=== PATIENT | female | born 1935 | race Caucasian/White ===

== ENCOUNTER 2016-04-25 18:01 | Inpatient (IN) | payer MEDICARE, MEDICAID ==
[~2016-04-25] VITALS: Ht 144.8 cm; Wt 34.8 kg
[2016-04-25] MEDS ORDERED: ACET325S GTB (19:20)
[2016-04-25] MEDS ORDERED: ALBU2.5V3 NEB (19:21)
[2016-04-25] MEDS ORDERED: LACTINEXG GTB (19:21)
[2016-04-25] MEDS ORDERED: HYDR-906 GTB (19:22)
[2016-04-25] MEDS ORDERED: MAG355OR14 GTB (19:23)
[2016-04-25] MEDS ORDERED: MAGN400O4 GTB (19:24)
[2016-04-25] MEDS ORDERED: NIT4 SL (19:26)
[2016-04-25] MEDS ORDERED: ONDA-43 GTB (19:26)
[2016-04-25] MEDS ORDERED: FOLI1CAP GTB (19:27)
[2016-04-25] MEDS ORDERED: HYDR-3671 GTB (19:29)
[2016-04-25 19:36] LABS: HEMOGLOBIN 12.6 g/dl (12.0-16.0); MEAN CORPUSCULAR HGB CONC 31.5 g/dl (32.0-37.0); MEAN CORPUSCULAR VOLUME 85.7 fl (82.0-101.0); MEAN PLATELET VOLUME 8.2 fl (7.4-10.4); PLATELET COUNT 296 10^3/UL (140-440); RED BLOOD COUNT 4.67 10^6/ul (4.20-5.40); RED CELL DISTRIBUTION WIDTH 19.2 % (11.5-14.5); UNCORRECTED WBC 11.6 10^3/ul (4.8-10.8); WHITE BLOOD COUNT 11.6 10^3/ul (4.8-10.8)
[2016-04-25 19:41] LABS: CONDITION 1; LH ANALYZER COMMENTS 1; SUSPECT 1
[2016-04-25 19:45] LABS: INR 1.1; PROTIME 14.2 Sec (12.2-14.2); PT RATIO 1.1
[2016-04-25 19:48] LABS: POTASSIUM 4.1 mmol/L (3.5-5.1)
[2016-04-25 19:50] LABS: CREATININE 2.37 mg/dl (0.44-1.00)
[2016-04-25 19:51] LABS: CALCIUM 10.3 mg/dl (8.4-10.2)
--- NOTE | 2016-04-25 19:57 | RADRPT ---
PROCEDURE: XR Chest. CLINICAL INDICATION: Patient experiencing Chest Pain. TECHNIQUE: Single frontal chest x-ray. COMPARISON: None. FINDINGS: The heart is not enlarged. Calcification in the aortic arch. ECG leads are projected over the ches t.There is minimal prominence of the lung interstitium likely minimal chronic changes. Healing/ heal ed rib fractures are seen bilaterally. No focal lung consolidation is seen. Degenerative changes a t right acromioclavicular joint and shoulder and in the thoracic spine. IMPRESSION: No acute abnormality seen as noted above. Please see above. RPTAT: HJES .Joel Beckett MD, Date Time Electronically viewed and signed by .Joel Beckett MD, on 04/25/2016 19:57 .S/
[2016-04-25] MEDS ORDERED: ONDANSETRON 4 MG INJ IV PRN (21:00)
[2016-04-25] MEDS ORDERED: ACETAMINOPHEN 325 MG TAB PO PRN (21:00)
--- NOTE | 2016-04-25 21:04 | ERA ---
ER Documentation Chief Complaint Date/Time DATE: 04/25/16 TIME: 20:59 Chief Complaint pulled out dialysis cath left chest wall; no bleeding at this time. HPI This is an 80-year-old female who presents to the emergency room after being brought in by ambulance for evaluation of dialysis catheter removal. This patient does have a history of end-stage renal disease and is on dialysis Friday , Friday, Friday. She did complete her dialysis today, and became agitated in her intermediate and pulled out her catheter. The catheter was in the left anterior chest wall. The history is not obtainable from this patient due to the fact that she is extremely agitated and does suffer from dementia ROS All systems reviewed and are negative except as per history of present illness. Medications Home Meds Reported Medications Hydralazine Hcl* (Hydralazine Hcl*) 25 Mg Tab, 25 MG GTB Q8 Y for ELEVATED BLOOD PRESSURE, #90 TAB HOLD <110 HR<60 04/25/16 Folic Acid/Vitamin B Comp W-C (Nephrocaps Capsule) 1 Mg Capsule, 1 MG GTB DAILY , CAP 04/25/16 Nitroglycerin* (Nitrostat*) 0.4 Mg Tab.subl, 0.4 MG SL Q5MIN Y for CHEST PAIN, BOTTLE 04/25/16 Ondansetron Hcl* (Zofran*) 4 Mg Tab, 4 MG GTB Q6H Y for NAUSEA AND OR VOMITING, TAB 04/25/16 Magnesium Hydroxide* (Milk Of Magnesia*) 400 Mg/5 Ml Oral.susp, 30 ML GTB DAILY Y for CONSTIPATION, ML 04/25/16 Mag Hydrox/Al Hydrox/Simeth (Maalox Advanced Suspension) 355 Ml Oral.susp, 30 ML GTB Q6 04/25/16 Hydrocodone/Acetaminophen ([place] 5-325 Tablet) 1 Each Tablet, 1 EACH GTB Q4H WHILE AWAKE Y for MODERATE PAIN LEVEL 4-6, TAB 04/25/16 Albuterol Sulfate* (Albuterol Sulfate* Neb) 0.083%-3 Ml Neb, 2.5 MG NEB Q6 Y for WHEEZING AND SOB, #30 VIAL 04/25/16 Acidophilus-Bulgaricus* (BD Lactinex*) 1 Pkt Packet, 1 PKT GTB BID, PACKET 04/25/16 Acetaminophen* (Acetaminophen* Susp) 325 Mg/10.15 Ml Solution, 650 MG GTB Q6 Y for PAIN OR TEMP ABOVE 38C, ML 04/25/16 Allergies Allergies: Coded Allergies: codeine (Verified Allergy, Unknown, 04/25/16) iodine (Verified Allergy, Unknown, 04/25/16) PMhx/Soc Medical and Surgical Hx: Unable to obtain Hx Alcohol Use: No Hx Substance Use: No Hx Tobacco Use: No Smoking Status: Unknown if ever smoked Physical Exam Vitals Vital Signs Date Time Temp Pulse Resp B/P Pulse Ox O2 Delivery O2 Flow Rate FiO2 04/25/16 18:38 98.6 112 20 118/65 100 Physical Exam INITIAL VITAL SIGNS: Reviewed by me GENERAL: The patient is well developed and appropriate for usual state of health in no apparent distress HEENT: Pupils equal, round, and reactive to light. EOMI. There is no scleral icterus. NECK: C-spine is soft and supple, there is no meningismus. There is no cervical lymphadenopathy. LUNGS: Clear to auscultation bilaterally. There are no rales, wheezes or rhonchi. HEART: Regular rate and rhythm, no murmurs, clicks, rubs or gallops. ABDOMEN: Soft, non-tender, non-distended. There are bowel sounds in all four quadrants. No rebound or guarding. EXTREMITIES: There is no peripheral cyanosis or edema. No focal swelling or erythema. NEUROLOGICAL: The patient moves all four extremities with 5/5 strength. Cranial nerves II - XII are intact. Normal gait. Alert and oriented SKIN: Left anterior chest wall stitching were Port-A-Cath was placed, no active bleeding at this time. There is no apparent rash or petechiae. HEME/LYMPHATIC: There is no evidence of excessive bruising or lymphedema. PSYCHIATRIC: The patient has an agitated affect Result Diagram: 04/25/16192004/25/161920 Results 24 hrs Laboratory Tests Test 04/25/16 19:21 Activated Partial Thromboplast Time 70.0Sec Anion Gap 20 Blood Morphology Comment Blood Urea Nitrogen 31mg/dl Calcium Level 10.3mg/dl Carbon Dioxide Level 34mmol/L Chloride Level 95mmol/L Creatinine 2.37mg/dl Glucose Level 91mg/dl Hematocrit 40.0% Hemoglobin 12.6g/dl INR International Normalized Ratio 1.10 Mean Corpuscular Hemoglobin 27.0pg Mean Corpuscular Hemoglobin Concent 31.5g/dl Mean Corpuscular Volume 85.7fl Mean Platelet Volume 8.2fl Nucleated Red Blood Cells # 10^3/ul Nucleated Red Blood Cells % /100WBC Platelet Count 53161^3/UL Potassium Level 4.1mmol/L Prothrombin Time 14.2Sec Prothrombin Time Ratio 1.1 Red Blood Count 4.6710^6/ul Red Cell Distribution Width 19.2% Sodium Level 145mmol/L White Blood Count 11.610^3/ul Procedures/MDM Chest X-ray 1V Interpreted by me: Soft Tissue: No acute abnormalities Bones: No acute abnormalities Mediastinum/Cardiac Silhouette/Lungs: [No acute abnormalities] EKG: Rate/Rhythm: Sinus tachycardia QRS, ST, T-waves: [No changes consistent w/ acute ischemia] Impression: [No evidence of ischemia or arrhythmia] This 80-year-old female presents to the emergency room for evaluation of Port-A- Cath removal. This patient was agitated and pulled her Port-A-Cath out. She does have a history of doing this in the past according to EMS. This patient did complete dialysis today, potassium is within normal limits, chest x-ray does not show any pulmonary edema. This patient was agitated when she got here she had to be restrained, she was given Ativan and will be placed in for admission at this time for Port-A-Cath placement by interventional radiology. She is stable for MedSurg at this time. I have spoken to her panel physician, Dr. Harvey who is in agreement with the plan of care plan of care Departure Diagnosis: Primary Impression: Complication of vascular access for dialysis Additional Impression: Other complication of vascular dialysis catheter, initial encounter Condition: Stable AIDANZBIGNIEW LOPEZ Apr 25, 2016 21:04
[2016-04-25 21:28] LABS: EOSINOPHILS # 0.3 10^3/ul (0.0-0.5); LYMPHOCYTES # 2.8 10^3/ul (0.8-2.9); MONOCYTE # 0.9 10^3/ul (0.3-0.9)
[2016-04-25] MEDS ORDERED: HYDROCODONE/APAP (5/325) TAB GTB PRN (22:00)
[2016-04-25] MEDS ORDERED: NACL 0.9% 3 ML SYG IV SCH (22:00)
[2016-04-25] MEDS ORDERED: MAGNESIUM HYDROXIDE 30ML CUP GTB PRN (22:00)
[2016-04-25] MEDS ORDERED: ALBUTEROL 0.083% (NEB) 2.5 MG/3 ML AMP NEB PRN (22:00)
[2016-04-25] MEDS ORDERED: DOCUSATE SODIUM 10 MG/ML (10ML CUP) GTB PRN (22:00)
[2016-04-25] MEDS ORDERED: morphine 2 MG INJ IV PRN (22:00)
--- NOTE | 2016-04-25 22:45 | HP ---
DATE OF ADMISSION: 04/25/2016 CHIEF COMPLAINT: Permacath removal. HISTORY OF PRESENT ILLNESS: The patient is an 80-year-old female with history of end-stage renal di will, who gets dialysis Mondays, Wednesdays, Fridays. The patient also has a history of dementia. The patient resides in a [facility], which reportedly pulled out her dialysis catheter. The cath eter was in the left anterior chest wall. History is not obtainable from this patient due to the fa ct that she is demented. PAST MEDICAL HISTORY: End-stage renal disease, on dialysis Mondays, Wednesdays, Fridays. HOME MEDICATIONS: 1. Hydralazine. 2. Folic acid. 3. Nitroglycerin. 4. Zofran. 5. Milk of magnesia. 6. Maalox. 7. [place]. 8. Albuterol. 9. Probiotic. 10. Tylenol. ALLERGIES: CODEINE. FAMILY HISTORY: Unknown. SOCIAL HISTORY: Unknown. REVIEW OF SYSTEMS: A 12-point review of systems is unable to be obtained secondary to poor mentatio n. PHYSICAL EXAMINATION: VITAL SIGNS: Temperature is 98.6, pulse is 112, respiratory rate 20, blood pressure 118/65, s aturation 100%. GENERAL: In no acute distress, alert, but not oriented. HEENT: Normocephalic, atraumatic. LUNGS: Clear to auscultation. CARDIOVASCULAR: Regular rate and rhythm. ABDOMEN: Nondistended, nontender, soft. EXTREMITIES: No clubbing, cyanosis, or edema. LABORATORIES: White count is 11.6, hemoglobin is 12.6, platelets 298,000. Chemistry: Sodium is 14 5, chloride of 95, anion gap is 20, BUN is 31, creatinine is 2.27, calcium is 7.3. INR is 1.10. DIAGNOSTICS: Chest x-ray shows no acute abnormalities seen. ASSESSMENT AND PLAN: 1. End-stage renal disease. The patient has removed her dialysis access line. The patient had a c atheter in her left anterior chest wall. We obtained an IR consultation for access placement. We w ill get Nephrology on board as well for hemodialysis. 2. Dementia. No acute issues. 3. Leukocytosis, likely reactive. Will monitor. 4. Prophylaxis: Heparin. Dictated By: MISBAH THORNTON MD BS/NTS Conf#: [id number] [facility]#: [id number]
[2016-04-26] VITALS (7 sets, daily range): BP systolic 106–151; BP diastolic 55–84; PULSE 82–109; RESP 18–20; Ht 144.8 cm; Wt 34.8 kg
[2016-04-26] MEDS: AL HYDROX/MG HYDROX/SIMETH 30 ML CUP GTB SCH ×5 (06:00→23:51)
[2016-04-26] MEDS: VITAMIN B COMPLEX/VIT C CAP PO SCH (09:00)
[2016-04-26] MEDS: LACTOBACILLUS CHEW TAB GTB SCH ×2 (09:00→20:22)
[2016-04-26] MEDS: FOLIC ACID 1 MG TAB PO SCH (09:00)
[2016-04-26] MEDS ORDERED: LACTOBACILLUS RHAMNOSUS CAP PO SCH (09:00)
[2016-04-26] MEDS: DEXTROSE 5%-0.45% NACL 1,000 ML IV SCH (09:53)
[2016-04-26 14:44] LABS: HEMATOCRIT 36.5 % (37.0-47.0); HEMOGLOBIN 12.1 g/dl (12.0-16.0); MEAN CORPUSCULAR HEMOGLOBIN 28.2 pg (29.0-33.0); MEAN CORPUSCULAR VOLUME 85.3 fl (82.0-101.0); MEAN PLATELET VOLUME 8.8 fl (7.4-10.4); PLATELET COUNT 390 10^3/UL (140-440); RED BLOOD COUNT 4.28 10^6/ul (4.20-5.40); RED CELL DISTRIBUTION WIDTH 18.9 % (11.5-14.5); WHITE BLOOD COUNT 10.6 10^3/ul (4.8-10.8)
[2016-04-26 14:53] LABS: CONDITION 1; LH ANALYZER COMMENTS 1; SUSPECT 1; UNCORRECTED WBC 12.1 10^3/ul (4.8-10.8)
[2016-04-26 15:38] LABS: POTASSIUM 4.6 mmol/L (3.5-5.1)
[2016-04-26 15:39] LABS: EOSINOPHILS # 0.4 10^3/ul (0.0-0.5); LYMPHOCYTES # 2.3 10^3/ul (0.8-2.9); MONOCYTE # 1.5 10^3/ul (0.3-0.9)
[2016-04-26 15:40] LABS: MICROCYTOSIS 1+; POLYCHROMASIA FEW
[2016-04-26 15:41] LABS: CREATININE 3.77 mg/dl (0.44-1.00)
[2016-04-26 15:42] LABS: CALCIUM 9.9 mg/dl (8.4-10.2); MAGNESIUM 2.6 mg/dl (1.7-2.5)
--- NOTE | 2016-04-26 23:55 | PN ---
Date/Time of Note Date/Time of Note DATE: 04/26/16 TIME: 23:51 Assessment/Plan VTE Prophylaxis VTE Prophylaxis Intervention: LMWH Lines/Catheters IV Catheter Type (from Nrs): Peripheral IV Assessment/Plan Assessment/Plan 1. End-stage renal disease. - The patient has removed her dialysis access line. The patient had a catheter in her left anterior chest wall. - Radiology decided not to place a new access fearing that she will pull it out again given her dementia - will place a nephrology consult 2. Dementia. 3. Leukocytosis: resolved 4. Sacral Pressure Ulcer - wound care consult Prophylaxis: Heparin. Subjective 24 Hr Interval Summary Free Text/Dictation on restraints Exam/Review of Systems Vital Signs Vitals Vital Signs Date Time Temp Pulse Resp B/P Pulse Ox O2 Delivery O2 Flow Rate FiO2 04/26/16 20:08 97.9 109 18 151/72 99 04/26/16 06:00 Room Air Exam Constitutional: alert, other (on restraints. not oriented) Head: atraumatic, normocephalic Respiratory: clear to auscultation, normal air movement, other (tachycardic with regular rhythm) Gastrointestinal: non-tender, soft Extremities: normal pulses Results Result Diagram: 04/26/16 1330 04/26/16 1330 Results 24 hrs Laboratory Tests Test 04/26/16 13:30 Anion Gap 23 H Band Neutrophils % 3.0 Basophils # Basophils % Blood Morphology Comment Blood Urea Nitrogen 52 H Calcium Level 9.9 Carbon Dioxide Level 29 Chloride Level 98 Creatinine 3.77 #H Eosinophils # 0.4 Eosinophils % 4.0 Glucose Level 84 Hematocrit 36.5 L Hemoglobin 12.1 Lymphocytes # 2.3 Lymphocytes % 22.0 Macrocytosis 1+ Magnesium Level 2.6 H Mean Corpuscular Hemoglobin 28.2 L Mean Corpuscular Hemoglobin Concent 33.0 Mean Corpuscular Volume 85.3 Mean Platelet Volume 8.8 Microcytosis 1+ Monocytes # 1.5 H Monocytes % 14.0 H Neutrophils # 6.0 Neutrophils % 57.0 Nucleated Red Blood Cells # Nucleated Red Blood Cells % 2.0 H Platelet Count 390 # Polychromasia FEW Potassium Level 4.6 Red Blood Count 4.28 Red Cell Distribution Width 18.9 H Sodium Level 145 H White Blood Count 10.6 Medications Medications Current Medications Dextrose/Sodium Chloride (D5-1/2ns) 1,000 ml @ 20 mls/hr Q24H IV Last administered on 04/26/16 09:53; Admin Dose 20 MLS/HR; Start 04/25/16 at 21:46 Ondansetron HCl (Zofran Inj) 4 mg Q6H PRN IV NAUSEA AND/OR VOMITING; Start 04/25 at 22:00 Acetaminophen (Tylenol Tab) 650 mg Q6H PRN PO PAIN LEVEL 1-3 OR FEVER; Start at 22:00 Acetaminophen/ Hydrocodone Bitart ([place] (5/325)) 1 tab Q6H PRN GTB MODERATE PAIN LEVEL 4-6; Start 04/25/16 at 22:00 Morphine Sulfate (morphine) 2 mg Q4H PRN IV SEVERE PAIN LEVEL 7-10; Start at 22:00 Docusate Sodium (Colace Liquid Cup) 100 mg Q12H PRN GTB CONSTIPATION; Start 04/25/16 at 22:00 Hydralazine HCl (Apresoline) 25 mg Q8 PRN GTB ELEVATED BLOOD PRESSURE; Start at 22:00 Al Hydrox/Mg Hydrox/Simethicone (Mag-Al Plus) 30 ml Q6 GTB Last administered on 04/26/16 17:20; Admin Dose 30 ML; Start 04/26/16 at 00:00 Magnesium Hydroxide (Milk Of Mag) 30 ml DAILY PRN GTB CONSTIPATION; Start at 22:00 Lactobacillus Acidoph/Bulgaricus (Floranex) 1 tab BID GTB Last administered on 04/26/16 20:22; Admin Dose 1 TAB; Start 04/26/16 at 09:00 Folic Acid (Folic Acid) 1 mg DAILY PO ; Start 04/26/16 at 09:00 Diphenhydramine HCl (Benadryl) 25 mg Q6H PRN IM Itching; Start 04/26/16 at 02:15 Vitamin B Complex/ Vitamin C (Berocca) 1 cap DAILY PO ; Start 04/26/16 at 09:00 ADE VILLALOBOS MD Apr 26, 2016 23:55
[2016-04-27] VITALS (11 sets, daily range): BP systolic 112–156; BP diastolic 64–92; PULSE 78–98; RESP 18–20
[2016-04-27] MEDS: AL HYDROX/MG HYDROX/SIMETH 30 ML CUP GTB SCH ×3 (05:48→18:05)
[2016-04-27 07:04] LABS: BASOPHILS % 0.3 % (0.0-2.0); EOSINOPHILS # 0.4 10^3/ul (0.0-0.5); EOSINOPHILS % 4.1 % (0.0-7.0); HEMATOCRIT 36.1 % (37.0-47.0); HEMOGLOBIN 11.7 g/dl (12.0-16.0); LYMPHOCYTES # 1.7 10^3/ul (0.8-2.9); LYMPHOCYTES % 15.9 % (15.0-51.0); MEAN CORPUSCULAR HGB CONC 32.4 g/dl (32.0-37.0); MEAN CORPUSCULAR VOLUME 86.4 fl (82.0-101.0); MEAN PLATELET VOLUME 8.4 fl (7.4-10.4); MONOCYTE # 1.4 10^3/ul (0.3-0.9); MONOCYTES % 12.7 % (0.0-11.0); NEUTROPHIL # 7.2 10^3/ul (1.6-7.5); PLATELET COUNT 340 10^3/UL (140-440); RED BLOOD COUNT 4.18 10^6/ul (4.20-5.40); UNCORRECTED WBC 10.8 10^3/ul (4.8-10.8); WHITE BLOOD COUNT 10.8 10^3/ul (4.8-10.8)
[2016-04-27 07:07] LABS: CONDITION 1; CREATININE 4.11 mg/dl (0.44-1.00); LH ANALYZER COMMENTS 1
[2016-04-27 07:08] LABS: BILIRUBIN,INDIRECT 0.1 mg/dl (0-1.1); BILIRUBIN,TOTAL 0.1 mg/dl (0.2-1.3); TOTAL PROTEIN 9.3 g/dl (6.1-8.1)
[2016-04-27 07:30] LABS: ALBUMIN 4.2 g/dl (3.3-4.9); ALBUMIN/GLOBULIN RATIO 0.82
[2016-04-27] MEDS: VITAMIN B COMPLEX/VIT C CAP PO SCH (09:00)
[2016-04-27] MEDS: LACTOBACILLUS CHEW TAB GTB SCH ×2 (09:00→21:11)
[2016-04-27] MEDS: FOLIC ACID 1 MG TAB PO SCH (09:00)
[2016-04-27] MEDS: DEXTROSE 5%-0.45% NACL 1,000 ML IV SCH (11:25)
--- NOTE | 2016-04-27 23:59 | PN ---
Date/Time of Note Date/Time of Note DATE: 04/27/16 TIME: 23:58 Assessment/Plan VTE Prophylaxis VTE Prophylaxis Intervention: SCD's Lines/Catheters IV Catheter Type (from Nrsg): Peripheral IV Assessment/Plan Assessment/Plan 1. End-stage renal disease. - The patient has removed her dialysis access line. The patient had a catheter in her left anterior chest wall. - Radiology decided not to place a new access fearing that she will pull it out again given her dementia - f/u nephrology recs 2. Dementia. 3. Leukocytosis: resolved 4. Sacral Pressure Ulcer - wound care consult Prophylaxis: Heparin. Subjective 24 Hr Interval Summary Free Text/Dictation sleepy Exam/Review of Systems Vital Signs Vitals Vital Signs Date Time Temp Pulse Resp B/P Pulse Ox O2 Delivery O2 Flow Rate FiO2 04/27/16 20:14 97.5 19 156/68 99 04/27/16 17:37 79 04/27/16 10:00 Room Air Intake and Output 04/26/16 04/26/16 04/27/16 15:00 23:00 07:00 Intake Total 160 ml 240 ml Balance 160 ml 240 ml Exam Constitutional: alert, other (on restraints. not oriented) Head: atraumatic, normocephalic Respiratory: clear to auscultation, normal air movement, other (tachycardic with regular rhythm) Gastrointestinal: non-tender, soft Extremities: normal pulses Results Result Diagram: 04/27/16 0607 04/27/16 0607 Results 24 hrs Laboratory Tests Test 04/27/16 06:07 Alanine Aminotransferase (ALT/SGPT) 37 Albumin 4.2 Albumin/Globulin Ratio 0.82 Alkaline Phosphatase 142 H Anion Gap 26 H Aspartate Amino Transf (AST/SGOT) 41 Basophils # 0.0 Basophils % 0.3 Blood Morphology Comment Blood Urea Nitrogen 73 H Calcium Level 10.0 Carbon Dioxide Level 28 Chloride Level 98 Creatinine 4.11 H Direct Bilirubin 0.00 Eosinophils # 0.4 Eosinophils % 4.1 Globulin 5.10 H Glucose Level 113 Hematocrit 36.1 L Hemoglobin 11.7 L Indirect Bilirubin 0.1 Lymphocytes # 1.7 Lymphocytes % 15.9 Mean Corpuscular Hemoglobin 28.0 L Mean Corpuscular Hemoglobin Concent 32.4 Mean Corpuscular Volume 86.4 Mean Platelet Volume 8.4 Monocytes # 1.4 H Monocytes % 12.7 H Neutrophils # 7.2 Neutrophils % 67.0 Nucleated Red Blood Cells # 0.0 Nucleated Red Blood Cells % 0.0 Platelet Count 340 Potassium Level 5.0 Red Blood Count 4.18 L Red Cell Distribution Width 19.0 H Sodium Level 147 H Total Bilirubin 0.1 L Total Protein 9.3 H White Blood Count 10.8 Medications Medications Current Medications Dextrose/Sodium Chloride (D5-1/2ns) 1,000 ml @ 20 mls/hr Q24H IV Last administered on 04/27/16 11:25; Admin Dose 20 MLS/HR; Start 04/25/16 at 21:46 Ondansetron HCl (Zofran Inj) 4 mg Q6H PRN IV NAUSEA AND/OR VOMITING; Start 04/25 at 22:00 Acetaminophen (Tylenol Tab) 650 mg Q6H PRN PO PAIN LEVEL 1-3 OR FEVER; Start at 22:00 Acetaminophen/ Hydrocodone Bitart ([place] (5/325)) 1 tab Q6H PRN GTB MODERATE PAIN LEVEL 4-6; Start 04/25/16 at 22:00 Morphine Sulfate (morphine) 2 mg Q4H PRN IV SEVERE PAIN LEVEL 7-10; Start at 22:00 Docusate Sodium (Colace Liquid Cup) 100 mg Q12H PRN GTB CONSTIPATION; Start 04/25/16 at 22:00 Hydralazine HCl (Apresoline) 25 mg Q8 PRN GTB ELEVATED BLOOD PRESSURE Last administered on 04/27/16 06:42; Admin Dose 25 MG; Start 04/25/16 at 22:00 Al Hydrox/Mg Hydrox/Simethicone (Mag-Al Plus) 30 ml Q6 GTB Last administered on 04/27/16 18:05; Admin Dose 30 ML; Start 04/26/16 at 00:00 Magnesium Hydroxide (Milk Of Mag) 30 ml DAILY PRN GTB CONSTIPATION; Start at 22:00 Lactobacillus Acidoph/Bulgaricus (Floranex) 1 tab BID GTB Last administered on 04/27/16 21:11; Admin Dose 1 TAB; Start 04/26/16 at 09:00 Folic Acid (Folic Acid) 1 mg DAILY PO ; Start 04/26/16 at 09:00 Diphenhydramine HCl (Benadryl) 25 mg Q6H PRN IM Itching; Start 04/26/16 at 02:15 Vitamin B Complex/ Vitamin C (Berocca) 1 cap DAILY PO ; Start 04/26/16 at 09:00 ADE VILLALOBOS MD Apr 27, 2016 23:58
[2016-04-28] VITALS (12 sets, daily range): BP systolic 120–160; BP diastolic 58–110; PULSE 86–119; RESP 16–22
[2016-04-28] MEDS: AL HYDROX/MG HYDROX/SIMETH 30 ML CUP GTB SCH ×5 (00:32→23:50)
[2016-04-28] MEDS: FOLIC ACID 1 MG TAB PO SCH (08:19)
[2016-04-28] MEDS: LACTOBACILLUS CHEW TAB GTB SCH ×2 (08:19→21:01)
[2016-04-28] MEDS: VITAMIN B COMPLEX/VIT C CAP PO SCH (08:19)
--- NOTE | 2016-04-28 11:31 | CONS ---
Date/Time of Note Date/Time of Note DATE: 04/28/16 TIME: 11:26 Consult Date/Type/Reason Admit Date/Time Apr 27, 2016 at 16:35 Initial Consult Date Subjective pt alert, noted with confusion, agitation,verbally responsive,on soft restraints , POC reviewed with dr. mayes. Exam Constitutional: alert, other (on restraints. not oriented) Head: atraumatic, normocephalic Respiratory: clear to auscultation, normal air movement, other (tachycardic with regular rhythm) Gastrointestinal: non-tender, soft Extremities: normal pulses Objective Vital Signs Date Time Temp Pulse Resp B/P Pulse Ox O2 Delivery O2 Flow Rate FiO2 04/28/16 10:00 98.3 86 16 156/66 96 Room Air Intake and Output 04/27/16 04/27/16 04/28/16 15:00 23:00 07:00 Intake Total 60 ml 570 ml 1461 ml Balance 60 ml 570 ml 1461 ml Results/Medications Result Diagram: 04/27/16 0607 04/27/16 0607 Results 24 hrs Laboratory Tests Test 04/28/16 08:00 Activated Partial Thromboplast Time 30.9 Medications Current Medications Dextrose/Sodium Chloride (D5-1/2ns) 1,000 ml @ 20 mls/hr Q24H IV Last administered on 04/27/16t 11:25; Admin Dose 20 MLS/HR; Start 04/25/16 at 21:46 Ondansetron HCl (Zofran Inj) 4 mg Q6H PRN IV NAUSEA AND/OR VOMITING; Start 04/25 at 22:00 Acetaminophen (Tylenol Tab) 650 mg Q6H PRN PO PAIN LEVEL 1-3 OR FEVER; Start at 22:00 Acetaminophen/ Hydrocodone Bitart ([place] (5/325)) 1 tab Q6H PRN GTB MODERATE PAIN LEVEL 4-6; Start 04/25/16 at 22:00 Morphine Sulfate (morphine) 2 mg Q4H PRN IV SEVERE PAIN LEVEL 7-10; Start at 22:00 Docusate Sodium (Colace Liquid Cup) 100 mg Q12H PRN GTB CONSTIPATION; Start 04/25/16 at 22:00 Hydralazine HCl (Apresoline) 25 mg Q8 PRN GTB ELEVATED BLOOD PRESSURE Last administered on 04/27/16 06:42; Admin Dose 25 MG; Start 04/25/16 at 22:00 Al Hydrox/Mg Hydrox/Simethicone (Mag-Al Plus) 30 ml Q6 GTB Last administered on 04/28/16 05:23; Admin Dose 30 ML; Start 04/26/16 at 00:00 Magnesium Hydroxide (Milk Of Mag) 30 ml DAILY PRN GTB CONSTIPATION; Start at 22:00 Lactobacillus Acidoph/Bulgaricus (Floranex) 1 tab BID GTB Last administered on 04/28/16 08:19; Admin Dose 1 TAB; Start 04/26/16 at 09:00 Folic Acid (Folic Acid) 1 mg DAILY PO Last administered on 04/28/16 08:19; Admin Dose 1 MG; Start 04/26/16 at 09:00 Diphenhydramine HCl (Benadryl) 25 mg Q6H PRN IM Itching; Start 04/26/16 at 02:15 Vitamin B Complex/ Vitamin C (Berocca) 1 cap DAILY PO Last administered on 08:19; Admin Dose 1 CAP; Start 04/26/16 at 09:00 Assessment/Plan Chief Complaint/Hosp Course 1. End-stage renal disease. - The patient has removed her dialysis access line. The patient had a catheter in her left anterior chest wall. - Radiology decided not to place a new access fearing that she will pull it out again given her dementia - patient has borderline renal function but no absolute indication for emergent dialysis. will try to see if family knows g&v. will likely have an indication for chronic and acute dialysis in the future. If family doesn't believe hospice is a possibility or if they believe dialysis is reasonable, would contact [facility] [place] [facility] [place] permc[place] if IR unwilling. 2. Dementia. 3. Leukocytosis: resolved 4. Sacral Pressure Ulcer - wound care consult Problems: LOC ROBBINS MD Apr 28, 2016 11:30
[2016-04-28 15:09] LABS: BASOPHILS % 0.2 % (0.0-2.0); EOSINOPHILS # 0.3 10^3/ul (0.0-0.5); EOSINOPHILS % 2.2 % (0.0-7.0); HEMATOCRIT 32.8 % (37.0-47.0); HEMOGLOBIN 10.4 g/dl (12.0-16.0); LYMPHOCYTES # 1.1 10^3/ul (0.8-2.9); LYMPHOCYTES % 9.7 % (15.0-51.0); MEAN CORPUSCULAR HEMOGLOBIN 27.6 pg (29.0-33.0); MEAN CORPUSCULAR HGB CONC 31.7 g/dl (32.0-37.0); MEAN CORPUSCULAR VOLUME 86.8 fl (82.0-101.0); MEAN PLATELET VOLUME 8.1 fl (7.4-10.4); MONOCYTE # 0.5 10^3/ul (0.3-0.9); MONOCYTES % 4.2 % (0.0-11.0); NEUTROPHIL # 9.9 10^3/ul (1.6-7.5); NEUTROPHILS % 83.7 % (39.0-77.0); PLATELET COUNT 353 10^3/UL (140-440); RED BLOOD COUNT 3.77 10^6/ul (4.20-5.40); RED CELL DISTRIBUTION WIDTH 20.4 % (11.5-14.5); UNCORRECTED WBC 11.9 10^3/ul (4.8-10.8); WHITE BLOOD COUNT 11.9 10^3/ul (4.8-10.8)
[2016-04-28 15:12] LABS: CONDITION 1; LH ANALYZER COMMENTS 1
[2016-04-28 15:23] LABS: ALBUMIN 3.9 g/dl (3.3-4.9)
[2016-04-28 15:25] LABS: CREATININE 5.09 mg/dl (0.44-1.00); POTASSIUM 5.8 mmol/L (3.5-5.1)
[2016-04-28 15:26] LABS: ALBUMIN/GLOBULIN RATIO 0.79; BILIRUBIN,INDIRECT 0.1 mg/dl (0-1.1); BILIRUBIN,TOTAL 0.1 mg/dl (0.2-1.3); TOTAL PROTEIN 8.8 g/dl (6.1-8.1)
--- NOTE | 2016-04-28 15:58 | PN ---
Date/Time of Note Date/Time of Note DATE: 04/28/16 TIME: 15:57 Assessment/Plan VTE Prophylaxis VTE Prophylaxis Intervention: heparin Lines/Catheters IV Catheter Type (from Nrsg): Peripheral IV Assessment/Plan Assessment/Plan 1. End-stage renal disease. - The patient has removed her dialysis access line. The patient had a catheter in her left anterior chest wall. - Radiology decided not to place a new access fearing that she will pull it out again given her dementia - f/u nephrology recs - needs permacath - worsening BUN/Cr - defer to nephro if agreeable 2. Dementia - re-orient as needed - monitor changes 3. Leukocytosis: resolved 4. Sacral Pressure Ulcer - wound care consult 5. Dysphagia - continue with PEG tube feeds 6. Hyperkalemia - kayexlate given Prophylaxis: Heparin. dispo- f/u recs, monitor for acute changes, as per clinical course. this progress note took greater than 30 minutes to complete Subjective 24 Hr Interval Summary Free Text/Dictation Patient had no overnight events. Spoke to the nurse about the care plan. 15 minutes spent. Exam/Review of Systems Vital Signs Vitals Vital Signs Date Time Temp Pulse Resp B/P Pulse Ox O2 Delivery O2 Flow Rate FiO2 04/28/16 14:00 97.8 100 18 153/74 98 Room Air Intake and Output 04/27/16 04/27/16 04/28/16 15:00 23:00 07:00 Intake Total 60 ml 570 ml 1461 ml Balance 60 ml 570 ml 1461 ml Exam Gen Ernst: NAD, Alert to self HEENT: NC/AT, PERRLA, EOMI, no pharyngeal erythema, no tonsillar exudates, no lymphadenopathy, no JVD, no carotid bruits, MM dry, cracked lips NECK: supple, no thyromegaly THORAX: symmetrical, no obvious deformities CV: S1S2, RRR, no M/G/R Lungs: CTAB no W/C/R/R Abd: soft, NT/ND, +BS, no rebound, no guarding, neg HSM, G tube c/d/i EXT: no edema, no ecchymosis, no clubbing, FROM Neuro: difficult to assess 2/2 to mentation Psych: withdrawn Skin: C/D/I Results Result Diagram: 04/28/16 1459 04/28/16 1459 Results 24 hrs Laboratory Tests Test 04/28/16 08:00 04/28/16 14:59 Activated Partial Thromboplast Time 30.9 Alanine Aminotransferase (ALT/SGPT) 29 Albumin 3.9 Albumin/Globulin Ratio 0.79 Alkaline Phosphatase 128 H Anion Gap 19 #H Aspartate Amino Transf (AST/SGOT) 26 Basophils # 0.0 Basophils % 0.2 Blood Morphology Comment Blood Urea Nitrogen 99 H Calcium Level 10.0 Carbon Dioxide Level 33 H Chloride Level 103 Creatinine 5.09 H Direct Bilirubin 0.00 Eosinophils # 0.3 Eosinophils % 2.2 Globulin 4.90 H Glucose Level 113 Hematocrit 32.8 L Hemoglobin 10.4 L Indirect Bilirubin 0.1 Lymphocytes # 1.1 Lymphocytes % 9.7 L Mean Corpuscular Hemoglobin 27.6 L Mean Corpuscular Hemoglobin Concent 31.7 L Mean Corpuscular Volume 86.8 Mean Platelet Volume 8.1 Monocytes # 0.5 Monocytes % 4.2 Neutrophils # 9.9 H Neutrophils % 83.7 H Nucleated Red Blood Cells # 0.0 Nucleated Red Blood Cells % 0.0 Platelet Count 353 Potassium Level 5.8 H Red Blood Count 3.77 L Red Cell Distribution Width 20.4 H Sodium Level 149 H Total Bilirubin 0.1 L Total Protein 8.8 H White Blood Count 11.9 H Medications Medications Current Medications Dextrose/Sodium Chloride (D5-1/2ns) 1,000 ml @ 20 mls/hr Q24H IV Last administered on 04/27/16t 11:25; Admin Dose 20 MLS/HR; Start 04/25/16 at 21:46 Ondansetron HCl (Zofran Inj) 4 mg Q6H PRN IV NAUSEA AND/OR VOMITING; Start 04/25 at 22:00 Acetaminophen (Tylenol Tab) 650 mg Q6H PRN PO PAIN LEVEL 1-3 OR FEVER; Start at 22:00 Acetaminophen/ Hydrocodone Bitart ([place] (5/325)) 1 tab Q6H PRN GTB MODERATE PAIN LEVEL 4-6; Start 04/25/16 at 22:00 Morphine Sulfate (morphine) 2 mg Q4H PRN IV SEVERE PAIN LEVEL 7-10; Start at 22:00 Docusate Sodium (Colace Liquid Cup) 100 mg Q12H PRN GTB CONSTIPATION; Start 04/25/16 at 22:00 Hydralazine HCl (Apresoline) 25 mg Q8 PRN GTB ELEVATED BLOOD PRESSURE Last administered on 04/27/16 06:42; Admin Dose 25 MG; Start 04/25/16 at 22:00 Al Hydrox/Mg Hydrox/Simethicone (Mag-Al Plus) 30 ml Q6 GTB Last administered on 04/28/16 11:39; Admin Dose 30 ML; Start 04/26/16 at 00:00 Magnesium Hydroxide (Milk Of Mag) 30 ml DAILY PRN GTB CONSTIPATION; Start at 22:00 Lactobacillus Acidoph/Bulgaricus (Floranex) 1 tab BID GTB Last administered on 04/28/16 08:19; Admin Dose 1 TAB; Start 04/26/16 at 09:00 Folic Acid (Folic Acid) 1 mg DAILY PO Last administered on 04/28/16 08:19; Admin Dose 1 MG; Start 04/26/16 at 09:00 Diphenhydramine HCl (Benadryl) 25 mg Q6H PRN IM Itching; Start 04/26/16 at 02:15 Vitamin B Complex/ Vitamin C (Berocca) 1 cap DAILY PO Last administered on 08:19; Admin Dose 1 CAP; Start 04/26/16 at 09:00 BG ANTONIO MD Apr 28, 2016 15:58
[2016-04-28] MEDS ORDERED: NA POLYST SULFON 15 GM/60 ML BTL GTB ONE (16:30)
[2016-04-28] MEDS: DEXTROSE 5%-0.45% NACL 1,000 ML IV SCH ×2 (16:42→21:46)
--- NOTE | 2016-04-28 18:12 | CONS ---
DATE OF ADMISSION: 04/27/2016 DATE OF CONSULTATION: TYPE OF CONSULTATION: Renal. HISTORY OF PRESENT ILLNESS: The patient is an 80-year-old female with a past medical history of norberto ntmeg presented from outpatient facility after a dislodged dialysis catheter, which she reportedly pu lled out. The patient is a poor historian secondary to dementia. The patient was brought into the [facility] and had been scheduled for a catheter placement by IR but in light of dementia, questioned wh ether she should be getting dialysis any more. The patient has been on dialysis for several years, u ncomplicated in the past. Unclear if she had ever pulled a catheter out before. PAST MEDICAL HISTORY: Significant for endstage renal disease, hypertension, dementia. MEDICATIONS: From home: 1. Hydralazine. 2. Folic acid. 3. Nitroglycerin p.r.n. 4. Zofran. 5. Milk of magnesia. 6. Maalox. 7. [place]. 8. Albuterol. 9. Probiotic. 10. Tylenol. ALLERGIES: CODEINE. SOCIAL HISTORY: She does not smoke, drink or use illicit drugs. FAMILY HISTORY: ____ kidney disease. REVIEW OF SYSTEMS: A 14-point review of systems attempted and negative other than those stated. PHYSICAL EXAMINATION: VITAL SIGNS: Temperature 97.9, blood pressure 156/68. HEENT: Head is normocephalic, atraumatic. Pupils equal, round, and reactive to light. Mucous membra vanessa moist. NECK: Supple. HEART: Regular rate and rhythm. CHEST: Clear. ABDOMEN: Soft, nontender. MUSCULOSKELETAL: No cyanosis or edema. LABORATORY STUDIES: White count 10.8, hemoglobin 12, hematocrit 36. Sodium 147, potassium 5.0, BUN 73, creatinine 4.11. UA is ____. IMAGING: Chest x-ray is reviewed by radiologist. IMPRESSION: 1. End stage renal disease on hemodialysis previously with dislodged dialysis catheter. Interventio nal radiology has raised the question whether this is indicated in light of her advanced cognitive i mpairment. As far as the ethics of this, I think we need to discuss with family if they are aware of prior goals and values. If the patient had been okay with proceeding with dialysis, I think we are obliged to comply. If the family and patient do not believe hospice is a possibility, then we shoul d proceed. If interventional radiology is unwilling to place Permacath, then we could consult vascu lar surgery to place it. As far as preventing future dislodging, if it has not been a repeated event , I probably would place it in the same place. If she does pull it out again, consider putting it in a place where it is hard to access or even an AV graft, which would again be subcutaneous and she w ill not have access to. 2. Dementia. Not on any medications, medications possibly to prevent further decline. 3. Leukocytosis on admission, resolved. 4. Sacral pressure ulcer, continue. 5. Hypertension. Continue same medicines. Dictated By: LOC ROBBINS MD DF/ESTEE Conf#: [id number] DID#: [id number]
[2016-04-29] VITALS (15 sets, daily range): BP systolic 142–175; BP diastolic 64–93; PULSE 100–120; RESP 17–21
[2016-04-29] MEDS: DIPHENHYDRAMINE 50 MG INJ IM PRN (02:17)
[2016-04-29] MEDS: AL HYDROX/MG HYDROX/SIMETH 30 ML CUP GTB SCH ×4 (05:51→23:19)
[2016-04-29 05:53] LABS: BASOPHILS % 0.1 % (0.0-2.0); EOSINOPHILS # 0.6 10^3/ul (0.0-0.5); EOSINOPHILS % 5.9 % (0.0-7.0); HEMATOCRIT 35.3 % (37.0-47.0); LYMPHOCYTES # 1.5 10^3/ul (0.8-2.9); LYMPHOCYTES % 13.8 % (15.0-51.0); MEAN CORPUSCULAR HEMOGLOBIN 27.5 pg (29.0-33.0); MEAN CORPUSCULAR HGB CONC 31.3 g/dl (32.0-37.0); MEAN CORPUSCULAR VOLUME 87.8 fl (82.0-101.0); MEAN PLATELET VOLUME 8.4 fl (7.4-10.4); NEUTROPHIL # 7.7 10^3/ul (1.6-7.5); NEUTROPHILS % 71.2 % (39.0-77.0); PLATELET COUNT 361 10^3/UL (140-440); RED BLOOD COUNT 4.02 10^6/ul (4.20-5.40); RED CELL DISTRIBUTION WIDTH 20.1 % (11.5-14.5); UNCORRECTED WBC 10.9 10^3/ul (4.8-10.8); WHITE BLOOD COUNT 10.9 10^3/ul (4.8-10.8)
[2016-04-29 05:59] LABS: CONDITION 1; LH ANALYZER COMMENTS 1
[2016-04-29 06:10] LABS: POTASSIUM 4.9 mmol/L (3.5-5.1)
[2016-04-29 06:12] LABS: CREATININE 5.15 mg/dl (0.44-1.00)
[2016-04-29 06:13] LABS: CALCIUM 9.8 mg/dl (8.4-10.2); MAGNESIUM 4.3 mg/dl (1.7-2.5)
[2016-04-29] MEDS: FOLIC ACID 1 MG TAB PO SCH (09:06)
[2016-04-29] MEDS: VITAMIN B COMPLEX/VIT C CAP PO SCH (09:06)
[2016-04-29] MEDS: LACTOBACILLUS CHEW TAB GTB SCH ×2 (09:06→20:32)
[2016-04-29] MEDS: DEXTROSE 5% 1,000 ML IV SCH ×2 (10:30→23:15)
--- NOTE | 2016-04-29 11:49 | PN ---
DATE: 04/29/2016 NEPHROLOGY FOLLOWUP SUBJECTIVE: The patient remains confused, uremic, no other acute events noted overnight. No hemopt ysis, hematemesis or hematochezia. OBJECTIVE: VITAL SIGNS: Blood pressure is 173/90, respirations 18, pulse 115, temperature 97.9. HEENT: Head is normocephalic. NECK: Supple. HEART: Regular rate. LUNGS: Show diminished breath sounds at base. ABDOMEN: Soft, nontender to palpation without rebound or guarding. EXTREMITIES: Negative for clubbing, cyanosis, no edema. DERMATOLOGIC: No rashes. MUSCULOSKELETAL: No joint effusions. NEUROLOGIC: Limited exam due to lack of patient cooperation. MEDICATIONS: The patient's medications have been reviewed. LABORATORY DATA: Shows a sodium 154, potassium 4.9, creatinine 13, BUN 105, creatinine 5.15. White count is 10.9, hemoglobin 9.0, hematocrit 35.3, platelet count 361. ASSESSMENT AND PLAN: 1. End-stage renal disease. The patient is pulled out her Perm-A-Cath. Patient has underlying dem entia. Plan at this point is to place a Filipe catheter if family agrees. If patient's family refu ses and prefers hospice given the patient's underlying dementia, that would be a reasonable course o f care. At this point, I will order a Filipe catheter be placed by interventional radiology. Once placed we will proceed with dialysis. 2. Hypernatremia. The patient has a free water deficit of approximately 3 liters. We will change fluids to D5W at 75 mL an hour. 3. Anemia of end-stage renal disease. Hemoglobin level stable, no need for Epogen. 4. Hyperkalemia secondary to end-stage renal disease. The patient's potassium levels improved afte r Kayexalate. We will continue to monitor. 5. Metabolic alkalosis secondary to end-stage renal disease. Continue to monitor. 6. Mineral bone disorder. Continue to monitor calcium, phosphorus levels. Would defer any phospha te binders. 7. Sacral pressure ulcers. Continue wound care. 8. Dysphagia. Status post PEG tube, tube feeding. 9. Encephalopathy and advanced dementia. Continue to monitor. Dictated By: HUDSON GREGG/NTS Conf#: [id number] DID#: [id number]
--- NOTE | 2016-04-29 16:30 | PN ---
DATE: 04/29/2016 TIME: 1500. SUBJECTIVE DATA: The patient remains confused. On bilateral soft wrist restraints. OBJECTIVE DATA: VITAL SIGNS: Temperature 97.9, pulse rate 115, respiratory rate 18, blood pressure 173/90, oxygen saturation 94% on room air. GENERAL: This is a thin, frail-looking [place]ian female lying in bed in no apparent distress. Very confused. HEENT: Head normocephalic and atraumatic. Eyes: Anicteric sclerae. Conjunctivae clear. ENT: Nasal septum is midline. Oral mucosa is dry. NECK: Supple. No JVD noticed. RESPIRATORY: Bilaterally diminished breath sounds. No adventitious breath sounds. No use of accessory muscles of respiration. CARDIAC: Regular rate and rhythm. No murmurs heard. ABDOMEN: Soft, nontender and nondistended. Bowel sounds positive in all 4 quadrants. G-tube in place. GENITOURINARY: Deferred. EXTREMITIES: No cyanosis, no clubbing, no edema. Peripheral pulses are palpable. NEUROLOGIC: The patient is awake and alert. Oriented to person. Disoriented to place, time and purpose. PSYCHIATRIC: Pleasant. Confused. LABORATORY AND DIAGNOSTIC DATA: WBC 10.9, hemoglobin 11.0, hematocrit 35.3, platelet count 361. Sodium 154, potassium 4.9, chloride 103, carbon dioxide 33 , anion gap 23, BUN 105, creatinine 5.15, glucose 110. ASSESSMENT AND PLAN: 1. End-stage renal disease on hemodialysis, dislodged hemodialysis catheter. Nephrology following. Replacement of hemodialysis access as per Nephrology. 2. Accelerated hypertension. Continue p.r.n. antihypertensives. Will start the patient on routine antihypertensives. 3. Dysphagia. Continue G-tube feedings. 4. Dementia. Reorient the patient frequently. 5. Sacral pressure ulcer. Wound care consult. 6. Hypernatremia. Most probably secondary to free water deficit. Will change IV fluids to D5W. 7. Anemia of chronic renal disease. Continue to monitor the H and H closely. Transfuse as needed. 8. Hyperkalemia. Most probably secondary to worsening renal function. Potassium exchange resins as needed. 9. Fluid, electrolytes and nutrition. Continue G-tube feedings. 10. DVT prophylaxis. Bilateral sequential compression devices. 11. Gastrointestinal prophylaxis. Histamine 2 receptor blockers. PLAN: Await placement of dialysis access. Continue current management. Case discussed with Dr. Naseem. ZEYAD MATTSON MD, AM/ESTEE Conf#: [id number] DID#: [id number] MTDD
[2016-04-29] MEDS: FAMOTIDINE 20 MG INJ IV SCH (18:16)
[2016-04-29] MEDS: VALSARTAN 80 MG TAB GTB SCH (20:32)
[2016-04-30] VITALS (15 sets, daily range): BP systolic 107–148; BP diastolic 54–88; PULSE 80–103; RESP 17–21
[2016-04-30 05:12] LABS: EOSINOPHILS # 1.4 10^3/ul (0.0-0.5); EOSINOPHILS % 9.9 % (0.0-7.0); HEMATOCRIT 30.9 % (37.0-47.0); HEMOGLOBIN 9.9 g/dl (12.0-16.0); LYMPHOCYTES # 1.8 10^3/ul (0.8-2.9); LYMPHOCYTES % 13.5 % (15.0-51.0); MEAN CORPUSCULAR HEMOGLOBIN 27.9 pg (29.0-33.0); MEAN CORPUSCULAR VOLUME 87.1 fl (82.0-101.0); MEAN PLATELET VOLUME 8.4 fl (7.4-10.4); NEUTROPHIL # 9.5 10^3/ul (1.6-7.5); NEUTROPHILS % 69.6 % (39.0-77.0); PLATELET COUNT 351 10^3/UL (140-440); RED BLOOD COUNT 3.55 10^6/ul (4.20-5.40); RED CELL DISTRIBUTION WIDTH 20.3 % (11.5-14.5); UNCORRECTED WBC 13.7 10^3/ul (4.8-10.8); WHITE BLOOD COUNT 13.7 10^3/ul (4.8-10.8)
[2016-04-30] MEDS: AL HYDROX/MG HYDROX/SIMETH 30 ML CUP GTB SCH ×4 (05:18→23:14)
[2016-04-30 05:30] LABS: CREATININE 4.58 mg/dl (0.44-1.00)
[2016-04-30 05:31] LABS: CALCIUM 8.6 mg/dl (8.4-10.2); PHOSPHORUS 2.4 mg/dl (2.5-4.9)
[2016-04-30 05:34] LABS: CONDITION 1; LH ANALYZER COMMENTS 1
[2016-04-30 05:35] LABS: POTASSIUM 5.6 mmol/L (3.5-5.1)
[2016-04-30] MEDS: LACTOBACILLUS CHEW TAB GTB SCH ×2 (08:31→20:37)
[2016-04-30] MEDS: VALSARTAN 80 MG TAB GTB SCH ×2 (08:31→20:37)
[2016-04-30] MEDS: FOLIC ACID 1 MG TAB PO SCH (08:31)
[2016-04-30] MEDS: VITAMIN B COMPLEX/VIT C CAP PO SCH (08:31)
[2016-04-30] MEDS ORDERED: NEUTRA-PHOS 250 MG PACKET PO ONE (10:00)
[2016-04-30] MEDS ORDERED: NA POLYST SULFON 15 GM/60 ML BTL PO ONE (10:00)
--- NOTE | 2016-04-30 10:24 | PN ---
Date/Time of Note Date/Time of Note DATE: 04/30/16 TIME: 10:24 Assessment/Plan VTE Prophylaxis VTE Prophylaxis Intervention: SCD's Lines/Catheters [facility] Peripheral IV Assessment/Plan Chief Complaint/Hosp Course 1. End-stage renal disease on hemodialysis, dislodged hemodialysis catheter. Nephrology following. Replacement of hemodialysis access as per Nephrology. 2. Accelerated hypertension. Continue routine and p.r.n. antihypertensives. Blood pressure fairly well controlled. 3. Dysphagia. Continue G-tube feedings. 4. Dementia. Reorient the patient frequently. 5. Incontinent dermatitis. Wound care consult. Local wound care. 6. Hypernatremia. Most probably secondary to free water deficit. Resolved with D5W. 7. Anemia of chronic renal disease. Continue to monitor the H and H closely. Transfuse as needed. 8. Hyperkalemia. Most probably secondary to worsening renal function. Potassium exchange resins as needed. 9. Fluid, electrolytes and nutrition. Continue G-tube feedings. 10. DVT prophylaxis. Bilateral sequential compression devices. 11. Gastrointestinal prophylaxis. Histamine 2 receptor blockers. PLAN: Await placement of dialysis access. Continue current management. Case discussed with Dr. Gusman. Problems: Subjective 24 Hr Interval Summary Free Text/Dictation Patient remains confused. Exam/Review of Systems Vital Signs Vitals Vital Signs Date Time Temp Pulse Resp B/P Pulse Ox O2 Delivery O2 Flow Rate FiO2 04/30/16 08:59 97.1 80 20 107/54 99 04/30/16 06:00 Room Air Intake and Output 04/29/16 04/29/16 04/30/16 15:00 23:00 07:00 Intake Total 900 ml 2000 ml Balance 900 ml 2000 ml Exam GENERAL: This is a thin, frail-looking [place]e female lying in bed in no apparent distress. Very confused. HEENT: Head normocephalic and atraumatic. Eyes: Anicteric sclerae. Conjunctivae clear. ENT: Nasal septum is midline. Oral mucosa is dry. NECK: Supple. No JVD noticed. RESPIRATORY: Bilaterally diminished breath sounds. No adventitious breath sounds. No use of accessory muscles of respiration. CARDIAC: Regular rate and rhythm. No murmurs heard. ABDOMEN: Soft, nontender and nondistended. Bowel sounds positive in all 4 quadrants. G-tube in place. GENITOURINARY: Deferred. EXTREMITIES: No cyanosis, no clubbing, no edema. Peripheral pulses are palpable. NEUROLOGIC: The patient is awake and alert. Oriented to person. Disoriented to place, time and purpose. PSYCHIATRIC: Pleasant. Confused. Results Result Diagram: 04/30/16 0440 04/30/16 0445 Results 24 hrs Laboratory Tests Test 04/30/16 04:40 04/30/16 04:45 Basophils # 0.0 Basophils % 0.0 Blood Morphology Comment Eosinophils # 1.4 H Eosinophils % 9.9 H Hematocrit 30.9 L Hemoglobin 9.9 L Lymphocytes # 1.8 Lymphocytes % 13.5 L Mean Corpuscular Hemoglobin 27.9 L Mean Corpuscular Hemoglobin Concent 32.0 Mean Corpuscular Volume 87.1 Mean Platelet Volume 8.4 Monocytes # 1.0 H Monocytes % 7.0 Neutrophils # 9.5 H Neutrophils % 69.6 Nucleated Red Blood Cells # 0.0 Nucleated Red Blood Cells % 0.0 Platelet Count 351 Red Blood Count 3.55 L Red Cell Distribution Width 20.3 H White Blood Count 13.7 #H Anion Gap 21 H Blood Urea Nitrogen 112 H Calcium Level 8.6 Carbon Dioxide Level 31 Chloride Level 93 #L Creatinine 4.58 H Glucose Level 105 Magnesium Level 4.0 H Phosphorus Level 2.4 #L Potassium Level 5.6 H Sodium Level 139 # Medications Medications Current Medications Ondansetron HCl (Zofran Inj) 4 mg Q6H PRN IV NAUSEA AND/OR VOMITING; Start 04/25 at 22:00 Acetaminophen (Tylenol Tab) 650 mg Q6H PRN PO PAIN LEVEL 1-3 OR FEVER; Start at 22:00 Acetaminophen/ Hydrocodone Bitart ([place] (5/325)) 1 tab Q6H PRN GTB MODERATE PAIN LEVEL 4-6; Start 04/25/16 at 22:00 Morphine Sulfate (morphine) 2 mg Q4H PRN IV SEVERE PAIN LEVEL 7-10; Start at 22:00 Docusate Sodium (Colace Liquid Cup) 100 mg Q12H PRN GTB CONSTIPATION; Start 04/25/16 at 22:00 Hydralazine HCl (Apresoline) 25 mg Q8 PRN GTB ELEVATED BLOOD PRESSURE Last administered on 04/29/16t 16:13; Admin Dose 25 MG; Start 04/25/16 at 22:00 Al Hydrox/Mg Hydrox/Simethicone (Mag-Al Plus) 30 ml Q6 GTB Last administered on 04/30/16 05:18; Admin Dose 30 ML; Start 04/26/16 at 00:00 Magnesium Hydroxide (Milk Of Mag) 30 ml DAILY PRN GTB CONSTIPATION; Start at 22:00 Lactobacillus Acidoph/Bulgaricus (Floranex) 1 tab BID GTB Last administered on 04/30/16 08:31; Admin Dose 1 TAB; Start 04/26/16 at 09:00 Folic Acid (Folic Acid) 1 mg DAILY PO Last administered on 04/30/16 08:31; Admin Dose 1 MG; Start 04/26/16 at 09:00 Diphenhydramine HCl (Benadryl) 25 mg Q6H PRN IM Itching Last administered on 02:17; Admin Dose 25 MG; Start 04/26/16 at 02:15 Vitamin B Complex/ Vitamin C (Berocca) 1 cap DAILY PO Last administered on 04/30 08:31; Admin Dose 1 CAP; Start 04/26/16 at 09:00 Valsartan (Diovan) 80 mg BID GTB Last administered on 04/30/16 08:31; Admin Dose 80 MG; Start 04/29/16 at 21:00 Famotidine (Pepcid Iv) 20 mg Q24H IV Last administered on 04/29/16 18:16; Admin Dose 20 MG; Start 04/29/16 at 17:00 ZEYAD VILLAVICENCIO NP Apr 30, 2016 10:24
--- NOTE | 2016-04-30 11:34 | PN ---
DATE: 04/30/2016 SUBJECTIVE: Yesterday I spoke with the patient's family, who indicated to me they still wish to pur jaimee hemodialysis. Patient had a catheter placement scheduled per Interventional Radiology; however, IR does not wish to place the catheter, as patient previously pulled out her previous dialysis cath eter. I have requested Dr. Ramirez to come to place a Filipe catheter for dialysis. No other ev ents noted. OBJECTIVE: VITAL SIGNS: Blood pressure is 107/54, respirations 20, pulse 80, temperature 97.1. HEENT: Head is normocephalic. NECK: Supple. HEART: Regular rate. LUNGS: Show diminished breath sounds at base. ABDOMEN: Soft, nontender to palpation. No rebound or guarding. EXTREMITIES: Negative for clubbing, cyanosis. No edema. DERMATOLOGIC: No rashes. MUSCULOSKELETAL: No joint effusions. NEUROLOGIC: No change in exam. MEDICATIONS: The patient's medications have been reviewed. LABORATORY DATA: Showed sodium 139, potassium 5.6, chloride 93, BUN 112, creatinine 4.58, phosphoru s 2.4. White count 13.7, hemoglobin 9.9, hematocrit of 30.9, and platelet count is 351. ASSESSMENT AND PLAN: 1. End-stage renal disease. The patient has pulled out the Perm-A-Cath. I have requested vascular surgeon, Dr. Ramierz to place a catheter. Once the catheter is placed, the patient will be dialy zed. 2. Hyponatremia, improved. We will discontinue D5W. Continue free water flushes. 3. Anemia of end-stage renal disease. Continue to monitor hemoglobin and hematocrit levels. 4. Hyperkalemia secondary to end-stage renal disease. The patient will be given Kayexalate 15 gram s p.o. x1. Continue low-potassium diet. 5. Mineral bone disorder. The patient's phosphorus levels are low. We will replete with sodium ph osphate. 6. Metabolic alkalosis secondary to end-stage renal disease. Continue to monitor. 7. Sacral pressure ulcer. Continue wound care. 8. Dysphagia. Continue tube feeding. 9. Encephalopathy with advanced dementia. Continue to monitor. Dictated By: HUDSON GREGG/ESTEE Conf#: [id number] DID#: [id number]
[2016-04-30] MEDS: LORAZEPAM 2 MG INJ IV PRN (14:31)
[2016-04-30] MEDS: FAMOTIDINE 20 MG INJ IV SCH (17:17)
[2016-04-30] MEDS: ACETAMINOPHEN 325 MG TAB PO PRN (20:37)
[2016-05-01] VITALS (16 sets, daily range): BP systolic 126–148; BP diastolic 55–95; PULSE 75–112; RESP 18–21
[2016-05-01 05:41] LABS: BASOPHILS % 0.2 % (0.0-2.0); EOSINOPHILS # 1.2 10^3/ul (0.0-0.5); EOSINOPHILS % 10.2 % (0.0-7.0); HEMATOCRIT 33.9 % (37.0-47.0); HEMOGLOBIN 10.8 g/dl (12.0-16.0); LYMPHOCYTES # 1.3 10^3/ul (0.8-2.9); LYMPHOCYTES % 11.7 % (15.0-51.0); MEAN CORPUSCULAR HEMOGLOBIN 27.8 pg (29.0-33.0); MEAN CORPUSCULAR VOLUME 86.9 fl (82.0-101.0); MEAN PLATELET VOLUME 8.4 fl (7.4-10.4); MONOCYTE # 1.1 10^3/ul (0.3-0.9); MONOCYTES % 9.7 % (0.0-11.0); NEUTROPHIL # 7.7 10^3/ul (1.6-7.5); NEUTROPHILS % 68.2 % (39.0-77.0); PLATELET COUNT 381 10^3/UL (140-440); RED BLOOD COUNT 3.91 10^6/ul (4.20-5.40); RED CELL DISTRIBUTION WIDTH 20.7 % (11.5-14.5); UNCORRECTED WBC 11.3 10^3/ul (4.8-10.8); WHITE BLOOD COUNT 11.3 10^3/ul (4.8-10.8)
[2016-05-01] MEDS: AL HYDROX/MG HYDROX/SIMETH 30 ML CUP GTB SCH ×3 (05:42→18:11)
[2016-05-01 05:51] LABS: CONDITION 1; LH ANALYZER COMMENTS 1
[2016-05-01 05:53] LABS: POTASSIUM 4.7 mmol/L (3.5-5.1)
[2016-05-01 05:54] LABS: MAGNESIUM 4.2 mg/dl (1.7-2.5); PHOSPHORUS 3.5 mg/dl (2.5-4.9)
[2016-05-01 05:56] LABS: CALCIUM 8.9 mg/dl (8.4-10.2); CREATININE 5.12 mg/dl (0.44-1.00)
[2016-05-01] MEDS: VITAMIN B COMPLEX/VIT C CAP PO SCH (08:52)
[2016-05-01] MEDS: LACTOBACILLUS CHEW TAB GTB SCH ×2 (08:52→21:08)
[2016-05-01] MEDS: FOLIC ACID 1 MG TAB PO SCH (08:52)
[2016-05-01] MEDS: VALSARTAN 80 MG TAB GTB SCH ×2 (08:53→21:08)
--- NOTE | 2016-05-01 09:45 | PN ---
Date/Time of Note Date/Time of Note DATE: 05/01/16 TIME: 09:44 Assessment/Plan VTE Prophylaxis VTE Prophylaxis Intervention: SCD's Lines/Catheters IV [facility]atheter [facility] (from [facility]): [place] Urinary Cath still in place: No Assessment/Plan Chief Complaint/Hosp Course 1. End-stage renal disease on hemodialysis, dislodged hemodialysis catheter. Nephrology following. The patient had a right femoral hemodialysis access placed by vascular surgery on 04/30/2016. 2. Accelerated hypertension. Continue routine and p.r.n. antihypertensives. Blood pressure fairly well controlled. 3. Dysphagia. Continue G-tube feedings. 4. Dementia. Reorient the patient frequently. 5. Incontinent dermatitis. Wound care consult. Local wound care. 6. Hypernatremia. Most probably secondary to free water deficit. Resolved with D5W. 7. Anemia of chronic renal disease. Continue to monitor the H and H closely. Transfuse as needed. 8. Hyperkalemia. Most probably secondary to worsening renal function. Potassium exchange resins as needed. 9. Diarrhea. Will send stools for C. difficile. 10. Fluid, electrolytes and nutrition. Continue G-tube feedings. 11. DVT prophylaxis. Bilateral sequential compression devices. 12. Gastrointestinal prophylaxis. Histamine 2 receptor blockers. PLAN: Hemodialysis as per nephrology. Continue inpatient monitoring. Send stool studies. Case discussed with Dr. Gusman. Problems: Subjective 24 Hr Interval Summary Free Text/Dictation The patient's hemodialysis initiated today using the new access. During the hemodialysis, the patient suddenly became unresponsive. This was witnessed by the nursing staff. The patient never lost any pulse. Patient continued to be breathing. Patient regained her consciousness spontaneously. There was no witnessed seizures. Exam/Review of Systems Vital Signs Vitals Vital Signs Date Time Temp Pulse Resp B/P Pulse Ox O2 Delivery O2 Flow Rate FiO2 05/01/16 08:27 112 18 05/01/16 08:00 98.5 131/81 100 Room Air Intake and Output 04/30/16 04/30/16 05/01/16 15:00 23:00 07:00 Intake Total 1150 ml 1050 ml Balance 1150 ml 1050 ml Exam GENERAL: This is a thin, frail-looking [place] female lying in bed in no apparent distress. Very confused. HEENT: Head normocephalic and atraumatic. Eyes: Anicteric sclerae. Conjunctivae clear. ENT: Nasal septum is midline. Oral mucosa is dry. NECK: Supple. No JVD noticed. RESPIRATORY: Bilaterally diminished breath sounds. No adventitious breath sounds. No use of accessory muscles of respiration. CARDIAC: Regular rate and rhythm. No murmurs heard. ABDOMEN: Soft, nontender and nondistended. Bowel sounds positive in all 4 quadrants. G-tube in place. GENITOURINARY: Deferred. EXTREMITIES: No cyanosis, no clubbing, no edema. Peripheral pulses are palpable. NEUROLOGIC: The patient is awake and alert. Oriented to person. Disoriented to place, time and purpose. PSYCHIATRIC: Pleasant. Confused. Results Result Diagram: 05/01/16 0512 05/01/16 0415 Results 24 hrs Laboratory Tests Test 05/01/16 04:15 05/01/16 05:12 Anion Gap 21 H Blood Urea Nitrogen 116 H Calcium Level 8.9 Carbon Dioxide Level 29 Chloride Level 94 L Creatinine 5.12 H Glucose Level 85 Magnesium Level 4.2 H Phosphorus Level 3.5 Potassium Level 4.7 Sodium Level 139 Basophils # 0.0 Basophils % 0.2 Blood Morphology Comment Eosinophils # 1.2 H Eosinophils % 10.2 H Hematocrit 33.9 L Hemoglobin 10.8 L Lymphocytes # 1.3 Lymphocytes % 11.7 L Mean Corpuscular Hemoglobin 27.8 L Mean Corpuscular Hemoglobin Concent 32.0 Mean Corpuscular Volume 86.9 Mean Platelet Volume 8.4 Monocytes # 1.1 H Monocytes % 9.7 Neutrophils # 7.7 H Neutrophils % 68.2 Nucleated Red Blood Cells # 0.0 Nucleated Red Blood Cells % 0.0 Platelet Count 381 Red Blood Count 3.91 L Red Cell Distribution Width 20.7 H White Blood Count 11.3 H Medications Medications Current Medications Ondansetron HCl (Zofran Inj) 4 mg Q6H PRN IV NAUSEA AND/OR VOMITING; Start 04/25 at 22:00 Acetaminophen (Tylenol Tab) 650 mg Q6H PRN PO PAIN LEVEL 1-3 OR FEVER Last administered on 04/30/16t 20:37; Admin Dose 650 MG; Start 04/25/16 at 22:00 Acetaminophen/ Hydrocodone Bitart ([place] (5/325)) 1 tab Q6H PRN GTB MODERATE PAIN LEVEL 4-6; Start 04/25/16 at 22:00 Morphine Sulfate (morphine) 2 mg Q4H PRN IV SEVERE PAIN LEVEL 7-10; Start at 22:00 Docusate Sodium (Colace Liquid Cup) 100 mg Q12H PRN GTB CONSTIPATION; Start 04/25/16 at 22:00 Hydralazine HCl (Apresoline) 25 mg Q8 PRN GTB ELEVATED BLOOD PRESSURE Last administered on 04/29/16 16:13; Admin Dose 25 MG; Start 04/25/16 at 22:00 Al Hydrox/Mg Hydrox/Simethicone (Mag-Al Plus) 30 ml Q6 GTB Last administered on 05/01/16 05:42; Admin Dose 30 ML; Start 04/26/16 at 00:00 Magnesium Hydroxide (Milk Of Mag) 30 ml DAILY PRN GTB CONSTIPATION; Start at 22:00 Lactobacillus Acidoph/Bulgaricus (Floranex) 1 tab BID GTB Last administered on 05/01/16 08:52; Admin Dose 1 TAB; Start 04/26/16 at 09:00 Folic Acid (Folic Acid) 1 mg DAILY PO Last administered on 05/01/16 08:52; Admin Dose 1 MG; Start 04/26/16 at 09:00 Diphenhydramine HCl (Benadryl) 25 mg Q6H PRN IM Itching Last administered on 02:17; Admin Dose 25 MG; Start 04/26/16 at 02:15 Vitamin B Complex/ Vitamin C (Berocca) 1 cap DAILY PO Last administered on 05/01 08:52; Admin Dose 1 CAP; Start 04/26/16 at 09:00 Valsartan (Diovan) 80 mg BID GTB Last administered on 05/01/16 08:53; Admin Dose 80 MG; Start 04/29/16 at 21:00 Famotidine (Pepcid Iv) 20 mg Q24H IV Last administered on 04/30/16 17:17; Admin Dose 20 MG; Start 04/29/16 at 17:00 Lorazepam (Ativan) 1 mg Q6H PRN IV Anxiety Last administered on 04/30/16 14:31 ; Admin Dose 1 MG; Start 04/30/16 at 14:30 ZEYAD VILLAVICENCIO NP May 01, 2016 09:45
--- NOTE | 2016-05-01 12:39 | PN ---
DATE: 05/01/2016 SUBJECTIVE: The patient today during dialysis, had a brief syncopal episode. There was no noted se izure activity, no noted tonic-clonic activity. The patient spontaneously recovered. No other acut e events noted. Dialysis was terminated after 20 minutes. OBJECTIVE: VITAL SIGNS: Blood pressure currently is 131/81, respiratory rate 16, pulse 89, temperature 98.5. HEENT: Head is normocephalic. NECK: Supple. HEART: Regular rate. LUNGS: Show diminished breath sounds at the base. ABDOMEN: Soft, nontender to palpation. No rebound or guarding. EXTREMITIES: Negative for clubbing, cyanosis, no edema. DERMATOLOGIC: No rashes. MUSCULOSKELETAL: No joint effusions. NEUROLOGIC: No change in exam. MEDICATIONS: The patient's medications have been reviewed. LABORATORY DATA: Showed a sodium 139, potassium 4.7, BUN 116, creatinine 5.12. White count is 11.3 , hemoglobin 10.8, hematocrit 33.9, platelet count 381. ASSESSMENT AND PLAN: 1. End-stage renal disease. The patient had a Filipe catheter placed yesterday, had dialysis for only 30 minutes today due to a syncopal episode. The plan is for dialysis again tomorrow. We will monitor the patient closely. Low suspicion for a type A reaction or type B reaction at this time. However, will monitor closely. 2. Hyponatremia, improved. 3. Anemia of end-stage renal disease. Continue to monitor H and H levels. Continue Epogen. 4. Mineral bone disorder. Continue to monitor calcium and phosphorus levels. 5. Hyperkalemia, resolved. 6. Metabolic alkalosis secondary to end-stage renal disease. Will continue to monitor. 7. Dysphagia. Continue tube feeding. 8. Sacral ulcer. Continue wound care. 9. Encephalopathy with dementia. Continue to monitor. Dictated By: HUDSON GREGG/ESTEE Conf#: [id number] DID#: [id number]
[2016-05-01] MEDS: VANCOMYCIN HCL 250 MG/5ML POSYG GTB SCH ×2 (15:10→18:11)
[2016-05-01] MEDS: FAMOTIDINE 20 MG INJ IV SCH (18:12)
[2016-05-02] VITALS (24 sets, daily range): BP systolic 113–161; BP diastolic 40–87; PULSE 80–114; RESP 18–20
[2016-05-02] MEDS: VANCOMYCIN HCL 250 MG/5ML POSYG GTB SCH ×4 (00:10→18:00)
[2016-05-02] MEDS: AL HYDROX/MG HYDROX/SIMETH 30 ML CUP GTB SCH ×4 (00:10→17:12)
[2016-05-02 07:28] LABS: BASOPHILS % 0.1 % (0.0-2.0); EOSINOPHILS # 1.1 10^3/ul (0.0-0.5); EOSINOPHILS % 9.2 % (0.0-7.0); HEMOGLOBIN 10.6 g/dl (12.0-16.0); LYMPHOCYTES # 1.7 10^3/ul (0.8-2.9); LYMPHOCYTES % 13.7 % (15.0-51.0); MEAN CORPUSCULAR HEMOGLOBIN 27.7 pg (29.0-33.0); MEAN CORPUSCULAR HGB CONC 32.1 g/dl (32.0-37.0); MEAN CORPUSCULAR VOLUME 86.3 fl (82.0-101.0); MEAN PLATELET VOLUME 8.8 fl (7.4-10.4); MONOCYTE # 1.6 10^3/ul (0.3-0.9); PLATELET COUNT 260 10^3/UL (140-440); RED BLOOD COUNT 3.82 10^6/ul (4.20-5.40); RED CELL DISTRIBUTION WIDTH 20.2 % (11.5-14.5); UNCORRECTED WBC 12.5 10^3/ul (4.8-10.8); WHITE BLOOD COUNT 12.5 10^3/ul (4.8-10.8)
[2016-05-02 07:35] LABS: CONDITION 1; LH ANALYZER COMMENTS 1
[2016-05-02 07:50] LABS: POTASSIUM 4.5 mmol/L (3.5-5.1)
[2016-05-02 07:52] LABS: CREATININE 5.07 mg/dl (0.44-1.00)
[2016-05-02 08:28] LABS: MAGNESIUM 4.3 mg/dl (1.7-2.5)
[2016-05-02] MEDS: VALSARTAN 80 MG TAB GTB SCH ×2 (08:44→20:49)
[2016-05-02] MEDS: ALBUMIN HUMAN 25% 100 ML IV PRN (08:45)
[2016-05-02] MEDS: FOLIC ACID 1 MG TAB PO SCH (08:46)
[2016-05-02] MEDS: LACTOBACILLUS CHEW TAB GTB SCH ×2 (08:46→20:49)
[2016-05-02] MEDS: VITAMIN B COMPLEX/VIT C CAP PO SCH (08:46)
--- NOTE | 2016-05-02 09:58 | PN ---
Date/Time of Note Date/Time of Note DATE: 05/02/16 TIME: 09:55 Assessment/Plan VTE Prophylaxis VTE Prophylaxis Intervention: SCD's Lines/Catheters [facility]ter [facility] Filipe cath Urinary Cath still in place: No Assessment/Plan Chief Complaint/Hosp Course 1. End-stage renal disease on hemodialysis, dislodged hemodialysis catheter. Nephrology following. The patient had a right femoral hemodialysis access placed by vascular surgery on 04/30/2016. 2. Accelerated hypertension. Continue routine and p.r.n. antihypertensives. Blood pressure fairly well controlled. 3. Dysphagia. Continue G-tube feedings. 4. Dementia. Reorient the patient frequently. 5. Incontinent dermatitis. Wound care consult. Local wound care. 6. C diff colitis. Continue oral vancomycin. 7. Anemia of chronic renal disease. Continue to monitor the H and H closely. Transfuse as needed. 8. Hyperkalemia. Resolved. 9. Diarrhea. Will send stools for C. difficile. 10. Fluid, electrolytes and nutrition. Continue G-tube feedings. 11. DVT prophylaxis. Bilateral sequential compression devices. 12. Gastrointestinal prophylaxis. Histamine 2 receptor blockers. PLAN: Hemodialysis as per nephrology. Continue inpatient monitoring. Case discussed with Dr. Gusman. Problems: Subjective 24 Hr Interval Summary Free Text/Dictation The patient remained confused. On bilateral soft wrist restraints. S/P hemodialysis today. Exam/Review of Systems Vital Signs Vitals Vital Signs Date Time Temp Pulse Resp B/P Pulse Ox O2 Delivery O2 Flow Rate FiO2 05/02/16 09:30 107 05/02/16 08:15 98.0 20 137/68 98 Room Air Intake and Output 05/01/16 05/01/16 05/02/16 15:00 23:00 07:00 Intake Total 500 ml 1070 ml 1000 ml Output Total 500 ml Balance 0 ml 1070 ml 1000 ml Exam GENERAL: This is a thin, frail-looking [place] female lying in bed in no apparent distress. Very confused. HEENT: Head normocephalic and atraumatic. Eyes: Anicteric sclerae. Conjunctivae clear. ENT: Nasal septum is midline. Oral mucosa is dry. NECK: Supple. No JVD noticed. RESPIRATORY: Bilaterally diminished breath sounds. No adventitious breath sounds. No use of accessory muscles of respiration. CARDIAC: Regular rate and rhythm. No murmurs heard. ABDOMEN: Soft, nontender and nondistended. Bowel sounds positive in all 4 quadrants. G-tube in place. GENITOURINARY: Deferred. EXTREMITIES: No cyanosis, no clubbing, no edema. Peripheral pulses are palpable. NEUROLOGIC: The patient is awake and alert. Oriented to person. Disoriented to place, time and purpose. PSYCHIATRIC: Pleasant. Confused. Results Result Diagram: 05/02/16 0549 05/02/16 0549 Results 24 hrs Laboratory Tests Test 05/02/16 05:49 Anion Gap 22 H Basophils # 0.0 Basophils % 0.1 Blood Morphology Comment Blood Urea Nitrogen 121 H Calcium Level 9.0 Carbon Dioxide Level 26 Chloride Level 97 Creatinine 5.07 H Eosinophils # 1.1 H Eosinophils % 9.2 H Glucose Level 95 Hematocrit 33.0 L Hemoglobin 10.6 L Lymphocytes # 1.7 Lymphocytes % 13.7 L Magnesium Level 4.3 H Mean Corpuscular Hemoglobin 27.7 L Mean Corpuscular Hemoglobin Concent 32.1 Mean Corpuscular Volume 86.3 Mean Platelet Volume 8.8 Monocytes # 1.6 H Monocytes % 13.0 H Neutrophils # 8.0 H Neutrophils % 64.0 Nucleated Red Blood Cells # 0.0 Nucleated Red Blood Cells % 0.0 Phosphorus Level 3.0 Platelet Count 260 # Potassium Level 4.5 Red Blood Count 3.82 L Red Cell Distribution Width 20.2 H Sodium Level 140 White Blood Count 12.5 H Medications Medications Current Medications Ondansetron HCl (Zofran Inj) 4 mg Q6H PRN IV NAUSEA AND/OR VOMITING; Start 04/25 at 22:00 Acetaminophen (Tylenol Tab) 650 mg Q6H PRN PO PAIN LEVEL 1-3 OR FEVER Last administered on 04/30/16t 20:37; Admin Dose 650 MG; Start 04/25/16 at 22:00 Acetaminophen/ Hydrocodone Bitart ([place] (5/325)) 1 tab Q6H PRN GTB MODERATE PAIN LEVEL 4-6; Start 04/25/16 at 22:00 Morphine Sulfate (morphine) 2 mg Q4H PRN IV SEVERE PAIN LEVEL 7-10; Start at 22:00 Docusate Sodium (Colace Liquid Cup) 100 mg Q12H PRN GTB CONSTIPATION; Start 04/25/16 at 22:00 Hydralazine HCl (Apresoline) 25 mg Q8 PRN GTB ELEVATED BLOOD PRESSURE Last administered on 04/29/16 16:13; Admin Dose 25 MG; Start 04/25/16 at 22:00 Al Hydrox/Mg Hydrox/Simethicone (Mag-Al Plus) 30 ml Q6 GTB Last administered on 05/02/16 05:55; Admin Dose 30 ML; Start 04/26/16 at 00:00 Magnesium Hydroxide (Milk Of Mag) 30 ml DAILY PRN GTB CONSTIPATION; Start at 22:00 Lactobacillus Acidoph/Bulgaricus (Floranex) 1 tab BID GTB Last administered on 05/02/16 08:46; Admin Dose 1 TAB; Start 04/26/16 at 09:00 Folic Acid (Folic Acid) 1 mg DAILY PO Last administered on 05/02/16 08:46; Admin Dose 1 MG; Start 04/26/16 at 09:00 Diphenhydramine HCl (Benadryl) 25 mg Q6H PRN IM Itching Last administered on 02:17; Admin Dose 25 MG; Start 04/26/16 at 02:15 Vitamin B Complex/ Vitamin C (Berocca) 1 cap DAILY PO Last administered on 05/02 08:46; Admin Dose 1 CAP; Start 04/26/16 at 09:00 Valsartan (Diovan) 80 mg BID GTB Last administered on 05/01/16 21:08; Admin Dose 80 MG; Start 04/29/16 at 21:00 Famotidine (Pepcid Iv) 20 mg Q24H IV Last administered on 05/01/16 18:12; Admin Dose 20 MG; Start 04/29/16 at 17:00 Lorazepam (Ativan) 1 mg Q6H PRN IV Anxiety Last administered on 04/30/16 14:31 ; Admin Dose 1 MG; Start 04/30/16 at 14:30 Vancomycin HCl (Vancomycin Oral Syringe) 250 mg Q6 GTB Last administered on 05:55; Admin Dose 250 MG; Start 05/01/16 at 15:00 ZEYAD VILLAVICENCIO NP May 02, 2016 09:58
--- NOTE | 2016-05-02 14:01 | PN ---
DATE: 05/02/2016 SUBJECTIVE: The patient had hemodialysis today, tolerated it well with 500 mL removed. No other ac [place] events noted. OBJECTIVE: VITAL SIGNS: Blood pressure is 131/73, respirations 18, pulse 98, temperature 97.2. HEENT: Head is normocephalic. NECK: Supple. HEART: Regular rate. LUNGS: Diminished breath sounds at base. ABDOMEN: Soft, nontender to palpation. No rebound, guarding. EXTREMITIES: Negative for clubbing, cyanosis. No edema. DERMATOLOGIC: No rashes. MUSCULOSKELETAL: No joint effusion. NEUROLOGIC: No change in exam. MEDICATIONS: The patient's medications have been reviewed. LABORATORY DATA: Sodium 140, potassium 4.5, BUN 121, creatinine 5.07. White count 12.5, hemoglobin 10.6, hematocrit of 33.0, platelet count is 260. MICROBIOLOGY: The patient's stool for C diff is positive. ASSESSMENT AND PLAN: 1. End-stage renal disease. The patient had hemodialysis this morning, tolerated well. Anticipate dialysis for next several days for solute clearance, volume removal. 2. Anemia of chronic disease. Continue to monitor hemoglobin and hematocrit levels. Will give Epo gen with dialysis. 3. Mineral bone disorder. Continue to monitor calcium, phosphorus levels. 4. 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 Continue hemodialysis. 5. Dysphagia. Status post PEG. Continue tube feeding. 6. Clostridium difficile colitis. Continue current medical management. 7. Sacral ulcer. Continue wound care. 8. Acute encephalopathy and dementia. Etiology in part due to uremia. Continue dialysis. 9. Hypertension. Continue current blood pressure regimen. Dictated By: HUDSON GREGG/ESTEE Conf#: [id number] DID#: [id number]
[2016-05-02] MEDS: FAMOTIDINE 20 MG INJ IV SCH (18:00)
[2016-05-03] VITALS (28 sets, daily range): BP systolic 65–152; BP diastolic 33–83; PULSE 76–124; RESP 2–27
[2016-05-03] MEDS: VANCOMYCIN HCL 250 MG/5ML POSYG GTB SCH ×4 (00:51→18:00)
[2016-05-03] MEDS: AL HYDROX/MG HYDROX/SIMETH 30 ML CUP GTB SCH ×4 (00:51→18:00)
[2016-05-03 06:44] LABS: EOSINOPHILS # 0.8 10^3/ul (0.0-0.5); EOSINOPHILS % 7.8 % (0.0-7.0); HEMATOCRIT 30.1 % (37.0-47.0); HEMOGLOBIN 9.6 g/dl (12.0-16.0); LYMPHOCYTES # 1.5 10^3/ul (0.8-2.9); LYMPHOCYTES % 14.3 % (15.0-51.0); MEAN CORPUSCULAR VOLUME 87.5 fl (82.0-101.0); MEAN PLATELET VOLUME 8.7 fl (7.4-10.4); MONOCYTE # 1.6 10^3/ul (0.3-0.9); MONOCYTES % 14.9 % (0.0-11.0); NEUTROPHIL # 6.7 10^3/ul (1.6-7.5); PLATELET COUNT 156 10^3/UL (140-440); RED BLOOD COUNT 3.44 10^6/ul (4.20-5.40); UNCORRECTED WBC 10.6 10^3/ul (4.8-10.8); WHITE BLOOD COUNT 10.6 10^3/ul (4.8-10.8)
[2016-05-03 07:13] LABS: CONDITION 1; LH ANALYZER COMMENTS 1
[2016-05-03 07:16] LABS: CREATININE 3.49 mg/dl (0.44-1.00)
[2016-05-03 07:17] LABS: CALCIUM 9.4 mg/dl (8.4-10.2)
[2016-05-03 07:47] LABS: PHOSPHORUS 1.6 mg/dl (2.5-4.9)
[2016-05-03 07:48] LABS: MAGNESIUM 3.7 mg/dl (1.7-2.5)
[2016-05-03] MEDS: LACTOBACILLUS CHEW TAB GTB SCH ×2 (08:53→21:22)
[2016-05-03] MEDS: VALSARTAN 80 MG TAB GTB SCH ×2 (08:53→21:24)
[2016-05-03] MEDS: FOLIC ACID 1 MG TAB PO SCH (08:53)
[2016-05-03] MEDS: VITAMIN B COMPLEX/VIT C CAP PO SCH (08:53)
[2016-05-03] MEDS ORDERED: EPOETIN 4000 UNITS/1 ML INJ (ESRD) SC SCH (10:00)
[2016-05-03] MEDS ORDERED: NEUTRA-PHOS 250 MG PACKET PO ONE (10:00)
--- NOTE | 2016-05-03 12:18 | PN ---
DATE: SUBJECTIVE: The patient is stable, no acute events overnight. No fevers, chills, nausea, vomiting. OBJECTIVE: VITAL SIGNS: Blood pressure 134/83, respirations 20, pulse 63, temperature 97.6. I's and O's revie wed. HEENT: Head is normocephalic. NECK: Supple. HEART: Regular rate. LUNGS: Show diminished breath sounds at the base. ABDOMEN: Soft, nontender to palpation, no rebound or guarding. EXTREMITIES: Negative for clubbing, cyanosis, no edema. DERMATOLOGIC: No rashes. MUSCULOSKELETAL: No joint effusions. NEUROLOGIC: No change in exam. MEDICATIONS: Reviewed. LABORATORY DATA: Shows a sodium 143, potassium 4.0, chloride 99, BUN 84, creatinine 3.49, phosphoru s 1.6, magnesium 2.7. White count 10.6, hemoglobin 9.6, hematocrit 30.1, platelet count is 156. ASSESSMENT AND PLAN: 1. End-stage renal disease. The patient is scheduled for dialysis today for solute clearance and v olume removal. Continue to monitor. 2. Access. The patient has a Filipe catheter. We will discuss with vascular surgeon, Dr. Azael eldridge, to place a PermCath. 3. Anemia of chronic disease. Continue to monitor hemoglobin and hematocrit levels. Continue Epog en. 4. Mineral bone disorder. The patient's phosphorus levels are low, we will replete with sodium alejandro sphate. 5. Hypomagnesemia secondary to end-stage renal disease. Continue hemodialysis. 6. Dysphagia, status post percutaneous endoscopic gastrostomy. Continue tube feeding. 7. Clostridium difficile colitis. Continue current medical management. 8. Sacral ulcer. Continue wound care. 9. Encephalopathy due to dementia, uremia. Continue dialysis. 10. Hypertension. Continue current blood pressure regimen. Dictated By: HUDSON GREGG/ESTEE Conf#: [id number] DID#: [id number]
--- NOTE | 2016-05-03 15:16 | PN ---
Date/Time of Note Date/Time of Note DATE: 05/03/16 TIME: 15:14 Assessment/Plan VTE Prophylaxis VTE Prophylaxis Intervention: SCD's Lines/Catheters [facility] vonda cath Urinary Cath still in place: No Assessment/Plan Chief Complaint/Hosp Course 1. End-stage renal disease on hemodialysis, dislodged hemodialysis catheter. Nephrology following. The patient had a right femoral hemodialysis access placed by vascular surgery on 04/30/2016. 2. Accelerated hypertension. Continue routine and p.r.n. antihypertensives. Blood pressure fairly well controlled. 3. Dysphagia. Continue G-tube feedings. 4. Dementia. Reorient the patient frequently. 5. Incontinent dermatitis. Wound care consult. Local wound care. 6. C diff colitis. Continue oral vancomycin. 7. Anemia of chronic renal disease. Continue to monitor the H and H closely. Transfuse as needed. 8. Hyperkalemia. Resolved. 9. Diarrhea. Will send stools for C. difficile. 10. Fluid, electrolytes and nutrition. Continue G-tube feedings. 11. DVT prophylaxis. Bilateral sequential compression devices. 12. Gastrointestinal prophylaxis. Histamine 2 receptor blockers. PLAN: Hemodialysis as per nephrology. Continue inpatient monitoring. Plan for PermCath placement. Case discussed with Dr. Gusman. Problems: Subjective 24 Hr Interval Summary Free Text/Dictation The patient remains confused. On bilateral soft wrist restraints. The patient was made a DNR as per family's request. Exam/Review of Systems Vital Signs Vitals Vital Signs Date Time Temp Pulse Resp B/P Pulse Ox O2 Delivery O2 Flow Rate FiO2 05/03/16 08:41 97.6 63 20 134/83 98 05/03/16 06:00 Room Air Intake and Output 05/02/16 05/02/16 05/03/16 15:00 23:00 07:00 Intake Total 500 ml 1000 ml 1000 ml Output Total 1000 ml 500 ml Balance -500 ml 500 ml 1000 ml Exam GENERAL: This is a thin, frail-looking [place] female lying in bed in no apparent distress. Very confused. HEENT: Head normocephalic and atraumatic. Eyes: Anicteric sclerae. Conjunctivae clear. ENT: Nasal septum is midline. Oral mucosa is dry. NECK: Supple. No JVD noticed. RESPIRATORY: Bilaterally diminished breath sounds. No adventitious breath sounds. No use of accessory muscles of respiration. CARDIAC: Regular rate and rhythm. No murmurs heard. ABDOMEN: Soft, nontender and nondistended. Bowel sounds positive in all 4 quadrants. G-tube in place. GENITOURINARY: Deferred. EXTREMITIES: No cyanosis, no clubbing, no edema. Peripheral pulses are palpable. NEUROLOGIC: The patient is awake and alert. Oriented to person. Disoriented to place, time and purpose. PSYCHIATRIC: Pleasant. Confused. Results Result Diagram: 05/03/1642905/03/16 0430 Results 24 hrs Laboratory Tests Test 05/03/16 04:30 Anion Gap 19 H Basophils # 0.0 Basophils % 0.0 Blood Morphology Comment Blood Urea Nitrogen 84 #H Calcium Level 9.4 Carbon Dioxide Level 29 Chloride Level 99 Creatinine 3.49 #H Eosinophils # 0.8 H Eosinophils % 7.8 H Glucose Level 94 Hematocrit 30.1 L Hemoglobin 9.6 L Lymphocytes # 1.5 Lymphocytes % 14.3 L Magnesium Level 3.7 H Mean Corpuscular Hemoglobin 28.0 L Mean Corpuscular Hemoglobin Concent 32.0 Mean Corpuscular Volume 87.5 Mean Platelet Volume 8.7 Monocytes # 1.6 H Monocytes % 14.9 H Neutrophils # 6.7 Neutrophils % 63.0 Nucleated Red Blood Cells # 0.0 Nucleated Red Blood Cells % 0.0 Phosphorus Level 1.6 #L Platelet Count 156 # Potassium Level 4.0 Red Blood Count 3.44 L Red Cell Distribution Width 20.0 H Sodium Level 143 White Blood Count 10.6 Medications Medications Current Medications Ondansetron HCl (Zofran Inj) 4 mg Q6H PRN IV NAUSEA AND/OR VOMITING; Start 04/25 at 22:00 Acetaminophen (Tylenol Tab) 650 mg Q6H PRN PO PAIN LEVEL 1-3 OR FEVER Last administered on 04/30/16t 20:37; Admin Dose 650 MG; Start 04/25/16 at 22:00 Acetaminophen/ Hydrocodone Bitart ([place] (5/325)) 1 tab Q6H PRN GTB MODERATE PAIN LEVEL 4-6; Start 04/25/16 at 22:00 Morphine Sulfate (morphine) 2 mg Q4H PRN IV SEVERE PAIN LEVEL 7-10; Start at 22:00 Docusate Sodium (Colace Liquid Cup) 100 mg Q12H PRN GTB CONSTIPATION; Start 04/25/16 at 22:00 Hydralazine HCl (Apresoline) 25 mg Q8 PRN GTB ELEVATED BLOOD PRESSURE Last administered on 04/29/16 16:13; Admin Dose 25 MG; Start 04/25/16 at 22:00 Al Hydrox/Mg Hydrox/Simethicone (Mag-Al Plus) 30 ml Q6 GTB Last administered on 05/03/16 12:25; Admin Dose 30 ML; Start 04/26/16 at 00:00 Magnesium Hydroxide (Milk Of Mag) 30 ml DAILY PRN GTB CONSTIPATION; Start at 22:00 Lactobacillus Acidoph/Bulgaricus (Floranex) 1 tab BID GTB Last administered on 05/03/16 08:53; Admin Dose 1 TAB; Start 04/26/16 at 09:00 Folic Acid (Folic Acid) 1 mg DAILY PO Last administered on 05/03/16 08:53; Admin Dose 1 MG; Start 04/26/16 at 09:00 Diphenhydramine HCl (Benadryl) 25 mg Q6H PRN IM Itching Last administered on 02:17; Admin Dose 25 MG; Start 04/26/16 at 02:15 Vitamin B Complex/ Vitamin C (Berocca) 1 cap DAILY PO Last administered on 05/03 08:53; Admin Dose 1 CAP; Start 04/26/16 at 09:00 Valsartan (Diovan) 80 mg BID GTB Last administered on 05/03/16 08:53; Admin Dose 80 MG; Start 04/29/16 at 21:00 Famotidine (Pepcid Iv) 20 mg Q24H IV Last administered on 05/02/16 18:00; Admin Dose 20 MG; Start 04/29/16 at 17:00 Lorazepam (Ativan) 1 mg Q6H PRN IV Anxiety Last administered on 04/30/16 14:31 ; Admin Dose 1 MG; Start 04/30/16 at 14:30 Vancomycin HCl (Vancomycin Oral Syringe) 250 mg Q6 GTB Last administered on 12:25; Admin Dose 250 MG; Start 05/01/16 at 15:00 ZEYAD VILLAVICENCIO NP May 03, 2016 15:15
[2016-05-03] MEDS: FAMOTIDINE 20 MG INJ IV SCH (17:00)
[2016-05-03] MEDS ORDERED: HEPARIN 1000 UNITS/NS (A-LINE) 1,000 ML ONE (17:55)
[2016-05-03] MEDS ORDERED: LIDOCAINE 1% (MDV) 20 ML INJ ONE ×2 (17:55→18:27)
[2016-05-03] MEDS ORDERED: HEPARIN 1000 UNITS/ML 10 ML INJ ONE (17:56)
[2016-05-03] MEDS ORDERED: FENTAnyl 50 MCG/ML VIAL ONE (18:24)
[2016-05-03] MEDS ORDERED: MIDAZOLAM 1 MG/ML 2 ML INJ ONE (18:27)
[2016-05-03] MEDS ORDERED: NALOXONE (0.4 MG/ML) INJ ONE (18:41)
[2016-05-03] MEDS ORDERED: CEFAZOLIN 1 GM/50 ML (PMX) 50 ML IVPB ONE (18:48)
[2016-05-03 22:05] LABS: EOSINOPHILS # 0.1 10^3/ul (0.0-0.5); HEMOGLOBIN 7.5 g/dl (12.0-16.0); LYMPHOCYTES % 8.6 % (15.0-51.0); MEAN CORPUSCULAR HGB CONC 31.3 g/dl (32.0-37.0); MEAN CORPUSCULAR VOLUME 86.4 fl (82.0-101.0); MEAN PLATELET VOLUME 8.4 fl (7.4-10.4); MONOCYTE # 1.2 10^3/ul (0.3-0.9); MONOCYTES % 10.1 % (0.0-11.0); NEUTROPHIL # 9.7 10^3/ul (1.6-7.5); NEUTROPHILS % 80.3 % (39.0-77.0); PLATELET COUNT 159 10^3/UL (140-440); RED BLOOD COUNT 2.77 10^6/ul (4.20-5.40); RED CELL DISTRIBUTION WIDTH 20.4 % (11.5-14.5); UNCORRECTED WBC 12.1 10^3/ul (4.8-10.8); WHITE BLOOD COUNT 12.1 10^3/ul (4.8-10.8)
[2016-05-03 22:15] LABS: POTASSIUM 4.6 mmol/L (3.5-5.1)
[2016-05-03 22:17] LABS: CREATININE 3.88 mg/dl (0.44-1.00)
[2016-05-03 22:18] LABS: CALCIUM 8.6 mg/dl (8.4-10.2)
[2016-05-03 22:32] LABS: CONDITION 1; LH ANALYZER COMMENTS 1
[2016-05-04] VITALS (17 sets, daily range): BP systolic 110–135; BP diastolic 56–93; PULSE 96–127; RESP 18–20
[2016-05-04] MEDS: VANCOMYCIN HCL 250 MG/5ML POSYG GTB SCH ×5 (00:36→23:45)
[2016-05-04] MEDS: AL HYDROX/MG HYDROX/SIMETH 30 ML CUP GTB SCH ×5 (00:36→23:46)
--- NOTE | 2016-05-04 04:41 | OPR ---
DATE OF OPERATION: PREOPERATIVE DIAGNOSIS: Renal failure. POSTOPERATIVE DIAGNOSIS: Renal failure. OPERATION PERFORMED: 1. Right internal jugular vein tunneled hemodialysis catheter placement. 2. Ultrasound guidance into the central vein. 3. Fluoroscopy. 4. Conscious sedation. SURGEON: Hans Ramirez MD ANESTHESIA: Local plus IV sedation. CONSENT: Risks, benefits, complications, and alternative therapies explained to the patient and con sent obtained. OPERATIVE TECHNIQUE: The patient was placed in the supine position, prepped and draped in the usual sterile fashion. Very minimal sedation was given in the way of Versed and fentanyl throughout the s urgery in multiple small doses. The patient was being monitored. Access was gained in the right inte rnal jugular vein. Guidewire was advanced through without any difficulty. Subcutaneous tissues dil ated. The guidewire came out. Access was gained again in the right internal jugular vein. A 19 cm tunneled hemodialysis catheter was brought into the subcutaneous tunnel, advanced into the right int ernal jugular vein and superior vena cava, all under fluoroscopic guidance. The tip was placed at t he junction of the superior vena cava and right atrium. Both ports of the catheter were aspirated a nd injected using heparinized saline solution. Catheter was secured to skin using 2-0 silk sutures. The neck site and exit site were closed using a single 3-0 Vicryl suture in interrupted fashion. Toward the end of the procedure, the patient's saturations dropped into the high 70s and supplementa l oxygen was given. Saturations came right back up to 100. Blood pressure did go up to 78, however, it came back right up to 140. She was transported to the recovery room in stable condition. Dictated By: HANS NATHAN/ESTEE Conf#: [id number] DID#: [id number]
[2016-05-04 06:40] LABS: POTASSIUM 4.3 mmol/L (3.5-5.1)
[2016-05-04 06:42] LABS: BASOPHILS % 0.4 % (0.0-2.0); EOSINOPHILS # 0.3 10^3/ul (0.0-0.5); EOSINOPHILS % 2.5 % (0.0-7.0); HEMATOCRIT 23.1 % (37.0-47.0); HEMOGLOBIN 7.3 g/dl (12.0-16.0); LYMPHOCYTES # 1.4 10^3/ul (0.8-2.9); LYMPHOCYTES % 14.2 % (15.0-51.0); MEAN CORPUSCULAR HEMOGLOBIN 27.7 pg (29.0-33.0); MEAN CORPUSCULAR HGB CONC 31.7 g/dl (32.0-37.0); MEAN CORPUSCULAR VOLUME 87.4 fl (82.0-101.0); MEAN PLATELET VOLUME 9.7 fl (7.4-10.4); MONOCYTE # 1.4 10^3/ul (0.3-0.9); MONOCYTES % 13.6 % (0.0-11.0); NEUTROPHILS % 69.3 % (39.0-77.0); PLATELET COUNT 168 10^3/UL (140-440); RED BLOOD COUNT 2.64 10^6/ul (4.20-5.40); RED CELL DISTRIBUTION WIDTH 20.6 % (11.5-14.5); UNCORRECTED WBC 10.1 10^3/ul (4.8-10.8); WHITE BLOOD COUNT 10.1 10^3/ul (4.8-10.8)
[2016-05-04 06:43] LABS: CALCIUM 8.9 mg/dl (8.4-10.2); MAGNESIUM 3.5 mg/dl (1.7-2.5); PHOSPHORUS 2.8 mg/dl (2.5-4.9)
[2016-05-04 07:18] LABS: CONDITION 1; LH ANALYZER COMMENTS 1
[2016-05-04] MEDS: LACTOBACILLUS CHEW TAB GTB SCH ×2 (09:36→21:56)
[2016-05-04] MEDS: FOLIC ACID 1 MG TAB PO SCH (09:36)
[2016-05-04] MEDS: VALSARTAN 80 MG TAB GTB SCH ×2 (09:37→21:56)
[2016-05-04] MEDS: VITAMIN B COMPLEX/VIT C CAP PO SCH (09:37)
--- NOTE | 2016-05-04 10:11 | PN ---
DATE: 05/04/2016 SUBJECTIVE: The patient had a Perm-A-Cath placement yesterday, tolerated well. No other acute even ts noted. OBJECTIVE: VITAL SIGNS: Blood pressure is 130/61, respiration is 19, pulse 106, temperature 98.0. HEENT: Head is normocephalic. NECK: Supple. HEART: Regular rate. LUNGS: Show diminished breath sounds at base. ABDOMEN: Soft, nontender to palpation without rebound or guarding. EXTREMITIES: Negative for clubbing, cyanosis, or edema. DERMATOLOGIC: No rashes. MUSCULOSKELETAL: No joint effusions. NEUROLOGIC: No change in exam. MEDICATIONS: The patient's medications have been reviewed. LABORATORY DATA: Showed sodium 141, potassium 4.3, chloride 99, BUN 109, creatinine 4. White count 10.1, hemoglobin 7.3, hematocrit 23.1, platelet count is 168. ASSESSMENT AND PLAN: 1. End-stage renal disease. The patient is scheduled for dialysis today and tomorrow. 2. Access. The patient had Perm-A-Cath placement by Dr. Ramirez yesterday. 3. Anemia. Continue to monitor hemoglobin and hematocrit levels. Continue Epogen. 4. Mineral bone disorder, continue to monitor calcium and phosphorus levels. 5. 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 Continue with dialysis. 6. Dysphagia, status post percutaneous endoscopic gastrostomy tube ____ tube feeding. 7. Clostridium difficile colitis. Continue current medical management. 8. Sacral ulcers. Continue wound care. 9. Encephalopathy secondary to dementia and uremia. Continue dialysis. 10. Hypertension. Continue current blood pressure regimen. Dictated By: HUDSON GREGG/ESTEE Conf#: [id number] DID#: [id number]
--- NOTE | 2016-05-04 10:37 | PN ---
Date/Time of Note Date/Time of Note DATE: 05/04/16 TIME: 10:33 Assessment/Plan VTE Prophylaxis VTE Prophylaxis Intervention: SCD's Lines/Catheters IV Catheter Type (from [facility]): PERMA CATH Urinary Cath still in place: No Assessment/Plan Chief Complaint/Hosp Course 1. End-stage renal disease on hemodialysis, dislodged hemodialysis catheter. Nephrology following. The patient had a right IJ hemodialysis access placed by vascular surgery on 05/03/2016. 2. Accelerated hypertension. Continue routine and p.r.n. antihypertensives. Blood pressure fairly well controlled. 3. Dysphagia. Continue G-tube feedings. 4. Dementia. Reorient the patient frequently. 5. Incontinent dermatitis. Wound care consult. Local wound care. 6. C diff colitis. Continue oral vancomycin. 7. Anemia of chronic renal disease. Continue to monitor the H and H closely. Transfuse as needed. The patient was started on Epogen. We will obtain a stool for occult blood. 8. Hyperkalemia. Resolved. 9. Fluid, electrolytes and nutrition. Continue G-tube feedings. 10. DVT prophylaxis. Bilateral sequential compression devices. 11. Gastrointestinal prophylaxis. Histamine 2 receptor blockers. PLAN: Hemodialysis as per nephrology. Status post PermCath placement on 2016. Try releasing the patient's restraints. If the patient is off restraints , the patient can be transferred back to halfway facility. Case discussed with Dr. Gusman. Problems: Subjective 24 Hr Interval Summary Free Text/Dictation The patient remains confused. On bilateral soft wrist restraints. Exam/Review of Systems Vital Signs Vitals Vital Signs Date Time Temp Pulse Resp B/P Pulse Ox O2 Delivery O2 Flow Rate FiO2 05/04/16 08:11 98.0 106 19 131/67 100 05/04/16 06:00 Room Air 05/04/16 02:00 2.0 Intake and Output 05/03/16 05/03/16 05/04/16 15:00 23:00 07:00 Intake Total 900 ml 1000 ml Balance 900 ml 1000 ml Exam GENERAL: This is a thin, frail-looking [place] female lying in bed in no apparent distress. Very confused. HEENT: Head normocephalic and atraumatic. Eyes: Anicteric sclerae. Conjunctivae clear. ENT: Nasal septum is midline. Oral mucosa is dry. NECK: Supple. No JVD noticed. RESPIRATORY: Bilaterally diminished breath sounds. No adventitious breath sounds. No use of accessory muscles of respiration. CARDIAC: Regular rate and rhythm. No murmurs heard. ABDOMEN: Soft, nontender and nondistended. Bowel sounds positive in all 4 quadrants. G-tube in place. GENITOURINARY: Deferred. EXTREMITIES: No cyanosis, no clubbing, no edema. Peripheral pulses are palpable. NEUROLOGIC: The patient is awake and alert. Oriented to person. Disoriented to place, time and purpose. PSYCHIATRIC: Pleasant. Confused. Results Result Diagram: 05/04/16 0545 05/04/16 0545 Results 24 hrs Laboratory Tests Test 05/03/16 21:20 05/04/16 05:45 Anion Gap 18 H 20 H Basophils # 0.0 0.0 Basophils % 0.0 0.4 Blood Morphology Comment Blood Urea Nitrogen 96 H 109 H Calcium Level 8.6 8.9 Carbon Dioxide Level 26 26 Chloride Level 102 99 Creatinine 3.88 H 4.00 H Eosinophils # 0.1 0.3 Eosinophils % 1.0 2.5 Glucose Level 103 138 Hematocrit 24.0 #L 23.1 L Hemoglobin 7.5 #L 7.3 L Lymphocytes # 1.0 1.4 Lymphocytes % 8.6 L 14.2 L Mean Corpuscular Hemoglobin 27.0 L 27.7 L Mean Corpuscular Hemoglobin Concent 31.3 L 31.7 L Mean Corpuscular Volume 86.4 87.4 Mean Platelet Volume 8.4 9.7 Monocytes # 1.2 H 1.4 H Monocytes % 10.1 13.6 H Neutrophils # 9.7 H 7.0 Neutrophils % 80.3 H 69.3 Nucleated Red Blood Cells # 0.0 0.0 Nucleated Red Blood Cells % 0.0 0.0 Platelet Count 159 168 Potassium Level 4.6 4.3 Red Blood Count 2.77 L 2.64 L Red Cell Distribution Width 20.4 H 20.6 H Sodium Level 141 141 White Blood Count 12.1 H 10.1 Magnesium Level 3.5 H Phosphorus Level 2.8 Medications Medications Current Medications Ondansetron HCl (Zofran Inj) 4 mg Q6H PRN IV NAUSEA AND/OR VOMITING; Start 04/25 at 22:00 Acetaminophen (Tylenol Tab) 650 mg Q6H PRN PO PAIN LEVEL 1-3 OR FEVER Last administered on 04/30/16 20:37; Admin Dose 650 MG; Start 04/25/16 at 22:00 Acetaminophen/ Hydrocodone Bitart ([place] (5/325)) 1 tab Q6H PRN GTB MODERATE PAIN LEVEL 4-6; Start 04/25/16 at 22:00 Morphine Sulfate (morphine) 2 mg Q4H PRN IV SEVERE PAIN LEVEL 7-10; Start at 22:00 Docusate Sodium (Colace Liquid Cup) 100 mg Q12H PRN GTB CONSTIPATION; Start 04/25/16 at 22:00 Hydralazine HCl (Apresoline) 25 mg Q8 PRN GTB ELEVATED BLOOD PRESSURE Last administered on 04/29/16 16:13; Admin Dose 25 MG; Start 04/25/16 at 22:00 Al Hydrox/Mg Hydrox/Simethicone (Mag-Al Plus) 30 ml Q6 GTB Last administered on 05/04/16 05:45; Admin Dose 30 ML; Start 04/26/16 at 00:00 Magnesium Hydroxide (Milk Of Mag) 30 ml DAILY PRN GTB CONSTIPATION; Start at 22:00 Lactobacillus Acidoph/Bulgaricus (Floranex) 1 tab BID GTB Last administered on 05/04/16 09:36; Admin Dose 1 TAB; Start 04/26/16 at 09:00 Folic Acid (Folic Acid) 1 mg DAILY PO Last administered on 05/04/16 09:36; Admin Dose 1 MG; Start 04/26/16 at 09:00 Diphenhydramine HCl (Benadryl) 25 mg Q6H PRN IM Itching Last administered on 02:17; Admin Dose 25 MG; Start 04/26/16 at 02:15 Vitamin B Complex/ Vitamin C (Berocca) 1 cap DAILY PO Last administered on 05/04 09:37; Admin Dose 1 CAP; Start 04/26/16 at 09:00 Valsartan (Diovan) 80 mg BID GTB Last administered on 05/04/16 09:37; Admin Dose 80 MG; Start 04/29/16 at 21:00 Famotidine (Pepcid Iv) 20 mg Q24H IV Last administered on 05/02/16 18:00; Admin Dose 20 MG; Start 04/29/16 at 17:00 Lorazepam (Ativan) 1 mg Q6H PRN IV Anxiety Last administered on 04/30/16 14:31 ; Admin Dose 1 MG; Start 04/30/16 at 14:30 Vancomycin HCl (Vancomycin Oral Syringe) 250 mg Q6 GTB Last administered on 05:45; Admin Dose 250 MG; Start 05/01/16 at 15:00 ZEYAD VILLAVICENCIO NP May 04, 2016 10:37 ZEYAD VILLAVICENCIO NP May 04, 2016 10:37
[2016-05-04] MEDS: FAMOTIDINE 20 MG INJ IV SCH (17:31)
[2016-05-04] MEDS: ONDANSETRON 4 MG INJ IV PRN (21:57)
[2016-05-04] MEDS: EPOETIN 10000 UNITS/1 ML INJ (ESRD) SC SCH (22:00)
[2016-05-05] VITALS (16 sets, daily range): BP systolic 91–146; BP diastolic 26–88; PULSE 78–110; RESP 17–20
[2016-05-05] MEDS: AL HYDROX/MG HYDROX/SIMETH 30 ML CUP GTB SCH ×4 (05:56→23:28)
[2016-05-05] MEDS: VANCOMYCIN HCL 250 MG/5ML POSYG GTB SCH ×4 (05:56→23:28)
[2016-05-05] MEDS: VITAMIN B COMPLEX/VIT C CAP PO SCH (09:46)
[2016-05-05] MEDS: VALSARTAN 80 MG TAB GTB SCH ×2 (09:46→22:06)
[2016-05-05] MEDS: FOLIC ACID 1 MG TAB PO SCH (09:46)
[2016-05-05] MEDS: LACTOBACILLUS CHEW TAB GTB SCH ×2 (09:46→22:06)
[2016-05-05] MEDS ORDERED: DESMOPRESSIN IVPB SCH (10:30)
[2016-05-05] MEDS ORDERED: SOD CHLORIDE 0.9% IVPB SCH (10:30)
[2016-05-05 12:32] LABS: BASOPHILS % 0.4 % (0.0-2.0); EOSINOPHILS # 0.6 10^3/ul (0.0-0.5); EOSINOPHILS % 5.1 % (0.0-7.0); HEMATOCRIT 19.7 % (37.0-47.0); LYMPHOCYTES # 1.4 10^3/ul (0.8-2.9); LYMPHOCYTES % 12.5 % (15.0-51.0); MEAN CORPUSCULAR HEMOGLOBIN 27.2 pg (29.0-33.0); MEAN CORPUSCULAR HGB CONC 31.4 g/dl (32.0-37.0); MEAN CORPUSCULAR VOLUME 86.7 fl (82.0-101.0); MEAN PLATELET VOLUME 9.2 fl (7.4-10.4); MONOCYTE # 1.4 10^3/ul (0.3-0.9); MONOCYTES % 12.6 % (0.0-11.0); NEUTROPHIL # 7.6 10^3/ul (1.6-7.5); NEUTROPHILS % 69.4 % (39.0-77.0); PLATELET COUNT 120 10^3/UL (140-440); RED BLOOD COUNT 2.28 10^6/ul (4.20-5.40); RED CELL DISTRIBUTION WIDTH 19.9 % (11.5-14.5)
[2016-05-05 12:38] LABS: POTASSIUM 4.3 mmol/L (3.5-5.1)
[2016-05-05 12:40] LABS: CREATININE 3.27 mg/dl (0.44-1.00)
[2016-05-05 12:41] LABS: CALCIUM 8.8 mg/dl (8.4-10.2); MAGNESIUM 4.2 mg/dl (1.7-2.5); PHOSPHORUS 1.5 mg/dl (2.5-4.9)
[2016-05-05 12:50] LABS: CONDITION 1; LH ANALYZER COMMENTS 1
[2016-05-05 12:52] LABS: HEMOGLOBIN 6.2 g/dl (12.0-16.0)
[2016-05-05 13:17] LABS: ANISOCYTOSIS 1+; HYPOCHROMASIA 1+
--- NOTE | 2016-05-05 13:55 | PN ---
Date/Time of Note Date/Time of Note DATE: 05/05/16 TIME: 13:54 Assessment/Plan VTE Prophylaxis VTE Prophylaxis Intervention: SCD's Lines/Catheters IV C[facility]ter Type (from [facility] Saline Lock Urinary Cath still in place: No Assessment/Plan Chief Complaint/Hosp Course 1. End-stage renal disease on hemodialysis, dislodged hemodialysis catheter. Nephrology following. The patient had a right internal jugular tunneled hemodialysis access placed by vascular surgery on 05/03/2016. 2. Accelerated hypertension. Continue routine and p.r.n. antihypertensives. Blood pressure fairly well controlled. 3. Dysphagia. Continue G-tube feedings. 4. Dementia. Reorient the patient frequently. 5. Incontinent dermatitis. Wound care consult. Local wound care. 6. C diff colitis. Continue oral vancomycin. 7. Anemia of chronic renal disease. Continue to monitor the H and H closely. Transfuse as needed. The patient was started on Epogen. We will obtain a stool for occult blood. 8. Hyperkalemia. Resolved. 9. Fluid, electrolytes and nutrition. Continue G-tube feedings. 10. DVT prophylaxis. Bilateral sequential compression devices. 11. Gastrointestinal prophylaxis. Histamine 2 receptor blockers. PLAN: Hemodialysis as per nephrology. Status post PermCath placement on 2016. Try releasing the patient's restraints. If the patient is off restraints , the patient can be transferred back to [facility] facility. Transfuse PRBCs. Case discussed with Dr. Gusman. Problems: Subjective 24 Hr Interval Summary Free Text/Dictation The patient remains confused. Exam/Review of Systems Vital Signs Vitals Vital Signs Date Time Temp Pulse Resp B/P Pulse Ox O2 Delivery O2 Flow Rate FiO2 05/05/16 12:00 97.3 88 19 110/53 98 Room Air 05/04/16 02:00 2.0 Intake and Output 05/04/16 05/04/16 05/05/16 15:00 23:00 07:00 Intake Total 1500 ml 800 ml Output Total 500 ml Balance 1000 ml 800 ml Exam GENERAL: This is a thin, frail-looking [place] female lying in bed in no apparent distress. Very confused. HEENT: Head normocephalic and atraumatic. Eyes: Anicteric sclerae. Conjunctivae clear. ENT: Nasal septum is midline. Oral mucosa is dry. NECK: Supple. No JVD noticed. RESPIRATORY: Bilaterally diminished breath sounds. No adventitious breath sounds. No use of accessory muscles of respiration. CARDIAC: Regular rate and rhythm. No murmurs heard. ABDOMEN: Soft, nontender and nondistended. Bowel sounds positive in all 4 quadrants. G-tube in place. GENITOURINARY: Deferred. EXTREMITIES: No cyanosis, no clubbing, no edema. Peripheral pulses are palpable. NEUROLOGIC: The patient is awake and alert. Oriented to person. Disoriented to place, time and purpose. PSYCHIATRIC: Pleasant. Confused. Results Result Diagram: 05/05/16 1200 05/05/16 1200 Results 24 hrs Laboratory Tests Test 05/05/16 12:00 Anion Gap 15 Anisocytosis 1+ Basophils # 0.0 Basophils % 0.4 Blood Morphology Comment Blood Urea Nitrogen 90 H Calcium Level 8.8 Carbon Dioxide Level 29 Chloride Level 101 Creatinine 3.27 H Differential Comment AUTO w/SCAN Eosinophils # 0.6 H Eosinophils % 5.1 Glucose Level 94 # Hematocrit 19.7 L Hemoglobin 6.2 *L Hypochromasia 1+ Lymphocytes # 1.4 Lymphocytes % 12.5 L Magnesium Level 4.2 H Mean Corpuscular Hemoglobin 27.2 L Mean Corpuscular Hemoglobin Concent 31.4 L Mean Corpuscular Volume 86.7 Mean Platelet Volume 9.2 Monocytes # 1.4 H Monocytes % 12.6 H Neutrophils # 7.6 H Neutrophils % 69.4 Nucleated Red Blood Cells # 0.0 Nucleated Red Blood Cells % 0.0 Phosphorus Level 1.5 #L Platelet Count 120 #L Potassium Level 4.3 Red Blood Count 2.28 L Red Cell Distribution Width 19.9 H Sodium Level 141 White Blood Count 11.0 H Medications Medications Current Medications Ondansetron HCl (Zofran Inj) 4 mg Q6H PRN IV NAUSEA AND/OR VOMITING Last administered on 05/04/16 21:57; Admin Dose 4 MG; Start 04/25/16 at 22:00 Acetaminophen (Tylenol Tab) 650 mg Q6H PRN PO PAIN LEVEL 1-3 OR FEVER Last administered on 04/30/16 20:37; Admin Dose 650 MG; Start 04/25/16 at 22:00 Acetaminophen/ Hydrocodone Bitart ([place] (5/325)) 1 tab Q6H PRN GTB MODERATE PAIN LEVEL 4-6 Last administered on 05/05/16 11:41; Admin Dose 1 TAB; Start 04/25/16 at 22:00 Morphine Sulfate (morphine) 2 mg Q4H PRN IV SEVERE PAIN LEVEL 7-10; Start at 22:00 Docusate Sodium (Colace Liquid Cup) 100 mg Q12H PRN GTB CONSTIPATION; Start 04/25/16 at 22:00 Hydralazine HCl (Apresoline) 25 mg Q8 PRN GTB ELEVATED BLOOD PRESSURE Last administered on 04/29/16 16:13; Admin Dose 25 MG; Start 04/25/16 at 22:00 Al Hydrox/Mg Hydrox/Simethicone (Mag-Al Plus) 30 ml Q6 GTB Last administered on 05/05/16 11:40; Admin Dose 30 ML; Start 04/26/16 at 00:00 Magnesium Hydroxide (Milk Of Mag) 30 ml DAILY PRN GTB CONSTIPATION; Start at 22:00 Lactobacillus Acidoph/Bulgaricus (Floranex) 1 tab BID GTB Last administered on 05/05/16 09:46; Admin Dose 1 TAB; Start 04/26/16 at 09:00 Folic Acid (Folic Acid) 1 mg DAILY PO Last administered on 05/05/16 09:46; Admin Dose 1 MG; Start 04/26/16 at 09:00 Diphenhydramine HCl (Benadryl) 25 mg Q6H PRN IM Itching Last administered on 02:17; Admin Dose 25 MG; Start 04/26/16 at 02:15 Vitamin B Complex/ Vitamin C (Berocca) 1 cap DAILY PO Last administered on 05/05 09:46; Admin Dose 1 CAP; Start 04/26/16 at 09:00 Valsartan (Diovan) 80 mg BID GTB Last administered on 05/05/16 09:46; Admin Dose 80 MG; Start 04/29/16 at 21:00 Famotidine (Pepcid Iv) 20 mg Q24H IV Last administered on 05/04/16 17:31; Admin Dose 20 MG; Start 04/29/16 at 17:00 Lorazepam (Ativan) 1 mg Q6H PRN IV Anxiety Last administered on 04/30/16 14:31 ; Admin Dose 1 MG; Start 04/30/16 at 14:30 Vancomycin HCl 250 mg 250 mg Q6 GTB Last administered on 05/05/16 11:40; Admin Dose 250 MG; Start 05/01/16 at 15:00 Desmopressin Acetate 10.4 mcg/ Sodium Chloride 52.6 ml @ 105.2 mls/ hr ONCE IVPB Last administered on 05/05/16 11:40; Admin Dose 105.2 MLS/HR; Start 05/05 at 10:30; Stop 05/05/16 at 23:00 Potassium Phosphate/Sodium Chloride (K Phos (Meq)/NS) 254.5455 ml @ 63.636 m... ONCE ONCE IVPB ; Start 05/05/16 at 15:00; Stop 05/05/16 at 18:59 Miscellaneous Information (*Order Clarification Bulletin) GIVE EPOGEN AFTER HD Q8H XX ; Start 05/05/16 at 14:00; Stop 05/05/16 at 23:59 ZEYAD VILLAVICENCIO NP May 05, 2016 13:55 ZEYAD VILLAVICENCIO NP May 05, 2016 13:55
[2016-05-05] MEDS: EPOETIN ALFA XX SCH ×2 (14:00→22:00)
[2016-05-05] MEDS ORDERED: POTASSIUM PHOSPHATE 20 MEQ in SOD CHLORIDE 0.9% 250 ML IVPB ONE (15:00)
--- NOTE | 2016-05-05 16:24 | PN ---
DATE: 05/05/2016 SUBJECTIVE: The patient this morning was unable to tolerate more than 30 minutes dialysis. The pat ient had a possible syncopal episode. The patient clinically improved after dialysis stopped and sh e returned back to baseline. No other events noted. OBJECTIVE: VITAL SIGNS: Blood pressure 124/66, respirations 19, pulse 92, temperature 98.4. HEENT: Head is normocephalic. NECK: Supple. HEART: Regular rate. LUNGS: Show diminished breath sounds at base. CHEST: The patient has a Perm-A-Cath with dressing with noted bleeding. ABDOMEN: Soft, nontender to palpation. No rebound or guarding. EXTREMITIES: Negative for clubbing, cyanosis. No edema. DERMATOLOGIC: No rashes. MUSCULOSKELETAL: No joint effusions. NEUROLOGIC: No change in exam. LABORATORY DATA: From 05/05/2016 is currently pending. ASSESSMENT AND PLAN: 1. End-stage renal disease. The patient was unable to be dialyzed today due to a syncopal episode. It is unclear if this is disequilibrium syndrome. Plan at this point is to attempt dialysis again tomorrow. Will dialyze on 2 for 2 hours with a blood flow rate of 150, dialysis flow rate of 300. The patient will be given mannitol 25 grams IV with dialysis. Will minimize ultrafiltration and mo nitor closely. 2. Syncope, etiology is unclear, questionable disequilibrium syndrome. Will consider CT scan of th e head. 3. Access. The patient has a Perm-A-Cath placement with bleeding around Perm-A-Cath site. This ma y be due to uremic bleeding. Will give one dose of DDAVP. 4. Anemia. Continue to monitor hemoglobin and hematocrit levels. Continue Epogen. Consider blood transfusion if needed. 5. Mineral bone disorder. Continue to monitor calcium and phosphorus levels. 6. 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 Continue dialysis. 7. Dysphagia, status post PEG, continue tube feeds. 8. Clostridium difficile colitis. Continue current medical management. 9. Sacral ulcers. Continue wound care. 10. Encephalopathy, etiology secondary to dementia, underlying uremia. 11. Hypertension. Continue current blood pressure regimen. Dictated By: HUDSON GREGG/ESTEE Conf#: [id number] DID#: [id number]
[2016-05-05] MEDS: FAMOTIDINE 20 MG INJ IV SCH (17:37)
--- NOTE | 2016-05-05 22:03 | RADRPT ---
PROCEDURE: CT Brain without contrast. CLINICAL INDICATION: Syncope, neurologic deficit TECHNIQUE: A CT of the brain was performed on multidetector high-resolution CT scanner utilizing a xial sections from the skull base through the vertex without contrast. One or more of the following dose reduction techniques were used: Automated exposure control, Adjustment of the mA and/or kV acc ording to patient size, and/or use of iterative reconstruction technique. DOSE: CTDI = 45/45 mGy and the DLP = 1080 mGy-cm. COMPARISON: None available FINDINGS: Severely motion degraded exam despite repeat imaging. No definite acute intracranial hemorrhage, sig nificant mass effect or midline shift. Patchy hypoattenuation of the cerebral white matter is compat ible with moderate chronic microvascular ischemic changes. Subacute to chronic right cerebellar, lef t basal ganglia, and left thalamic lacunar infarcts. Atherosclerotic calcifications of the cavernous segments of the internal carotid arteries are seen. Prominence of the cortical sulci and ventricles are related to mild to moderate cerebral volume loss. No significant opacification of the visualiz ed paranasal sinuses or mastoids. IMPRESSION: Severely motion degraded exam despite repeat imaging. No definite acute intracranial hemorrhage or significant mass effect. Moderate chronic microvascular disease and intracranial atherosclerosis. 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 If there is concern for recent stroke, consider brain MRI for further evaluation. RPTAT: AA .Valentin Vincent MD, MD Date Time Electronically viewed and signed by .Valentin Vincent MD, on 05/05/2016 22:03 .T/
[2016-05-05] MEDS: ONDANSETRON 4 MG INJ IV PRN (22:10)
[2016-05-06] VITALS (18 sets, daily range): BP systolic 98–172; BP diastolic 52–95; PULSE 85–122; RESP 14–20
[2016-05-06] MEDS ORDERED: FUROSEMIDE 20 MG INJ IV ONE (04:30)
[2016-05-06] MEDS: AL HYDROX/MG HYDROX/SIMETH 30 ML CUP GTB SCH ×4 (05:57→23:12)
[2016-05-06] MEDS: VANCOMYCIN HCL 250 MG/5ML POSYG GTB SCH ×4 (05:58→23:12)
[2016-05-06] MEDS ORDERED: hydrALAzine 20 MG INJ IV ONE (06:00)
[2016-05-06] MEDS: LACTOBACILLUS CHEW TAB GTB SCH ×2 (09:03→21:58)
[2016-05-06] MEDS: VITAMIN B COMPLEX/VIT C CAP PO SCH (09:03)
[2016-05-06] MEDS: FOLIC ACID 1 MG TAB PO SCH (09:03)
[2016-05-06 09:17] LABS: POST-TRANSFUSION BILIRUBIN 0.9 mg/dl; PRETRANSFUSION BILIRUBIN 0.1 mg/dl
[2016-05-06] MEDS ORDERED: SOD CHLORIDE 0.9% 250 ML IV* ONE (09:57)
[2016-05-06] MEDS: VALSARTAN 80 MG TAB GTB SCH ×2 (10:22→21:59)
[2016-05-06] MEDS ORDERED: EPOETIN 10000 UNITS/1 ML INJ (ESRD) SC ONE (10:30)
[2016-05-06] MEDS ORDERED: SOD CHLORIDE 0.9% IVPB ONE (10:30)
[2016-05-06] MEDS ORDERED: DESMOPRESSIN IVPB ONE (10:30)
[2016-05-06] MEDS ORDERED: POTASSIUM PHOSPHATE 15 MM in SOD CHLORIDE 0.9% 250 ML IVPB ONE (10:30)
[2016-05-06] MEDS: LORAZEPAM 2 MG INJ IV PRN ×2 (12:34→17:34)
[2016-05-06] MEDS: DIPHENHYDRAMINE 50 MG INJ IM PRN (12:34)
[2016-05-06 13:12] LABS: BASOPHIL # 0.1 10^3/ul (0.0-0.1); BASOPHILS % 0.3 % (0.0-2.0); EOSINOPHILS # 0.6 10^3/ul (0.0-0.5); EOSINOPHILS % 3.5 % (0.0-7.0); HEMATOCRIT 27.6 % (37.0-47.0); HEMOGLOBIN 9.2 g/dl (12.0-16.0); LYMPHOCYTES # 1.6 10^3/ul (0.8-2.9); LYMPHOCYTES % 9.7 % (15.0-51.0); MEAN CORPUSCULAR HEMOGLOBIN 28.7 pg (29.0-33.0); MEAN CORPUSCULAR HGB CONC 33.2 g/dl (32.0-37.0); MEAN CORPUSCULAR VOLUME 86.3 fl (82.0-101.0); MEAN PLATELET VOLUME 9.4 fl (7.4-10.4); MONOCYTE # 2.1 10^3/ul (0.3-0.9); MONOCYTES % 12.3 % (0.0-11.0); NEUTROPHIL # 12.5 10^3/ul (1.6-7.5); NEUTROPHILS % 74.2 % (39.0-77.0); PLATELET COUNT 137 10^3/UL (140-440); RED CELL DISTRIBUTION WIDTH 17.3 % (11.5-14.5); UNCORRECTED WBC 16.8 10^3/ul (4.8-10.8); WHITE BLOOD COUNT 16.8 10^3/ul (4.8-10.8)
[2016-05-06 13:15] LABS: CONDITION 1; LH ANALYZER COMMENTS 1; SUSPECT 1
[2016-05-06 13:17] LABS: POTASSIUM 5.6 mmol/L (3.5-5.1)
[2016-05-06 13:20] LABS: CREATININE 3.48 mg/dl (0.44-1.00); PHOSPHORUS 2.4 mg/dl (2.5-4.9)
[2016-05-06 13:21] LABS: CALCIUM 8.9 mg/dl (8.4-10.2)
[2016-05-06 13:26] LABS: MAGNESIUM 5.1 mg/dl (1.7-2.5)
[2016-05-06 13:27] LABS: INR 0.9; PROTIME 12.1 Sec (12.2-14.2); PT RATIO 0.9
--- NOTE | 2016-05-06 14:48 | PN ---
Date/Time of Note Date/Time of Note DATE: 05/06/16 TIME: 14:46 Assessment/Plan VTE Prophylaxis VTE Prophylaxis Intervention: SCD's Lines/Catheters IV [facility] Type [facility]from [facility] Saline Lock Urinary Cath still in place: No Assessment/Plan Chief Complaint/Hosp Course 1. End-stage renal disease on hemodialysis, dislodged hemodialysis catheter. Nephrology following. The patient had a right internal jugular tunneled hemodialysis access placed by vascular surgery on 05/03/2016, access site is bleeding and Vascular is aware 2. Accelerated hypertension. Continue routine and p.r.n. antihypertensives. Blood pressure fairly well controlled. 3. Dysphagia. Continue G-tube feedings. 4. Dementia. Reorient the patient frequently. 5. Incontinent dermatitis. Wound care consult. Local wound care. 6. C diff colitis. Continue oral vancomycin. 7. Anemia of chronic renal disease. Continue to monitor the H and H closely. Transfuse as needed. The patient was started on Epogen. We will obtain a stool for occult blood. 8. Hyperkalemia. Resolved. 9. Fluid, electrolytes and nutrition. Continue G-tube feedings. 10. DVT prophylaxis. Bilateral sequential compression devices. 11. Gastrointestinal prophylaxis. Histamine 2 receptor blockers. Problems: Subjective 24 Hr Interval Summary Subjective hx not possible: pt non-verbal Exam/Review of Systems Vital Signs Vitals Vital Signs Date Time Temp Pulse Resp B/P Pulse Ox O2 Delivery O2 Flow Rate FiO2 05/06/16 12:00 97.2 117 16 141/92 Room Air 05/06/16 07:45 96 05/04/16 02:00 2.0 Intake and Output 05/05/16 05/05/16 05/06/16 15:00 23:00 07:00 Intake Total 552.6 ml 920 ml 600 ml Output Total 500 ml Balance 52.6 ml 920 ml 600 ml Exam Constitutional: non-verbal Respiratory: clear to auscultation Cardiovascular: regular rate and rhythm Gastrointestinal: soft, No distended Musculoskeletal: nl extremities to inspection Results Result Diagram: 05/06/16 1259 05/06/16 1259 Results 24 hrs Laboratory Tests Test 05/06/16 12:59 Anion Gap 19 H Basophils # 0.1 Basophils % 0.3 Blood Morphology Comment Blood Urea Nitrogen 115 H Calcium Level 8.9 Carbon Dioxide Level 26 Chloride Level 104 Creatinine 3.48 H Eosinophils # 0.6 H Eosinophils % 3.5 Glucose Level 109 Hematocrit 27.6 #L Hemoglobin 9.2 #L INR International Normalized Ratio 0.90 Lymphocytes # 1.6 Lymphocytes % 9.7 L Magnesium Level 5.1 *H Mean Corpuscular Hemoglobin 28.7 L Mean Corpuscular Hemoglobin Concent 33.2 Mean Corpuscular Volume 86.3 Mean Platelet Volume 9.4 Monocytes # 2.1 H Monocytes % 12.3 H Neutrophils # 12.5 H Neutrophils % 74.2 Nucleated Red Blood Cells # 0.0 Nucleated Red Blood Cells % 0.0 Phosphorus Level 2.4 L Platelet Count 137 L Potassium Level 5.6 H Prothrombin Time 12.1 L Prothrombin Time Ratio 0.9 Red Blood Count 3.20 #L Red Cell Distribution Width 17.3 H Sodium Level 143 White Blood Count 16.8 #H Medications Medications Current Medications Ondansetron HCl (Zofran Inj) 4 mg Q6H PRN IV NAUSEA AND/OR VOMITING Last administered on 05/05/16 22:10; Admin Dose 4 MG; Start 04/25/16 at 22:00 Acetaminophen (Tylenol Tab) 650 mg Q6H PRN PO PAIN LEVEL 1-3 OR FEVER Last administered on 04/30/16 20:37; Admin Dose 650 MG; Start 04/25/16 at 22:00 Acetaminophen/ Hydrocodone Bitart ([place] (5/325)) 1 tab Q6H PRN GTB MODERATE PAIN LEVEL 4-6 Last administered on 05/05/16 11:41; Admin Dose 1 TAB; Start 04/25/16 at 22:00 Morphine Sulfate (morphine) 2 mg Q4H PRN IV SEVERE PAIN LEVEL 7-10; Start at 22:00 Docusate Sodium (Colace Liquid Cup) 100 mg Q12H PRN GTB CONSTIPATION; Start 04/25/16 at 22:00 Hydralazine HCl (Apresoline) 25 mg Q8 PRN GTB ELEVATED BLOOD PRESSURE Last administered on 04/29/16 16:13; Admin Dose 25 MG; Start 04/25/16 at 22:00 Al Hydrox/Mg Hydrox/Simethicone (Mag-Al Plus) 30 ml Q6 GTB Last administered on 05/06/16 12:26; Admin Dose 30 ML; Start 04/26/16 at 00:00 Magnesium Hydroxide (Milk Of Mag) 30 ml DAILY PRN GTB CONSTIPATION; Start at 22:00 Lactobacillus Acidoph/Bulgaricus (Floranex) 1 tab BID GTB Last administered on 05/06/16 09:03; Admin Dose 1 TAB; Start 04/26/16 at 09:00 Folic Acid (Folic Acid) 1 mg DAILY PO Last administered on 05/06/16 09:03; Admin Dose 1 MG; Start 04/26/16 at 09:00 Diphenhydramine HCl (Benadryl) 25 mg Q6H PRN IM Itching Last administered on 12:34; Admin Dose 25 MG; Start 04/26/16 at 02:15 Vitamin B Complex/ Vitamin C (Berocca) 1 cap DAILY PO Last administered on 05/06 09:03; Admin Dose 1 CAP; Start 04/26/16 at 09:00 Valsartan (Diovan) 80 mg BID GTB Last administered on 05/06/16 10:22; Admin Dose 80 MG; Start 04/29/16 at 21:00 Lorazepam (Ativan) 1 mg Q6H PRN IV Anxiety Last administered on 05/06/16 12:34 ; Admin Dose 1 MG; Start 04/30/16 at 14:30 Vancomycin HCl (Vancomycin Oral Syringe) 250 mg Q6 GTB Last administered on 12:27; Admin Dose 250 MG; Start 05/01/16 at 15:00 Famotidine (Pepcid) 20 mg Q24H GTB ; Start 05/06/16 at 17:00 Mannitol (Mannitol 25%) 50 gm ONCE ONCE IV* ; Start 05/06/16 at 15:00; Stop at 15:01 MISBAH THORNTON May 06, 2016 14:48
[2016-05-06] MEDS ORDERED: MANNITOL 25% 50 ML INJ IV* ONE (15:00)
--- NOTE | 2016-05-06 15:17 | PN ---
DATE: 05/06/2016 SUBJECTIVE: Yesterday, the patient received blood transfusion; however, had an apparent reaction an d blood products were stopped after 1 unit. The patient continues to have oozing from Perm-A-Cath s ite. No other events noted. The patient's last attempt at hemodialysis was on 05/04/2016. There h as been no hemoptysis, hematemesis or hematochezia. OBJECTIVE: VITAL SIGNS: Blood pressure 147/78, respiration 18, pulse 113, temperature 98.7. HEENT: Head is normocephalic. NECK: Supple. HEART: Regular rate. LUNGS: Show diminished breath sounds at base. ABDOMEN: Soft, nontender to palpation. EXTREMITIES: Negative for clubbing, cyanosis, no edema. DERMATOLOGIC: No rashes. MUSCULOSKELETAL: No joint effusions. NEUROLOGIC: No change in exam. MEDICATIONS: The patient's medications have been reviewed. LABORATORY DATA: Showed sodium 141, ____, chloride 101, BUN 9, creatinine 3.27 phosphorus 1.5. Whi te count is 11.0, hemoglobin 6.2, hematocrit 19.7, platelet count is 120. IMAGING: CT of the brain shows no acute evidence of subacute chronic infarcts, no evidence of any a cute stroke. ASSESSMENT AND PLAN: 1. End-stage renal disease. The patient was unable to be dialyzed due to syncopal episode. It is unclear if this is dysequilibrium syndrome versus type A reaction. Plan for the next hemodialysis w ill be to use a Linda filter. The patient will also be given mannitol with dialysis. Will have a blood flow rate will be at 150 mL/minute and a dialysate blood flow rate of 300 mL/minute. We will monitor closely. 2. Anemia secondary to bleeding around Perm-A-Cath site. This is in part due to uremic bleeding. The patient will be given DDAVP. Will type and cross, transfuse 2 units of PRBC. 3. Access. The patient has a Perm-A-Cath with bleeding around the site. Will give DDAVP. We will follow up with CT surgery and vascular surgery for evaluation. 4. Syncope, etiology is unclear, disequilibrium syndrome versus type A reaction. CT scan of the he ad showed no acute findings. Will continue to monitor. 5. Mineral bone disorder. Continue to monitor calcium and phosphorus levels. Will replete with po tassium phosphate as patient is hypophosphatemic 6. 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 Continue to monitor, continue dialysis. 7. Dysphagia, status post PEG tube feeding. 8. Clostridium difficile colitis. Continue current medical management. 9. Decubitus ulcers. Continue wound care: 10. Encephalopathy. 11. Hypertension. Blood pressure currently controlled. Dictated By: HUDSON GREGG/ESTEE Conf#: [id number] DID#: [id number]
[2016-05-06] MEDS: FAMOTIDINE 20 MG TAB GTB SCH (17:34)
[2016-05-06] MEDS: EPOETIN 10000 UNITS/1 ML INJ (ESRD) SC SCH (17:39)
[2016-05-07] VITALS (22 sets, daily range): BP systolic 107–155; BP diastolic 62–89; PULSE 82–112; RESP 16–20
[2016-05-07] MEDS: VANCOMYCIN HCL 250 MG/5ML POSYG GTB SCH ×4 (06:00→23:28)
[2016-05-07] MEDS: AL HYDROX/MG HYDROX/SIMETH 30 ML CUP GTB SCH ×4 (06:01→23:27)
[2016-05-07 07:22] LABS: BASOPHILS % 0.4 % (0.0-2.0); EOSINOPHILS # 0.8 10^3/ul (0.0-0.5); EOSINOPHILS % 6.1 % (0.0-7.0); HEMATOCRIT 24.5 % (37.0-47.0); HEMOGLOBIN 8.2 g/dl (12.0-16.0); LYMPHOCYTES # 1.7 10^3/ul (0.8-2.9); MEAN CORPUSCULAR HEMOGLOBIN 29.9 pg (29.0-33.0); MEAN CORPUSCULAR HGB CONC 33.5 g/dl (32.0-37.0); MEAN CORPUSCULAR VOLUME 89.3 fl (82.0-101.0); MEAN PLATELET VOLUME 9.2 fl (7.4-10.4); MONOCYTE # 1.9 10^3/ul (0.3-0.9); MONOCYTES % 14.6 % (0.0-11.0); NEUTROPHIL # 8.5 10^3/ul (1.6-7.5); NEUTROPHILS % 65.9 % (39.0-77.0); PLATELET COUNT 142 10^3/UL (140-440); RED BLOOD COUNT 2.75 10^6/ul (4.20-5.40); RED CELL DISTRIBUTION WIDTH 17.7 % (11.5-14.5); UNCORRECTED WBC 12.9 10^3/ul (4.8-10.8); WHITE BLOOD COUNT 12.9 10^3/ul (4.8-10.8)
[2016-05-07 07:36] LABS: CONDITION 1; LH ANALYZER COMMENTS 1
[2016-05-07 07:39] LABS: POTASSIUM 4.4 mmol/L (3.5-5.1)
[2016-05-07 07:42] LABS: CREATININE 2.47 mg/dl (0.44-1.00)
[2016-05-07 07:43] LABS: CALCIUM 8.8 mg/dl (8.4-10.2); MAGNESIUM 4.2 mg/dl (1.7-2.5); PHOSPHORUS 1.5 mg/dl (2.5-4.9)
[2016-05-07] MEDS: VITAMIN B COMPLEX/VIT C CAP PO SCH (09:54)
[2016-05-07] MEDS: LACTOBACILLUS CHEW TAB GTB SCH ×2 (09:54→22:07)
[2016-05-07] MEDS: FOLIC ACID 1 MG TAB PO SCH (09:54)
[2016-05-07] MEDS: VALSARTAN 80 MG TAB GTB SCH ×2 (09:54→22:07)
[2016-05-07] MEDS: NEUTRA-PHOS 250 MG PACKET GTB SCH ×2 (13:42→22:07)
[2016-05-07] MEDS: DIPHENHYDRAMINE 50 MG INJ IM PRN (14:23)
--- NOTE | 2016-05-07 14:42 | PN ---
Date/Time of Note Date/Time of Note DATE: 05/07/16 TIME: 14:40 Assessment/Plan VTE Prophylaxis VTE Prophylaxis Intervention: SCD's Lines/Catheters IV [facility]from [facility] Saline Lock Urinary Cath still in place: No Assessment/Plan Chief Complaint/Hosp Course 1. End-stage renal disease on hemodialysis, dislodged hemodialysis catheter. Nephrology following. The patient had a right internal jugular tunneled hemodialysis access placed by vascular surgery on 05/03/2016, access site was bleeding and is now repaired 2. Accelerated hypertension. Continue routine and p.r.n. antihypertensives. Blood pressure fairly well controlled. 3. Dysphagia. Continue G-tube feedings. 4. Dementia. Reorient the patient frequently. 5. Incontinent dermatitis. Wound care consult. Local wound care. 6. C diff colitis. Continue oral vancomycin. 7. Anemia of chronic renal disease. Continue to monitor the H and H closely. Transfuse as needed. The patient was started on Epogen. We will obtain a stool for occult blood. 8. Hyperkalemia. Resolved. 9. Fluid, electrolytes and nutrition. Continue G-tube feedings. 10. DVT prophylaxis. Bilateral sequential compression devices. 11. Gastrointestinal prophylaxis. Histamine 2 receptor blockers. Problems: Subjective 24 Hr Interval Summary Constitutional: disoriented Exam/Review of Systems Vital Signs Vitals Vital Signs Date Time Temp Pulse Resp B/P Pulse Ox O2 Delivery O2 Flow Rate FiO2 05/07/16 08:08 98.1 105 20 149/76 97 05/07/16 06:13 2.0 05/07/16 06:00 Nasal Cannula Intake and Output 05/06/16 05/06/16 05/07/16 15:00 23:00 07:00 Intake Total 255 ml 1360 ml 600 ml Output Total 800 ml Balance 255 ml 560 ml 600 ml Exam Psych: confusion Respiratory: clear to auscultation Cardiovascular: regular rate and rhythm Gastrointestinal: soft, No distended Musculoskeletal: nl extremities to inspection Results Result Diagram: 05/07/16 0525 05/07/16 0525 Results 24 hrs Laboratory Tests Test 05/07/16 05:25 Anion Gap 16 Basophils # 0.0 Basophils % 0.4 Blood Morphology Comment Blood Urea Nitrogen 72 #H Calcium Level 8.8 Carbon Dioxide Level 30 Chloride Level 99 Creatinine 2.47 #H Eosinophils # 0.8 H Eosinophils % 6.1 Glucose Level 99 Hematocrit 24.5 L Hemoglobin 8.2 L Lymphocytes # 1.7 Lymphocytes % 13.0 L Magnesium Level 4.2 H Mean Corpuscular Hemoglobin 29.9 Mean Corpuscular Hemoglobin Concent 33.5 Mean Corpuscular Volume 89.3 Mean Platelet Volume 9.2 Monocytes # 1.9 H Monocytes % 14.6 H Neutrophils # 8.5 H Neutrophils % 65.9 Nucleated Red Blood Cells # 0.0 Nucleated Red Blood Cells % 0.0 Phosphorus Level 1.5 L Platelet Count 142 Potassium Level 4.4 Red Blood Count 2.75 L Red Cell Distribution Width 17.7 H Sodium Level 141 White Blood Count 12.9 #H Medications Medications Current Medications Ondansetron HCl (Zofran Inj) 4 mg Q6H PRN IV NAUSEA AND/OR VOMITING Last administered on 05/05/16 22:10; Admin Dose 4 MG; Start 04/25/16 at 22:00 Acetaminophen (Tylenol Tab) 650 mg Q6H PRN PO PAIN LEVEL 1-3 OR FEVER Last administered on 04/30/16 20:37; Admin Dose 650 MG; Start 04/25/16 at 22:00 Acetaminophen/ Hydrocodone Bitart ([place] (5/325)) 1 tab Q6H PRN GTB MODERATE PAIN LEVEL 4-6 Last administered on 05/05/16 11:41; Admin Dose 1 TAB; Start 04/25/16 at 22:00 Morphine Sulfate (morphine) 2 mg Q4H PRN IV SEVERE PAIN LEVEL 7-10; Start at 22:00 Docusate Sodium (Colace Liquid Cup) 100 mg Q12H PRN GTB CONSTIPATION; Start 04/25/16 at 22:00 Hydralazine HCl (Apresoline) 25 mg Q8 PRN GTB ELEVATED BLOOD PRESSURE Last administered on 04/29/16 16:13; Admin Dose 25 MG; Start 04/25/16 at 22:00 Al Hydrox/Mg Hydrox/Simethicone (Mag-Al Plus) 30 ml Q6 GTB Last administered on 05/07/16 13:42; Admin Dose 30 ML; Start 04/26/16 at 00:00 Magnesium Hydroxide (Milk Of Mag) 30 ml DAILY PRN GTB CONSTIPATION; Start at 22:00 Lactobacillus Acidoph/Bulgaricus (Floranex) 1 tab BID GTB Last administered on 05/07/16 09:54; Admin Dose 1 TAB; Start 04/26/16 at 09:00 Folic Acid (Folic Acid) 1 mg DAILY PO Last administered on 05/07/16 09:54; Admin Dose 1 MG; Start 04/26/16 at 09:00 Diphenhydramine HCl (Benadryl) 25 mg Q6H PRN IM Itching Last administered on 14:23; Admin Dose 25 MG; Start 04/26/16 at 02:15 Vitamin B Complex/ Vitamin C (Berocca) 1 cap DAILY PO Last administered on 05/07 09:54; Admin Dose 1 CAP; Start 04/26/16 at 09:00 Valsartan (Diovan) 80 mg BID GTB Last administered on 05/07/16 09:54; Admin Dose 80 MG; Start 04/29/16 at 21:00 Lorazepam (Ativan) 1 mg Q6H PRN IV Anxiety Last administered on 05/06/16 17:34 ; Admin Dose 1 MG; Start 04/30/16 at 14:30 Vancomycin HCl (Vancomycin Oral Syringe) 250 mg Q6 GTB Last administered on 13:42; Admin Dose 250 MG; Start 05/01/16 at 15:00 Famotidine (Pepcid) 20 mg Q24H GTB Last administered on 05/06/16 17:34; Admin Dose 20 MG; Start 05/06/16 at 17:00 Sodium Phosphate (Neutra-Phos) 500 mg BID GTB Last administered on 05/07/16 13 :42; Admin Dose 500 MG; Start 05/07/16 at 10:30 MISBAH THORNTON May 07, 2016 14:42
[2016-05-07] MEDS: FAMOTIDINE 20 MG TAB GTB SCH (18:01)
[2016-05-07] MEDS: EPOETIN 10000 UNITS/1 ML INJ (ESRD) SC SCH (19:18)
[2016-05-08] VITALS (13 sets, daily range): BP systolic 125–163; BP diastolic 60–79; PULSE 19–100; RESP 18–22
[2016-05-08 06:04] LABS: BASOPHIL # 0.1 10^3/ul (0.0-0.1); BASOPHILS % 0.5 % (0.0-2.0); EOSINOPHILS # 1.2 10^3/ul (0.0-0.5); EOSINOPHILS % 9.8 % (0.0-7.0); HEMATOCRIT 23.2 % (37.0-47.0); HEMOGLOBIN 7.5 g/dl (12.0-16.0); LYMPHOCYTES % 16.6 % (15.0-51.0); MEAN CORPUSCULAR HEMOGLOBIN 28.5 pg (29.0-33.0); MEAN CORPUSCULAR HGB CONC 32.5 g/dl (32.0-37.0); MEAN CORPUSCULAR VOLUME 87.8 fl (82.0-101.0); MONOCYTE # 1.2 10^3/ul (0.3-0.9); NEUTROPHIL # 7.7 10^3/ul (1.6-7.5); NEUTROPHILS % 63.1 % (39.0-77.0); PLATELET COUNT 163 10^3/UL (140-440); RED BLOOD COUNT 2.64 10^6/ul (4.20-5.40); UNCORRECTED WBC 12.2 10^3/ul (4.8-10.8); WHITE BLOOD COUNT 12.2 10^3/ul (4.8-10.8)
[2016-05-08 06:15] LABS: POTASSIUM 4.1 mmol/L (3.5-5.1)
[2016-05-08 06:18] LABS: CREATININE 2.09 mg/dl (0.44-1.00)
[2016-05-08 06:19] LABS: CALCIUM 8.4 mg/dl (8.4-10.2); MAGNESIUM 3.3 mg/dl (1.7-2.5); PHOSPHORUS 2.1 mg/dl (2.5-4.9)
[2016-05-08] MEDS: AL HYDROX/MG HYDROX/SIMETH 30 ML CUP GTB SCH ×4 (06:24→23:58)
[2016-05-08] MEDS: VANCOMYCIN HCL 250 MG/5ML POSYG GTB SCH ×4 (06:24→23:58)
[2016-05-08 06:27] LABS: CONDITION 1; LH ANALYZER COMMENTS 1; SUSPECT 1
[2016-05-08] MEDS: NEUTRA-PHOS 250 MG PACKET GTB SCH ×2 (08:33→21:43)
[2016-05-08] MEDS: VITAMIN B COMPLEX/VIT C CAP PO SCH (08:33)
[2016-05-08] MEDS: FOLIC ACID 1 MG TAB PO SCH (08:33)
[2016-05-08] MEDS: LACTOBACILLUS CHEW TAB GTB SCH ×2 (08:33→21:44)
[2016-05-08] MEDS: VALSARTAN 80 MG TAB GTB SCH ×2 (08:33→21:44)
--- NOTE | 2016-05-08 11:57 | PN ---
DATE: 05/08/2016 SUBJECTIVE: The patient is stable, no acute events overnight. The patient had hemodialysis yesterda y, tolerated well without complications. OBJECTIVE: VITAL SIGNS: Blood pressure is 134/76, respiration 18, pulse 84, temperature 97.8. HEENT: Head is normocephalic. NECK: Supple. HEART: Regular rate. LUNGS: Show diminished breath sounds at the base. ABDOMEN: Soft, nontender to palpation. No rebound or guarding. EXTREMITIES: Negative for clubbing, cyanosis, no edema. DERMATOLOGIC: No rashes. MUSCULOSKELETAL: No joint effusions. NEUROLOGIC: No change in exam. MEDICATIONS: Reviewed. LABORATORY DATA: Shows white count 12.2, hemoglobin 7.5, hematocrit 23.2. Platelet count is 163. S odium 135, potassium 4.1. BUN 52, creatinine 2.09, , phosphorus 2.1. ASSESSMENT AND PLAN: 1. End stage renal disease. The patient had hemodialysis yesterday, tolerated well. Anticipate dial ysis again tomorrow. The patient will be dialyzed with a Linda filter. 2. Anemia secondary to bleed from Perm-A-Cath site. The patient is status post blood transfusion. Will continue Epogen with dialysis. The patient is status post DDAVP. 3. Syncope, etiology is unclear. Questionable disequilibrium syndrome versus type A reaction. CT s can showed no acute findings. Continue to monitor. No further syncopal episodes after hemodialysis yesterday. 4. Mineral bone disorder. Continue to monitor calcium and phosphorus levels. Phosphorus levels re main low, will continue with sodium phosphate repletion. 5. Hypomagnesemia secondary to end-stage renal disease, improving. Continue dialysis. 6. Dysphagia, status post PEG tube, tube feeding. 7. . continue medical management. 8. Decubitus ulcer. Continue wound care. 9. Encephalopathy. No change. Continue to monitor. 10. Hypertension, controlled. Dictated By: HUDSON GREGG/ESTEE Conf#: [id number] DID#: [id number]
[2016-05-08] MEDS: FAMOTIDINE 20 MG TAB GTB SCH (17:06)
--- NOTE | 2016-05-08 18:24 | PN ---
Date/Time of Note Date/Time of Note DATE: 05/08/16 TIME: 18:23 Assessment/Plan VTE Prophylaxis VTE Prophylaxis Intervention: SCD's Lines/Catheters IV [facility]ter Type (from [facility]): Saline Lock Urinary Cath still in place: No Assessment/Plan Chief Complaint/Hosp Course 1. End-stage renal disease on hemodialysis, dislodged hemodialysis catheter. Nephrology following. The patient had a right internal jugular tunneled hemodialysis access placed by vascular surgery on 05/03/2016, access site was bleeding and is now repaired 2. Accelerated hypertension. Continue routine and p.r.n. antihypertensives. Blood pressure fairly well controlled. 3. Dysphagia. Continue G-tube feedings. 4. Dementia. Reorient the patient frequently. 5. Incontinent dermatitis. Wound care consult. Local wound care. 6. C diff colitis. Continue oral vancomycin. 7. Anemia of chronic renal disease. Continue to monitor the H and H closely. Transfuse as needed. The patient was started on Epogen. We will obtain a stool for occult blood. 8. Hyperkalemia. Resolved. 9. Fluid, electrolytes and nutrition. Continue G-tube feedings. 10. DVT prophylaxis. Bilateral sequential compression devices. 11. Gastrointestinal prophylaxis. Histamine 2 receptor blockers. Problems: Subjective 24 Hr Interval Summary Constitutional: disoriented Exam/Review of Systems Vital Signs Vitals Vital Signs Date Time Temp Pulse Resp B/P Pulse Ox O2 Delivery O2 Flow Rate FiO2 05/08/16 16:00 98.3 70 19 133/69 98 Room Air 05/07/16 18:12 2.0 Intake and Output 05/07/16 05/07/16 05/08/16 15:00 23:00 07:00 Intake Total 1460 ml 660 ml Output Total 800 ml Balance 660 ml 660 ml Exam Psych: confusion Respiratory: clear to auscultation Cardiovascular: regular rate and rhythm Gastrointestinal: soft, No distended Musculoskeletal: nl extremities to inspection Results Result Diagram: 05/08/16 0540 05/08/16 0540 Results 24 hrs Laboratory Tests Test 05/08/16 05:40 Anion Gap 12 Basophils # 0.1 Basophils % 0.5 Blood Morphology Comment Blood Urea Nitrogen 52 H Calcium Level 8.4 Carbon Dioxide Level 31 Chloride Level 96 L Creatinine 2.09 H Eosinophils # 1.2 H Eosinophils % 9.8 H Glucose Level 92 Hematocrit 23.2 L Hemoglobin 7.5 L Lymphocytes # 2.0 Lymphocytes % 16.6 Magnesium Level 3.3 H Mean Corpuscular Hemoglobin 28.5 L Mean Corpuscular Hemoglobin Concent 32.5 Mean Corpuscular Volume 87.8 Mean Platelet Volume 9.0 Monocytes # 1.2 H Monocytes % 10.0 Neutrophils # 7.7 H Neutrophils % 63.1 Nucleated Red Blood Cells # 0.0 Nucleated Red Blood Cells % 0.0 Phosphorus Level 2.1 L Platelet Count 163 Potassium Level 4.1 Red Blood Count 2.64 L Red Cell Distribution Width 18.0 H Sodium Level 135 White Blood Count 12.2 H Medications Medications Current Medications Ondansetron HCl (Zofran Inj) 4 mg Q6H PRN IV NAUSEA AND/OR VOMITING Last administered on 05/05/16 22:10; Admin Dose 4 MG; Start 04/25/16 at 22:00 Acetaminophen (Tylenol Tab) 650 mg Q6H PRN PO PAIN LEVEL 1-3 OR FEVER Last administered on 04/30/16 20:37; Admin Dose 650 MG; Start 04/25/16 at 22:00 Acetaminophen/ Hydrocodone Bitart ([place] (5/325)) 1 tab Q6H PRN GTB MODERATE PAIN LEVEL 4-6 Last administered on 05/05/16 11:41; Admin Dose 1 TAB; Start 04/25/16 at 22:00 Morphine Sulfate (morphine) 2 mg Q4H PRN IV SEVERE PAIN LEVEL 7-10; Start at 22:00 Docusate Sodium (Colace Liquid Cup) 100 mg Q12H PRN GTB CONSTIPATION; Start 04/25/16 at 22:00 Hydralazine HCl (Apresoline) 25 mg Q8 PRN GTB ELEVATED BLOOD PRESSURE Last administered on 04/29/16 16:13; Admin Dose 25 MG; Start 04/25/16 at 22:00 Al Hydrox/Mg Hydrox/Simethicone (Mag-Al Plus) 30 ml Q6 GTB Last administered on 05/08/16 17:06; Admin Dose 30 ML; Start 04/26/16 at 00:00 Magnesium Hydroxide (Milk Of Mag) 30 ml DAILY PRN GTB CONSTIPATION; Start at 22:00 Lactobacillus Acidoph/Bulgaricus (Floranex) 1 tab BID GTB Last administered on 05/08/16 08:33; Admin Dose 1 TAB; Start 04/26/16 at 09:00 Folic Acid (Folic Acid) 1 mg DAILY PO Last administered on 05/08/16 08:33; Admin Dose 1 MG; Start 04/26/16 at 09:00 Diphenhydramine HCl (Benadryl) 25 mg Q6H PRN IM Itching Last administered on 14:23; Admin Dose 25 MG; Start 04/26/16 at 02:15 Vitamin B Complex/ Vitamin C (Berocca) 1 cap DAILY PO Last administered on 05/08 08:33; Admin Dose 1 CAP; Start 04/26/16 at 09:00 Valsartan (Diovan) 80 mg BID GTB Last administered on 05/07/16 22:07; Admin Dose 80 MG; Start 04/29/16 at 21:00 Lorazepam (Ativan) 1 mg Q6H PRN IV Anxiety Last administered on 05/06/16 17:34 ; Admin Dose 1 MG; Start 04/30/16 at 14:30 Vancomycin HCl (Vancomycin Oral Syringe) 250 mg Q6 GTB Last administered on 17:07; Admin Dose 250 MG; Start 05/01/16 at 15:00 Famotidine (Pepcid) 20 mg Q24H GTB Last administered on 05/08/16 17:06; Admin Dose 20 MG; Start 05/06/16 at 17:00 Sodium Phosphate (Neutra-Phos) 500 mg BID GTB Last administered on 05/08/16 08 :33; Admin Dose 500 MG; Start 05/07/16 at 10:30 MISBAH THORNTON May 08, 2016 18:24
[2016-05-09] VITALS (23 sets, daily range): BP systolic 97–175; BP diastolic 55–85; PULSE 86–112; RESP 16–20
[2016-05-09 05:47] LABS: BASOPHILS % 0.2 % (0.0-2.0); EOSINOPHILS # 0.9 10^3/ul (0.0-0.5); EOSINOPHILS % 7.9 % (0.0-7.0); HEMATOCRIT 25.5 % (37.0-47.0); HEMOGLOBIN 8.3 g/dl (12.0-16.0); LYMPHOCYTES # 1.4 10^3/ul (0.8-2.9); LYMPHOCYTES % 12.2 % (15.0-51.0); MEAN CORPUSCULAR HEMOGLOBIN 28.5 pg (29.0-33.0); MEAN CORPUSCULAR HGB CONC 32.4 g/dl (32.0-37.0); MEAN CORPUSCULAR VOLUME 87.9 fl (82.0-101.0); MEAN PLATELET VOLUME 9.5 fl (7.4-10.4); MONOCYTES % 8.5 % (0.0-11.0); NEUTROPHIL # 8.4 10^3/ul (1.6-7.5); NEUTROPHILS % 71.2 % (39.0-77.0); PLATELET COUNT 218 10^3/UL (140-440); RED BLOOD COUNT 2.91 10^6/ul (4.20-5.40); RED CELL DISTRIBUTION WIDTH 17.8 % (11.5-14.5); UNCORRECTED WBC 11.8 10^3/ul (4.8-10.8); WHITE BLOOD COUNT 11.8 10^3/ul (4.8-10.8)
[2016-05-09 05:52] LABS: POTASSIUM 4.4 mmol/L (3.5-5.1)
[2016-05-09 05:53] LABS: CONDITION 1; LH ANALYZER COMMENTS 1
[2016-05-09 05:54] LABS: CREATININE 2.75 mg/dl (0.44-1.00)
[2016-05-09 05:55] LABS: CALCIUM 8.5 mg/dl (8.4-10.2)
[2016-05-09] MEDS: VANCOMYCIN HCL 250 MG/5ML POSYG GTB SCH ×3 (05:59→17:05)
[2016-05-09] MEDS: AL HYDROX/MG HYDROX/SIMETH 30 ML CUP GTB SCH ×3 (05:59→17:04)
[2016-05-09] MEDS: LACTOBACILLUS CHEW TAB GTB SCH ×2 (08:09→22:15)
[2016-05-09] MEDS: NEUTRA-PHOS 250 MG PACKET GTB SCH ×2 (08:09→22:15)
[2016-05-09] MEDS: VITAMIN B COMPLEX/VIT C CAP PO SCH (08:09)
[2016-05-09] MEDS: FOLIC ACID 1 MG TAB PO SCH (08:09)
[2016-05-09] MEDS: VALSARTAN 80 MG TAB GTB SCH ×2 (08:10→22:15)
[2016-05-09] MEDS: DIPHENHYDRAMINE 50 MG INJ IM PRN (11:45)
--- NOTE | 2016-05-09 12:42 | PN ---
DATE: 05/09/2016 SUBJECTIVE: The patient is stable, no acute events overnight. No fevers, chills, nausea, vomiting. OBJECTIVE: VITAL SIGNS: Blood pressure 138/85, respirations 18, pulse 90, temperature 97.3. HEENT: Head is normocephalic. NECK: Supple. HEART: Regular rate. LUNGS: Show diminished breath sounds at the base. ABDOMEN: Soft, nontender to palpation. No rebound or guarding. EXTREMITIES: Negative for clubbing, cyanosis, no edema. DERMATOLOGIC: No rashes. MUSCULOSKELETAL: No joint effusions. NEUROLOGIC: No change in exam. MEDICATIONS: Reviewed. LABORATORY DATA: Showed sodium 134, potassium 4.4, BUN 65, creatinine 2.65. White count 11.8, hemo globin 8.3, hematocrit 25.5, platelet count is 218. ASSESSMENT AND PLAN: 1. End-stage renal disease. The patient will have hemodialysis today for 3 hours on a 3 K bath, ca lcium 2.5. Patient will be dialyzed on a Linda filter. 2. Anemia secondary to end-stage renal disease. The patient is status post blood transfusion. Con tinue Epogen. 3. Syncope, etiology is unclear. Questionable type A reaction. The patient is currently on a Ba[place] er dialysis filter. No further syncopal episodes noted. 4. Mineral bone disorder. Continue to monitor calcium and phosphorus levels. 5. Hypermagnesemia secondary to end-stage renal disease, improving Continue dialysis. 6. Dysphagia status post PEG. Continue tube feeding. 7. Decubitus ulcer. Continue wound care. 8. Encephalopathy. No change. 9. Hypertension, controlled. Dictated By: HUDSON GREGG/ESTEE Conf#: [id number] DID#: [id number]
--- NOTE | 2016-05-09 15:16 | PN ---
Date/Time of Note Date/Time of Note DATE: 05/09/16 TIME: 15:16 Assessment/Plan VTE Prophylaxis VTE Prophylaxis Intervention: SCD's Lines/Catheters IV Catheter Type (from [facility]): Saline Lock Urinary Cath still in place: No Assessment/Plan Chief Complaint/Hosp Course 1. End-stage renal disease on hemodialysis, dislodged hemodialysis catheter. Nephrology following. The patient had a right internal jugular tunneled hemodialysis access placed by vascular surgery on 05/03/2016, access site was bleeding and is now repaired 2. Accelerated hypertension. Continue routine and p.r.n. antihypertensives. Blood pressure fairly well controlled. 3. Dysphagia. Continue G-tube feedings. 4. Dementia. Reorient the patient frequently. 5. Incontinent dermatitis. Wound care consult. Local wound care. 6. C diff colitis. Continue oral vancomycin. 7. Anemia of chronic renal disease. Continue to monitor the H and H closely. Transfuse as needed. The patient was started on Epogen. We will obtain a stool for occult blood. 8. Hyperkalemia. Resolved. 9. Fluid, electrolytes and nutrition. Continue G-tube feedings. 10. DVT prophylaxis. Bilateral sequential compression devices. 11. Gastrointestinal prophylaxis. Histamine 2 receptor blockers. Problems: Subjective 24 Hr Interval Summary Constitutional: disoriented Exam/Review of Systems Vital Signs Vitals Vital Signs Date Time Temp Pulse Resp B/P Pulse Ox O2 Delivery O2 Flow Rate FiO2 05/09/16 14:15 110 05/09/16 14:00 97.6 19 98/56 97 Room Air 05/07/16 18:12 2.0 Intake and Output 05/08/16 05/08/16 05/09/16 15:00 23:00 07:00 Intake Total 840 ml 660 ml Balance 840 ml 660 ml Exam Psych: confusion Respiratory: clear to auscultation Cardiovascular: regular rate and rhythm Gastrointestinal: soft, No distended Musculoskeletal: nl extremities to inspection Results Result Diagram: 05/09/16 0430 05/09/16 043 Results 24 hrs Laboratory Tests Test 05/09/16 04:30 Anion Gap 16 Basophils # 0.0 Basophils % 0.2 Blood Morphology Comment Blood Urea Nitrogen 65 H Calcium Level 8.5 Carbon Dioxide Level 28 Chloride Level 94 L Creatinine 2.75 H Eosinophils # 0.9 H Eosinophils % 7.9 H Glucose Level 91 Hematocrit 25.5 L Hemoglobin 8.3 L Lymphocytes # 1.4 Lymphocytes % 12.2 L Mean Corpuscular Hemoglobin 28.5 L Mean Corpuscular Hemoglobin Concent 32.4 Mean Corpuscular Volume 87.9 Mean Platelet Volume 9.5 Monocytes # 1.0 H Monocytes % 8.5 Neutrophils # 8.4 H Neutrophils % 71.2 Nucleated Red Blood Cells # 0.0 Nucleated Red Blood Cells % 0.0 Platelet Count 218 # Potassium Level 4.4 Red Blood Count 2.91 L Red Cell Distribution Width 17.8 H Sodium Level 134 L White Blood Count 11.8 H Medications Medications Current Medications Ondansetron HCl (Zofran Inj) 4 mg Q6H PRN IV NAUSEA AND/OR VOMITING Last administered on 05/05/16 22:10; Admin Dose 4 MG; Start 04/25/16 at 22:00 Acetaminophen (Tylenol Tab) 650 mg Q6H PRN PO PAIN LEVEL 1-3 OR FEVER Last administered on 04/30/16 20:37; Admin Dose 650 MG; Start 04/25/16 at 22:00 Acetaminophen/ Hydrocodone Bitart ([place] (5/325)) 1 tab Q6H PRN GTB MODERATE PAIN LEVEL 4-6 Last administered on 05/05/16 11:41; Admin Dose 1 TAB; Start 04/25/16 at 22:00 Morphine Sulfate (morphine) 2 mg Q4H PRN IV SEVERE PAIN LEVEL 7-10; Start at 22:00 Docusate Sodium (Colace Liquid Cup) 100 mg Q12H PRN GTB CONSTIPATION; Start 04/25/16 at 22:00 Hydralazine HCl (Apresoline) 25 mg Q8 PRN GTB ELEVATED BLOOD PRESSURE Last administered on 05/09/16 02:32; Admin Dose 25 MG; Start 04/25/16 at 22:00 Al Hydrox/Mg Hydrox/Simethicone (Mag-Al Plus) 30 ml Q6 GTB Last administered on 05/09/16 11:45; Admin Dose 30 ML; Start 04/26/16 at 00:00 Magnesium Hydroxide (Milk Of Mag) 30 ml DAILY PRN GTB CONSTIPATION; Start at 22:00 Lactobacillus Acidoph/Bulgaricus (Floranex) 1 tab BID GTB Last administered on 05/09/16 08:09; Admin Dose 1 TAB; Start 04/26/16 at 09:00 Folic Acid (Folic Acid) 1 mg DAILY PO Last administered on 05/09/16 08:09; Admin Dose 1 MG; Start 04/26/16 at 09:00 Diphenhydramine HCl (Benadryl) 25 mg Q6H PRN IM Itching Last administered on 11:45; Admin Dose 25 MG; Start 04/26/16 at 02:15 Vitamin B Complex/ Vitamin C (Berocca) 1 cap DAILY PO Last administered on 05/09 08:09; Admin Dose 1 CAP; Start 04/26/16 at 09:00 Valsartan (Diovan) 80 mg BID GTB Last administered on 05/08/16 21:44; Admin Dose 80 MG; Start 04/29/16 at 21:00 Lorazepam (Ativan) 1 mg Q6H PRN IV Anxiety Last administered on 05/06/16 17:34 ; Admin Dose 1 MG; Start 04/30/16 at 14:30 Vancomycin HCl (Vancomycin Oral Syringe) 250 mg Q6 GTB Last administered on 11:45; Admin Dose 250 MG; Start 05/01/16 at 15:00 Famotidine (Pepcid) 20 mg Q24H GTB Last administered on 05/08/16 17:06; Admin Dose 20 MG; Start 05/06/16 at 17:00 Sodium Phosphate (Neutra-Phos) 500 mg BID GTB Last administered on 05/09/16 08 :09; Admin Dose 500 MG; Start 05/07/16 at 10:30 MISBAH THORNTON May 09, 2016 15:16
[2016-05-09] MEDS: FAMOTIDINE 20 MG TAB GTB SCH (17:04)
[2016-05-09] MEDS: EPOETIN 10000 UNITS/1 ML INJ (ESRD) SC SCH (17:07)
[2016-05-10] VITALS (13 sets, daily range): BP systolic 105–158; BP diastolic 56–83; PULSE 65–95; RESP 18–20
[2016-05-10] MEDS: AL HYDROX/MG HYDROX/SIMETH 30 ML CUP GTB SCH ×4 (00:03→16:00)
[2016-05-10] MEDS: VANCOMYCIN HCL 250 MG/5ML POSYG GTB SCH ×4 (00:03→16:00)
[2016-05-10 07:00] LABS: BASOPHILS % 0.4 % (0.0-2.0); EOSINOPHILS % 9.4 % (0.0-7.0); HEMATOCRIT 24.3 % (37.0-47.0); HEMOGLOBIN 7.9 g/dl (12.0-16.0); LYMPHOCYTES # 1.8 10^3/ul (0.8-2.9); LYMPHOCYTES % 17.5 % (15.0-51.0); MEAN CORPUSCULAR HEMOGLOBIN 28.7 pg (29.0-33.0); MEAN CORPUSCULAR HGB CONC 32.7 g/dl (32.0-37.0); MEAN CORPUSCULAR VOLUME 87.9 fl (82.0-101.0); MEAN PLATELET VOLUME 8.5 fl (7.4-10.4); MONOCYTE # 1.1 10^3/ul (0.3-0.9); MONOCYTES % 10.9 % (0.0-11.0); NEUTROPHIL # 6.3 10^3/ul (1.6-7.5); NEUTROPHILS % 61.8 % (39.0-77.0); PLATELET COUNT 268 10^3/UL (140-440); RED BLOOD COUNT 2.76 10^6/ul (4.20-5.40); RED CELL DISTRIBUTION WIDTH 17.4 % (11.5-14.5); UNCORRECTED WBC 10.2 10^3/ul (4.8-10.8); WHITE BLOOD COUNT 10.2 10^3/ul (4.8-10.8)
[2016-05-10 07:06] LABS: POTASSIUM 4.2 mmol/L (3.5-5.1)
[2016-05-10 07:09] LABS: CREATININE 2.19 mg/dl (0.44-1.00)
[2016-05-10 07:10] LABS: CALCIUM 8.6 mg/dl (8.4-10.2); MAGNESIUM 2.9 mg/dl (1.7-2.5); PHOSPHORUS 3.8 mg/dl (2.5-4.9)
[2016-05-10 07:18] LABS: CONDITION 1; LH ANALYZER COMMENTS 1
[2016-05-10] MEDS: FOLIC ACID 1 MG TAB PO SCH (09:00)
[2016-05-10] MEDS: VITAMIN B COMPLEX/VIT C CAP PO SCH (09:04)
[2016-05-10] MEDS: LACTOBACILLUS CHEW TAB GTB SCH ×2 (09:05→21:42)
[2016-05-10] MEDS: NEUTRA-PHOS 250 MG PACKET GTB SCH ×2 (09:05→21:43)
[2016-05-10] MEDS: VALSARTAN 80 MG TAB GTB SCH ×2 (09:05→21:44)
--- NOTE | 2016-05-10 11:16 | PN ---
DATE: 05/10/2016 SUBJECTIVE: The patient is stable, no acute events overnight. No fevers, chills, nausea/vomiting. The patient had hemodialysis yesterday, tolerated well with 1 liter removed. OBJECTIVE: VITAL SIGNS: Blood pressure 133/64, respiration 18, pulse 72, temperature 97.8. HEENT: Head is normocephalic. NECK: Supple. HEART: Regular rate. LUNGS: Show diminished breath sounds at base. ABDOMEN: Soft, nontender to palpation without rebound or guarding. EXTREMITIES: Negative for clubbing, cyanosis, or edema. DERMATOLOGIC: No rashes. MUSCULOSKELETAL: No joint effusions. NEUROLOGIC: No change in exam. MEDICATIONS: The patient's medications have been reviewed. LABORATORY DATA: Shows white count 10.2, hemoglobin 7.9, hematocrit 24.3, platelet count 268. [place] um 138, potassium 4.2, chloride 98, BUN 40, creatinine 2.19, magnesium 2.9. ASSESSMENT AND PLAN: 1. End-stage renal disease. The patient had hemodialysis yesterday, tolerated well. Plan for dial ysis tomorrow. Will continue dialysis on Linda filter. 2. Anemia of end-stage renal disease and recent bleed around Perm-A-Cath site. The patient's hemog lobin levels are stabilizing and will continue Epogen. Monitor hemoglobin and hematocrit levels [place]. 3. Syncope, etiology unclear, questionable type A reaction. The patient has had no recurrent synco pal episodes on dialysis, continue using Linda filter. 4. Mineral bone disorder. Continue to monitor calcium and phosphorus levels. 5. Hypomagnesemia secondary to end-stage renal disease, improving. Continue dialysis. 6. Dysphagia, status post PEG. Continue tube feeding. 7. Decubitus ulcer, continue wound care. 8. Clostridium difficile colitis. Continue oral vancomycin. 9. Encephalopathy. No change. 10. Hypertension, controlled. Continue current blood pressure regimen. Dictated By: HUDSON GREGG/ESTEE Conf#: [id number] DID#: [id number]
--- NOTE | 2016-05-10 15:20 | PN ---
Date/Time of Note Date/Time of Note DATE: 05/10/16 TIME: 15:19 Assessment/Plan VTE Prophylaxis VTE Prophylaxis Intervention: SCD's Lines/Catheters IV Catheter Type (from [facility]): Saline Lock Urinary Cath still in place: No Assessment/Plan Chief Complaint/Hosp Course 1. End-stage renal disease on hemodialysis, dislodged hemodialysis catheter. Nephrology following. The patient had a right internal jugular tunneled hemodialysis access placed by vascular surgery on 05/03/2016, access site was bleeding and is now repaired 2. Accelerated hypertension. Continue routine and p.r.n. antihypertensives. Blood pressure fairly well controlled. 3. Dysphagia. Continue G-tube feedings. 4. Dementia. Reorient the patient frequently. 5. Incontinent dermatitis. Wound care consult. Local wound care. 6. C diff colitis. Continue oral vancomycin. 7. Anemia of chronic renal disease. Continue to monitor the H and H closely. Transfuse as needed. The patient was started on Epogen. We will obtain a stool for occult blood. 8. Hyperkalemia. Resolved. 9. Fluid, electrolytes and nutrition. Continue G-tube feedings. 10. DVT prophylaxis. Bilateral sequential compression devices. 11. Gastrointestinal prophylaxis. Histamine 2 receptor blockers. Dispo- SNF will not accept the pt back until off restraints for 24 hours Problems: Subjective 24 Hr Interval Summary Constitutional: disoriented Exam/Review of Systems Vital Signs Vitals Vital Signs Date Time Temp Pulse Resp B/P Pulse Ox O2 Delivery O2 Flow Rate FiO2 05/10/16 12:25 97.0 82 18 149/67 100 Room Air 05/07/16 18:12 2.0 Intake and Output 05/09/16 05/09/16 05/10/16 15:00 23:00 07:00 Intake Total 500 ml 840 ml 840 ml Output Total 1500 ml Balance -1000 ml 840 ml 840 ml Exam Psych: confusion Respiratory: clear to auscultation Cardiovascular: regular rate and rhythm Gastrointestinal: soft, No distended Musculoskeletal: nl extremities to inspection Results Result Diagram: 05/10/16 0630 05/10/16 0630 Results 24 hrs Laboratory Tests Test 05/10/16 06:30 Anion Gap 13 Basophils # 0.0 Basophils % 0.4 Blood Morphology Comment Blood Urea Nitrogen 40 #H Calcium Level 8.6 Carbon Dioxide Level 31 Chloride Level 98 Creatinine 2.19 H Eosinophils # 1.0 H Eosinophils % 9.4 H Glucose Level 89 Hematocrit 24.3 L Hemoglobin 7.9 L Lymphocytes # 1.8 Lymphocytes % 17.5 Magnesium Level 2.9 H Mean Corpuscular Hemoglobin 28.7 L Mean Corpuscular Hemoglobin Concent 32.7 Mean Corpuscular Volume 87.9 Mean Platelet Volume 8.5 Monocytes # 1.1 H Monocytes % 10.9 Neutrophils # 6.3 Neutrophils % 61.8 Nucleated Red Blood Cells # 0.0 Nucleated Red Blood Cells % 0.0 Phosphorus Level 3.8 Platelet Count 268 # Potassium Level 4.2 Red Blood Count 2.76 L Red Cell Distribution Width 17.4 H Sodium Level 138 White Blood Count 10.2 Medications Medications Current Medications Ondansetron HCl (Zofran Inj) 4 mg Q6H PRN IV NAUSEA AND/OR VOMITING Last administered on 05/05/16 22:10; Admin Dose 4 MG; Start 04/25/16 at 22:00 Acetaminophen (Tylenol Tab) 650 mg Q6H PRN PO PAIN LEVEL 1-3 OR FEVER Last administered on 04/30/16 20:37; Admin Dose 650 MG; Start 04/25/16 at 22:00 Acetaminophen/ Hydrocodone Bitart ([place] (5/325)) 1 tab Q6H PRN GTB MODERATE PAIN LEVEL 4-6 Last administered on 05/05/16 11:41; Admin Dose 1 TAB; Start 04/25/16 at 22:00 Morphine Sulfate (morphine) 2 mg Q4H PRN IV SEVERE PAIN LEVEL 7-10; Start at 22:00 Docusate Sodium (Colace Liquid Cup) 100 mg Q12H PRN GTB CONSTIPATION; Start 04/25/16 at 22:00 Hydralazine HCl (Apresoline) 25 mg Q8 PRN GTB ELEVATED BLOOD PRESSURE Last administered on 05/09/16 02:32; Admin Dose 25 MG; Start 04/25/16 at 22:00 Al Hydrox/Mg Hydrox/Simethicone (Mag-Al Plus) 30 ml Q6 GTB Last administered on 05/10/16 12:33; Admin Dose 30 ML; Start 04/26/16 at 00:00 Magnesium Hydroxide (Milk Of Mag) 30 ml DAILY PRN GTB CONSTIPATION; Start at 22:00 Lactobacillus Acidoph/Bulgaricus (Floranex) 1 tab BID GTB Last administered on 05/10/16 09:05; Admin Dose 1 TAB; Start 04/26/16 at 09:00 Folic Acid (Folic Acid) 1 mg DAILY PO Last administered on 05/09/16 08:09; Admin Dose 1 MG; Start 04/26/16 at 09:00 Diphenhydramine HCl (Benadryl) 25 mg Q6H PRN IM Itching Last administered on 11:45; Admin Dose 25 MG; Start 04/26/16 at 02:15 Vitamin B Complex/ Vitamin C (Berocca) 1 cap DAILY PO Last administered on 05/10 09:04; Admin Dose 1 CAP; Start 04/26/16 at 09:00 Valsartan (Diovan) 80 mg BID GTB Last administered on 05/10/16 09:05; Admin Dose 80 MG; Start 04/29/16 at 21:00 Lorazepam (Ativan) 1 mg Q6H PRN IV Anxiety Last administered on 05/06/16 17:34 ; Admin Dose 1 MG; Start 04/30/16 at 14:30 Vancomycin HCl (Vancomycin Oral Syringe) 250 mg Q6 GTB Last administered on 12:33; Admin Dose 250 MG; Start 05/01/16 at 15:00 Famotidine (Pepcid) 20 mg Q24H GTB Last administered on 05/09/16 17:04; Admin Dose 20 MG; Start 05/06/16 at 17:00 Sodium Phosphate (Neutra-Phos) 500 mg BID GTB Last administered on 05/10/16 09 :05; Admin Dose 500 MG; Start 05/07/16 at 10:30 MISBAH THORNTON May 10, 2016 15:20
[2016-05-10] MEDS: FAMOTIDINE 20 MG TAB GTB SCH (16:00)
[2016-05-11] VITALS (19 sets, daily range): BP systolic 109–150; BP diastolic 54–85; PULSE 82–118; RESP 16–20
[2016-05-11] MEDS: AL HYDROX/MG HYDROX/SIMETH 30 ML CUP GTB SCH ×4 (00:57→17:45)
[2016-05-11] MEDS: VANCOMYCIN HCL 250 MG/5ML POSYG GTB SCH ×4 (00:58→17:45)
[2016-05-11] MEDS: NEUTRA-PHOS 250 MG PACKET GTB SCH ×2 (08:45→21:16)
[2016-05-11] MEDS: VITAMIN B COMPLEX/VIT C CAP PO SCH (08:45)
[2016-05-11] MEDS: FOLIC ACID 1 MG TAB PO SCH (08:45)
[2016-05-11] MEDS: LACTOBACILLUS CHEW TAB GTB SCH ×2 (08:45→21:16)
[2016-05-11] MEDS: VALSARTAN 80 MG TAB GTB SCH ×2 (09:00→21:17)
--- NOTE | 2016-05-11 09:16 | CONS ---
Date/Time of Note Date/Time of Note DATE: 05/11/16 TIME: 09:16 Consult Date/Type/Reason Admit Date/Time Apr 27, 2016 at 16:35 Initial Consult Date Type of Consultation: nephrology Subjective Pt. post HD yesterday, tolerated well, good uf, d/w rn. Objective Vital Signs Date Time Temp Pulse Resp B/P Pulse Ox O2 Delivery O2 Flow Rate FiO2 05/11/16 08:14 98.0 91 20 150/71 99 05/10/16 21:00 Room Air 05/07/16 18:12 2.0 Intake and Output 05/10/16 05/10/16 05/11/16 14:59 22:59 06:59 Intake Total 660 ml 660 ml Balance 660 ml 660 ml Results/Medications Result Diagram: 05/10/1630 05/10/16 0630 Medications Current Medications Ondansetron HCl (Zofran Inj) 4 mg Q6H PRN IV NAUSEA AND/OR VOMITING Last administered on 05/05/16 22:10; Admin Dose 4 MG; Start 04/25/16 at 22:00 Acetaminophen (Tylenol Tab) 650 mg Q6H PRN PO PAIN LEVEL 1-3 OR FEVER Last administered on 04/30/16 20:37; Admin Dose 650 MG; Start 04/25/16 at 22:00 Acetaminophen/ Hydrocodone Bitart ([place] (5/325)) 1 tab Q6H PRN GTB MODERATE PAIN LEVEL 4-6 Last administered on 05/05/16 11:41; Admin Dose 1 TAB; Start 04/25/16 at 22:00 Morphine Sulfate (morphine) 2 mg Q4H PRN IV SEVERE PAIN LEVEL 7-10; Start at 22:00 Docusate Sodium (Colace Liquid Cup) 100 mg Q12H PRN GTB CONSTIPATION; Start 04/25/16 at 22:00 Hydralazine HCl (Apresoline) 25 mg Q8 PRN GTB ELEVATED BLOOD PRESSURE Last administered on 05/09/16 02:32; Admin Dose 25 MG; Start 04/25/16 at 22:00 Al Hydrox/Mg Hydrox/Simethicone (Mag-Al Plus) 30 ml Q6 GTB Last administered on 05/11/16 06:17; Admin Dose 30 ML; Start 04/26/16 at 00:00 Magnesium Hydroxide (Milk Of Mag) 30 ml DAILY PRN GTB CONSTIPATION; Start at 22:00 Lactobacillus Acidoph/Bulgaricus (Floranex) 1 tab BID GTB Last administered on 05/11/16 08:45; Admin Dose 1 TAB; Start 04/26/16 at 09:00 Folic Acid (Folic Acid) 1 mg DAILY PO Last administered on 05/11/16 08:45; Admin Dose 1 MG; Start 04/26/16 at 09:00 Diphenhydramine HCl (Benadryl) 25 mg Q6H PRN IM Itching Last administered on 11:45; Admin Dose 25 MG; Start 04/26/16 at 02:15 Vitamin B Complex/ Vitamin C (Berocca) 1 cap DAILY PO Last administered on 05/11 08:45; Admin Dose 1 CAP; Start 04/26/16 at 09:00 Valsartan (Diovan) 80 mg BID GTB Last administered on 05/10/16 21:44; Admin Dose 80 MG; Start 04/29/16 at 21:00 Lorazepam (Ativan) 1 mg Q6H PRN IV Anxiety Last administered on 05/06/16 17:34 ; Admin Dose 1 MG; Start 04/30/16 at 14:30 Vancomycin HCl (Vancomycin Oral Syringe) 250 mg Q6 GTB Last administered on 06:18; Admin Dose 250 MG; Start 05/01/16 at 15:00 Famotidine (Pepcid) 20 mg Q24H GTB Last administered on 05/10/16 16:00; Admin Dose 20 MG; Start 05/06/16 at 17:00 Sodium Phosphate (Neutra-Phos) 500 mg BID GTB Last administered on 05/11/16 08 :45; Admin Dose 500 MG; Start 05/07/16 at 10:30 Assessment/Plan Additional Assessment/Plan 1. End-stage renal disease. The patient had hemodialysis yesterday, tolerated well. Plan for dialysis friday. Will continue dialysis on Linda filter. 2. Anemia of end-stage renal disease and recent bleed around Perm-A-Cath site. The patient's hemoglobin levels are stabilizing and will continue Epogen. Monitor hemoglobin and hematocrit levels closely. 3. Syncope, etiology unclear, questionable type A reaction. The patient has had no recurrent syncopal episodes on dialysis, continue using Linda filter. 4. Mineral bone disorder. Continue to monitor calcium and phosphorus levels. 5. Hypomagnesemia secondary to end-stage renal disease, improving. Continue dialysis. 6. Dysphagia, status post PEG. Continue tube feeding. 7. Decubitus ulcer, continue wound care. 8. Clostridium difficile colitis. Continue oral vancomycin. 9. Encephalopathy. No change. 10. Hypertension, controlled. Continue current blood pressure regimen. BAILEY ALVES MD May 11, 2016 09:16
[2016-05-11] MEDS: DIPHENHYDRAMINE 50 MG INJ IM PRN ×2 (09:44→10:53)
--- NOTE | 2016-05-11 13:59 | PN ---
Date/Time of Note Date/Time of Note DATE: 05/11/16 TIME: 13:57 Assessment/Plan VTE Prophylaxis VTE Prophylaxis Intervention: SCD's Lines/Catheters [facility] Saline Lock Urinary Cath still in place: No Assessment/Plan Chief Complaint/Hosp Course 1. End-stage renal disease on hemodialysis, dislodged hemodialysis catheter. Nephrology following. The patient had a right internal jugular tunneled hemodialysis access placed by vascular surgery on 05/03/2016, access site was bleeding and is now repaired 2. Accelerated hypertension. Continue routine and p.r.n. antihypertensives. Blood pressure fairly well controlled. 3. Dysphagia. Continue G-tube feedings. 4. Dementia. Reorient the patient frequently. 5. Incontinent dermatitis. Wound care consult. Local wound care. 6. C diff colitis. Continue oral vancomycin. 7. Anemia of chronic renal disease. Continue to monitor the H and H closely. Transfuse as needed. The patient was started on Epogen. We will obtain a stool for occult blood. 8. Hyperkalemia. Resolved. 9. Fluid, electrolytes and nutrition. Continue G-tube feedings. 10. DVT prophylaxis. Bilateral sequential compression devices. 11. Gastrointestinal prophylaxis. Histamine 2 receptor blockers. Dispo- SNF will not accept the pt back until off restraints for 24 hours Problems: Subjective 24 Hr Interval Summary Constitutional: disoriented Exam/Review of Systems Vital Signs Vitals Vital Signs Date Time Temp Pulse Resp B/P Pulse Ox O2 Delivery O2 Flow Rate FiO2 05/11/16 12:22 98.0 82 20 132/75 97 Room Air 05/07/16 18:12 2.0 Intake and Output 05/10/16 05/10/16 05/11/16 15:00 23:00 07:00 Intake Total 660 ml 660 ml Balance 660 ml 660 ml Exam Psych: confusion Respiratory: clear to auscultation Cardiovascular: regular rate and rhythm Gastrointestinal: soft, No distended Musculoskeletal: nl extremities to inspection Results Result Diagram: 05/10/1630 05/10/16 0630 Medications Medications Current Medications Ondansetron HCl (Zofran Inj) 4 mg Q6H PRN IV NAUSEA AND/OR VOMITING Last administered on 05/05/16t 22:10; Admin Dose 4 MG; Start 04/25/16 at 22:00 Acetaminophen (Tylenol Tab) 650 mg Q6H PRN PO PAIN LEVEL 1-3 OR FEVER Last administered on 04/30/16 20:37; Admin Dose 650 MG; Start 04/25/16 at 22:00 Acetaminophen/ Hydrocodone Bitart ([place] (5/325)) 1 tab Q6H PRN GTB MODERATE PAIN LEVEL 4-6 Last administered on 05/05/16 11:41; Admin Dose 1 TAB; Start 04/25/16 at 22:00 Morphine Sulfate (morphine) 2 mg Q4H PRN IV SEVERE PAIN LEVEL 7-10; Start at 22:00 Docusate Sodium (Colace Liquid Cup) 100 mg Q12H PRN GTB CONSTIPATION; Start 04/25/16 at 22:00 Hydralazine HCl (Apresoline) 25 mg Q8 PRN GTB ELEVATED BLOOD PRESSURE Last administered on 05/09/16 02:32; Admin Dose 25 MG; Start 04/25/16 at 22:00 Al Hydrox/Mg Hydrox/Simethicone (Mag-Al Plus) 30 ml Q6 GTB Last administered on 05/11/16 12:25; Admin Dose 30 ML; Start 04/26/16 at 00:00 Magnesium Hydroxide (Milk Of Mag) 30 ml DAILY PRN GTB CONSTIPATION; Start at 22:00 Lactobacillus Acidoph/Bulgaricus (Floranex) 1 tab BID GTB Last administered on 05/11/16 08:45; Admin Dose 1 TAB; Start 04/26/16 at 09:00 Folic Acid (Folic Acid) 1 mg DAILY PO Last administered on 05/11/16 08:45; Admin Dose 1 MG; Start 04/26/16 at 09:00 Diphenhydramine HCl (Benadryl) 25 mg Q6H PRN IM Itching Last administered on 10:53; Admin Dose 25 MG; Start 04/26/16 at 02:15 Vitamin B Complex/ Vitamin C (Berocca) 1 cap DAILY PO Last administered on 05/11 08:45; Admin Dose 1 CAP; Start 04/26/16 at 09:00 Valsartan (Diovan) 80 mg BID GTB Last administered on 05/10/16 21:44; Admin Dose 80 MG; Start 04/29/16 at 21:00 Lorazepam (Ativan) 1 mg Q6H PRN IV Anxiety Last administered on 05/06/16 17:34 ; Admin Dose 1 MG; Start 04/30/16 at 14:30 Vancomycin HCl (Vancomycin Oral Syringe) 250 mg Q6 GTB Last administered on 12:25; Admin Dose 250 MG; Start 05/01/16 at 15:00 Famotidine (Pepcid) 20 mg Q24H GTB Last administered on 05/10/16 16:00; Admin Dose 20 MG; Start 05/06/16 at 17:00 Sodium Phosphate (Neutra-Phos) 500 mg BID GTB Last administered on 05/11/16 08 :45; Admin Dose 500 MG; Start 05/07/16 at 10:30 MISBAH THORNTON May 11, 2016 13:59
[2016-05-11] MEDS: FAMOTIDINE 20 MG TAB GTB SCH (17:43)
[2016-05-11] MEDS: EPOETIN 10000 UNITS/1 ML INJ (ESRD) SC SCH (17:46)
[2016-05-12] VITALS (12 sets, daily range): BP systolic 117–145; BP diastolic 62–78; PULSE 93–104; RESP 18–20
[2016-05-12] MEDS: AL HYDROX/MG HYDROX/SIMETH 30 ML CUP GTB SCH ×5 (01:26→23:40)
[2016-05-12] MEDS: VANCOMYCIN HCL 250 MG/5ML POSYG GTB SCH ×5 (01:26→23:40)
--- NOTE | 2016-05-12 08:20 | CONS ---
Date/Time of Note Date/Time of Note DATE: 05/12/16 TIME: 08:18 Consult Date/Type/Reason Admit Date/Time Apr 27, 2016 at 16:35 Type of Consultation: nephrology Subjective pt. seen and examined. no new c/o. next hd in am . Objective Vital Signs Date Time Temp Pulse Resp B/P Pulse Ox O2 Delivery O2 Flow Rate FiO2 05/12/16 08:01 98.7 92 19 124/64 98 05/12/16 01:46 2.0 05/11/16 21:00 Room Air Intake and Output 05/11/16 05/11/16 05/12/16 15:00 23:00 07:00 Intake Total 500 ml 660 ml 660 ml Output Total 1400 ml Balance -900 ml 660 ml 660 ml Psych: confusion Respiratory: clear to auscultation Cardiovascular: regular rate and rhythm Gastrointestinal: soft, No distended Musculoskeletal: nl extremities to inspection Results/Medications Result Diagram: 05/10/16 0630 05/10/16 0630 Medications Current Medications Ondansetron HCl (Zofran Inj) 4 mg Q6H PRN IV NAUSEA AND/OR VOMITING Last administered on 05/05/16 22:10; Admin Dose 4 MG; Start 04/25/16 at 22:00 Acetaminophen (Tylenol Tab) 650 mg Q6H PRN PO PAIN LEVEL 1-3 OR FEVER Last administered on 04/30/16 20:37; Admin Dose 650 MG; Start 04/25/16 at 22:00 Acetaminophen/ Hydrocodone Bitart ([place] (5/325)) 1 tab Q6H PRN GTB MODERATE PAIN LEVEL 4-6 Last administered on 05/05/16 11:41; Admin Dose 1 TAB; Start 04/25/16 at 22:00 Morphine Sulfate (morphine) 2 mg Q4H PRN IV SEVERE PAIN LEVEL 7-10; Start at 22:00 Docusate Sodium (Colace Liquid Cup) 100 mg Q12H PRN GTB CONSTIPATION; Start 04/25/16 at 22:00 Hydralazine HCl (Apresoline) 25 mg Q8 PRN GTB ELEVATED BLOOD PRESSURE Last administered on 05/09/16 02:32; Admin Dose 25 MG; Start 04/25/16 at 22:00 Al Hydrox/Mg Hydrox/Simethicone (Mag-Al Plus) 30 ml Q6 GTB Last administered on 05/12/16 06:13; Admin Dose 30 ML; Start 04/26/16 at 00:00 Magnesium Hydroxide (Milk Of Mag) 30 ml DAILY PRN GTB CONSTIPATION; Start at 22:00 Lactobacillus Acidoph/Bulgaricus (Floranex) 1 tab BID GTB Last administered on 05/11/16 21:16; Admin Dose 1 TAB; Start 04/26/16 at 09:00 Folic Acid (Folic Acid) 1 mg DAILY PO Last administered on 05/11/16 08:45; Admin Dose 1 MG; Start 04/26/16 at 09:00 Diphenhydramine HCl (Benadryl) 25 mg Q6H PRN IM Itching Last administered on 10:53; Admin Dose 25 MG; Start 04/26/16 at 02:15 Vitamin B Complex/ Vitamin C (Berocca) 1 cap DAILY PO Last administered on 05/11 08:45; Admin Dose 1 CAP; Start 04/26/16 at 09:00 Valsartan (Diovan) 80 mg BID GTB Last administered on 05/11/16 21:17; Admin Dose 80 MG; Start 04/29/16 at 21:00 Lorazepam (Ativan) 1 mg Q6H PRN IV Anxiety Last administered on 05/06/16 17:34 ; Admin Dose 1 MG; Start 04/30/16 at 14:30 Vancomycin HCl (Vancomycin Oral Syringe) 250 mg Q6 GTB Last administered on 06:14; Admin Dose 250 MG; Start 05/01/16 at 15:00 Famotidine (Pepcid) 20 mg Q24H GTB Last administered on 05/11/16 17:43; Admin Dose 20 MG; Start 05/06/16 at 17:00 Sodium Phosphate (Neutra-Phos) 500 mg BID GTB Last administered on 05/11/16 21 :16; Admin Dose 500 MG; Start 05/07/16 at 10:30 Assessment/Plan Chief Complaint/Hosp Course 1. End-stage renal disease. The patient had hemodialysis yesterday, tolerated well. Plan for dialysis tomorrow am . watch volume status, adjust meds to low crcl. 2. Anemia of end-stage renal disease and recent bleed around Perm-A-Cath site. The patient's hemoglobin levels are stabilizing and will continue Epogen. Monitor hemoglobin and hematocrit levels closely. 3. Syncope, etiology unclear, questionable type A reaction. The patient has had no recurrent syncopal episodes on dialysis, continue using Linda filter. 4. Mineral bone disorder. Continue to monitor calcium and phosphorus levels. 5. Hypomagnesemia secondary to end-stage renal disease, improving. Continue dialysis. 6. Dysphagia, status post PEG. Continue tube feeding. 7. Decubitus ulcer, continue wound care. 8. Clostridium difficile colitis. Continue oral vancomycin. 9. Encephalopathy. No change. 10. Hypertension, controlled. Continue current blood pressure regimen. Problems: BAILEY ALVES MD May 12, 2016 08:20
[2016-05-12] MEDS: VALSARTAN 80 MG TAB GTB SCH ×2 (09:11→21:07)
[2016-05-12] MEDS: VITAMIN B COMPLEX/VIT C CAP PO SCH (09:11)
[2016-05-12] MEDS: LACTOBACILLUS CHEW TAB GTB SCH ×2 (09:11→21:07)
[2016-05-12] MEDS: NEUTRA-PHOS 250 MG PACKET GTB SCH ×2 (09:12→21:07)
[2016-05-12] MEDS: FOLIC ACID 1 MG TAB PO SCH (09:12)
[2016-05-12] MEDS: FAMOTIDINE 20 MG TAB GTB SCH (17:30)
--- NOTE | 2016-05-12 18:26 | PN ---
Date/Time of Note Date/Time of Note DATE: 05/12/16 TIME: 18:25 Assessment/Plan VTE Prophylaxis VTE Prophylaxis Intervention: SCD's Lines/Catheters IV C[facility]ter Type [facility]from [facility] Saline Lock Urinary Cath still in place: No Assessment/Plan Chief Complaint/Hosp Course 1. End-stage renal disease on hemodialysis, dislodged hemodialysis catheter. Nephrology following. The patient had a right internal jugular tunneled hemodialysis access placed by vascular surgery on 05/03/2016, access site was bleeding and is now repaired 2. Accelerated hypertension. Continue routine and p.r.n. antihypertensives. Blood pressure fairly well controlled. 3. Dysphagia. Continue G-tube feedings. 4. Dementia. Reorient the patient frequently. 5. Incontinent dermatitis. Wound care consult. Local wound care. 6. C diff colitis. Continue oral vancomycin. 7. Anemia of chronic renal disease. Continue to monitor the H and H closely. Transfuse as needed. The patient was started on Epogen. We will obtain a stool for occult blood. 8. Hyperkalemia. Resolved. 9. Fluid, electrolytes and nutrition. Continue G-tube feedings. 10. DVT prophylaxis. Bilateral sequential compression devices. 11. Gastrointestinal prophylaxis. Histamine 2 receptor blockers. Dispo- SNF will not accept the pt back until off restraints for 24 hours which has not happened as of yet Problems: Subjective 24 Hr Interval Summary Constitutional: disoriented Exam/Review of Systems Vital Signs Vitals Vital Signs Date Time Temp Pulse Resp B/P Pulse Ox O2 Delivery O2 Flow Rate FiO2 05/12/16 18:00 98.0 93 18 141/65 95 Room Air 05/12/16 01:46 2.0 Intake and Output 05/11/16 05/11/16 05/12/16 15:00 23:00 07:00 Intake Total 500 ml 660 ml 660 ml Output Total 1400 ml Balance -900 ml 660 ml 660 ml Exam Psych: confusion Respiratory: clear to auscultation Cardiovascular: regular rate and rhythm Gastrointestinal: soft, No distended Musculoskeletal: nl extremities to inspection Results Result Diagram: 05/10/16 0630 05/10/16 0630 Medications Medications Current Medications Ondansetron HCl (Zofran Inj) 4 mg Q6H PRN IV NAUSEA AND/OR VOMITING Last administered on 05/05/16t 22:10; Admin Dose 4 MG; Start 04/25/16 at 22:00 Acetaminophen (Tylenol Tab) 650 mg Q6H PRN PO PAIN LEVEL 1-3 OR FEVER Last administered on 04/30/16 20:37; Admin Dose 650 MG; Start 04/25/16 at 22:00 Acetaminophen/ Hydrocodone Bitart ([place] (5/325)) 1 tab Q6H PRN GTB MODERATE PAIN LEVEL 4-6 Last administered on 05/05/16 11:41; Admin Dose 1 TAB; Start 04/25/16 at 22:00 Morphine Sulfate (morphine) 2 mg Q4H PRN IV SEVERE PAIN LEVEL 7-10; Start at 22:00 Docusate Sodium (Colace Liquid Cup) 100 mg Q12H PRN GTB CONSTIPATION; Start 04/25/16 at 22:00 Hydralazine HCl (Apresoline) 25 mg Q8 PRN GTB ELEVATED BLOOD PRESSURE Last administered on 05/09/16 02:32; Admin Dose 25 MG; Start 04/25/16 at 22:00 Al Hydrox/Mg Hydrox/Simethicone (Mag-Al Plus) 30 ml Q6 GTB Last administered on 05/12/16 17:30; Admin Dose 30 ML; Start 04/26/16 at 00:00 Magnesium Hydroxide (Milk Of Mag) 30 ml DAILY PRN GTB CONSTIPATION; Start at 22:00 Lactobacillus Acidoph/Bulgaricus (Floranex) 1 tab BID GTB Last administered on 05/12/16 09:11; Admin Dose 1 TAB; Start 04/26/16 at 09:00 Folic Acid (Folic Acid) 1 mg DAILY PO Last administered on 05/12/16 09:12; Admin Dose 1 MG; Start 04/26/16 at 09:00 Diphenhydramine HCl (Benadryl) 25 mg Q6H PRN IM Itching Last administered on 10:53; Admin Dose 25 MG; Start 04/26/16 at 02:15 Vitamin B Complex/ Vitamin C (Berocca) 1 cap DAILY PO Last administered on 05/12 09:11; Admin Dose 1 CAP; Start 04/26/16 at 09:00 Valsartan (Diovan) 80 mg BID GTB Last administered on 05/12/16 09:11; Admin Dose 80 MG; Start 04/29/16 at 21:00 Lorazepam (Ativan) 1 mg Q6H PRN IV Anxiety Last administered on 05/06/16 17:34 ; Admin Dose 1 MG; Start 04/30/16 at 14:30 Vancomycin HCl (Vancomycin Oral Syringe) 250 mg Q6 GTB Last administered on 17:30; Admin Dose 250 MG; Start 05/01/16 at 15:00 Famotidine (Pepcid) 20 mg Q24H GTB Last administered on 05/12/16 17:30; Admin Dose 20 MG; Start 05/06/16 at 17:00 Sodium Phosphate (Neutra-Phos) 500 mg BID GTB Last administered on 05/12/16 09 :12; Admin Dose 500 MG; Start 05/07/16 at 10:30 MISBAH THORNTON May 12, 2016 18:26
[2016-05-13] VITALS (19 sets, daily range): BP systolic 106–155; BP diastolic 52–90; PULSE 86–105; RESP 16–20
[2016-05-13] MEDS: ACETAMINOPHEN 325 MG TAB PO PRN (02:18)
[2016-05-13] MEDS: VANCOMYCIN HCL 250 MG/5ML POSYG GTB SCH ×3 (05:49→17:17)
[2016-05-13] MEDS: AL HYDROX/MG HYDROX/SIMETH 30 ML CUP GTB SCH ×3 (05:49→17:17)
[2016-05-13 06:16] LABS: POTASSIUM 4.9 mmol/L (3.5-5.1)
[2016-05-13 06:19] LABS: CREATININE 2.84 mg/dl (0.44-1.00)
[2016-05-13 06:20] LABS: CALCIUM 8.5 mg/dl (8.4-10.2)
[2016-05-13] MEDS: LACTOBACILLUS CHEW TAB GTB SCH ×2 (09:08→20:43)
[2016-05-13] MEDS: VITAMIN B COMPLEX/VIT C CAP PO SCH (09:08)
[2016-05-13] MEDS: FOLIC ACID 1 MG TAB PO SCH (09:08)
[2016-05-13] MEDS: VALSARTAN 80 MG TAB GTB SCH ×2 (09:08→20:43)
[2016-05-13] MEDS: NEUTRA-PHOS 250 MG PACKET GTB SCH ×2 (09:08→21:26)
--- NOTE | 2016-05-13 10:24 | PN ---
DATE: 05/13/2016 SUBJECTIVE: The patient is stable, no acute events overnight. No fevers, chills, nausea, vomiting, no shortness breath. OBJECTIVE: VITAL SIGNS: Blood pressure 140/60, respirations 20, pulse 84, temperature 97.3. HEENT: Head is normocephalic. NECK: Supple. HEART: Regular rate. LUNGS: Show diminished breath sounds at base. ABDOMEN: Soft, nontender to palpation without rebound or guarding. EXTREMITIES: Negative for clubbing, cyanosis, no edema. DERMATOLOGIC: No rashes. MUSCULOSKELETAL: No joint effusions, NEUROLOGIC: Unchanged exam. MEDICATIONS: Reviewed. LABORATORY DATA: Shows sodium 134, potassium 4.9, chloride 95, BUN 58, creatinine 2.84. ASSESSMENT AND PLAN: 1. End-stage renal disease. The patient is scheduled for hemodialysis therapy for 3 hours, 3K bath , calcium 2.5. 2. Anemia of end-stage renal disease. Continue to monitor hemoglobin and hematocrit levels. Hernandez nue Epogen. 3. Status post syncope. No further episodes. Continue to monitor. 4. Mineral bone disorder. Continue to monitor calcium and phosphorus levels. 5. 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 Continue hemodialysis. 6. Dysphagia status post PEG, continue tube feeding. 7. Decubitus wound. Continue wound care. 8. . Continue vancomycin. 9. Encephalopathy. No change. 10. Hypertension, controlled. Continue current blood pressure regimen. Dictated By: HUDSON GREGG/ESTEE Conf#: [id number] DID#: [id number]
--- NOTE | 2016-05-13 14:24 | PN ---
Date/Time of Note Date/Time of Note DATE: 05/13/16 TIME: 14:21 Assessment/Plan VTE Prophylaxis VTE Prophylaxis Intervention: SCD's Lines/Catheters IV [facility] Saline Lock Urinary Cath still in place: No Assessment/Plan Chief Complaint/Hosp Course 1. End-stage renal disease on hemodialysis, dislodged hemodialysis catheter. Nephrology following. The patient had a right IJ hemodialysis access placed by vascular surgery on 05/03/2016. 2. Accelerated hypertension. Continue routine and p.r.n. antihypertensives. Blood pressure fairly well controlled. 3. Dysphagia. Continue G-tube feedings. 4. Dementia. Reorient the patient frequently. 5. Incontinent dermatitis. Wound care consult. Local wound care. 6. C diff colitis. Continue oral vancomycin. 7. Anemia of chronic renal disease. Continue to monitor the H and H closely. Transfuse as needed. The patient was started on Epogen. Stool for occult bloodX1 positive. 8. Hyperkalemia. Resolved. 9. Fluid, electrolytes and nutrition. Continue G-tube feedings. 10. DVT prophylaxis. Bilateral sequential compression devices. 11. Gastrointestinal prophylaxis. Histamine 2 receptor blockers. PLAN: Hemodialysis as per nephrology. Status post PermCath placement on 2016. Try releasing the patient's restraints. If the patient is off restraints , the [facility]. Case discussed with Dr. Gusman. Problems: Subjective 24 Hr Interval Summary Free Text/Dictation Patient remains confused. On B/L soft wrist restraints. Exam/Review of Systems Vital Signs Vitals Vital Signs Date Time Temp Pulse Resp B/P Pulse Ox O2 Delivery O2 Flow Rate FiO2 05/13/16 10:30 95 05/13/16 10:00 98.3 19 124/74 97 Room Air 05/12/16 01:46 2.0 Intake and Output 05/12/16 05/12/16 05/13/16 15:00 23:00 07:00 Intake Total 660 ml 660 ml Balance 660 ml 660 ml Exam GENERAL: This is a thin, frail-looking [place] female lying in bed in no apparent distress. Very confused. HEENT: Head normocephalic and atraumatic. Eyes: Anicteric sclerae. Conjunctivae clear. ENT: Nasal septum is midline. Oral mucosa is dry. NECK: Supple. No JVD noticed. RESPIRATORY: Bilaterally diminished breath sounds. No adventitious breath sounds. No use of accessory muscles of respiration. CARDIAC: Regular rate and rhythm. No murmurs heard. ABDOMEN: Soft, nontender and nondistended. Bowel sounds positive in all 4 quadrants. G-tube in place. GENITOURINARY: Deferred. EXTREMITIES: No cyanosis, no clubbing, no edema. Peripheral pulses are palpable. NEUROLOGIC: The patient is awake and alert. Oriented to person. Disoriented to place, time and purpose. PSYCHIATRIC: Pleasant. Confused. Results Result Diagram: 05/10/16 0630 05/13/16 0525 Results 24 hrs Laboratory Tests Test 05/13/16 05:25 Anion Gap 16 Blood Urea Nitrogen 58 H Calcium Level 8.5 Carbon Dioxide Level 28 Chloride Level 95 L Creatinine 2.84 H Glucose Level 107 Potassium Level 4.9 Sodium Level 134 L Medications Medications Current Medications Ondansetron HCl (Zofran Inj) 4 mg Q6H PRN IV NAUSEA AND/OR VOMITING Last administered on 05/05/16 22:10; Admin Dose 4 MG; Start 04/25/16 at 22:00 Acetaminophen (Tylenol Tab) 650 mg Q6H PRN PO PAIN LEVEL 1-3 OR FEVER Last administered on 05/13/16 02:18; Admin Dose 650 MG; Start 04/25/16 at 22:00 Acetaminophen/ Hydrocodone Bitart ([place] (5/325)) 1 tab Q6H PRN GTB MODERATE PAIN LEVEL 4-6 Last administered on 05/05/16 11:41; Admin Dose 1 TAB; Start 04/25/16 at 22:00 Morphine Sulfate (morphine) 2 mg Q4H PRN IV SEVERE PAIN LEVEL 7-10; Start at 22:00 Docusate Sodium (Colace Liquid Cup) 100 mg Q12H PRN GTB CONSTIPATION; Start 04/25/16 at 22:00 Hydralazine HCl (Apresoline) 25 mg Q8 PRN GTB ELEVATED BLOOD PRESSURE Last administered on 05/13/16 02:19; Admin Dose 25 MG; Start 04/25/16 at 22:00 Al Hydrox/Mg Hydrox/Simethicone (Mag-Al Plus) 30 ml Q6 GTB Last administered on 05/13/16 13:15; Admin Dose 30 ML; Start 04/26/16 at 00:00 Magnesium Hydroxide (Milk Of Mag) 30 ml DAILY PRN GTB CONSTIPATION; Start at 22:00 Lactobacillus Acidoph/Bulgaricus (Floranex) 1 tab BID GTB Last administered on 05/13/16 09:08; Admin Dose 1 TAB; Start 04/26/16 at 09:00 Folic Acid (Folic Acid) 1 mg DAILY PO Last administered on 05/13/16 09:08; Admin Dose 1 MG; Start 04/26/16 at 09:00 Diphenhydramine HCl (Benadryl) 25 mg Q6H PRN IM Itching Last administered on 10:53; Admin Dose 25 MG; Start 04/26/16 at 02:15 Vitamin B Complex/ Vitamin C (Berocca) 1 cap DAILY PO Last administered on 05/13 09:08; Admin Dose 1 CAP; Start 04/26/16 at 09:00 Valsartan (Diovan) 80 mg BID GTB Last administered on 05/13/16 09:08; Admin Dose 80 MG; Start 04/29/16 at 21:00 Lorazepam (Ativan) 1 mg Q6H PRN IV Anxiety Last administered on 05/06/16 17:34 ; Admin Dose 1 MG; Start 04/30/16 at 14:30 Vancomycin HCl (Vancomycin Oral Syringe) 250 mg Q6 GTB Last administered on 13:15; Admin Dose 250 MG; Start 05/01/16 at 15:00 Famotidine (Pepcid) 20 mg Q24H GTB Last administered on 05/12/16 17:30; Admin Dose 20 MG; Start 05/06/16 at 17:00 Sodium Phosphate (Neutra-Phos) 500 mg BID GTB Last administered on 05/13/16 09 :08; Admin Dose 500 MG; Start 05/07/16 at 10:30 ZEYAD VILLAVICENCIO NP May 13, 2016 14:24
[2016-05-13] MEDS: FAMOTIDINE 20 MG TAB GTB SCH (17:17)
[2016-05-13] MEDS: EPOETIN 10000 UNITS/1 ML INJ (ESRD) SC SCH (17:18)
[2016-05-14] VITALS (20 sets, daily range): BP systolic 98–157; BP diastolic 50–85; PULSE 81–112; RESP 18–20
[2016-05-14] MEDS: VANCOMYCIN HCL 250 MG/5ML POSYG GTB SCH ×5 (00:07→23:53)
[2016-05-14] MEDS: AL HYDROX/MG HYDROX/SIMETH 30 ML CUP GTB SCH ×5 (00:07→23:53)
[2016-05-14 05:36] LABS: MAGNESIUM 2.7 mg/dl (1.7-2.5); PHOSPHORUS 4.6 mg/dl (2.5-4.9)
[2016-05-14 05:49] LABS: BASOPHILS % 0.3 % (0.0-2.0); EOSINOPHILS # 1.1 10^3/ul (0.0-0.5); EOSINOPHILS % 9.7 % (0.0-7.0); HEMATOCRIT 26.2 % (37.0-47.0); HEMOGLOBIN 8.3 g/dl (12.0-16.0); LYMPHOCYTES # 1.8 10^3/ul (0.8-2.9); LYMPHOCYTES % 15.4 % (15.0-51.0); MEAN CORPUSCULAR HEMOGLOBIN 28.1 pg (29.0-33.0); MEAN CORPUSCULAR HGB CONC 31.8 g/dl (32.0-37.0); MEAN CORPUSCULAR VOLUME 88.3 fl (82.0-101.0); MEAN PLATELET VOLUME 8.3 fl (7.4-10.4); MONOCYTE # 1.3 10^3/ul (0.3-0.9); MONOCYTES % 11.1 % (0.0-11.0); NEUTROPHIL # 7.3 10^3/ul (1.6-7.5); NEUTROPHILS % 63.5 % (39.0-77.0); PLATELET COUNT 391 10^3/UL (140-440); RED BLOOD COUNT 2.97 10^6/ul (4.20-5.40); RED CELL DISTRIBUTION WIDTH 16.7 % (11.5-14.5); UNCORRECTED WBC 11.5 10^3/ul (4.8-10.8); WHITE BLOOD COUNT 11.5 10^3/ul (4.8-10.8)
[2016-05-14 05:52] LABS: CONDITION 1; LH ANALYZER COMMENTS 1
[2016-05-14 06:02] LABS: POTASSIUM 5.5 mmol/L (3.5-5.1)
[2016-05-14 06:04] LABS: CREATININE 2.42 mg/dl (0.44-1.00)
[2016-05-14 06:05] LABS: CALCIUM 8.8 mg/dl (8.4-10.2)
[2016-05-14] MEDS: FOLIC ACID 1 MG TAB PO SCH (08:44)
[2016-05-14] MEDS: VITAMIN B COMPLEX/VIT C CAP PO SCH (08:44)
[2016-05-14] MEDS: LACTOBACILLUS CHEW TAB GTB SCH ×2 (08:45→20:53)
[2016-05-14] MEDS: NEUTRA-PHOS 250 MG PACKET GTB SCH ×2 (08:45→20:53)
[2016-05-14] MEDS: VALSARTAN 80 MG TAB GTB SCH ×2 (08:46→20:53)
--- NOTE | 2016-05-14 11:14 | PN ---
DATE: 05/14/2016 SUBJECTIVE: The patient had hemodialysis yesterday, tolerated well. No other acute events noted. No hemoptysis, hematemesis or hematochezia. OBJECTIVE: VITAL SIGNS: Blood pressure 134/80, respirations 20, pulse 91, temperature 97.2. HEENT: Head is normocephalic. NECK: Supple. HEART: Regular rate. LUNGS: Show diminished breath sounds at base. ABDOMEN: Soft, nontender to palpation without rebound or guarding. EXTREMITIES: Negative for clubbing, cyanosis, edema. DERMATOLOGIC: No rashes. MUSCULOSKELETAL: No joint effusions. NEUROLOGIC: No change in exam. MEDICATIONS: Reviewed. LABORATORY DATA: Showed sodium 141, potassium 5.5, chloride 98, BUN 36, creatinine 2.42. Magnesium 2.7. White count 11.5, hemoglobin 8.3, hematocrit 26.2, platelet count is 391. ASSESSMENT AND PLAN: 1. End-stage renal disease. The patient had hemodialysis yesterday. Plan for dialysis today due t o underlying hyperkalemia. The patient will be dialyzed for 2 hours on a 2K bath. 2. Hyperkalemia secondary to end-stage renal disease. We will dialyze the patient on 2 potassium b ath. Continue low-potassium tube feeding. 3. Anemia of end-stage renal disease. Continue to monitor hemoglobin and hematocrit levels. Hernandez nue Epogen. 4. Status post syncope. 5. Mineral bone disorder. Continue to monitor calcium and phosphorus levels. 6. Hypomagnesemia, etiology secondary to end-stage renal disease. Continue hemodialysis. 7. Dysphagia, status post percutaneous endoscopic gastrostomy. Continue tube feeding. 8. Decubitus wound. Continue wound care. 9. Encephalopathy. No change. 10. Hypertension, controlled. Continue current blood pressure regimen. Dictated By: HUDSON GREGG/ESTEE Conf#: [id number] DID#: [id number]
--- NOTE | 2016-05-14 11:27 | PN ---
Date/Time of Note Date/Time of Note DATE: 05/14/16 TIME: 11:26 Assessment/Plan VTE Prophylaxis VTE Prophylaxis Intervention: SCD's Lines/Catheters IV [facility]ter [facility]from [facility]): Saline Lock Urinary Cath still in place: No Assessment/Plan Chief Complaint/Hosp Course 1. End-stage renal disease on hemodialysis, dislodged hemodialysis catheter. Nephrology following. The patient had a right IJ hemodialysis access placed by vascular surgery on 05/03/2016. 2. Accelerated hypertension. Continue routine and p.r.n. antihypertensives. Blood pressure fairly well controlled. 3. Dysphagia. Continue G-tube feedings. 4. Dementia. Reorient the patient frequently. 5. Incontinent dermatitis. Wound care consult. Local wound care. 6. C diff colitis. Continue oral vancomycin. 7. Anemia of chronic renal disease. Continue to monitor the H and H closely. Transfuse as needed. The patient was started on Epogen. Stool for occult bloodX1 positive. 8. Hyperkalemia. The patient gets hemodialysis as per nephrology. 9. Fluid, electrolytes and nutrition. Continue G-tube feedings. 10. DVT prophylaxis. Bilateral sequential compression devices. 11. Gastrointestinal prophylaxis. Histamine 2 receptor blockers. PLAN: Hemodialysis as per nephrology. Status post PermCath placement on 2016. Try releasing the patient's restraints. If the patient is off restraints , the patient can be transferred back to half-way facility. Will try low -dose antipsychotics. Case discussed with Dr. Gusman. Problems: Subjective 24 Hr Interval Summary Free Text/Dictation The patient remains confused. Exam/Review of Systems Vital Signs Vitals Vital Signs Date Time Temp Pulse Resp B/P Pulse Ox O2 Delivery O2 Flow Rate FiO2 05/14/16 08:00 97.2 91 20 134/80 96 05/14/16 08:00 Room Air 05/12/16 01:46 2.0 Intake and Output 05/13/16 05/13/16 05/14/16 15:00 23:00 07:00 Intake Total 500 ml 660 ml 660 ml Output Total 1000 ml Balance -500 ml 660 ml 660 ml Exam GENERAL: This is a thin, frail-looking [place] female lying in bed in no apparent distress. Very confused. HEENT: Head normocephalic and atraumatic. Eyes: Anicteric sclerae. Conjunctivae clear. ENT: Nasal septum is midline. Oral mucosa is dry. NECK: Supple. No JVD noticed. RESPIRATORY: Bilaterally diminished breath sounds. No adventitious breath sounds. No use of accessory muscles of respiration. CARDIAC: Regular rate and rhythm. No murmurs heard. ABDOMEN: Soft, nontender and nondistended. Bowel sounds positive in all 4 quadrants. G-tube in place. GENITOURINARY: Deferred. EXTREMITIES: No cyanosis, no clubbing, no edema. Peripheral pulses are palpable. NEUROLOGIC: The patient is awake and alert. Oriented to person. Disoriented to place, time and purpose. PSYCHIATRIC: Pleasant. Confused. Results Result Diagram: 05/14/16 0430 05/14/16 0430 Results 24 hrs Laboratory Tests Test 05/14/16 04:30 Anion Gap 18 H Basophils # 0.0 Basophils % 0.3 Blood Morphology Comment Blood Urea Nitrogen 36 #H Calcium Level 8.8 Carbon Dioxide Level 31 Chloride Level 98 Creatinine 2.42 H Eosinophils # 1.1 H Eosinophils % 9.7 H Glucose Level 96 Hematocrit 26.2 L Hemoglobin 8.3 L Lymphocytes # 1.8 Lymphocytes % 15.4 Magnesium Level 2.7 H Mean Corpuscular Hemoglobin 28.1 L Mean Corpuscular Hemoglobin Concent 31.8 L Mean Corpuscular Volume 88.3 Mean Platelet Volume 8.3 Monocytes # 1.3 H Monocytes % 11.1 H Neutrophils # 7.3 Neutrophils % 63.5 Nucleated Red Blood Cells # 0.0 Nucleated Red Blood Cells % 0.0 Phosphorus Level 4.6 Platelet Count 391 # Potassium Level 5.5 H Red Blood Count 2.97 L Red Cell Distribution Width 16.7 H Sodium Level 141 White Blood Count 11.5 H Medications Medications Current Medications Ondansetron HCl (Zofran Inj) 4 mg Q6H PRN IV NAUSEA AND/OR VOMITING Last administered on 05/05/16 22:10; Admin Dose 4 MG; Start 04/25/16 at 22:00 Acetaminophen (Tylenol Tab) 650 mg Q6H PRN PO PAIN LEVEL 1-3 OR FEVER Last administered on 05/13/16 02:18; Admin Dose 650 MG; Start 04/25/16 at 22:00 Acetaminophen/ Hydrocodone Bitart ([place] (5/325)) 1 tab Q6H PRN GTB MODERATE PAIN LEVEL 4-6 Last administered on 05/05/16 11:41; Admin Dose 1 TAB; Start 04/25/16 at 22:00 Morphine Sulfate (morphine) 2 mg Q4H PRN IV SEVERE PAIN LEVEL 7-10; Start at 22:00 Docusate Sodium (Colace Liquid Cup) 100 mg Q12H PRN GTB CONSTIPATION; Start 04/25/16 at 22:00 Hydralazine HCl (Apresoline) 25 mg Q8 PRN GTB ELEVATED BLOOD PRESSURE Last administered on 05/13/16 02:19; Admin Dose 25 MG; Start 04/25/16 at 22:00 Al Hydrox/Mg Hydrox/Simethicone (Mag-Al Plus) 30 ml Q6 GTB Last administered on 05/14/16 05:42; Admin Dose 30 ML; Start 04/26/16 at 00:00 Magnesium Hydroxide (Milk Of Mag) 30 ml DAILY PRN GTB CONSTIPATION; Start at 22:00 Lactobacillus Acidoph/Bulgaricus (Floranex) 1 tab BID GTB Last administered on 05/14/16 08:45; Admin Dose 1 TAB; Start 04/26/16 at 09:00 Folic Acid (Folic Acid) 1 mg DAILY PO Last administered on 05/14/16 08:44; Admin Dose 1 MG; Start 04/26/16 at 09:00 Diphenhydramine HCl (Benadryl) 25 mg Q6H PRN IM Itching Last administered on 10:53; Admin Dose 25 MG; Start 04/26/16 at 02:15 Vitamin B Complex/ Vitamin C (Berocca) 1 cap DAILY PO Last administered on 05/14 08:44; Admin Dose 1 CAP; Start 04/26/16 at 09:00 Valsartan (Diovan) 80 mg BID GTB Last administered on 05/14/16 08:46; Admin Dose 80 MG; Start 04/29/16 at 21:00 Lorazepam (Ativan) 1 mg Q6H PRN IV Anxiety Last administered on 05/06/16 17:34 ; Admin Dose 1 MG; Start 04/30/16 at 14:30 Vancomycin HCl (Vancomycin Oral Syringe) 250 mg Q6 GTB Last administered on 05:42; Admin Dose 250 MG; Start 05/01/16 at 15:00 Famotidine (Pepcid) 20 mg Q24H GTB Last administered on 05/13/16 17:17; Admin Dose 20 MG; Start 05/06/16 at 17:00 Sodium Phosphate (Neutra-Phos) 500 mg BID GTB Last administered on 05/14/16 08 :45; Admin Dose 500 MG; Start 05/07/16 at 10:30 Risperidone (Risperdal Liq) 0.5 mg BID GTB ; Start 05/14/16 at 12:30 ZEYAD VILLAVICENCIO NP May 14, 2016 11:27
[2016-05-14] MEDS ORDERED: RISPERIDONE (1 MG/ML PO SYG) GTB SCH (12:30)
[2016-05-14] MEDS ORDERED: HEPARIN 1000 UNITS/ML 10 ML INJ HE SCH (14:30)
[2016-05-14] MEDS: FAMOTIDINE 20 MG TAB GTB SCH (17:41)
[2016-05-14] MEDS: EPOETIN 10000 UNITS/1 ML INJ (ESRD) SC SCH (17:42)
[2016-05-14] MEDS: RISPERIDONE 1 MG TAB GTB SCH (20:54)
[2016-05-15] VITALS (26 sets, daily range): BP systolic 113–165; BP diastolic 55–84; PULSE 69–132; RESP 17–19
[2016-05-15] MEDS: AL HYDROX/MG HYDROX/SIMETH 30 ML CUP GTB SCH ×3 (05:38→17:01)
[2016-05-15] MEDS: VANCOMYCIN HCL 250 MG/5ML POSYG GTB SCH ×3 (05:38→17:01)
[2016-05-15] MEDS: FOLIC ACID 1 MG TAB PO SCH (08:05)
[2016-05-15] MEDS: RISPERIDONE 1 MG TAB GTB SCH ×2 (08:06→20:57)
[2016-05-15] MEDS: NEUTRA-PHOS 250 MG PACKET GTB SCH ×2 (08:06→20:58)
[2016-05-15] MEDS: VITAMIN B COMPLEX/VIT C CAP PO SCH (08:06)
[2016-05-15] MEDS: VALSARTAN 80 MG TAB GTB SCH ×2 (08:07→20:57)
[2016-05-15] MEDS: LACTOBACILLUS CHEW TAB GTB SCH ×2 (08:53→20:55)
--- NOTE | 2016-05-15 10:47 | PN ---
DATE: 05/15/2016 SUBJECTIVE: The patient is stable. The patient had hemodialysis yesterday with 1 liter removed. N o other acute events noted. No hemoptysis, hematemesis or hematochezia. OBJECTIVE: VITAL SIGNS: Blood pressure 130/6 , respirations 18, pulse 99, temperature 97.8. HEENT: Head is normocephalic. NECK: Supple. HEART: Regular rate. LUNGS: Show diminished breath sounds at the base. ABDOMEN: Soft, nontender to palpation without rebound or guarding. EXTREMITIES: Negative for clubbing, cyanosis. No edema. DERMATOLOGIC: No rashes. MUSCULOSKELETAL: No joint effusions. NEUROLOGIC: No change in exam. MEDICATIONS: The patient's medications have been reviewed. LABORATORY DATA: Currently pending. ASSESSMENT AND PLAN: 1. End-stage renal disease. The patient had hemodialysis yesterday. We will plan for dialysis aga in tomorrow. 2. Hyperkalemia secondary to end-stage renal disease. The patient dialyzed 2 potassiu m bath. Follow up renal panel. 3. Anemia of end-stage renal disease. Hemoglobin levels are being monitored. Continue Epogen. 4. Mineral bone disorder. Continue to monitor calcium and phosphorus closely. 5. Hypermagnesemia, improving with dialysis. 6. Dysphagia, status post percutaneous endoscopic gastrostomy. Continue tube feeding. 7. Decubitus wound. Continue wound care. 8. Hypertension, controlled. Continue current blood pressure regimen. 9. Encephalopathy. No change. Dictated By: HUDSON GREGG/ESTEE Conf#: [id number] DID#: [id number]
--- NOTE | 2016-05-15 11:18 | PN ---
Date/Time of Note Date/Time of Note DATE: 05/15/16 TIME: 11:17 Assessment/Plan VTE Prophylaxis VTE Prophylaxis Intervention: SCD's Lines/Catheters IV Catheter Type (from [facility] Saline Lock Urinary Cath still in place: No Assessment/Plan Chief Complaint/Hosp Course 1. End-stage renal disease on hemodialysis, dislodged hemodialysis catheter. Nephrology following. The patient had a right IJ hemodialysis access placed by vascular surgery on 05/03/2016. 2. Accelerated hypertension. Continue routine and p.r.n. antihypertensives. Blood pressure fairly well controlled. 3. Dysphagia. Continue G-tube feedings. 4. Dementia. Reorient the patient frequently. 5. Incontinent dermatitis. Wound care consult. Local wound care. 6. C diff colitis. Continue oral vancomycin. 7. Anemia of chronic renal disease. Continue to monitor the H and H closely. Transfuse as needed. The patient was started on Epogen. Stool for occult bloodX1 positive. 8. Hyperkalemia. The patient gets hemodialysis as per nephrology. 9. Fluid, electrolytes and nutrition. Continue G-tube feedings. 10. DVT prophylaxis. Bilateral sequential compression devices. 11. Gastrointestinal prophylaxis. Histamine 2 receptor blockers. PLAN: Hemodialysis as per nephrology. Status post PermCath placement on 2016. Try releasing the patient's restraints. If the patient is off restraints , the patient can be transferred back to senior care facility. Will try low -dose antipsychotics. Case discussed with Dr. Gusman. Problems: Subjective 24 Hr Interval Summary Free Text/Dictation Patient remains confused. Exam/Review of Systems Vital Signs Vitals Vital Signs Date Time Temp Pulse Resp B/P Pulse Ox O2 Delivery O2 Flow Rate FiO2 05/15/16 08:08 98.2 18 130/69 94 05/15/16 06:00 105 05/15/16 02:00 Room Air 05/12/16 01:46 2.0 Intake and Output 05/14/16 05/14/16 05/15/16 15:00 23:00 07:00 Intake Total 500 ml 660 ml 660 ml Output Total 2500 ml Balance -2000 ml 660 ml 660 ml Exam GENERAL: This is a thin, frail-looking [place] female lying in bed in no apparent distress. Very confused. HEENT: Head normocephalic and atraumatic. Eyes: Anicteric sclerae. Conjunctivae clear. ENT: Nasal septum is midline. Oral mucosa is dry. NECK: Supple. No JVD noticed. RESPIRATORY: Bilaterally diminished breath sounds. No adventitious breath sounds. No use of accessory muscles of respiration. CARDIAC: Regular rate and rhythm. No murmurs heard. ABDOMEN: Soft, nontender and nondistended. Bowel sounds positive in all 4 quadrants. G-tube in place. GENITOURINARY: Deferred. EXTREMITIES: No cyanosis, no clubbing, no edema. Peripheral pulses are palpable. NEUROLOGIC: The patient is awake and alert. Oriented to person. Disoriented to place, time and purpose. PSYCHIATRIC: Pleasant. Confused. Results Result Diagram: 05/14/1642905/14/16429 Medications Medications Current Medications Ondansetron HCl (Zofran Inj) 4 mg Q6H PRN IV NAUSEA AND/OR VOMITING Last administered on 05/05/16 22:10; Admin Dose 4 MG; Start 04/25/16 at 22:00 Acetaminophen (Tylenol Tab) 650 mg Q6H PRN PO PAIN LEVEL 1-3 OR FEVER Last administered on 05/13/16 02:18; Admin Dose 650 MG; Start 04/25/16 at 22:00 Acetaminophen/ Hydrocodone Bitart ([place] (5/325)) 1 tab Q6H PRN GTB MODERATE PAIN LEVEL 4-6 Last administered on 05/05/16 11:41; Admin Dose 1 TAB; Start 04/25/16 at 22:00 Morphine Sulfate (morphine) 2 mg Q4H PRN IV SEVERE PAIN LEVEL 7-10; Start at 22:00 Docusate Sodium (Colace Liquid Cup) 100 mg Q12H PRN GTB CONSTIPATION; Start 04/25/16 at 22:00 Hydralazine HCl (Apresoline) 25 mg Q8 PRN GTB ELEVATED BLOOD PRESSURE Last administered on 05/13/16 02:19; Admin Dose 25 MG; Start 04/25/16 at 22:00 Al Hydrox/Mg Hydrox/Simethicone (Mag-Al Plus) 30 ml Q6 GTB Last administered on 05/15/16 05:38; Admin Dose 30 ML; Start 04/26/16 at 00:00 Magnesium Hydroxide (Milk Of Mag) 30 ml DAILY PRN GTB CONSTIPATION; Start at 22:00 Lactobacillus Acidoph/Bulgaricus (Floranex) 1 tab BID GTB Last administered on 05/15/16 08:53; Admin Dose 1 TAB; Start 04/26/16 at 09:00 Folic Acid (Folic Acid) 1 mg DAILY PO Last administered on 05/15/16 08:05; Admin Dose 1 MG; Start 04/26/16 at 09:00 Diphenhydramine HCl (Benadryl) 25 mg Q6H PRN IM Itching Last administered on 10:53; Admin Dose 25 MG; Start 04/26/16 at 02:15 Vitamin B Complex/ Vitamin C (Berocca) 1 cap DAILY PO Last administered on 05/15 08:06; Admin Dose 1 CAP; Start 04/26/16 at 09:00 Valsartan (Diovan) 80 mg BID GTB Last administered on 05/14/16 20:53; Admin Dose 80 MG; Start 04/29/16 at 21:00 Lorazepam (Ativan) 1 mg Q6H PRN IV Anxiety Last administered on 05/06/16 17:34 ; Admin Dose 1 MG; Start 04/30/16 at 14:30 Vancomycin HCl (Vancomycin Oral Syringe) 250 mg Q6 GTB Last administered on 05:38; Admin Dose 250 MG; Start 05/01/16 at 15:00 Famotidine (Pepcid) 20 mg Q24H GTB Last administered on 05/14/16 17:41; Admin Dose 20 MG; Start 05/06/16 at 17:00 Sodium Phosphate (Neutra-Phos) 500 mg BID GTB Last administered on 05/15/16 08 :06; Admin Dose 500 MG; Start 05/07/16 at 10:30 Risperidone (Risperdal) 0.5 mg BID GTB Last administered on 05/15/16 08:06; Admin Dose 0.5 MG; Start 05/14/16 at 21:00 ZEYAD VILLAVICENCIO NP May 15, 2016 11:18
[2016-05-15 12:25] LABS: POTASSIUM 5.3 mmol/L (3.5-5.1)
[2016-05-15 12:28] LABS: CREATININE 2.18 mg/dl (0.44-1.00)
[2016-05-15 12:30] LABS: MAGNESIUM 2.5 mg/dl (1.7-2.5); PHOSPHORUS 6.2 mg/dl (2.5-4.9)
[2016-05-15 12:37] LABS: BASOPHILS % 0.4 % (0.0-2.0); EOSINOPHILS # 0.8 10^3/ul (0.0-0.5); HEMOGLOBIN 7.9 g/dl (12.0-16.0); LYMPHOCYTES # 1.9 10^3/ul (0.8-2.9); LYMPHOCYTES % 19.2 % (15.0-51.0); MEAN CORPUSCULAR HEMOGLOBIN 27.8 pg (29.0-33.0); MEAN CORPUSCULAR HGB CONC 31.9 g/dl (32.0-37.0); MEAN CORPUSCULAR VOLUME 87.3 fl (82.0-101.0); MEAN PLATELET VOLUME 8.1 fl (7.4-10.4); MONOCYTE # 1.1 10^3/ul (0.3-0.9); MONOCYTES % 10.4 % (0.0-11.0); NEUTROPHIL # 6.2 10^3/ul (1.6-7.5); PLATELET COUNT 393 10^3/UL (140-440); RED BLOOD COUNT 2.86 10^6/ul (4.20-5.40); RED CELL DISTRIBUTION WIDTH 17.6 % (11.5-14.5); UNCORRECTED WBC 10.1 10^3/ul (4.8-10.8); WHITE BLOOD COUNT 10.1 10^3/ul (4.8-10.8)
[2016-05-15 12:49] LABS: CONDITION 1; LH ANALYZER COMMENTS 1
[2016-05-15] MEDS: DIPHENHYDRAMINE 50 MG INJ IM PRN (13:01)
[2016-05-15] MEDS: FAMOTIDINE 20 MG TAB GTB SCH (17:01)
[2016-05-15] MEDS: EPOETIN 10000 UNITS/1 ML INJ (ESRD) SC SCH (17:02)
[2016-05-15] MEDS: LORAZEPAM 2 MG INJ IV PRN (17:02)
[2016-05-16] VITALS (15 sets, daily range): BP systolic 126–173; BP diastolic 60–89; PULSE 88–122; RESP 18–21
[2016-05-16] MEDS: AL HYDROX/MG HYDROX/SIMETH 30 ML CUP GTB SCH ×4 (00:19→17:51)
[2016-05-16] MEDS: VANCOMYCIN HCL 250 MG/5ML POSYG GTB SCH ×4 (00:19→17:51)
[2016-05-16] MEDS: LORAZEPAM 2 MG INJ IV PRN (05:41)
[2016-05-16 07:22] LABS: BASOPHILS % 0.3 % (0.0-2.0); EOSINOPHILS # 0.7 10^3/ul (0.0-0.5); EOSINOPHILS % 6.2 % (0.0-7.0); HEMATOCRIT 23.9 % (37.0-47.0); HEMOGLOBIN 7.7 g/dl (12.0-16.0); LYMPHOCYTES # 1.9 10^3/ul (0.8-2.9); LYMPHOCYTES % 15.7 % (15.0-51.0); MEAN CORPUSCULAR HEMOGLOBIN 28.2 pg (29.0-33.0); MEAN CORPUSCULAR HGB CONC 32.1 g/dl (32.0-37.0); MEAN CORPUSCULAR VOLUME 87.8 fl (82.0-101.0); MEAN PLATELET VOLUME 7.9 fl (7.4-10.4); MONOCYTE # 1.6 10^3/ul (0.3-0.9); MONOCYTES % 12.9 % (0.0-11.0); NEUTROPHIL # 7.8 10^3/ul (1.6-7.5); NEUTROPHILS % 64.9 % (39.0-77.0); PLATELET COUNT 271 10^3/UL (140-440); RED BLOOD COUNT 2.72 10^6/ul (4.20-5.40); RED CELL DISTRIBUTION WIDTH 16.8 % (11.5-14.5); UNCORRECTED WBC 12.1 10^3/ul (4.8-10.8); WHITE BLOOD COUNT 12.1 10^3/ul (4.8-10.8)
[2016-05-16 07:24] LABS: PHOSPHORUS 3.6 mg/dl (2.5-4.9)
[2016-05-16 07:25] LABS: MAGNESIUM 2.9 mg/dl (1.7-2.5)
[2016-05-16 07:32] LABS: CONDITION 1; LH ANALYZER COMMENTS 1; POTASSIUM 3.6 mmol/L (3.5-5.1)
[2016-05-16 07:34] LABS: CREATININE 1.81 mg/dl (0.44-1.00)
[2016-05-16 07:35] LABS: CALCIUM 8.9 mg/dl (8.4-10.2)
[2016-05-16] MEDS: VALSARTAN 80 MG TAB GTB SCH ×3 (09:00→21:06)
[2016-05-16] MEDS: FOLIC ACID 1 MG TAB PO SCH (09:23)
[2016-05-16] MEDS: NEUTRA-PHOS 250 MG PACKET GTB SCH ×2 (09:23→21:06)
[2016-05-16] MEDS: RISPERIDONE 1 MG TAB GTB SCH ×2 (09:23→21:06)
[2016-05-16] MEDS: LACTOBACILLUS CHEW TAB GTB SCH ×2 (09:23→21:06)
[2016-05-16] MEDS: VITAMIN B COMPLEX/VIT C CAP PO SCH (09:23)
--- NOTE | 2016-05-16 11:40 | PN ---
DATE: 05/16/2016 SUBJECTIVE: The patient is stable. The patient had hemodialysis yesterday, tolerated it well with 500 mL removed. OBJECTIVE: HEENT: Head is normocephalic. NECK: Supple. HEART: Regular rate. LUNGS: Show diminished breath sounds at the base. ABDOMEN: Soft, nontender to palpation. No rebound or guarding. EXTREMITIES: Negative for clubbing, cyanosis, no edema. DERMATOLOGIC: No rashes. MUSCULOSKELETAL: No joint effusions. NEUROLOGIC: No change in exam. MEDICATIONS: Reviewed. LABORATORY DATA: Showed sodium 141, potassium 3.6, BUN 28, 1.81. White count 10.1, hemoglobin 7.7, hematocrit 23.9, platelet count is 271. ASSESSMENT AND PLAN: 1. End-stage renal disease. The patient had dialysis yesterday, tolerated it well. Plan for dialy sis tomorrow. 2. Hyperkalemia, improved. Continue low-potassium tube feeding. Continue dialysis on a low potass ium bath. 3. Anemia of end-stage renal disease. Hemoglobin levels are low, but stable. Continue Epogen. 4. Mineral bone disorder. Continue to monitor calcium and phosphorus levels. 5. Hypermagnesemia, improving with dialysis. Continue. 6. Dysphagia status post PEG. Continue tube feeding. 7. Decubitus wound. Continue wound care. 8. Hypertension, controlled. 9. Encephalopathy, dementia, no change. Continue to monitor. Dictated By: HUDSON GREGG/ESTEE Conf#: [id number] DID#: [id number]
--- NOTE | 2016-05-16 16:30 | PN ---
Date/Time of Note Date/Time of Note DATE: 05/16/16 TIME: 16:27 Assessment/Plan VTE Prophylaxis VTE Prophylaxis Intervention: SCD's Lines/Catheters IV Catheter Type (from [facility]): Saline Lock Urinary Cath still in place: No Assessment/Plan Chief Complaint/Hosp Course 1. End-stage renal disease on hemodialysis, dislodged hemodialysis catheter. Nephrology following. The patient had a right IJ hemodialysis access placed by vascular surgery on 05/03/2016. 2. Accelerated hypertension. Continue routine and p.r.n. antihypertensives. Blood pressure fairly well controlled. 3. Dysphagia. Continue G-tube feedings. 4. Dementia. Reorient the patient frequently. 5. Incontinent dermatitis. Wound care consult. Local wound care. 6. C diff colitis. Continue oral vancomycin. 7. Anemia of chronic renal disease. Continue to monitor the H and H closely. Transfuse as needed. The patient was started on Epogen. Stool for occult bloodX1 positive. 8. Hyperkalemia. The patient gets hemodialysis as per nephrology. 9. Fluid, electrolytes and nutrition. Continue G-tube feedings. 10. DVT prophylaxis. Bilateral sequential compression devices. 11. Gastrointestinal prophylaxis. Histamine 2 receptor blockers. PLAN: Hemodialysis as per nephrology. Status post PermCath placement on 2016. Try releasing the patient's restraints. If the patient is off restraints , the patient can be transferred back to longterm facility. Will try low -dose antipsychotics. Problems: Subjective 24 Hr Interval Summary Constitutional: disoriented Exam/Review of Systems Vital Signs Vitals Vital Signs Date Time Temp Pulse Resp B/P Pulse Ox O2 Delivery O2 Flow Rate FiO2 05/16/16 12:00 98.2 18 140/69 100 Room Air 05/16/16 10:00 105 Intake and Output 05/15/16 05/15/16 05/16/16 15:00 23:00 07:00 Intake Total 1340 ml 560 ml Output Total 1000 ml Balance 340 ml 560 ml Exam Psych: confusion Respiratory: clear to auscultation Cardiovascular: regular rate and rhythm Gastrointestinal: soft, No distended Musculoskeletal: nl extremities to inspection Results Result Diagram: 05/16/16 0510 05/16/16 0510 Results 24 hrs Laboratory Tests Test 05/16/16 05:10 Anion Gap 16 Basophils # 0.0 Basophils % 0.3 Blood Morphology Comment Blood Urea Nitrogen 28 H Calcium Level 8.9 Carbon Dioxide Level 31 Chloride Level 98 Creatinine 1.81 H Eosinophils # 0.7 H Eosinophils % 6.2 Glucose Level 99 Hematocrit 23.9 L Hemoglobin 7.7 L Lymphocytes # 1.9 Lymphocytes % 15.7 Magnesium Level 2.9 H Mean Corpuscular Hemoglobin 28.2 L Mean Corpuscular Hemoglobin Concent 32.1 Mean Corpuscular Volume 87.8 Mean Platelet Volume 7.9 Monocytes # 1.6 H Monocytes % 12.9 H Neutrophils # 7.8 H Neutrophils % 64.9 Nucleated Red Blood Cells # 0.0 Nucleated Red Blood Cells % 0.0 Phosphorus Level 3.6 # Platelet Count 271 # Potassium Level 3.6 Red Blood Count 2.72 L Red Cell Distribution Width 16.8 H Sodium Level 141 White Blood Count 12.1 H Medications Medications Current Medications Ondansetron HCl (Zofran Inj) 4 mg Q6H PRN IV NAUSEA AND/OR VOMITING Last administered on 05/05/16 22:10; Admin Dose 4 MG; Start 04/25/16 at 22:00 Acetaminophen (Tylenol Tab) 650 mg Q6H PRN PO PAIN LEVEL 1-3 OR FEVER Last administered on 05/13/16 02:18; Admin Dose 650 MG; Start 04/25/16 at 22:00 Acetaminophen/ Hydrocodone Bitart ([place] (5/325)) 1 tab Q6H PRN GTB MODERATE PAIN LEVEL 4-6 Last administered on 05/05/16 11:41; Admin Dose 1 TAB; Start 04/25/16 at 22:00 Morphine Sulfate (morphine) 2 mg Q4H PRN IV SEVERE PAIN LEVEL 7-10; Start at 22:00 Docusate Sodium (Colace Liquid Cup) 100 mg Q12H PRN GTB CONSTIPATION; Start 04/25/16 at 22:00 Hydralazine HCl (Apresoline) 25 mg Q8 PRN GTB ELEVATED BLOOD PRESSURE Last administered on 05/13/16 02:19; Admin Dose 25 MG; Start 04/25/16 at 22:00 Al Hydrox/Mg Hydrox/Simethicone (Mag-Al Plus) 30 ml Q6 GTB Last administered on 05/16/16 11:34; Admin Dose 30 ML; Start 04/26/16 at 00:00 Magnesium Hydroxide (Milk Of Mag) 30 ml DAILY PRN GTB CONSTIPATION; Start at 22:00 Lactobacillus Acidoph/Bulgaricus (Floranex) 1 tab BID GTB Last administered on 05/16/16 09:23; Admin Dose 1 TAB; Start 04/26/16 at 09:00 Folic Acid (Folic Acid) 1 mg DAILY PO Last administered on 05/16/16 09:23; Admin Dose 1 MG; Start 04/26/16 at 09:00 Diphenhydramine HCl (Benadryl) 25 mg Q6H PRN IM Itching Last administered on 13:01; Admin Dose 25 MG; Start 04/26/16 at 02:15 Vitamin B Complex/ Vitamin C (Berocca) 1 cap DAILY PO Last administered on 05/16 09:23; Admin Dose 1 CAP; Start 04/26/16 at 09:00 Valsartan (Diovan) 80 mg BID GTB Last administered on 05/16/16 09:47; Admin Dose 80 MG; Start 04/29/16 at 21:00 Lorazepam (Ativan) 1 mg Q6H PRN IV Anxiety Last administered on 05/16/16 05:41 ; Admin Dose 1 MG; Start 04/30/16 at 14:30 Vancomycin HCl (Vancomycin Oral Syringe) 250 mg Q6 GTB Last administered on 11:34; Admin Dose 250 MG; Start 05/01/16 at 15:00 Famotidine (Pepcid) 20 mg Q24H GTB Last administered on 05/15/16 17:01; Admin Dose 20 MG; Start 05/06/16 at 17:00 Sodium Phosphate (Neutra-Phos) 500 mg BID GTB Last administered on 05/16/16 09 :23; Admin Dose 500 MG; Start 05/07/16 at 10:30 Risperidone (Risperdal) 0.5 mg BID GTB Last administered on 05/16/16 09:23; Admin Dose 0.5 MG; Start 05/14/16 at 21:00 MISBAH THORNTON May 16, 2016 16:29
[2016-05-16] MEDS: FAMOTIDINE 20 MG TAB GTB SCH (17:51)
[2016-05-16] MEDS ORDERED: SOD CHLORIDE 0.9% 250 ML IV ONE (21:30)
[2016-05-17] VITALS (22 sets, daily range): BP systolic 88–156; BP diastolic 50–93; PULSE 78–128; RESP 16–20
[2016-05-17] MEDS: VANCOMYCIN HCL 250 MG/5ML POSYG GTB SCH ×5 (00:25→23:51)
[2016-05-17] MEDS: ACETAMINOPHEN 325 MG TAB PO PRN (00:25)
[2016-05-17] MEDS: AL HYDROX/MG HYDROX/SIMETH 30 ML CUP GTB SCH ×5 (00:25→23:51)
[2016-05-17] MEDS ORDERED: METOPROLOL 25 MG TAB NGT ONE (01:00)
[2016-05-17 05:45] LABS: BASOPHILS % 0.1 % (0.0-2.0); EOSINOPHILS # 0.9 10^3/ul (0.0-0.5); EOSINOPHILS % 6.2 % (0.0-7.0); HEMATOCRIT 22.5 % (37.0-47.0); HEMOGLOBIN 7.3 g/dl (12.0-16.0); LYMPHOCYTES # 1.4 10^3/ul (0.8-2.9); LYMPHOCYTES % 9.3 % (15.0-51.0); MEAN CORPUSCULAR HEMOGLOBIN 28.5 pg (29.0-33.0); MEAN CORPUSCULAR HGB CONC 32.6 g/dl (32.0-37.0); MEAN CORPUSCULAR VOLUME 87.5 fl (82.0-101.0); MEAN PLATELET VOLUME 7.8 fl (7.4-10.4); MONOCYTE # 1.1 10^3/ul (0.3-0.9); MONOCYTES % 7.3 % (0.0-11.0); NEUTROPHIL # 11.6 10^3/ul (1.6-7.5); NEUTROPHILS % 77.1 % (39.0-77.0); PLATELET COUNT 283 10^3/UL (140-440); RED BLOOD COUNT 2.58 10^6/ul (4.20-5.40); RED CELL DISTRIBUTION WIDTH 17.2 % (11.5-14.5); UNCORRECTED WBC 15.1 10^3/ul (4.8-10.8); WHITE BLOOD COUNT 15.1 10^3/ul (4.8-10.8)
[2016-05-17 06:05] LABS: CONDITION 1; LH ANALYZER COMMENTS 1
[2016-05-17 06:10] LABS: POTASSIUM 3.8 mmol/L (3.5-5.1)
[2016-05-17 06:12] LABS: CREATININE 3.07 mg/dl (0.44-1.00)
[2016-05-17 06:13] LABS: CALCIUM 8.8 mg/dl (8.4-10.2)
[2016-05-17] MEDS: LACTOBACILLUS CHEW TAB GTB SCH ×2 (08:56→20:38)
[2016-05-17] MEDS: NEUTRA-PHOS 250 MG PACKET GTB SCH ×2 (08:56→21:33)
[2016-05-17] MEDS: VITAMIN B COMPLEX/VIT C CAP PO SCH (08:56)
[2016-05-17] MEDS: RISPERIDONE 1 MG TAB GTB SCH ×2 (08:56→20:37)
[2016-05-17] MEDS: FOLIC ACID 1 MG TAB PO SCH (08:56)
[2016-05-17] MEDS: VALSARTAN 80 MG TAB GTB SCH ×2 (09:00→17:45)
--- NOTE | 2016-05-17 10:42 | PN ---
Date/Time of Note Date/Time of Note DATE: 05/17/16 TIME: 10:37 Assessment/Plan VTE Prophylaxis VTE Prophylaxis Intervention: SCD's Lines/Catheters IV [facility]ter Type (from [facility] Saline Lock Urinary Cath still in place: No Assessment/Plan Chief Complaint/Hosp Course A/P: 80 F with: 1. End-stage renal disease on hemodialysis, dislodged hemodialysis catheter. Nephrology following. The patient had a right IJ hemodialysis access placed by vascular surgery on 05/03/2016 - for HD tody, and as needed per renal, f/u their rec's 2. Accelerated hypertension - presently stable - Continue routine and p.r.n. antihypertensives. 3. Dysphagia. Continue G-tube feedings. 4. Dementia. Reorient the patient frequently. 5. Incontinent dermatitis. Wound care consult. Local wound care. 6. C diff colitis. Continue oral vancomycin. 7. Anemia of chronic renal disease. H/H lower today. No GI bleeding signs presently. The patient was started on Epogen. Stool for occult bloodX1 positive on 05/06/16. - Continue to monitor the H and H closely. - will Transfuse today one unit pRBC - d/c heparin sub Q 8. Hyperkalemia. The patient gets hemodialysis as per nephrology. 9. Fluid, electrolytes and nutrition. Continue G-tube feedings. 10. DVT prophylaxis. Bilateral sequential compression devices. 11. Gastrointestinal prophylaxis. Histamine 2 receptor blockers. PLAN: Hemodialysis as per nephrology. Status post PermCath placement on 2016. Try releasing the patient's restraints. If the patient is off restraints , the patient can be transferred back to halfway facility. Consider low -dose antipsychotics. Problems: Subjective 24 Hr Interval Summary Free Text/Dictation Pt seen by renal team this AM, no acute events overnight. Exam/Review of Systems Vital Signs Vitals Vital Signs Date Time Temp Pulse Resp B/P Pulse Ox O2 Delivery O2 Flow Rate FiO2 05/17/16 07:43 97.0 80 18 138/64 96 05/17/16 06:07 Room Air 05/17/16 00:48 2.0 Intake and Output 05/16/16 05/16/16 05/17/16 15:00 23:00 07:00 Intake Total 910 ml 660 ml Balance 910 ml 660 ml Exam Psych: confusion Respiratory: clear to auscultation Cardiovascular: regular rate and rhythm Gastrointestinal: soft, No distended Musculoskeletal: nl extremities to inspection Results Result Diagram: 05/17/16 0450 05/17/16 0450 Results 24 hrs Laboratory Tests Test 05/17/16 04:50 Anion Gap 16 Basophils # 0.0 Basophils % 0.1 Blood Morphology Comment Blood Urea Nitrogen 50 H Calcium Level 8.8 Carbon Dioxide Level 30 Chloride Level 100 Creatinine 3.07 #H Eosinophils # 0.9 H Eosinophils % 6.2 Glucose Level 99 Hematocrit 22.5 L Hemoglobin 7.3 L Lymphocytes # 1.4 Lymphocytes % 9.3 L Mean Corpuscular Hemoglobin 28.5 L Mean Corpuscular Hemoglobin Concent 32.6 Mean Corpuscular Volume 87.5 Mean Platelet Volume 7.8 Monocytes # 1.1 H Monocytes % 7.3 Neutrophils # 11.6 H Neutrophils % 77.1 H Nucleated Red Blood Cells # 0.0 Nucleated Red Blood Cells % 0.0 Platelet Count 283 Potassium Level 3.8 Red Blood Count 2.58 L Red Cell Distribution Width 17.2 H Sodium Level 142 White Blood Count 15.1 #H Medications Medications Current Medications Ondansetron HCl (Zofran Inj) 4 mg Q6H PRN IV NAUSEA AND/OR VOMITING Last administered on 05/05/16 22:10; Admin Dose 4 MG; Start 04/25/16 at 22:00 Acetaminophen (Tylenol Tab) 650 mg Q6H PRN PO PAIN LEVEL 1-3 OR FEVER Last administered on 05/17/16 00:25; Admin Dose 650 MG; Start 04/25/16 at 22:00 Acetaminophen/ Hydrocodone Bitart ([place] (5/325)) 1 tab Q6H PRN GTB MODERATE PAIN LEVEL 4-6 Last administered on 05/05/16 11:41; Admin Dose 1 TAB; Start 04/25/16 at 22:00 Morphine Sulfate (morphine) 2 mg Q4H PRN IV SEVERE PAIN LEVEL 7-10; Start at 22:00 Docusate Sodium (Colace Liquid Cup) 100 mg Q12H PRN GTB CONSTIPATION; Start 04/25/16 at 22:00 Hydralazine HCl (Apresoline) 25 mg Q8 PRN GTB ELEVATED BLOOD PRESSURE Last administered on 05/13/16 02:19; Admin Dose 25 MG; Start 04/25/16 at 22:00 Al Hydrox/Mg Hydrox/Simethicone (Mag-Al Plus) 30 ml Q6 GTB Last administered on 05/17/16 05:55; Admin Dose 30 ML; Start 04/26/16 at 00:00 Magnesium Hydroxide (Milk Of Mag) 30 ml DAILY PRN GTB CONSTIPATION; Start at 22:00 Lactobacillus Acidoph/Bulgaricus (Floranex) 1 tab BID GTB Last administered on 05/17/16 08:56; Admin Dose 1 TAB; Start 04/26/16 at 09:00 Folic Acid (Folic Acid) 1 mg DAILY PO Last administered on 05/17/16 08:56; Admin Dose 1 MG; Start 04/26/16 at 09:00 Diphenhydramine HCl (Benadryl) 25 mg Q6H PRN IM Itching Last administered on 13:01; Admin Dose 25 MG; Start 04/26/16 at 02:15 Vitamin B Complex/ Vitamin C (Berocca) 1 cap DAILY PO Last administered on 05/17 08:56; Admin Dose 1 CAP; Start 04/26/16 at 09:00 Valsartan (Diovan) 80 mg BID GTB Last administered on 05/16/16 21:06; Admin Dose 80 MG; Start 04/29/16 at 21:00 Lorazepam (Ativan) 1 mg Q6H PRN IV Anxiety Last administered on 05/16/16 05:41 ; Admin Dose 1 MG; Start 04/30/16 at 14:30 Vancomycin HCl (Vancomycin Oral Syringe) 250 mg Q6 GTB Last administered on 05:55; Admin Dose 250 MG; Start 05/01/16 at 15:00 Famotidine (Pepcid) 20 mg Q24H GTB Last administered on 05/16/16 17:51; Admin Dose 20 MG; Start 05/06/16 at 17:00 Sodium Phosphate (Neutra-Phos) 500 mg BID GTB Last administered on 05/17/16 08 :56; Admin Dose 500 MG; Start 05/07/16 at 10:30 Risperidone 0.5 mg 0.5 mg BID GTB Last administered on 05/17/16 08:56; Admin Dose 0.5 MG; Start 05/14/16 at 21:00 Ferric Sodium Gluconate Complex/ Sodium Chloride (Ferrlecit/NS) 110 ml @ 110 mls/hr Q24H IVPB ; Start 05/17/16 at 11:00; Stop 05/21/16 at 11:59 MARIA C HULL May 17, 2016 10:42
--- NOTE | 2016-05-17 10:47 | PN ---
DATE: 05/17/2016 SUBJECTIVE: The patient is stable, no acute events overnight. The patient continues to have diarrh ea. No other events noted. OBJECTIVE: VITAL SIGNS: Blood pressure is 130/64, respiration 18, pulse 80, temperature 97.0. HEENT: Head is normocephalic. NECK: Supple. HEART: Regular rate. LUNGS: Show diminished breath sounds at base. ABDOMEN: Soft, nontender to palpation without rebound or guarding. EXTREMITIES: Negative for clubbing, cyanosis, edema. DERMATOLOGIC: No rashes. MUSCULOSKELETAL: No joint effusions. NEUROLOGIC: No change in exam. MEDICATIONS: The patient's medications have been reviewed. LABORATORY DATA: Shows sodium 142, potassium 3.9, chloride 100, BUN 50, creatinine 3.07. White cou nt 15.1, hemoglobin 7.3, hematocrit 32.5, platelet count 283. ASSESSMENT AND PLAN: 1. End-stage renal disease. The patient is scheduled for hemodialysis today with dialysis for 3 ho urs, 3 K bath, calcium 2.5. 2. Hypokalemia, improved. 3. Anemia of end-stage renal disease. Hemoglobin levels are low. Will check an iron panel. Will start the patient on an iron run with Ferrlecit and continue Epogen. If hemoglobin levels should go below 7 g/dL will transfused 2 units of PRBC. 4. Mineral bone disorder. Continue to monitor calcium and phosphorus levels. 5. Hypomagnesemia, improving. Continue hemodialysis 6. Dysphagia, status post PEG. Continue tube feeding. 7. Clostridium difficile. Continue medical management. 8. Decubitus wound. Continue wound care. 9. Hypertension, controlled. 10. Encephalopathy. No change. Dictated By: HUDSON GREGG/ESTEE Conf#: [id number] DID#: [id number]
[2016-05-17 10:58] LABS: IRON 31 ug/dl (35-150)
[2016-05-17 11:07] LABS: TOTAL IRON BINDING CAPACITY 167 ug/dl (241-421)
[2016-05-17] MEDS: SOD FERRIC GLUC COMPLX 125 MG in SOD CHLORIDE 0.9% 100 ML IVPB SCH (12:55)
[2016-05-17] MEDS: FAMOTIDINE 20 MG TAB GTB SCH (16:48)
[2016-05-17] MEDS: EPOETIN 10000 UNITS/1 ML INJ (ESRD) SC SCH (16:59)
[2016-05-17] MEDS: DIPHENHYDRAMINE 50 MG INJ IM PRN (16:59)
[2016-05-18] VITALS (14 sets, daily range): BP systolic 136–164; BP diastolic 60–89; PULSE 86–114; RESP 18–20
[2016-05-18] MEDS: VANCOMYCIN HCL 250 MG/5ML POSYG GTB SCH ×3 (06:09→18:05)
[2016-05-18] MEDS: AL HYDROX/MG HYDROX/SIMETH 30 ML CUP GTB SCH ×3 (06:09→18:04)
[2016-05-18 06:31] LABS: BASOPHILS % 0.1 % (0.0-2.0); EOSINOPHILS # 1.4 10^3/ul (0.0-0.5); EOSINOPHILS % 8.9 % (0.0-7.0); HEMATOCRIT 29.4 % (37.0-47.0); HEMOGLOBIN 9.7 g/dl (12.0-16.0); LYMPHOCYTES # 1.5 10^3/ul (0.8-2.9); LYMPHOCYTES % 9.9 % (15.0-51.0); MEAN CORPUSCULAR HEMOGLOBIN 28.1 pg (29.0-33.0); MEAN CORPUSCULAR VOLUME 85.1 fl (82.0-101.0); MEAN PLATELET VOLUME 8.2 fl (7.4-10.4); MONOCYTE # 1.4 10^3/ul (0.3-0.9); NEUTROPHILS % 72.1 % (39.0-77.0); PLATELET COUNT 276 10^3/UL (140-440); RED BLOOD COUNT 3.45 10^6/ul (4.20-5.40); UNCORRECTED WBC 15.3 10^3/ul (4.8-10.8); WHITE BLOOD COUNT 15.3 10^3/ul (4.8-10.8)
[2016-05-18 06:36] LABS: CONDITION 1; LH ANALYZER COMMENTS 1
[2016-05-18 07:02] LABS: CREATININE 2.04 mg/dl (0.44-1.00)
[2016-05-18 07:03] LABS: CALCIUM 8.8 mg/dl (8.4-10.2)
[2016-05-18] MEDS: VITAMIN B COMPLEX/VIT C CAP PO SCH (08:45)
[2016-05-18] MEDS: FOLIC ACID 1 MG TAB PO SCH (08:45)
[2016-05-18] MEDS: RISPERIDONE 1 MG TAB GTB SCH ×2 (08:45→21:24)
[2016-05-18] MEDS: LACTOBACILLUS CHEW TAB GTB SCH ×2 (08:45→21:24)
[2016-05-18] MEDS: NEUTRA-PHOS 250 MG PACKET GTB SCH ×2 (08:47→21:43)
[2016-05-18] MEDS: VALSARTAN 80 MG TAB GTB SCH ×2 (08:47→21:24)
--- NOTE | 2016-05-18 11:04 | PN ---
Date/Time of Note Date/Time of Note DATE: 05/18/16 TIME: 11:02 Assessment/Plan VTE Prophylaxis VTE Prophylaxis Intervention: other Lines/Catheters IV Catheter Type (from [facility]): Saline Lock Urinary Cath still in place: No Assessment/Plan Problems: (1) Sacral decubitus ulcer, stage II Status: Chronic Comment: Remains on active wound care team protocols and doing okay (2) Hypomagnesemia Status: Resolved (3) Hypertension Status: Chronic Comment: Adequately controlled Qualifiers: Hypertension type: essential hypertension Qualified Code: I10 - Essential hypertension (4) End stage renal disease Status: Chronic Comment: Remains on hemodialysis as per nephrology. New dialysis catheter was placed by vascular surgery after dislodging of the original catheter by the patient. (5) Encephalopathy chronic Status: Chronic Comment: She will need to be in soft restraints that she is pulling on tubes which is actually interfering with her ability to protect her and care for her (6) C. difficile colitis Status: Acute Comment: He is on treatment (7) Status post insertion of percutaneous endoscopic gastrostomy (PEG) tube Status: Chronic Comment: She is receiving her nutrition this way safely Subjective 24 Hr Interval Summary Free Text/Dictation Pleasant woman lying on her bed sideways while staff is treating her decubitus offers no complaints Exam/Review of Systems Vital Signs Vitals Vital Signs Date Time Temp Pulse Resp B/P Pulse Ox O2 Delivery O2 Flow Rate FiO2 05/18/16 08:07 98.3 97 20 141/65 96 05/18/16 06:00 Room Air 05/17/16 00:48 2.0 Intake and Output 05/17/16 05/17/16 05/18/16 15:00 23:00 07:00 Intake Total 1360 ml 650 ml Output Total 1600 ml Balance -240 ml 650 ml Exam Constitutional: alert (Not oriented), frail Neck: non-tender, supple Respiratory: clear to auscultation, normal air movement Cardiovascular: nl pulses, regular rate and rhythm Skin: other (Stage II gera-sacral decubitus to the left of midline) Results Result Diagram: 05/18/16 0530 05/18/16 0530 Results 24 hrs Laboratory Tests Test 05/18/16 05:30 Anion Gap 14 Basophils # 0.0 Basophils % 0.1 Blood Morphology Comment Blood Urea Nitrogen 35 #H Calcium Level 8.8 Carbon Dioxide Level 32 H Chloride Level 98 Creatinine 2.04 #H Eosinophils # 1.4 H Eosinophils % 8.9 H Glucose Level 84 Hematocrit 29.4 #L Hemoglobin 9.7 #L Lymphocytes # 1.5 Lymphocytes % 9.9 L Mean Corpuscular Hemoglobin 28.1 L Mean Corpuscular Hemoglobin Concent 33.0 Mean Corpuscular Volume 85.1 Mean Platelet Volume 8.2 Monocytes # 1.4 H Monocytes % 9.0 Neutrophils # 11.0 H Neutrophils % 72.1 Nucleated Red Blood Cells # 0.0 Nucleated Red Blood Cells % 0.0 Platelet Count 276 Potassium Level 4.0 Red Blood Count 3.45 #L Red Cell Distribution Width 17.0 H Sodium Level 140 White Blood Count 15.3 H Medications Medications Current Medications Ondansetron HCl (Zofran Inj) 4 mg Q6H PRN IV NAUSEA AND/OR VOMITING Last administered on 05/05/16 22:10; Admin Dose 4 MG; Start 04/25/16 at 22:00 Acetaminophen (Tylenol Tab) 650 mg Q6H PRN PO PAIN LEVEL 1-3 OR FEVER Last administered on 05/17/16 00:25; Admin Dose 650 MG; Start 04/25/16 at 22:00 Acetaminophen/ Hydrocodone Bitart ([place] (5/325)) 1 tab Q6H PRN GTB MODERATE PAIN LEVEL 4-6 Last administered on 05/05/16 11:41; Admin Dose 1 TAB; Start 04/25/16 at 22:00 Morphine Sulfate (morphine) 2 mg Q4H PRN IV SEVERE PAIN LEVEL 7-10; Start at 22:00 Docusate Sodium (Colace Liquid Cup) 100 mg Q12H PRN GTB CONSTIPATION; Start 04/25/16 at 22:00 Hydralazine HCl (Apresoline) 25 mg Q8 PRN GTB ELEVATED BLOOD PRESSURE Last administered on 05/18/16 05:15; Admin Dose 25 MG; Start 04/25/16 at 22:00 Al Hydrox/Mg Hydrox/Simethicone (Mag-Al Plus) 30 ml Q6 GTB Last administered on 05/18/16 06:09; Admin Dose 30 ML; Start 04/26/16 at 00:00 Magnesium Hydroxide (Milk Of Mag) 30 ml DAILY PRN GTB CONSTIPATION; Start at 22:00 Lactobacillus Acidoph/Bulgaricus (Floranex) 1 tab BID GTB Last administered on 05/18/16 08:45; Admin Dose 1 TAB; Start 04/26/16 at 09:00 Folic Acid (Folic Acid) 1 mg DAILY PO Last administered on 05/18/16 08:45; Admin Dose 1 MG; Start 04/26/16 at 09:00 Diphenhydramine HCl (Benadryl) 25 mg Q6H PRN IM Itching Last administered on 16:59; Admin Dose 25 MG; Start 04/26/16 at 02:15 Vitamin B Complex/ Vitamin C (Berocca) 1 cap DAILY PO Last administered on 05/18 08:45; Admin Dose 1 CAP; Start 04/26/16 at 09:00 Valsartan (Diovan) 80 mg BID GTB Last administered on 05/18/16 08:47; Admin Dose 80 MG; Start 04/29/16 at 21:00 Lorazepam (Ativan) 1 mg Q6H PRN IV Anxiety Last administered on 05/16/16 05:41 ; Admin Dose 1 MG; Start 04/30/16 at 14:30 Vancomycin HCl (Vancomycin Oral Syringe) 250 mg Q6 GTB Last administered on 06:09; Admin Dose 250 MG; Start 05/01/16 at 15:00 Famotidine (Pepcid) 20 mg Q24H GTB Last administered on 05/17/16 16:48; Admin Dose 20 MG; Start 05/06/16 at 17:00 Sodium Phosphate (Neutra-Phos) 500 mg BID GTB Last administered on 05/18/16 08 :47; Admin Dose 500 MG; Start 05/07/16 at 10:30 Risperidone 0.5 mg 0.5 mg BID GTB Last administered on 05/18/16 08:45; Admin Dose 0.5 MG; Start 05/14/16 at 21:00 Ferric Sodium Gluconate Complex/ Sodium Chloride (Ferrlecit/NS) 110 ml @ 110 mls/hr Q24H IVPB Last administered on 05/17/16 12:55; Admin Dose 110 MLS/HR; Start 05/17/16 at 11:00; Stop 05/21/16 at 11:59 MILIND GRIMALDO MD May 18, 2016 11:04
[2016-05-18] MEDS: SOD FERRIC GLUC COMPLX 125 MG in SOD CHLORIDE 0.9% 100 ML IVPB SCH (11:30)
--- NOTE | 2016-05-18 14:00 | PN ---
DATE: 05/18/2016 SUBJECTIVE: The patient is stable, no acute events overnight. No fevers, chills, nausea, vomiting, shortness of breath. OBJECTIVE: VITAL SIGNS: Blood pressure is 140/65, respirations 20, pulse 97, temperature 98.3. HEENT: Head is normocephalic. NECK: Supple. HEART: Regular rate. LUNGS: Show diminished breath sounds at the base. ABDOMEN: Soft, nontender to palpation. No rebound or guarding. EXTREMITIES: Negative for clubbing, cyanosis, edema. DERMATOLOGIC: No rashes. MUSCULOSKELETAL: No joint effusions. NEUROLOGIC: No change in exam. MEDICATIONS: The patient's medications have been reviewed. LABORATORY DATA: Shows a white count 15.3, hemoglobin 9.7, hematocrit 29.4, platelets 276,000. Sod ium 140, potassium 4, BUN 35, creatinine 2.05. ASSESSMENT AND PLAN: 1. End-stage renal disease. The patient had hemodialysis yesterday, tolerated well. 2. Anemia of end-stage renal disease. The patient is status post blood transfusion. Continue to m onitor H and H levels. Continue Epogen. 3. Mineral bone disorder. Continue to monitor calcium and phosphorus levels. 4. Hypermagnesemia secondary to end-stage renal disease, improved. Continue hemodialysis. 5. Dysphagia status post G-tube feeding . Continue medical management. 6. Decubitus wound. Continue wound care. 7. Hypertension, controlled. 8. History of encephalopathy. No change. Continue to monitor. Dictated By: HUDSON GREGG/ESTEE Conf#: [id number] DID#: [id number]
[2016-05-18] MEDS: FAMOTIDINE 20 MG TAB GTB SCH (18:05)
[2016-05-19] VITALS (13 sets, daily range): BP systolic 140–180; BP diastolic 65–89; PULSE 92–102; RESP 16–19
[2016-05-19] MEDS: AL HYDROX/MG HYDROX/SIMETH 30 ML CUP GTB SCH ×4 (00:27→17:07)
[2016-05-19] MEDS: VANCOMYCIN HCL 250 MG/5ML POSYG GTB SCH ×4 (00:30→17:07)
[2016-05-19] MEDS: FOLIC ACID 1 MG TAB PO SCH (08:51)
[2016-05-19] MEDS: LACTOBACILLUS CHEW TAB GTB SCH ×2 (08:51→20:39)
[2016-05-19] MEDS: RISPERIDONE 1 MG TAB GTB SCH ×2 (08:51→20:39)
[2016-05-19] MEDS: VITAMIN B COMPLEX/VIT C CAP PO SCH (08:51)
[2016-05-19] MEDS: NEUTRA-PHOS 250 MG PACKET GTB SCH ×2 (08:52→20:39)
[2016-05-19] MEDS: VALSARTAN 80 MG TAB GTB SCH ×2 (08:52→20:39)
--- NOTE | 2016-05-19 10:48 | PN ---
Date/Time of Note Date/Time of Note DATE: 05/19/16 TIME: 10:46 Assessment/Plan VTE Prophylaxis VTE Prophylaxis Intervention: other Lines/Catheters IV Catheter Type (from [facility]): Saline Lock Urinary Cath still in place: No Assessment/Plan Problems: (1) Sacral decubitus ulcer, stage II Status: Chronic Comment: She is on special mattress and wound care team is working with her (2) End stage renal disease Status: Chronic Comment: She remains on hemodialysis. An issue we have is with her encephalopathy if we take away her restraints she may start yanking at tubes again and disrupting her ability to manage her long-term medical problems (3) Encephalopathy chronic Status: Chronic Comment: This continues (4) Hypertension Status: Chronic Comment: Well-controlled Qualifiers: Hypertension type: essential hypertension Qualified Code: I10 - Essential hypertension (5) C. difficile colitis Status: Acute Comment: This had been coming under control nicely the nursing notes indicate 5 bowel movements as opposed to 2 yesterday with 3 the day for 1 and 1. Subjective 24 Hr Interval Summary Free Text/Dictation Patient responds to questions although the answers are somewhat disoriented and confused Respiratory: no complaints (Denies respiratory difficulties) Cardiovascular: no complaints (Denies chest pain or palpitations) Exam/Review of Systems Vital Signs Vitals Vital Signs Date Time Temp Pulse Resp B/P Pulse Ox O2 Delivery O2 Flow Rate FiO2 05/19/16 10:00 97.2 18 145/68 99 Room Air 05/19/16 08:00 99 05/17/16 00:48 2.0 Intake and Output 05/18/16 05/18/16 05/19/16 15:00 23:00 07:00 Intake Total 110 ml 560 ml 720 ml Output Total 3 ml Balance 110 ml 557 ml 720 ml Exam Constitutional: alert Respiratory: clear to auscultation, normal air movement Cardiovascular: nl pulses, regular rate and rhythm Gastrointestinal: nl liver, spleen, non-tender, soft Extremities: other (Heel protectors) Results Result Diagram: 05/18/16 0530 05/18/16 0530 Medications Medications Current Medications Ondansetron HCl (Zofran Inj) 4 mg Q6H PRN IV NAUSEA AND/OR VOMITING Last administered on 05/05/16t 22:10; Admin Dose 4 MG; Start 04/25/16 at 22:00 Acetaminophen (Tylenol Tab) 650 mg Q6H PRN PO PAIN LEVEL 1-3 OR FEVER Last administered on 05/17/16 00:25; Admin Dose 650 MG; Start 04/25/16 at 22:00 Acetaminophen/ Hydrocodone Bitart ([place] (5/325)) 1 tab Q6H PRN GTB MODERATE PAIN LEVEL 4-6 Last administered on 05/05/16 11:41; Admin Dose 1 TAB; Start 04/25/16 at 22:00 Morphine Sulfate (morphine) 2 mg Q4H PRN IV SEVERE PAIN LEVEL 7-10; Start at 22:00 Docusate Sodium (Colace Liquid Cup) 100 mg Q12H PRN GTB CONSTIPATION; Start 04/25/16 at 22:00 Hydralazine HCl (Apresoline) 25 mg Q8 PRN GTB ELEVATED BLOOD PRESSURE Last administered on 05/19/16 05:35; Admin Dose 25 MG; Start 04/25/16 at 22:00 Al Hydrox/Mg Hydrox/Simethicone (Mag-Al Plus) 30 ml Q6 GTB Last administered on 05/19/16 05:23; Admin Dose 30 ML; Start 04/26/16 at 00:00 Magnesium Hydroxide (Milk Of Mag) 30 ml DAILY PRN GTB CONSTIPATION; Start at 22:00 Lactobacillus Acidoph/Bulgaricus (Floranex) 1 tab BID GTB Last administered on 05/19/16 08:51; Admin Dose 1 TAB; Start 04/26/16 at 09:00 Folic Acid (Folic Acid) 1 mg DAILY PO Last administered on 05/19/16 08:51; Admin Dose 1 MG; Start 04/26/16 at 09:00 Diphenhydramine HCl (Benadryl) 25 mg Q6H PRN IM Itching Last administered on 16:59; Admin Dose 25 MG; Start 04/26/16 at 02:15 Vitamin B Complex/ Vitamin C (Berocca) 1 cap DAILY PO Last administered on 05/19 08:51; Admin Dose 1 CAP; Start 04/26/16 at 09:00 Valsartan (Diovan) 80 mg BID GTB Last administered on 05/19/16 08:52; Admin Dose 80 MG; Start 04/29/16 at 21:00 Lorazepam (Ativan) 1 mg Q6H PRN IV Anxiety Last administered on 05/16/16 05:41 ; Admin Dose 1 MG; Start 04/30/16 at 14:30 Vancomycin HCl (Vancomycin Oral Syringe) 250 mg Q6 GTB Last administered on 05:23; Admin Dose 250 MG; Start 05/01/16 at 15:00 Famotidine (Pepcid) 20 mg Q24H GTB Last administered on 05/18/16 18:05; Admin Dose 20 MG; Start 05/06/16 at 17:00 Sodium Phosphate (Neutra-Phos) 500 mg BID GTB Last administered on 05/19/16 08 :52; Admin Dose 500 MG; Start 05/07/16 at 10:30 Risperidone 0.5 mg 0.5 mg BID GTB Last administered on 05/19/16 08:51; Admin Dose 0.5 MG; Start 05/14/16 at 21:00 Ferric Sodium Gluconate Complex/ Sodium Chloride (Ferrlecit/NS) 110 ml @ 110 mls/hr Q24H IVPB Last administered on 05/18/16 11:30; Admin Dose 110 MLS/HR; Start 05/17/16 at 11:00; Stop 05/21/16 at 11:59 MILIND GRIMALDO MD May 19, 2016 10:48
[2016-05-19] MEDS: SOD FERRIC GLUC COMPLX 125 MG in SOD CHLORIDE 0.9% 100 ML IVPB SCH (11:12)
[2016-05-19] MEDS: RIFAXIMIN 200 MG TAB PO SCH ×2 (13:15→20:40)
--- NOTE | 2016-05-19 16:17 | PN ---
DATE: SUBJECTIVE: The patient is stable with no acute events overnight. No fevers, chills, nausea, vomit ing, no shortness of breath. OBJECTIVE: VITAL SIGNS: Blood pressure is 164/89, respiration 18, pulse 99, temperature 98.1. HEENT: Head is normocephalic. NECK: Supple. HEART: Regular rate. LUNGS: Show diminished breath sounds at base. ABDOMEN: Soft, nontender to palpation. No rebound or guarding. EXTREMITIES: Negative for clubbing, cyanosis, no edema. DERMATOLOGIC: No rashes. MUSCULOSKELETAL: No joint effusions. NEUROLOGIC: No change in exam. MEDICATIONS: The patient's medications have been reviewed. LABORATORY DATA: Reviewed data has been reviewed. No new labs. ASSESSMENT AND PLAN: 1. End-stage renal disease. Plan for hemodialysis tomorrow. We will dialyze for 3 hours, 3K bath, calcium 2.5. 2. Anemia of end stage renal disease. Continue to monitor hemoglobin and hematocrit levels. Hernandez nue Epogen. 3. Mineral bone disorder. Continue to monitor calcium and phosphorus levels. 4. Hypomagnesemia secondary to end-stage renal disease, improved. Continue hemodialysis 5. Dysphagia, status post percutaneous endoscopic gastrostomy. Continue tube feeding. 6. Decubitus wound. Continue wound care. 7. Hypertension, controlled. 8. History of dementia. Continue to monitor. Dictated By: HUDSON GREGG/ESTEE Conf#: [id number] DID#: [id number]
[2016-05-19] MEDS: FAMOTIDINE 20 MG TAB GTB SCH (17:07)
[2016-05-20] VITALS (26 sets, daily range): BP systolic 104–186; BP diastolic 58–91; PULSE 85–118; RESP 16–19
[2016-05-20] MEDS: AL HYDROX/MG HYDROX/SIMETH 30 ML CUP GTB SCH ×4 (00:18→17:19)
[2016-05-20] MEDS: VANCOMYCIN HCL 250 MG/5ML POSYG GTB SCH ×4 (00:18→17:19)
[2016-05-20 05:39] LABS: POTASSIUM 5.1 mmol/L (3.5-5.1)
[2016-05-20 05:42] LABS: CREATININE 3.63 mg/dl (0.44-1.00)
[2016-05-20 05:43] LABS: CALCIUM 8.9 mg/dl (8.4-10.2); MAGNESIUM 3.5 mg/dl (1.7-2.5)
[2016-05-20 06:21] LABS: BASOPHILS % 0.3 % (0.0-2.0); EOSINOPHILS # 0.9 10^3/ul (0.0-0.5); EOSINOPHILS % 7.9 % (0.0-7.0); HEMOGLOBIN 9.6 g/dl (12.0-16.0); LYMPHOCYTES # 1.5 10^3/ul (0.8-2.9); LYMPHOCYTES % 12.5 % (15.0-51.0); MEAN CORPUSCULAR HEMOGLOBIN 28.3 pg (29.0-33.0); MEAN CORPUSCULAR HGB CONC 33.1 g/dl (32.0-37.0); MEAN CORPUSCULAR VOLUME 85.5 fl (82.0-101.0); MEAN PLATELET VOLUME 8.6 fl (7.4-10.4); MONOCYTE # 1.4 10^3/ul (0.3-0.9); MONOCYTES % 11.6 % (0.0-11.0); NEUTROPHIL # 7.9 10^3/ul (1.6-7.5); NEUTROPHILS % 67.7 % (39.0-77.0); PLATELET COUNT 321 10^3/UL (140-440); RED BLOOD COUNT 3.39 10^6/ul (4.20-5.40); RED CELL DISTRIBUTION WIDTH 17.6 % (11.5-14.5); UNCORRECTED WBC 11.6 10^3/ul (4.8-10.8); WHITE BLOOD COUNT 11.6 10^3/ul (4.8-10.8)
[2016-05-20 06:24] LABS: CONDITION 1; LH ANALYZER COMMENTS 1
[2016-05-20] MEDS: VALSARTAN 80 MG TAB GTB SCH ×2 (09:00→21:57)
[2016-05-20] MEDS: LACTOBACILLUS CHEW TAB GTB SCH ×2 (09:21→22:08)
[2016-05-20] MEDS: RISPERIDONE 1 MG TAB GTB SCH ×2 (09:21→21:56)
[2016-05-20] MEDS: RIFAXIMIN 200 MG TAB PO SCH ×3 (09:21→21:56)
[2016-05-20] MEDS: FOLIC ACID 1 MG TAB PO SCH (09:21)
[2016-05-20] MEDS: VITAMIN B COMPLEX/VIT C CAP PO SCH (09:22)
[2016-05-20] MEDS: NEUTRA-PHOS 250 MG PACKET GTB SCH ×2 (09:22→21:56)
--- NOTE | 2016-05-20 11:03 | PN ---
DATE: 05/20/2016 SUBJECTIVE: The patient is stable, no acute events overnight. No fevers, chills, nausea, vomiting, no shortness breath. OBJECTIVE: VITAL SIGNS: Blood pressure 161/75, respiration 18, pulse 104, temperature 98.3. HEENT: Head is normocephalic. NECK: Supple. HEART: Regular rate. LUNGS: Show diminished breath sounds at base. ABDOMEN: Soft, nontender to palpation. No rebound or guarding. EXTREMITIES: Negative for clubbing, cyanosis, no edema. DERMATOLOGIC: No rashes. MUSCULOSKELETAL: No joint effusions. The patient has decubitus wound, no change. NEUROLOGIC: No change on exam. LABORATORY DATA: Shows sodium 136. potassium 5.1, chloride 94, BUN 75, creatinine 3.63, magnesium 2 .5. White count 11.6, hemoglobin 9.6, hematocrit 29.0, platelet count is 321. ASSESSMENT AND PLAN: 1. End-stage renal disease. Plan for dialysis today for 3 hours, 2K bath, calcium 2.5. 2. Anemia of end-stage renal disease. Continue to monitor hemoglobin and hematocrit levels. Hernandez nue Epogen. 3. Mineral bone disorder. Continue to monitor calcium and phosphorus levels. 4. 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 Continue hemodialysis. 5. Dysphagia, status post PEG, continue tube feeds. 6. Decubitus wound. Continue wound care. 7. Hypertension, controlled. 8. History of dementia. Continue to monitor. Dictated By: HUDSON GREGG/ESTEE Conf#: [id number] DID#: [id number]
[2016-05-20] MEDS: SOD FERRIC GLUC COMPLX 125 MG in SOD CHLORIDE 0.9% 100 ML IVPB SCH (12:58)
--- NOTE | 2016-05-20 14:31 | PN ---
Date/Time of Note Date/Time of Note DATE: 05/20/16 TIME: 14:30 Assessment/Plan VTE Prophylaxis VTE Prophylaxis Intervention: SCD's Lines/Catheters IV [facility] Saline Lock Urinary Cath still in place: No Assessment/Plan Chief Complaint/Hosp Course 1. End-stage renal disease on hemodialysis, dislodged hemodialysis catheter. Nephrology following. The patient had a right IJ hemodialysis access placed by vascular surgery on 05/03/2016. 2. Accelerated hypertension. Continue routine and p.r.n. antihypertensives. Blood pressure fairly well controlled. 3. Dysphagia. Continue G-tube feedings. 4. Dementia. Reorient the patient frequently. 5. Incontinent dermatitis. Wound care consult. Local wound care. 6. C diff colitis. Continue oral vancomycin. 7. Anemia of chronic renal disease. Continue to monitor the H and H closely. Transfuse as needed. The patient was started on Epogen. Stool for occult bloodX1 positive. 8. Hyperkalemia. The patient gets hemodialysis as per nephrology. 9. Fluid, electrolytes and nutrition. Continue G-tube feedings. 10. DVT prophylaxis. Bilateral sequential compression devices. 11. Gastrointestinal prophylaxis. Histamine 2 receptor blockers. PLAN: Hemodialysis as per nephrology. Status post PermCath placement on 2016. Try releasing the patient's restraints. If the patient is off restraints , the patient can be transferred back to group home facility. Will speak to family today Problems: Subjective 24 Hr Interval Summary Subjective hx not possible: pt non-verbal Constitutional: disoriented Exam/Review of Systems Vital Signs Vitals Vital Signs Date Time Temp Pulse Resp B/P Pulse Ox O2 Delivery O2 Flow Rate FiO2 05/20/16 12:42 117 14 05/20/16 12:00 97.8 126/66 96 05/20/16 00:00 Room Air 05/17/16 00:48 2.0 Intake and Output 05/19/16 05/19/16 05/20/16 15:00 23:00 07:00 Intake Total 1010 ml 720 ml Balance 1010 ml 720 ml Exam Constitutional: non-verbal Psych: confusion Respiratory: clear to auscultation Cardiovascular: regular rate and rhythm Gastrointestinal: soft, No distended Musculoskeletal: nl extremities to inspection Results Result Diagram: 05/20/16 0440 05/20/16 0440 Results 24 hrs Laboratory Tests Test 05/20/16 04:40 Anion Gap 17 H Basophils # 0.0 Basophils % 0.3 Blood Morphology Comment Blood Urea Nitrogen 75 #H Calcium Level 8.9 Carbon Dioxide Level 30 Chloride Level 94 L Creatinine 3.63 #H Eosinophils # 0.9 H Eosinophils % 7.9 H Glucose Level 107 Hematocrit 29.0 L Hemoglobin 9.6 L Lymphocytes # 1.5 Lymphocytes % 12.5 L Magnesium Level 3.5 H Mean Corpuscular Hemoglobin 28.3 L Mean Corpuscular Hemoglobin Concent 33.1 Mean Corpuscular Volume 85.5 Mean Platelet Volume 8.6 Monocytes # 1.4 H Monocytes % 11.6 H Neutrophils # 7.9 H Neutrophils % 67.7 Nucleated Red Blood Cells # 0.0 Nucleated Red Blood Cells % 0.0 Phosphorus Level 4.0 Platelet Count 321 Potassium Level 5.1 Red Blood Count 3.39 L Red Cell Distribution Width 17.6 H Sodium Level 136 White Blood Count 11.6 #H Medications Medications Current Medications Ondansetron HCl (Zofran Inj) 4 mg Q6H PRN IV NAUSEA AND/OR VOMITING Last administered on 05/05/16 22:10; Admin Dose 4 MG; Start 04/25/16 at 22:00 Acetaminophen (Tylenol Tab) 650 mg Q6H PRN PO PAIN LEVEL 1-3 OR FEVER Last administered on 05/17/16 00:25; Admin Dose 650 MG; Start 04/25/16 at 22:00 Acetaminophen/ Hydrocodone Bitart ([place] (5/325)) 1 tab Q6H PRN GTB MODERATE PAIN LEVEL 4-6 Last administered on 05/05/16 11:41; Admin Dose 1 TAB; Start 04/25/16 at 22:00 Morphine Sulfate (morphine) 2 mg Q4H PRN IV SEVERE PAIN LEVEL 7-10; Start at 22:00 Docusate Sodium (Colace Liquid Cup) 100 mg Q12H PRN GTB CONSTIPATION; Start 04/25/16 at 22:00 Hydralazine HCl (Apresoline) 25 mg Q8 PRN GTB ELEVATED BLOOD PRESSURE Last administered on 05/20/16 04:21; Admin Dose 25 MG; Start 04/25/16 at 22:00 Al Hydrox/Mg Hydrox/Simethicone (Mag-Al Plus) 30 ml Q6 GTB Last administered on 05/20/16 12:31; Admin Dose 30 ML; Start 04/26/16 at 00:00 Magnesium Hydroxide (Milk Of Mag) 30 ml DAILY PRN GTB CONSTIPATION; Start at 22:00 Lactobacillus Acidoph/Bulgaricus (Floranex) 1 tab BID GTB Last administered on 05/20/16 09:21; Admin Dose 1 TAB; Start 04/26/16 at 09:00 Folic Acid (Folic Acid) 1 mg DAILY PO Last administered on 05/20/16 09:21; Admin Dose 1 MG; Start 04/26/16 at 09:00 Diphenhydramine HCl (Benadryl) 25 mg Q6H PRN IM Itching Last administered on 16:59; Admin Dose 25 MG; Start 04/26/16 at 02:15 Vitamin B Complex/ Vitamin C (Berocca) 1 cap DAILY PO Last administered on 05/20 09:22; Admin Dose 1 CAP; Start 04/26/16 at 09:00 Valsartan (Diovan) 80 mg BID GTB Last administered on 05/19/16 20:39; Admin Dose 80 MG; Start 04/29/16 at 21:00 Lorazepam (Ativan) 1 mg Q6H PRN IV Anxiety Last administered on 05/16/16 05:41 ; Admin Dose 1 MG; Start 04/30/16 at 14:30 Vancomycin HCl (Vancomycin Oral Syringe) 250 mg Q6 GTB Last administered on 12:31; Admin Dose 250 MG; Start 05/01/16 at 15:00 Famotidine (Pepcid) 20 mg Q24H GTB Last administered on 05/19/16 17:07; Admin Dose 20 MG; Start 05/06/16 at 17:00 Sodium Phosphate (Neutra-Phos) 500 mg BID GTB Last administered on 05/20/16 09 :22; Admin Dose 500 MG; Start 05/07/16 at 10:30 Risperidone 0.5 mg 0.5 mg BID GTB Last administered on 05/20/16 09:21; Admin Dose 0.5 MG; Start 05/14/16 at 21:00 Ferric Sodium Gluconate Complex/ Sodium Chloride (Ferrlecit/NS) 110 ml @ 110 mls/hr Q24H IVPB Last administered on 05/20/16 12:58; Admin Dose 110 MLS/HR; Start 05/17/16 at 11:00; Stop 05/21/16 at 11:59 Rifaximin (Xifaxan) 200 mg TID PO Last administered on 05/20/16 12:31; Admin Dose 200 MG; Start 05/19/16 at 13:00 MISBAH THORNTON May 20, 2016 14:31
[2016-05-20] MEDS: FAMOTIDINE 20 MG TAB GTB SCH (17:19)
[2016-05-20] MEDS: EPOETIN 10000 UNITS/1 ML INJ (ESRD) SC SCH (18:07)
[2016-05-21] VITALS (17 sets, daily range): BP systolic 108–169; BP diastolic 53–78; PULSE 77–115; RESP 16–20
[2016-05-21] MEDS: AL HYDROX/MG HYDROX/SIMETH 30 ML CUP GTB SCH ×4 (00:07→17:33)
[2016-05-21] MEDS: VANCOMYCIN HCL 250 MG/5ML POSYG GTB SCH ×4 (00:07→17:33)
[2016-05-21] MEDS: LACTOBACILLUS CHEW TAB GTB SCH ×2 (09:28→21:42)
[2016-05-21] MEDS: FOLIC ACID 1 MG TAB PO SCH (09:28)
[2016-05-21] MEDS: VALSARTAN 80 MG TAB GTB SCH ×2 (09:28→21:46)
[2016-05-21] MEDS: RISPERIDONE 1 MG TAB GTB SCH ×2 (09:28→21:42)
[2016-05-21] MEDS: NEUTRA-PHOS 250 MG PACKET GTB SCH ×2 (09:28→21:46)
[2016-05-21] MEDS: VITAMIN B COMPLEX/VIT C CAP PO SCH (09:28)
[2016-05-21] MEDS: RIFAXIMIN 200 MG TAB PO SCH ×3 (09:28→21:42)
[2016-05-21] MEDS: SOD FERRIC GLUC COMPLX 125 MG in SOD CHLORIDE 0.9% 100 ML IVPB SCH (11:25)
--- NOTE | 2016-05-21 13:07 | PN ---
DATE: 05/21/2016 SUBJECTIVE: The patient was stable at hemodialysis yesterday, tolerated it well. OBJECTIVE: VITAL SIGNS: Blood pressure 130/60, respirations 20, pulse is 70, temperature 97.3. HEENT: Head is normocephalic. NECK: Supple. HEART: Regular rate. LUNGS: Show diminished breath sounds at base. ABDOMEN: Soft, nontender to palpation without rebound or guarding. EXTREMITIES: Negative for clubbing, cyanosis. No edema. DERMATOLOGIC: No rashes. MUSCULOSKELETAL EXAMINATION: No joint effusions. NEUROLOGIC: No change in exam. MEDICATIONS: The patient's medications have been reviewed. LABORATORY DATA: Has been reviewed. No new labs this morning. ASSESSMENT AND PLAN: 1. End-stage renal disease. The patient had hemodialysis yesterday, tolerated it well. Plan for d ialysis tomorrow. 2. Anemia of end-stage renal disease. Hemoglobin level stable. Continue Epogen. 3. Mineral bone disorder, continue to monitor calcium and phosphorus levels. 4. 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 Continue with dialysis. 5. Dysphagia status post percutaneous endoscopic gastrostomy. Continue tube feeding. 6. Decubitus. We will continue wound care. 7. Clostridium difficile. Continue vancomycin. 8. Hypertension, controlled. 9. History of dementia. Continue to monitor. Dictated By: HUDSON GREGG/ESTEE Conf#: [id number] DID#: [id number]
--- NOTE | 2016-05-21 15:05 | PN ---
Date/Time of Note Date/Time of Note DATE: 05/21/16 TIME: 15:03 Assessment/Plan VTE Prophylaxis VTE Prophylaxis Intervention: SCD's Lines/Catheters [facility]from [facility] Saline Lock Urinary Cath still in place: No Assessment/Plan Chief Complaint/Hosp Course 1. End-stage renal disease on hemodialysis, dislodged hemodialysis catheter. Nephrology following. The patient had a right IJ hemodialysis access placed by vascular surgery on 05/03/2016. 2. Accelerated hypertension. Continue routine and p.r.n. antihypertensives. Blood pressure fairly well controlled. 3. Dysphagia. Continue G-tube feedings. 4. Dementia -Increase Risperdal dose 5. Incontinent dermatitis. Wound care consult. Local wound care. 6. C diff colitis. Continue oral vancomycin. 7. Anemia of chronic renal disease. Continue to monitor the H and H closely. Transfuse as needed. The patient was started on Epogen. Stool for occult bloodX1 positive. 8. Hyperkalemia. The patient gets hemodialysis as per nephrology. 9. Fluid, electrolytes and nutrition. Continue G-tube feedings. 10. DVT prophylaxis. Bilateral sequential compression devices. 11. Gastrointestinal prophylaxis. Histamine 2 receptor blockers. PLAN: Hemodialysis as per nephrology. Status post PermCath placement on 2016. Try releasing the patient's restraints. If the patient is off restraints , the patient can be transferred back to retirement facility. Problems: Subjective 24 Hr Interval Summary Constitutional: disoriented Exam/Review of Systems Vital Signs Vitals Vital Signs Date Time Temp Pulse Resp B/P Pulse Ox O2 Delivery O2 Flow Rate FiO2 05/21/16 12:00 97.3 81 16 125/61 98 Room Air Intake and Output 05/20/16 05/20/16 05/21/16 15:00 23:00 07:00 Intake Total 500 ml 830 ml 720 ml Output Total 1700 ml Balance -1200 ml 830 ml 720 ml Exam Psych: confusion Respiratory: clear to auscultation Cardiovascular: regular rate and rhythm Gastrointestinal: soft, No distended Musculoskeletal: nl extremities to inspection Results Result Diagram: 05/20/1643905/20/16439 Medications Medications Current Medications Ondansetron HCl (Zofran Inj) 4 mg Q6H PRN IV NAUSEA AND/OR VOMITING Last administered on 05/05/16t 22:10; Admin Dose 4 MG; Start 04/25/16 at 22:00 Acetaminophen (Tylenol Tab) 650 mg Q6H PRN PO PAIN LEVEL 1-3 OR FEVER Last administered on 05/17/16 00:25; Admin Dose 650 MG; Start 04/25/16 at 22:00 Acetaminophen/ Hydrocodone Bitart ([place] (5/325)) 1 tab Q6H PRN GTB MODERATE PAIN LEVEL 4-6 Last administered on 05/05/16 11:41; Admin Dose 1 TAB; Start 04/25/16 at 22:00 Morphine Sulfate (morphine) 2 mg Q4H PRN IV SEVERE PAIN LEVEL 7-10; Start at 22:00 Docusate Sodium (Colace Liquid Cup) 100 mg Q12H PRN GTB CONSTIPATION; Start 04/25/16 at 22:00 Hydralazine HCl (Apresoline) 25 mg Q8 PRN GTB ELEVATED BLOOD PRESSURE Last administered on 05/20/16 21:57; Admin Dose 25 MG; Start 04/25/16 at 22:00 Al Hydrox/Mg Hydrox/Simethicone (Mag-Al Plus) 30 ml Q6 GTB Last administered on 05/21/16 11:25; Admin Dose 30 ML; Start 04/26/16 at 00:00 Magnesium Hydroxide (Milk Of Mag) 30 ml DAILY PRN GTB CONSTIPATION; Start at 22:00 Lactobacillus Acidoph/Bulgaricus (Floranex) 1 tab BID GTB Last administered on 05/21/16 09:28; Admin Dose 1 TAB; Start 04/26/16 at 09:00 Folic Acid (Folic Acid) 1 mg DAILY PO Last administered on 05/21/16 09:28; Admin Dose 1 MG; Start 04/26/16 at 09:00 Diphenhydramine HCl (Benadryl) 25 mg Q6H PRN IM Itching Last administered on 16:59; Admin Dose 25 MG; Start 04/26/16 at 02:15 Vitamin B Complex/ Vitamin C (Berocca) 1 cap DAILY PO Last administered on 05/21 09:28; Admin Dose 1 CAP; Start 04/26/16 at 09:00 Valsartan (Diovan) 80 mg BID GTB Last administered on 05/21/16 09:28; Admin Dose 80 MG; Start 04/29/16 at 21:00 Lorazepam (Ativan) 1 mg Q6H PRN IV Anxiety Last administered on 05/16/16 05:41 ; Admin Dose 1 MG; Start 04/30/16 at 14:30 Vancomycin HCl (Vancomycin Oral Syringe) 250 mg Q6 GTB Last administered on 11:25; Admin Dose 250 MG; Start 05/01/16 at 15:00 Famotidine (Pepcid) 20 mg Q24H GTB Last administered on 05/20/16 17:19; Admin Dose 20 MG; Start 05/06/16 at 17:00 Sodium Phosphate (Neutra-Phos) 500 mg BID GTB Last administered on 05/21/16 09 :28; Admin Dose 500 MG; Start 05/07/16 at 10:30 Risperidone (Risperdal) 0.5 mg BID GTB Last administered on 05/21/16 09:28; Admin Dose 0.5 MG; Start 05/14/16 at 21:00 Rifaximin (Xifaxan) 200 mg TID PO Last administered on 05/21/16 14:27; Admin Dose 200 MG; Start 05/19/16 at 13:00 Clonidine (Catapres) 0.1 mg Q6 PRN NGT ELEVATED BLOOD PRESSURE Last administered on 05/21/16 05:35; Admin Dose 0.1 MG; Start 05/21/16 at 00:30 MISBAH THORNTON May 21, 2016 15:05
[2016-05-21] MEDS: FAMOTIDINE 20 MG TAB GTB SCH (17:33)
[2016-05-22] VITALS (21 sets, daily range): BP systolic 82–172; BP diastolic 43–76; PULSE 87–116; RESP 16–20
[2016-05-22] MEDS: AL HYDROX/MG HYDROX/SIMETH 30 ML CUP GTB SCH ×5 (00:13→23:57)
[2016-05-22] MEDS: VANCOMYCIN HCL 250 MG/5ML POSYG GTB SCH ×5 (00:14→23:57)
[2016-05-22] MEDS: VALSARTAN 80 MG TAB GTB SCH ×2 (09:00→21:42)
[2016-05-22] MEDS: NEUTRA-PHOS 250 MG PACKET GTB SCH ×2 (09:12→21:42)
[2016-05-22] MEDS: RIFAXIMIN 200 MG TAB PO SCH ×3 (09:12→21:43)
[2016-05-22] MEDS: LACTOBACILLUS CHEW TAB GTB SCH ×2 (09:12→21:00)
[2016-05-22] MEDS: RISPERIDONE 1 MG TAB GTB SCH ×2 (09:12→21:43)
[2016-05-22] MEDS: VITAMIN B COMPLEX/VIT C CAP PO SCH (09:12)
[2016-05-22] MEDS: FOLIC ACID 1 MG TAB PO SCH (09:12)
--- NOTE | 2016-05-22 13:05 | PN ---
DATE: SUBJECTIVE: The patient is stable. The patient is scheduled for hemodialysis today. No other even ts noted. OBJECTIVE: VITAL SIGNS: Blood pressure 135/62, respirations 18, pulse 75, temperature 97.3. HEENT: Head is normocephalic. NECK: Supple. HEART: Regular rate. LUNGS: Show diminished breath sounds at base. ABDOMEN: Soft, nontender to palpation without rebound or guarding. EXTREMITIES: Negative for clubbing, cyanosis, no edema. DERMATOLOGIC: No rashes. MUSCULOSKELETAL: No joint effusions. NEUROLOGIC: No change in exam. MEDICATIONS: The patient's medications have been reviewed. LABORATORY DATA: Have been reviewed. No new labs. ASSESSMENT AND PLAN: 1. End-stage renal disease. The patient is scheduled for hemodialysis today. Will dialyze for 3 h ours, 2K bath, calcium 2.5. 2. Anemia of end-stage renal disease. Monitor hemoglobin and hematocrit levels. Continue Epogen. 3. Mineral bone ____ phosphorus levels. 4. Hypomagnesemia secondary to end-stage renal disease. Continue hemodialysis 5. Dysphagia, suspected TTP. 6. C. Diff, continue oral vancomycin. 7. Decubitus wound. Continue wound care. 8. Hypertension, controlled. 9. History of dementia. Continue to monitor. Dictated By: HUDSON GREGG/ESTEE Conf#: [id number] DID#: [id number]
--- NOTE | 2016-05-22 13:45 | PN ---
Date/Time of Note Date/Time of Note DATE: 05/22/16 TIME: 13:44 Assessment/Plan VTE Prophylaxis VTE Prophylaxis Intervention: SCD's Lines/Catheters IV Catheter Type (from [facility]): Saline Lock Urinary Cath still in place: No Assessment/Plan Chief Complaint/Hosp Course 1. End-stage renal disease on hemodialysis, dislodged hemodialysis catheter. Nephrology following. The patient had a right IJ hemodialysis access placed by vascular surgery on 05/03/2016. 2. Accelerated hypertension. Continue routine and p.r.n. antihypertensives. Blood pressure fairly well controlled. 3. Dysphagia. Continue G-tube feedings. 4. Dementia -Increased Risperdal dose and is now more calm 5. Incontinent dermatitis. Wound care consult. Local wound care. 6. C diff colitis. Continue oral vancomycin. 7. Anemia of chronic renal disease. Continue to monitor the H and H closely. Transfuse as needed. The patient was started on Epogen. Stool for occult bloodX1 positive. 8. Hyperkalemia. The patient gets hemodialysis as per nephrology. 9. Fluid, electrolytes and nutrition. Continue G-tube feedings. 10. DVT prophylaxis. Bilateral sequential compression devices. 11. Gastrointestinal prophylaxis. Histamine 2 receptor blockers. PLAN: Hemodialysis as per nephrology. Status post PermCath placement on 2016. Try releasing the patient's restraints. If the patient is off restraints , the patient can be transferred back to long term facility, pt is now more calm and will soon monitor off restraints Problems: Subjective 24 Hr Interval Summary Constitutional: disoriented Exam/Review of Systems Vital Signs Vitals Vital Signs Date Time Temp Pulse Resp B/P Pulse Ox O2 Delivery O2 Flow Rate FiO2 05/22/16 13:30 97 05/22/16 12:00 97.8 18 138/69 97 Room Air 05/22/16 06:41 21 Intake and Output 05/21/16 05/21/16 05/22/16 15:00 23:00 07:00 Intake Total 110 ml 780 ml 830 ml Balance 110 ml 780 ml 830 ml Exam Psych: confusion Respiratory: clear to auscultation Cardiovascular: regular rate and rhythm Gastrointestinal: soft, No distended Musculoskeletal: nl extremities to inspection Results Result Diagram: 05/20/160 05/20/16 0440 Medications Medications Current Medications Ondansetron HCl (Zofran Inj) 4 mg Q6H PRN IV NAUSEA AND/OR VOMITING Last administered on 05/05/16 22:10; Admin Dose 4 MG; Start 04/25/16 at 22:00 Acetaminophen (Tylenol Tab) 650 mg Q6H PRN PO PAIN LEVEL 1-3 OR FEVER Last administered on 05/17/16 00:25; Admin Dose 650 MG; Start 04/25/16 at 22:00 Acetaminophen/ Hydrocodone Bitart ([place] (5/325)) 1 tab Q6H PRN GTB MODERATE PAIN LEVEL 4-6 Last administered on 05/05/16 11:41; Admin Dose 1 TAB; Start 04/25/16 at 22:00 Morphine Sulfate (morphine) 2 mg Q4H PRN IV SEVERE PAIN LEVEL 7-10; Start at 22:00 Docusate Sodium (Colace Liquid Cup) 100 mg Q12H PRN GTB CONSTIPATION; Start 04/25/16 at 22:00 Hydralazine HCl (Apresoline) 25 mg Q8 PRN GTB ELEVATED BLOOD PRESSURE Last administered on 05/20/16 21:57; Admin Dose 25 MG; Start 04/25/16 at 22:00 Al Hydrox/Mg Hydrox/Simethicone (Mag-Al Plus) 30 ml Q6 GTB Last administered on 05/22/16 12:45; Admin Dose 30 ML; Start 04/26/16 at 00:00 Magnesium Hydroxide (Milk Of Mag) 30 ml DAILY PRN GTB CONSTIPATION; Start at 22:00 Lactobacillus Acidoph/Bulgaricus (Floranex) 1 tab BID GTB Last administered on 05/22/16 09:12; Admin Dose 1 TAB; Start 04/26/16 at 09:00 Folic Acid (Folic Acid) 1 mg DAILY PO Last administered on 05/22/16 09:12; Admin Dose 1 MG; Start 04/26/16 at 09:00 Diphenhydramine HCl (Benadryl) 25 mg Q6H PRN IM Itching Last administered on 16:59; Admin Dose 25 MG; Start 04/26/16 at 02:15 Vitamin B Complex/ Vitamin C (Berocca) 1 cap DAILY PO Last administered on 09:12; Admin Dose 1 CAP; Start 04/26/16 at 09:00 Valsartan (Diovan) 80 mg BID GTB Last administered on 05/21/16 21:46; Admin Dose 80 MG; Start 04/29/16 at 21:00 Lorazepam (Ativan) 1 mg Q6H PRN IV Anxiety Last administered on 05/16/16 05:41 ; Admin Dose 1 MG; Start 04/30/16 at 14:30 Vancomycin HCl (Vancomycin Oral Syringe) 250 mg Q6 GTB Last administered on 05/22 12:25; Admin Dose 250 MG; Start 05/01/16 at 15:00 Famotidine (Pepcid) 20 mg Q24H GTB Last administered on 05/21/16 17:33; Admin Dose 20 MG; Start 05/06/16 at 17:00 Sodium Phosphate (Neutra-Phos) 500 mg BID GTB Last administered on 05/22/16 09: 12; Admin Dose 500 MG; Start 05/07/16 at 10:30 Rifaximin (Xifaxan) 200 mg TID PO Last administered on 05/22/16 12:26; Admin Dose 200 MG; Start 05/19/16 at 13:00 Clonidine (Catapres) 0.1 mg Q6 PRN NGT ELEVATED BLOOD PRESSURE Last administered on 05/21/16 05:35; Admin Dose 0.1 MG; Start 05/21/16 at 00:30 Risperidone (Risperdal) 1 mg BID GTB Last administered on 05/22/16 09:12; Admin Dose 1 MG; Start 05/21/16 at 21:00 MISBAH THORNTON May 22, 2016 13:45
[2016-05-22] MEDS: ALBUMIN HUMAN 25% 100 ML IV PRN ×2 (14:09→14:10)
[2016-05-22] MEDS: FAMOTIDINE 20 MG TAB GTB SCH (17:11)
[2016-05-22] MEDS: EPOETIN 10000 UNITS/1 ML INJ (ESRD) SC SCH (17:12)
[2016-05-23] VITALS (14 sets, daily range): BP systolic 129–173; BP diastolic 58–86; PULSE 90–115; RESP 18–21
[2016-05-23] MEDS: VANCOMYCIN HCL 250 MG/5ML POSYG GTB SCH ×3 (05:30→17:24)
[2016-05-23] MEDS: AL HYDROX/MG HYDROX/SIMETH 30 ML CUP GTB SCH ×3 (05:30→17:24)
[2016-05-23 06:06] LABS: HEMATOCRIT 28.9 % (37.0-47.0); HEMOGLOBIN 9.2 g/dl (12.0-16.0); MEAN CORPUSCULAR HEMOGLOBIN 28.3 pg (29.0-33.0); MEAN CORPUSCULAR HGB CONC 31.9 g/dl (32.0-37.0); MEAN CORPUSCULAR VOLUME 88.7 fl (82.0-101.0); PLATELET COUNT 323 10^3/UL (140-440); RED BLOOD COUNT 3.26 10^6/ul (4.20-5.40); RED CELL DISTRIBUTION WIDTH 17.3 % (11.5-14.5)
[2016-05-23 06:30] LABS: POTASSIUM 3.8 mmol/L (3.5-5.1)
[2016-05-23 06:33] LABS: CREATININE 2.03 mg/dl (0.44-1.00)
[2016-05-23 06:34] LABS: CALCIUM 9.6 mg/dl (8.4-10.2); MAGNESIUM 2.7 mg/dl (1.7-2.5); PHOSPHORUS 3.7 mg/dl (2.5-4.9)
[2016-05-23 07:02] LABS: CONDITION 1; LH ANALYZER COMMENTS 1; NUCLEATED RED BLOOD CELLS # 0.2 10^3/ul (0.0-0.0)
[2016-05-23 09:15] LABS: ANISOCYTOSIS 1+; EOSINOPHILS # 1.2 10^3/ul (0.0-0.5); HYPOCHROMASIA 1+; LYMPHOCYTES # 1.5 10^3/ul (0.8-2.9); MONOCYTE # 1.2 10^3/ul (0.3-0.9)
[2016-05-23] MEDS: VALSARTAN 80 MG TAB GTB SCH ×2 (09:15→22:33)
[2016-05-23] MEDS: LACTOBACILLUS CHEW TAB GTB SCH ×2 (09:17→22:32)
[2016-05-23] MEDS: RIFAXIMIN 200 MG TAB PO SCH ×3 (09:17→22:32)
[2016-05-23] MEDS: RISPERIDONE 1 MG TAB GTB SCH ×2 (09:17→22:32)
[2016-05-23] MEDS: VITAMIN B COMPLEX/VIT C CAP PO SCH (09:17)
[2016-05-23] MEDS: FOLIC ACID 1 MG TAB PO SCH (09:17)
[2016-05-23] MEDS: NEUTRA-PHOS 250 MG PACKET GTB SCH ×2 (09:17→22:32)
--- NOTE | 2016-05-23 12:55 | PN ---
DATE: SUBJECTIVE: Yesterday, the patient's hemodialysis was complicated. I had to call in 2 times to the dialysis nurse, adjusting blood flow rates and dialysis flow rates. The patient eventually had 3 h ours of treatment. No other events noted OBJECTIVE: VITAL SIGNS: Blood pressure 139/64, respiration 19, pulse 98, temperature 97.5. HEENT: Head is normocephalic. NECK: Supple. HEART: Regular rate. LUNGS: Show diminished breath sounds at base. ABDOMEN: Soft, nontender to palpation. No rebound or guarding. EXTREMITIES: Negative for clubbing, cyanosis, edema. DERMATOLOGIC: No rashes. MUSCULOSKELETAL: No joint effusions. NEUROLOGIC: No change in exam. MEDICATIONS: The patient's medications have been reviewed. LABORATORY DATA: Showed a white count 9.0, hemoglobin 9.2, hematocrit 28.9, platelet count 324. So dium 140, potassium 2.8, chloride 96, BUN 41, creatinine 2.03. ASSESSMENT AND PLAN: 1. End-stage renal disease. The patient had hemodialysis yesterday, tolerated well. Plan for dial ysis tomorrow. 2. Anemia of end-stage renal disease. Continue to monitor hemoglobin and hematocrit levels. Hernandez nue Epogen. 3. Mineral bone disorder. Continue to monitor calcium and phosphorus levels. 4. 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 Continue hemodialysis. 5. Dysphagia, status post percutaneous endoscopic gastrostomy. Continue tube feeding. 6. Clostridium difficile. Continue vancomycin. 7. Decubitus wound. Continue wound care. 8. Dementia behavior disturbances. Continue psychotropic medications per primary team. 9. Hypertension, controlled. Dictated By: HUDSON GREGG/ESTEE Conf#: [id number] DID#: [id number]
--- NOTE | 2016-05-23 15:30 | PN ---
Date/Time of Note Date/Time of Note DATE: 05/23/16 TIME: 15:29 Assessment/Plan VTE Prophylaxis VTE Prophylaxis Intervention: SCD's Lines/Catheters [facility]from [facility] Saline Lock Urinary Cath still in place: No Assessment/Plan Chief Complaint/Hosp Course 1. End-stage renal disease on hemodialysis, dislodged hemodialysis catheter. Nephrology following. The patient had a right IJ hemodialysis access placed by vascular surgery on 05/03/2016. 2. Accelerated hypertension. Continue routine and p.r.n. antihypertensives. Blood pressure fairly well controlled. 3. Dysphagia. Continue G-tube feedings. 4. Dementia -Increased Risperdal dose and is now more calm 5. Incontinent dermatitis. Wound care consult. Local wound care. 6. C diff colitis. Continue oral vancomycin. 7. Anemia of chronic renal disease. Continue to monitor the H and H closely. Transfuse as needed. The patient was started on Epogen. Stool for occult bloodX1 positive. 8. Hyperkalemia. The patient gets hemodialysis as per nephrology. 9. Fluid, electrolytes and nutrition. Continue G-tube feedings. 10. DVT prophylaxis. Bilateral sequential compression devices. 11. Gastrointestinal prophylaxis. Histamine 2 receptor blockers. PLAN: Hemodialysis as per nephrology. Status post PermCath placement on 2016. Try releasing the patient's restraints. If the patient is off restraints , the patient can be transferred back to alf facility, pt is now more calm and will soon monitor off restraints Problems: Subjective 24 Hr Interval Summary Constitutional: disoriented Exam/Review of Systems Vital Signs Vitals Vital Signs Date Time Temp Pulse Resp B/P Pulse Ox O2 Delivery O2 Flow Rate FiO2 05/23/16 14:00 98.0 105 18 145/76 98 Room Air 05/22/16 06:41 21 Intake and Output 05/22/16 05/22/16 05/23/16 15:00 23:00 07:00 Intake Total 1580 ml 750 ml Output Total 1826 ml Balance -246 ml 750 ml Exam Psych: confusion Respiratory: clear to auscultation Cardiovascular: regular rate and rhythm Gastrointestinal: soft, No distended Musculoskeletal: nl extremities to inspection Results Result Diagram: 05/23/16 0540 05/23/16 0540 Results 24 hrs Laboratory Tests Test 05/23/16 05:40 Anion Gap 20 H Anisocytosis 1+ Basophils # 0.0 Basophils % 0.0 Blood Morphology Comment Blood Urea Nitrogen 41 H Calcium Level 9.6 Carbon Dioxide Level 28 Chloride Level 96 L Creatinine 2.03 H Differential Comment MANUAL DIFF Eosinophils # 1.2 H Eosinophils % 13.0 H Glucose Level 109 Hematocrit 28.9 L Hemoglobin 9.2 L Hypochromasia 1+ Lymphocytes # 1.5 Lymphocytes % 17.0 Magnesium Level 2.7 H Mean Corpuscular Hemoglobin 28.3 L Mean Corpuscular Hemoglobin Concent 31.9 L Mean Corpuscular Volume 88.7 Mean Platelet Volume 8.0 Monocytes # 1.2 H Monocytes % 13.0 H Neutrophils # 5.0 Neutrophils % 56.0 Nucleated Red Blood Cells # 0.2 H Nucleated Red Blood Cells % 3.0 H Phosphorus Level 3.7 Platelet Count 323 Potassium Level 3.8 Red Blood Count 3.26 L Red Cell Distribution Width 17.3 H Sodium Level 140 White Blood Count 9.0 # Medications Medications Current Medications Ondansetron HCl (Zofran Inj) 4 mg Q6H PRN IV NAUSEA AND/OR VOMITING Last administered on 05/05/16 22:10; Admin Dose 4 MG; Start 04/25/16 at 22:00 Acetaminophen (Tylenol Tab) 650 mg Q6H PRN PO PAIN LEVEL 1-3 OR FEVER Last administered on 05/17/16 00:25; Admin Dose 650 MG; Start 04/25/16 at 22:00 Acetaminophen/ Hydrocodone Bitart ([place] (5/325)) 1 tab Q6H PRN GTB MODERATE PAIN LEVEL 4-6 Last administered on 05/05/16 11:41; Admin Dose 1 TAB; Start 04/25/16 at 22:00 Morphine Sulfate (morphine) 2 mg Q4H PRN IV SEVERE PAIN LEVEL 7-10; Start at 22:00 Docusate Sodium (Colace Liquid Cup) 100 mg Q12H PRN GTB CONSTIPATION; Start 04/25/16 at 22:00 Hydralazine HCl (Apresoline) 25 mg Q8 PRN GTB ELEVATED BLOOD PRESSURE Last administered on 05/20/16 21:57; Admin Dose 25 MG; Start 04/25/16 at 22:00 Al Hydrox/Mg Hydrox/Simethicone (Mag-Al Plus) 30 ml Q6 GTB Last administered on 05/23/16 05:30; Admin Dose 30 ML; Start 04/26/16 at 00:00 Magnesium Hydroxide (Milk Of Mag) 30 ml DAILY PRN GTB CONSTIPATION; Start at 22:00 Lactobacillus Acidoph/Bulgaricus (Floranex) 1 tab BID GTB Last administered on 05/23/16 09:17; Admin Dose 1 TAB; Start 04/26/16 at 09:00 Folic Acid (Folic Acid) 1 mg DAILY PO Last administered on 05/23/16 09:17; Admin Dose 1 MG; Start 04/26/16 at 09:00 Diphenhydramine HCl (Benadryl) 25 mg Q6H PRN IM Itching Last administered on 16:59; Admin Dose 25 MG; Start 04/26/16 at 02:15 Vitamin B Complex/ Vitamin C (Berocca) 1 cap DAILY PO Last administered on 09:17; Admin Dose 1 CAP; Start 04/26/16 at 09:00 Valsartan (Diovan) 80 mg BID GTB Last administered on 05/23/16 09:15; Admin Dose 80 MG; Start 04/29/16 at 21:00 Lorazepam (Ativan) 1 mg Q6H PRN IV Anxiety Last administered on 05/16/16 05:41 ; Admin Dose 1 MG; Start 04/30/16 at 14:30 Vancomycin HCl (Vancomycin Oral Syringe) 250 mg Q6 GTB Last administered on 05/23 11:59; Admin Dose 250 MG; Start 05/01/16 at 15:00 Famotidine (Pepcid) 20 mg Q24H GTB Last administered on 05/22/16 17:11; Admin Dose 20 MG; Start 05/06/16 at 17:00 Sodium Phosphate (Neutra-Phos) 500 mg BID GTB Last administered on 05/23/16 09: 17; Admin Dose 500 MG; Start 05/07/16 at 10:30 Rifaximin (Xifaxan) 200 mg TID PO Last administered on 05/23/16 12:05; Admin Dose 200 MG; Start 05/19/16 at 13:00 Clonidine (Catapres) 0.1 mg Q6 PRN NGT ELEVATED BLOOD PRESSURE Last administered on 05/21/16 05:35; Admin Dose 0.1 MG; Start 05/21/16 at 00:30 Risperidone (Risperdal) 1 mg BID GTB Last administered on 05/23/16 09:17; Admin Dose 1 MG; Start 05/21/16 at 21:00 MISBAH THORNTON May 23, 2016 15:30
[2016-05-23] MEDS: FAMOTIDINE 20 MG TAB GTB SCH (17:24)
[2016-05-24] VITALS (25 sets, daily range): BP systolic 78–190; BP diastolic 34–88; PULSE 92–118; RESP 16–18
[2016-05-24] MEDS: VANCOMYCIN HCL 250 MG/5ML POSYG GTB SCH ×4 (00:55→17:31)
[2016-05-24] MEDS: AL HYDROX/MG HYDROX/SIMETH 30 ML CUP GTB SCH ×3 (06:00→12:00)
[2016-05-24] MEDS: LACTOBACILLUS CHEW TAB GTB SCH ×2 (09:50→22:07)
[2016-05-24] MEDS: VITAMIN B COMPLEX/VIT C CAP PO SCH (09:50)
[2016-05-24] MEDS: RIFAXIMIN 200 MG TAB PO SCH ×3 (09:50→22:06)
[2016-05-24] MEDS: VALSARTAN 80 MG TAB GTB SCH ×2 (09:50→22:06)
[2016-05-24] MEDS: RISPERIDONE 1 MG TAB GTB SCH ×2 (09:50→22:07)
[2016-05-24] MEDS: NEUTRA-PHOS 250 MG PACKET GTB SCH ×2 (09:51→22:06)
[2016-05-24] MEDS: FOLIC ACID 1 MG TAB PO SCH (09:51)
--- NOTE | 2016-05-24 11:52 | PN ---
Date/Time of Note Date/Time of Note DATE: 05/24/16 TIME: 11:51 Assessment/Plan VTE Prophylaxis VTE Prophylaxis Intervention: SCD's Lines/Catheters IV [facility]ter Type (from [facility]): Saline Lock Urinary Cath still in place: No Assessment/Plan Chief Complaint/Hosp Course 1. End-stage renal disease on hemodialysis, dislodged hemodialysis catheter. Nephrology following. The patient had a right IJ hemodialysis access placed by vascular surgery on 05/03/2016. 2. Accelerated hypertension. Continue routine and p.r.n. antihypertensives. Blood pressure fairly well controlled. 3. Dysphagia. Continue G-tube feedings. 4. Dementia -Increased Risperdal dose and is now more calm but still at risk for pulling out HD line 5. Incontinent dermatitis. Wound care consult. Local wound care. 6. C diff colitis. Continue oral vancomycin. 7. Anemia of chronic renal disease. Continue to monitor the H and H closely. Transfuse as needed. The patient was started on Epogen. Stool for occult bloodX1 positive. 8. Hyperkalemia. The patient gets hemodialysis as per nephrology. 9. Fluid, electrolytes and nutrition. Continue G-tube feedings. 10. DVT prophylaxis. Bilateral sequential compression devices. 11. Gastrointestinal prophylaxis. Histamine 2 receptor blockers. PLAN: Hemodialysis as per nephrology. Status post PermCath placement on 2016. Try releasing the patient's restraints. If the patient is off restraints , the patient can be transferred back to shelter facility, pt is now more calm and will continue to monitor off restraints Problems: Subjective 24 Hr Interval Summary Constitutional: disoriented Exam/Review of Systems Vital Signs Vitals Vital Signs Date Time Temp Pulse Resp B/P Pulse Ox O2 Delivery O2 Flow Rate FiO2 05/24/16 10:00 98.0 98 18 148/76 98 Room Air 05/22/16 06:41 21 Intake and Output 05/23/16 05/23/16 05/24/16 15:00 23:00 07:00 Intake Total 820 ml 820 ml Balance 820 ml 820 ml Exam Psych: confusion Respiratory: clear to auscultation Cardiovascular: regular rate and rhythm Gastrointestinal: soft, No distended Musculoskeletal: nl extremities to inspection Results Result Diagram: 05/23/16 0540 05/23/16 0581 Medications Medications Current Medications Ondansetron HCl (Zofran Inj) 4 mg Q6H PRN IV NAUSEA AND/OR VOMITING Last administered on 05/05/16 22:10; Admin Dose 4 MG; Start 04/25/16 at 22:00 Acetaminophen (Tylenol Tab) 650 mg Q6H PRN PO PAIN LEVEL 1-3 OR FEVER Last administered on 05/17/16 00:25; Admin Dose 650 MG; Start 04/25/16 at 22:00 Acetaminophen/ Hydrocodone Bitart ([place] (5/325)) 1 tab Q6H PRN GTB MODERATE PAIN LEVEL 4-6 Last administered on 05/05/16 11:41; Admin Dose 1 TAB; Start 04/25/16 at 22:00 Morphine Sulfate (morphine) 2 mg Q4H PRN IV SEVERE PAIN LEVEL 7-10; Start at 22:00 Docusate Sodium (Colace Liquid Cup) 100 mg Q12H PRN GTB CONSTIPATION; Start 04/25/16 at 22:00 Hydralazine HCl (Apresoline) 25 mg Q8 PRN GTB ELEVATED BLOOD PRESSURE Last administered on 05/20/16 21:57; Admin Dose 25 MG; Start 04/25/16 at 22:00 Al Hydrox/Mg Hydrox/Simethicone (Mag-Al Plus) 30 ml Q6 GTB Last administered on 05/23/16 05:30; Admin Dose 30 ML; Start 04/26/16 at 00:00 Magnesium Hydroxide (Milk Of Mag) 30 ml DAILY PRN GTB CONSTIPATION; Start at 22:00 Lactobacillus Acidoph/Bulgaricus (Floranex) 1 tab BID GTB Last administered on 05/24/16 09:50; Admin Dose 1 TAB; Start 04/26/16 at 09:00 Folic Acid (Folic Acid) 1 mg DAILY PO Last administered on 05/24/16 09:51; Admin Dose 1 MG; Start 04/26/16 at 09:00 Diphenhydramine HCl (Benadryl) 25 mg Q6H PRN IM Itching Last administered on 16:59; Admin Dose 25 MG; Start 04/26/16 at 02:15 Vitamin B Complex/ Vitamin C (Berocca) 1 cap DAILY PO Last administered on 09:50; Admin Dose 1 CAP; Start 04/26/16 at 09:00 Valsartan (Diovan) 80 mg BID GTB Last administered on 05/24/16 09:50; Admin Dose 80 MG; Start 04/29/16 at 21:00 Lorazepam (Ativan) 1 mg Q6H PRN IV Anxiety Last administered on 05/16/16 05:41 ; Admin Dose 1 MG; Start 04/30/16 at 14:30 Vancomycin HCl (Vancomycin Oral Syringe) 250 mg Q6 GTB Last administered on 05/24 06:04; Admin Dose 250 MG; Start 05/01/16 at 15:00 Famotidine (Pepcid) 20 mg Q24H GTB Last administered on 05/23/16 17:24; Admin Dose 20 MG; Start 05/06/16 at 17:00 Sodium Phosphate (Neutra-Phos) 500 mg BID GTB Last administered on 05/24/16 09: 51; Admin Dose 500 MG; Start 05/07/16 at 10:30 Rifaximin (Xifaxan) 200 mg TID PO Last administered on 05/24/16 09:50; Admin Dose 200 MG; Start 05/19/16 at 13:00 Clonidine (Catapres) 0.1 mg Q6 PRN NGT ELEVATED BLOOD PRESSURE Last administered on 05/21/16 05:35; Admin Dose 0.1 MG; Start 05/21/16 at 00:30 Risperidone (Risperdal) 1 mg BID GTB Last administered on 05/24/16 09:50; Admin Dose 1 MG; Start 05/21/16 at 21:00 MISBAH THORNTON May 24, 2016 11:52
--- NOTE | 2016-05-24 13:59 | PN ---
DATE: 05/24/2016 SUBJECTIVE: The patient is stable, no acute events overnight. No fevers, chills, nausea, vomiting. OBJECTIVE: VITAL SIGNS: Blood pressure 148/76, respiration 18, pulse 90, temperature 98.0. HEENT: Head is normocephalic. NECK: Supple. HEART: Regular rate. LUNGS: Show diminished breath sounds at the base. ABDOMEN: Soft, nontender to palpation. No rebound or guarding. EXTREMITIES: Negative for clubbing, cyanosis, no edema. DERMATOLOGIC: No rashes. MUSCULOSKELETAL: No joint effusions. NEUROLOGIC: No change in exam. MEDICATIONS: Patient's medication has been reviewed. LABORATORY DATA: Have been reviewed. No new labs. ASSESSMENT AND PLAN: 1. End-stage renal disease. Patient is scheduled for hemodialysis today. Will dialyze for 3 hours on 3 K bath, calcium 2.5, ultrafiltrate as tolerated. 2. Anemia of end-stage renal disease. Hemoglobin level stable. Continue Epogen. 3. Mineral bone disorder, continue to monitor calcium and phosphorus levels. 4. 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 Continue hemodialysis. 5. Dysphagia, status post percutaneous endoscopic gastrostomy. Continue tube feed. 6. Clostridium difficile. Continue vancomycin. 7. Decubitus wound. Continue wound care. 8. Dementia with behavioral disturbances. Continue current medical management. 9. Hypertension, controlled. Dictated By: HUDSON GREGG/ESTEE Conf#: [id number] DID#: [id number]
[2016-05-24] MEDS: ALBUMIN HUMAN 25% 100 ML IV PRN ×2 (15:51→15:53)
[2016-05-24] MEDS: FAMOTIDINE 20 MG TAB GTB SCH (17:31)
[2016-05-24] MEDS: EPOETIN 10000 UNITS/1 ML INJ (ESRD) SC SCH (17:42)
[2016-05-25] VITALS (13 sets, daily range): BP systolic 129–156; BP diastolic 65–85; PULSE 90–108; RESP 16–18
[2016-05-25] MEDS: VANCOMYCIN HCL 250 MG/5ML POSYG GTB SCH ×2 (00:12→05:43)
--- NOTE | 2016-05-25 08:48 | CONS ---
Date/Time of Note Date/Time of Note DATE: 05/25/16 TIME: 08:47 Consult Date/Type/Reason Admit Date/Time Apr 27, 2016 at 16:35 Type of Consultation: nephrology Subjective s/p HD yesterday Objective Vital Signs Date Time Temp Pulse Resp B/P Pulse Ox O2 Delivery O2 Flow Rate FiO2 05/25/16 08:08 97.4 99 18 147/74 97 05/24/16 20:00 Room Air 05/22/16 06:41 21 Intake and Output 05/24/16 05/24/16 05/25/16 15:00 23:00 07:00 Intake Total 1600 ml 750 ml Output Total 1800 ml Balance -200 ml 750 ml Results/Medications Result Diagram: 05/23/16 0540 05/23/16 0540 Medications Current Medications Ondansetron HCl (Zofran Inj) 4 mg Q6H PRN IV NAUSEA AND/OR VOMITING Last administered on 05/05/16 22:10; Admin Dose 4 MG; Start 04/25/16 at 22:00 Acetaminophen (Tylenol Tab) 650 mg Q6H PRN PO PAIN LEVEL 1-3 OR FEVER Last administered on 05/17/16 00:25; Admin Dose 650 MG; Start 04/25/16 at 22:00 Acetaminophen/ Hydrocodone Bitart ([place] (5/325)) 1 tab Q6H PRN GTB MODERATE PAIN LEVEL 4-6 Last administered on 05/05/16 11:41; Admin Dose 1 TAB; Start 04/25/16 at 22:00 Morphine Sulfate (morphine) 2 mg Q4H PRN IV SEVERE PAIN LEVEL 7-10; Start at 22:00 Docusate Sodium (Colace Liquid Cup) 100 mg Q12H PRN GTB CONSTIPATION; Start 04/25/16 at 22:00 Hydralazine HCl (Apresoline) 25 mg Q8 PRN GTB ELEVATED BLOOD PRESSURE Last administered on 05/20/16 21:57; Admin Dose 25 MG; Start 04/25/16 at 22:00 Magnesium Hydroxide (Milk Of Mag) 30 ml DAILY PRN GTB CONSTIPATION; Start at 22:00 Lactobacillus Acidoph/Bulgaricus (Floranex) 1 tab BID GTB Last administered on 05/24/16 22:07; Admin Dose 1 TAB; Start 04/26/16 at 09:00 Folic Acid (Folic Acid) 1 mg DAILY PO Last administered on 05/24/16 09:51; Admin Dose 1 MG; Start 04/26/16 at 09:00 Diphenhydramine HCl (Benadryl) 25 mg Q6H PRN IM Itching Last administered on 16:59; Admin Dose 25 MG; Start 04/26/16 at 02:15 Vitamin B Complex/ Vitamin C (Berocca) 1 cap DAILY PO Last administered on 09:50; Admin Dose 1 CAP; Start 04/26/16 at 09:00 Valsartan (Diovan) 80 mg BID GTB Last administered on 05/24/16 22:06; Admin Dose 80 MG; Start 04/29/16 at 21:00 Lorazepam (Ativan) 1 mg Q6H PRN IV Anxiety Last administered on 05/16/16 05:41 ; Admin Dose 1 MG; Start 04/30/16 at 14:30 Vancomycin HCl (Vancomycin Oral Syringe) 250 mg Q6 GTB Last administered on 05/25 05:43; Admin Dose 250 MG; Start 05/01/16 at 15:00 Famotidine (Pepcid) 20 mg Q24H GTB Last administered on 05/24/16 17:31; Admin Dose 20 MG; Start 05/06/16 at 17:00 Sodium Phosphate (Neutra-Phos) 500 mg BID GTB Last administered on 05/24/16 22: 06; Admin Dose 500 MG; Start 05/07/16 at 10:30 Rifaximin (Xifaxan) 200 mg TID PO Last administered on 05/24/16 22:06; Admin Dose 200 MG; Start 05/19/16 at 13:00 Clonidine (Catapres) 0.1 mg Q6 PRN NGT ELEVATED BLOOD PRESSURE Last administered on 05/21/16 05:35; Admin Dose 0.1 MG; Start 05/21/16 at 00:30 Risperidone (Risperdal) 1 mg BID GTB Last administered on 05/24/16 22:07; Admin Dose 1 MG; Start 05/21/16 at 21:00 Assessment/Plan Chief Complaint/Hosp Course 1. End-stage renal disease. s/p HD yeseterday, watch volume, i/o, lytes, adjust meds, 2. Anemia of end-stage renal disease. Hemoglobin level stable. Continue Epogen. 3. Mineral bone disorder, continue to monitor calcium and phosphorus levels. 4. 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 Continue hemodialysis. 5. Dysphagia, status post percutaneous endoscopic gastrostomy. Continue tube feed. 6. Clostridium difficile. Continue vancomycin. 7. Decubitus wound. Continue wound care. 8. Dementia with behavioral disturbances. Continue current medical management. 9. Hypertension, controlled. Problems: BAILEY ALVES MD May 25, 2016 08:48
[2016-05-25] MEDS: VITAMIN B COMPLEX/VIT C CAP PO SCH (09:47)
[2016-05-25] MEDS: VALSARTAN 80 MG TAB GTB SCH ×2 (09:47→21:04)
[2016-05-25] MEDS: NEUTRA-PHOS 250 MG PACKET GTB SCH ×2 (09:47→21:03)
[2016-05-25] MEDS: RIFAXIMIN 200 MG TAB PO SCH ×3 (09:47→21:03)
[2016-05-25] MEDS: LACTOBACILLUS CHEW TAB GTB SCH ×2 (09:47→21:04)
[2016-05-25] MEDS: FOLIC ACID 1 MG TAB PO SCH (09:47)
[2016-05-25] MEDS: RISPERIDONE 1 MG TAB GTB SCH (09:47)
--- NOTE | 2016-05-25 12:02 | PN ---
Date/Time of Note Date/Time of Note DATE: 05/25/16 TIME: 11:52 Assessment/Plan VTE Prophylaxis VTE Prophylaxis Intervention: SCD's Lines/Catheters IV [facility]ter Type (from [facility]): HD ACCESS Urinary Cath still in place: No Assessment/Plan Assessment/Plan PROBLEMS: End-stage renal disease on hemodialysis, Dislodged hemodialysis catheter * Right IJ hemodialysis access placed by vascular surgery on 05/03/2016. Hypertension: fairly well controlled. Chronic Dysphagia: G-tube feedings. Chronic Dementia * Increased Risperdal dose and is now excessively sleepy but still at risk for pulling out HD line Incontinent dermatitis: * s/p Wound care review * Local wound care per recs C diff colitis. Anemia of chronic renal disease + iron deficiency +?GI bleed * s/p IV iron replacement * Now on Epogen per Nephrology. Stool for occult bloodX1 positive likely 2/2 Colitis PLAN: Hemodialysis as per nephrology. Status post PermCath placement on 05/03/2016. Continue oral vancomycin and precautions to complete a 2 week course Continue to monitor the H and H closely. Transfuse as needed Will benefit from outpt Colonoscopy once colitis is resolved Will d/w Nephrology if patient will benefit from graft placement in the setting of continued confusion if we can't wean restraints Prophylaxis: SCDs / PPI Subjective 24 Hr Interval Summary Free Text/Dictation Patient seen and examined. remains confused and on restraints Exam/Review of Systems Vital Signs Vitals Vital Signs Date Time Temp Pulse Resp B/P Pulse Ox O2 Delivery O2 Flow Rate FiO2 05/25/16 10:00 97.8 97 16 136/84 95 Room Air 05/22/16 06:41 21 Intake and Output 05/24/16 05/24/16 05/25/16 15:00 23:00 07:00 Intake Total 1600 ml 750 ml Output Total 1800 ml Balance -200 ml 750 ml Exam Psych: confusion Respiratory: clear to auscultation Cardiovascular: regular rate and rhythm Gastrointestinal: soft, No distended Musculoskeletal: nl extremities to inspection Results Result Diagram: 05/23/16 0540 05/23/16 0540 Medications Medications Current Medications Ondansetron HCl (Zofran Inj) 4 mg Q6H PRN IV NAUSEA AND/OR VOMITING Last administered on 05/05/16t 22:10; Admin Dose 4 MG; Start 04/25/16 at 22:00 Acetaminophen (Tylenol Tab) 650 mg Q6H PRN PO PAIN LEVEL 1-3 OR FEVER Last administered on 05/17/16 00:25; Admin Dose 650 MG; Start 04/25/16 at 22:00 Acetaminophen/ Hydrocodone Bitart ([place] (5/325)) 1 tab Q6H PRN GTB MODERATE PAIN LEVEL 4-6 Last administered on 05/05/16 11:41; Admin Dose 1 TAB; Start 04/25/16 at 22:00 Morphine Sulfate (morphine) 2 mg Q4H PRN IV SEVERE PAIN LEVEL 7-10; Start at 22:00 Docusate Sodium (Colace Liquid Cup) 100 mg Q12H PRN GTB CONSTIPATION; Start 04/25/16 at 22:00 Hydralazine HCl (Apresoline) 25 mg Q8 PRN GTB ELEVATED BLOOD PRESSURE Last administered on 05/20/16 21:57; Admin Dose 25 MG; Start 04/25/16 at 22:00 Magnesium Hydroxide (Milk Of Mag) 30 ml DAILY PRN GTB CONSTIPATION; Start at 22:00 Lactobacillus Acidoph/Bulgaricus (Floranex) 1 tab BID GTB Last administered on 05/25/16 09:47; Admin Dose 1 TAB; Start 04/26/16 at 09:00 Folic Acid (Folic Acid) 1 mg DAILY PO Last administered on 05/25/16 09:47; Admin Dose 1 MG; Start 04/26/16 at 09:00 Diphenhydramine HCl (Benadryl) 25 mg Q6H PRN IM Itching Last administered on 16:59; Admin Dose 25 MG; Start 04/26/16 at 02:15 Vitamin B Complex/ Vitamin C (Berocca) 1 cap DAILY PO Last administered on 09:47; Admin Dose 1 CAP; Start 04/26/16 at 09:00 Valsartan (Diovan) 80 mg BID GTB Last administered on 05/25/16 09:47; Admin Dose 80 MG; Start 04/29/16 at 21:00 Lorazepam (Ativan) 1 mg Q6H PRN IV Anxiety Last administered on 05/16/16 05:41 ; Admin Dose 1 MG; Start 04/30/16 at 14:30 Vancomycin HCl (Vancomycin Oral Syringe) 250 mg Q6 GTB Last administered on 05/25 05:43; Admin Dose 250 MG; Start 05/01/16 at 15:00 Famotidine (Pepcid) 20 mg Q24H GTB Last administered on 05/24/16 17:31; Admin Dose 20 MG; Start 05/06/16 at 17:00 Sodium Phosphate (Neutra-Phos) 500 mg BID GTB Last administered on 05/25/16 09: 47; Admin Dose 500 MG; Start 05/07/16 at 10:30 Rifaximin (Xifaxan) 200 mg TID PO Last administered on 05/25/16 09:47; Admin Dose 200 MG; Start 05/19/16 at 13:00 Clonidine (Catapres) 0.1 mg Q6 PRN NGT ELEVATED BLOOD PRESSURE Last administered on 05/21/16 05:35; Admin Dose 0.1 MG; Start 05/21/16 at 00:30 Risperidone (Risperdal) 1 mg BID GTB Last administered on 05/25/16 09:47; Admin Dose 1 MG; Start 05/21/16 at 21:00 SALVADOR MATTSON May 25, 2016 12:02
[2016-05-25] MEDS: FAMOTIDINE 20 MG TAB GTB SCH (17:03)
[2016-05-26] VITALS (13 sets, daily range): BP systolic 133–175; BP diastolic 62–99; PULSE 96–108; RESP 16–19
[2016-05-26] MEDS: NEUTRA-PHOS 250 MG PACKET GTB SCH ×2 (08:53→20:58)
[2016-05-26] MEDS: VITAMIN B COMPLEX/VIT C CAP PO SCH (08:53)
[2016-05-26] MEDS: LACTOBACILLUS CHEW TAB GTB SCH ×2 (08:53→20:58)
[2016-05-26] MEDS: VALSARTAN 80 MG TAB GTB SCH ×2 (08:53→20:59)
[2016-05-26] MEDS: RIFAXIMIN 200 MG TAB PO SCH ×3 (08:54→20:58)
[2016-05-26] MEDS: FOLIC ACID 1 MG TAB PO SCH (08:54)
--- NOTE | 2016-05-26 10:30 | CONS ---
Date/Time of Note Date/Time of Note DATE: 05/26/16 TIME: 10:29 Consult Date/Type/Reason Admit Date/Time Apr 27, 2016 at 16:35 Type of Consultation: nephrology Subjective no new c/o. next hd tomorrow d/w rn at bedside. Objective Vital Signs Date Time Temp Pulse Resp B/P Pulse Ox O2 Delivery O2 Flow Rate FiO2 05/26/16 10:00 98.2 91 18 150/72 98 05/26/16 06:00 Room Air Intake and Output 05/25/16 05/25/16 05/26/16 15:00 23:00 07:00 Intake Total 820 ml 770 ml Balance 820 ml 770 ml Respiratory: clear to auscultation Cardiovascular: regular rate and rhythm Gastrointestinal: soft, No distended Musculoskeletal: No nl extremities to inspection Results/Medications Result Diagram: 05/23/16 0540 05/23/16 0540 Medications Current Medications Ondansetron HCl (Zofran Inj) 4 mg Q6H PRN IV NAUSEA AND/OR VOMITING Last administered on 05/05/16 22:10; Admin Dose 4 MG; Start 04/25/16 at 22:00 Acetaminophen (Tylenol Tab) 650 mg Q6H PRN PO PAIN LEVEL 1-3 OR FEVER Last administered on 05/17/16 00:25; Admin Dose 650 MG; Start 04/25/16 at 22:00 Acetaminophen/ Hydrocodone Bitart ([place] (5/325)) 1 tab Q6H PRN GTB MODERATE PAIN LEVEL 4-6 Last administered on 05/05/16 11:41; Admin Dose 1 TAB; Start 04/25/16 at 22:00 Morphine Sulfate (morphine) 2 mg Q4H PRN IV SEVERE PAIN LEVEL 7-10; Start at 22:00 Docusate Sodium (Colace Liquid Cup) 100 mg Q12H PRN GTB CONSTIPATION; Start 04/25/16 at 22:00 Hydralazine HCl (Apresoline) 25 mg Q8 PRN GTB ELEVATED BLOOD PRESSURE Last administered on 05/20/16 21:57; Admin Dose 25 MG; Start 04/25/16 at 22:00 Magnesium Hydroxide (Milk Of Mag) 30 ml DAILY PRN GTB CONSTIPATION; Start at 22:00 Lactobacillus Acidoph/Bulgaricus (Floranex) 1 tab BID GTB Last administered on 05/26/16 08:53; Admin Dose 1 TAB; Start 04/26/16 at 09:00 Folic Acid (Folic Acid) 1 mg DAILY PO Last administered on 05/26/16 08:54; Admin Dose 1 MG; Start 04/26/16 at 09:00 Diphenhydramine HCl (Benadryl) 25 mg Q6H PRN IM Itching Last administered on 16:59; Admin Dose 25 MG; Start 04/26/16 at 02:15 Vitamin B Complex/ Vitamin C (Berocca) 1 cap DAILY PO Last administered on 08:53; Admin Dose 1 CAP; Start 04/26/16 at 09:00 Valsartan (Diovan) 80 mg BID GTB Last administered on 05/26/16 08:53; Admin Dose 80 MG; Start 04/29/16 at 21:00 Lorazepam (Ativan) 1 mg Q6H PRN IV Anxiety Last administered on 05/16/16 05:41 ; Admin Dose 1 MG; Start 04/30/16 at 14:30 Famotidine (Pepcid) 20 mg Q24H GTB Last administered on 05/25/16 17:03; Admin Dose 20 MG; Start 05/06/16 at 17:00 Sodium Phosphate (Neutra-Phos) 500 mg BID GTB Last administered on 05/26/16 08: 53; Admin Dose 500 MG; Start 05/07/16 at 10:30 Rifaximin (Xifaxan) 200 mg TID PO Last administered on 05/26/16 08:54; Admin Dose 200 MG; Start 05/19/16 at 13:00 Clonidine (Catapres) 0.1 mg Q6 PRN NGT ELEVATED BLOOD PRESSURE Last administered on 05/21/16 05:35; Admin Dose 0.1 MG; Start 05/21/16 at 00:30 Risperidone (Risperdal) 0.5 mg QHS GTB ; Start 05/26/16 at 21:00 Assessment/Plan Chief Complaint/Hosp Course 1. End-stage renal disease. Next HD tomorrow, watch volume, i/o, lytes, adjust meds, 2. Anemia of end-stage renal disease. Hemoglobin level stable. Continue Epogen. 3. Mineral bone disorder, continue to monitor calcium and phosphorus levels. 4. 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 Continue hemodialysis. 5. Dysphagia, status post percutaneous endoscopic gastrostomy. Continue tube feed. 6. Clostridium difficile. Continue vancomycin. 7. Decubitus wound. Continue wound care. 8. Dementia with behavioral disturbances. Continue current medical management. 9. Hypertension, controlled. Problems: BAILEY ALVES MD May 26, 2016 10:30
--- NOTE | 2016-05-26 16:43 | PN ---
Date/Time of Note Date/Time of Note DATE: 05/26/16 TIME: 16:37 Assessment/Plan VTE Prophylaxis VTE Prophylaxis Intervention: SCD's Lines/Catheters IV Catheter Type (from Nrs): HD access Urinary Cath still in place: No Assessment/Plan Assessment/Plan PROBLEMS: End-stage renal disease on hemodialysis, Dislodged hemodialysis catheter * Right IJ hemodialysis access placed by vascular surgery on 05/03/2016. Hypertension: fairly well controlled. Chronic Dysphagia: G-tube feedings. Chronic Dementia with confusion Incontinent dermatitis: * s/p Wound care review * Local wound care per recs C diff colitis: * s/p Oral Vanco x 2 weeks * Now on probiotics Severe Anemia of chronic renal disease + iron deficiency +?GI bleed * Transfused 3 units PRBCs on this admission * s/p IV iron replacement * Now on Epogen per Nephrology. Stool for occult bloodX1 positive likely 2/2 Colitis PLAN: Dr Ramirez reconsulted for AV graft that way we can d/c restraints and send patient back to SNF Continue Hemodialysis as per nephrology. Continue to monitor the H and H closely. Transfuse as needed Will benefit from outpt Colonoscopy once colitis is resolved Prophylaxis: SCDs / PPI Subjective 24 Hr Interval Summary Free Text/Dictation Patient seen and examined. more awake now Still pulling at IV and permacath per nurses Exam/Review of Systems Vital Signs Vitals Vital Signs Date Time Temp Pulse Resp B/P Pulse Ox O2 Delivery O2 Flow Rate FiO2 05/26/16 14:00 98.0 105 16 149/67 97 Room Air Intake and Output 05/25/16 05/25/16 05/26/16 15:00 23:00 07:00 Intake Total 820 ml 770 ml Balance 820 ml 770 ml Exam Psych: confusion Respiratory: clear to auscultation Cardiovascular: regular rate and rhythm Gastrointestinal: soft, No distended Musculoskeletal: nl extremities to inspection Results Result Diagram: 05/23/1640 05/23/1640 Medications Medications Current Medications Ondansetron HCl (Zofran Inj) 4 mg Q6H PRN IV NAUSEA AND/OR VOMITING Last administered on 05/05/16 22:10; Admin Dose 4 MG; Start 04/25/16 at 22:00 Acetaminophen (Tylenol Tab) 650 mg Q6H PRN PO PAIN LEVEL 1-3 OR FEVER Last administered on 05/17/16 00:25; Admin Dose 650 MG; Start 04/25/16 at 22:00 Acetaminophen/ Hydrocodone Bitart ([place] (5/325)) 1 tab Q6H PRN GTB MODERATE PAIN LEVEL 4-6 Last administered on 05/05/16 11:41; Admin Dose 1 TAB; Start 04/25/16 at 22:00 Morphine Sulfate (morphine) 2 mg Q4H PRN IV SEVERE PAIN LEVEL 7-10; Start at 22:00 Docusate Sodium (Colace Liquid Cup) 100 mg Q12H PRN GTB CONSTIPATION; Start 04/25/16 at 22:00 Hydralazine HCl (Apresoline) 25 mg Q8 PRN GTB ELEVATED BLOOD PRESSURE Last administered on 05/20/16 21:57; Admin Dose 25 MG; Start 04/25/16 at 22:00 Magnesium Hydroxide (Milk Of Mag) 30 ml DAILY PRN GTB CONSTIPATION; Start at 22:00 Lactobacillus Acidoph/Bulgaricus (Floranex) 1 tab BID GTB Last administered on 05/26/16 08:53; Admin Dose 1 TAB; Start 04/26/16 at 09:00 Folic Acid (Folic Acid) 1 mg DAILY PO Last administered on 05/26/16 08:54; Admin Dose 1 MG; Start 04/26/16 at 09:00 Diphenhydramine HCl (Benadryl) 25 mg Q6H PRN IM Itching Last administered on 16:59; Admin Dose 25 MG; Start 04/26/16 at 02:15 Vitamin B Complex/ Vitamin C (Berocca) 1 cap DAILY PO Last administered on 08:53; Admin Dose 1 CAP; Start 04/26/16 at 09:00 Valsartan (Diovan) 80 mg BID GTB Last administered on 05/26/16 08:53; Admin Dose 80 MG; Start 04/29/16 at 21:00 Lorazepam (Ativan) 1 mg Q6H PRN IV Anxiety Last administered on 05/16/16 05:41 ; Admin Dose 1 MG; Start 04/30/16 at 14:30 Famotidine (Pepcid) 20 mg Q24H GTB Last administered on 05/25/16 17:03; Admin Dose 20 MG; Start 05/06/16 at 17:00 Sodium Phosphate (Neutra-Phos) 500 mg BID GTB Last administered on 05/26/16 08: 53; Admin Dose 500 MG; Start 05/07/16 at 10:30 Rifaximin (Xifaxan) 200 mg TID PO Last administered on 05/26/16 13:14; Admin Dose 200 MG; Start 05/19/16 at 13:00 Clonidine (Catapres) 0.1 mg Q6 PRN NGT ELEVATED BLOOD PRESSURE Last administered on 05/21/16 05:35; Admin Dose 0.1 MG; Start 05/21/16 at 00:30 Risperidone (Risperdal) 0.5 mg QHS GTB ; Start 05/26/16 at 21:00 SALVADOR MATTSON May 26, 2016 16:43
[2016-05-26] MEDS: FAMOTIDINE 20 MG TAB GTB SCH (17:26)
[2016-05-26] MEDS: RISPERIDONE 1 MG TAB GTB SCH (21:00)
[2016-05-27] VITALS (20 sets, daily range): BP systolic 80–169; BP diastolic 48–82; PULSE 81–130; RESP 16–19
[2016-05-27] MEDS: VALSARTAN 80 MG TAB GTB SCH ×2 (09:00→22:25)
[2016-05-27] MEDS: NEUTRA-PHOS 250 MG PACKET GTB SCH ×2 (09:31→22:48)
[2016-05-27] MEDS: RIFAXIMIN 200 MG TAB PO SCH ×3 (09:31→22:24)
[2016-05-27] MEDS: LACTOBACILLUS CHEW TAB GTB SCH ×2 (09:31→22:26)
[2016-05-27] MEDS: VITAMIN B COMPLEX/VIT C CAP PO SCH (09:31)
[2016-05-27] MEDS: FOLIC ACID 1 MG TAB PO SCH (09:31)
--- NOTE | 2016-05-27 11:22 | PN ---
DATE: 05/27/2016 SUBJECTIVE: The patient is stable, no acute events overnight. The patient is pending hemodialysis today. No other events noted. OBJECTIVE: VITAL SIGNS: Blood pressure is 141/62, respiration 18, pulse 97, temperature 98.5. HEENT: Head is normocephalic. NECK: Supple. HEART: Regular rate. LUNGS: Show diminished breath sounds at the base. ABDOMEN: Soft, nontender to palpation without rebound or guarding. EXTREMITIES: Negative for clubbing, cyanosis, no edema. DERMATOLOGIC: No rashes. MUSCULOSKELETAL: No joint effusions. NEUROLOGIC: No change in exam. MEDICATIONS: Reviewed. LABORATORY DATA: Have been reviewed, no new labs. ASSESSMENT AND PLAN: 1. End-stage renal disease. The patient is scheduled for hemodialysis today for 3 hours, 2K bath, calcium 2.5. 2. Access. The patient is pending possible AV fistula placement by vascular surgeon, Dr. Ramirez . Will continue to monitor. 3. Anemia. End-stage renal disease. Continue to monitor H and H levels. Continue Epogen. 4. Mineral bone disorder. Continue to monitor calcium and phosphorus levels. 5. Hypomagnesemia secondary to end-stage renal disease. Continue hemodialysis. 6. Dysphagia. Status post PEG tube, tube feeding. 7. C difficile. Continue oral vancomycin. 8. Decubitus wound. Continue wound care. 9. Dementia with behavioral disturbances. Continue medical management. 10. Hypertension, controlled. Dictated By: HUDSON GREGG/ESTEE Conf#: [id number] DID#: [id number]
[2016-05-27] MEDS: ALBUMIN HUMAN 25% 100 ML IV PRN ×2 (12:46→12:47)
--- NOTE | 2016-05-27 13:51 | PN ---
Date/Time of Note Date/Time of Note DATE: 05/27/16 TIME: 13:50 Assessment/Plan VTE Prophylaxis VTE Prophylaxis Intervention: SCD's Lines/Catheters IV Catheter Type (from [facility]): [place] Urinary Cath still in place: No Assessment/Plan Chief Complaint/Hosp Course 1. End-stage renal disease on hemodialysis, dislodged hemodialysis catheter. Nephrology following. The patient had a right IJ hemodialysis access placed by vascular surgery on 05/03/2016. 2. Accelerated hypertension. Continue routine and p.r.n. antihypertensives. Blood pressure fairly well controlled. 3. Dysphagia. Continue G-tube feedings. 4. Dementia. Reorient the patient frequently. 5. Incontinent dermatitis. Wound care consult. Local wound care. 6. C diff colitis. S/P oral vancomycin. 7. Anemia of chronic renal disease. Continue to monitor the H and H closely. Transfuse as needed. The patient was started on Epogen. Stool for occult bloodX1 positive. 8. Hyperkalemia. Resolved. The patient gets hemodialysis as per nephrology. 9. Fluid, electrolytes and nutrition. Continue G-tube feedings. 10. DVT prophylaxis. Bilateral sequential compression devices. 11. Gastrointestinal prophylaxis. Histamine 2 receptor blockers. PLAN: Hemodialysis as per nephrology. Status post PermCath placement on 2016. Try releasing the patient's restraints. If the patient is off restraints , the patient can be transferred back to senior living facility. Case discussed with Dr. Mckeon. Problems: Subjective 24 Hr Interval Summary Free Text/Dictation Patient getting hemodialysis. Remains confused. Exam/Review of Systems Vital Signs Vitals Vital Signs Date Time Temp Pulse Resp B/P Pulse Ox O2 Delivery O2 Flow Rate FiO2 05/27/16 12:00 124 05/27/16 10:00 20 05/27/16 08:23 98.5 141/62 98 05/27/16 06:00 Room Air Intake and Output 05/26/16 05/26/16 05/27/16 15:00 23:00 07:00 Intake Total 780 ml 820 ml Balance 780 ml 820 ml Exam GENERAL: This is a thin, frail-looking [place] female lying in bed in no apparent distress. Very confused. HEENT: Head normocephalic and atraumatic. Eyes: Anicteric sclerae. Conjunctivae clear. ENT: Nasal septum is midline. Oral mucosa is dry. NECK: Supple. No JVD noticed. RESPIRATORY: Bilaterally diminished breath sounds. No adventitious breath sounds. No use of accessory muscles of respiration. CARDIAC: Regular rate and rhythm. No murmurs heard. ABDOMEN: Soft, nontender and nondistended. Bowel sounds positive in all 4 quadrants. G-tube in place. GENITOURINARY: Deferred. EXTREMITIES: No cyanosis, no clubbing, no edema. Peripheral pulses are palpable. NEUROLOGIC: The patient is awake and alert. Oriented to person. Disoriented to place, time and purpose. PSYCHIATRIC: Pleasant. Confused. Results Result Diagram: 05/23/1653905/23/16539 Medications Medications Current Medications Ondansetron HCl (Zofran Inj) 4 mg Q6H PRN IV NAUSEA AND/OR VOMITING Last administered on 05/05/16 22:10; Admin Dose 4 MG; Start 04/25/16 at 22:00 Acetaminophen (Tylenol Tab) 650 mg Q6H PRN PO PAIN LEVEL 1-3 OR FEVER Last administered on 05/17/16 00:25; Admin Dose 650 MG; Start 04/25/16 at 22:00 Acetaminophen/ Hydrocodone Bitart ([place] (5/325)) 1 tab Q6H PRN GTB MODERATE PAIN LEVEL 4-6 Last administered on 05/05/16 11:41; Admin Dose 1 TAB; Start 04/25/16 at 22:00 Morphine Sulfate (morphine) 2 mg Q4H PRN IV SEVERE PAIN LEVEL 7-10; Start at 22:00 Docusate Sodium (Colace Liquid Cup) 100 mg Q12H PRN GTB CONSTIPATION; Start 04/25/16 at 22:00 Hydralazine HCl (Apresoline) 25 mg Q8 PRN GTB ELEVATED BLOOD PRESSURE Last administered on 05/20/16 21:57; Admin Dose 25 MG; Start 04/25/16 at 22:00 Magnesium Hydroxide (Milk Of Mag) 30 ml DAILY PRN GTB CONSTIPATION; Start at 22:00 Lactobacillus Acidoph/Bulgaricus (Floranex) 1 tab BID GTB Last administered on 05/27/16 09:31; Admin Dose 1 TAB; Start 04/26/16 at 09:00 Folic Acid (Folic Acid) 1 mg DAILY PO Last administered on 05/27/16 09:31; Admin Dose 1 MG; Start 04/26/16 at 09:00 Diphenhydramine HCl (Benadryl) 25 mg Q6H PRN IM Itching Last administered on 16:59; Admin Dose 25 MG; Start 04/26/16 at 02:15 Vitamin B Complex/ Vitamin C (Berocca) 1 cap DAILY PO Last administered on 09:31; Admin Dose 1 CAP; Start 04/26/16 at 09:00 Valsartan (Diovan) 80 mg BID GTB Last administered on 05/26/16 20:59; Admin Dose 80 MG; Start 04/29/16 at 21:00 Lorazepam (Ativan) 1 mg Q6H PRN IV Anxiety Last administered on 05/16/16 05:41 ; Admin Dose 1 MG; Start 04/30/16 at 14:30 Famotidine (Pepcid) 20 mg Q24H GTB Last administered on 05/26/16 17:26; Admin Dose 20 MG; Start 05/06/16 at 17:00 Sodium Phosphate (Neutra-Phos) 500 mg BID GTB Last administered on 05/27/16 09: 31; Admin Dose 500 MG; Start 05/07/16 at 10:30 Rifaximin (Xifaxan) 200 mg TID PO Last administered on 05/27/16 09:31; Admin Dose 200 MG; Start 05/19/16 at 13:00 Clonidine (Catapres) 0.1 mg Q6 PRN NGT ELEVATED BLOOD PRESSURE Last administered on 05/21/16 05:35; Admin Dose 0.1 MG; Start 05/21/16 at 00:30 Risperidone (Risperdal) 0.5 mg QHS GTB Last administered on 05/26/16 21:00; Admin Dose 0.5 MG; Start 05/26/16 at 21:00 ZEYAD VILLAVICENCIO NP May 27, 2016 13:51
[2016-05-27] MEDS: FAMOTIDINE 20 MG TAB GTB SCH (18:25)
[2016-05-27] MEDS: RISPERIDONE 1 MG TAB GTB SCH (22:26)
[2016-05-28] VITALS (15 sets, daily range): BP systolic 113–149; BP diastolic 52–77; PULSE 90–108; RESP 1–21
[2016-05-28] MEDS: LACTOBACILLUS CHEW TAB GTB SCH ×2 (08:06→21:40)
[2016-05-28] MEDS: RIFAXIMIN 200 MG TAB PO SCH ×3 (08:06→21:42)
[2016-05-28] MEDS: VITAMIN B COMPLEX/VIT C CAP PO SCH (08:06)
[2016-05-28] MEDS: FOLIC ACID 1 MG TAB PO SCH (08:06)
[2016-05-28] MEDS: NEUTRA-PHOS 250 MG PACKET GTB SCH ×2 (08:06→21:41)
[2016-05-28] MEDS: VALSARTAN 80 MG TAB GTB SCH ×2 (08:06→21:41)
[2016-05-28 10:18] LABS: BASOPHILS % 0.2 % (0.0-2.0); EOSINOPHILS % 10.8 % (0.0-7.0); HEMATOCRIT 27.6 % (37.0-47.0); HEMOGLOBIN 8.7 g/dl (12.0-16.0); LYMPHOCYTES # 1.3 10^3/ul (0.8-2.9); MEAN CORPUSCULAR HEMOGLOBIN 28.1 pg (29.0-33.0); MEAN CORPUSCULAR HGB CONC 31.7 g/dl (32.0-37.0); MEAN CORPUSCULAR VOLUME 88.8 fl (82.0-101.0); MONOCYTE # 1.2 10^3/ul (0.3-0.9); MONOCYTES % 13.2 % (0.0-11.0); NEUTROPHIL # 5.6 10^3/ul (1.6-7.5); NEUTROPHILS % 61.8 % (39.0-77.0); PLATELET COUNT 326 10^3/UL (140-440); RED BLOOD COUNT 3.11 10^6/ul (4.20-5.40); RED CELL DISTRIBUTION WIDTH 19.7 % (11.5-14.5); UNCORRECTED WBC 9.1 10^3/ul (4.8-10.8); WHITE BLOOD COUNT 9.1 10^3/ul (4.8-10.8)
[2016-05-28 10:26] LABS: POTASSIUM 5.5 mmol/L (3.5-5.1)
[2016-05-28 10:28] LABS: CREATININE 2.7 mg/dl (0.44-1.00)
[2016-05-28 10:29] LABS: CALCIUM 9.6 mg/dl (8.4-10.2); MAGNESIUM 2.2 mg/dl (1.7-2.5); PHOSPHORUS 11.6 mg/dl (2.5-4.9)
[2016-05-28 10:30] LABS: CONDITION 1; LH ANALYZER COMMENTS 1
--- NOTE | 2016-05-28 11:50 | PN ---
Date/Time of Note Date/Time of Note DATE: 05/28/16 TIME: 11:48 Assessment/Plan VTE Prophylaxis VTE Prophylaxis Intervention: SCD's Lines/Catheters IV Catheter Type [facility]from [facility] permacath Urinary Cath still in place: No Assessment/Plan Chief Complaint/Hosp Course 1. End-stage renal disease on hemodialysis, dislodged hemodialysis catheter. Nephrology following. The patient had a right IJ hemodialysis access placed by vascular surgery on 05/03/2016. 2. Accelerated hypertension. Continue routine and p.r.n. antihypertensives. Blood pressure fairly well controlled. 3. Dysphagia. Continue G-tube feedings. 4. Dementia. Reorient the patient frequently. 5. Incontinent dermatitis. Wound care consult. Local wound care. 6. C diff colitis. S/P oral vancomycin. 7. Anemia of chronic renal disease. Continue to monitor the H and H closely. Transfuse as needed. The patient was started on Epogen. Stool for occult bloodX1 positive. 8. Hyperkalemia. The patient gets hemodialysis as per nephrology. 9. Fluid, electrolytes and nutrition. Continue G-tube feedings. 10. DVT prophylaxis. Bilateral sequential compression devices. 11. Gastrointestinal prophylaxis. Histamine 2 receptor blockers. PLAN: Hemodialysis as per nephrology. Status post PermCath placement on 2016. Try releasing the patient's restraints. If the patient is off restraints , the patient can be [facility]. Case discussed with Dr. Mckeon. Problems: Exam/Review of Systems Vital Signs Vitals Vital Signs Date Time Temp Pulse Resp B/P Pulse Ox O2 Delivery O2 Flow Rate FiO2 05/28/16 10:29 98.0 17 119/64 98 Room Air 05/28/16 08:40 96 Intake and Output 05/27/16 05/27/16 05/28/16 15:00 23:00 07:00 Intake Total 800 ml 680 ml 710 ml Output Total 1800 ml Balance -1000 ml 680 ml 710 ml Exam GENERAL: This is a thin, frail-looking [place] female lying in bed in no apparent distress. Very confused. HEENT: Head normocephalic and atraumatic. Eyes: Anicteric sclerae. Conjunctivae clear. ENT: Nasal septum is midline. Oral mucosa is dry. NECK: Supple. No JVD noticed. RESPIRATORY: Bilaterally diminished breath sounds. No adventitious breath sounds. No use of accessory muscles of respiration. CARDIAC: Regular rate and rhythm. No murmurs heard. ABDOMEN: Soft, nontender and nondistended. Bowel sounds positive in all 4 quadrants. G-tube in place. GENITOURINARY: Deferred. EXTREMITIES: No cyanosis, no clubbing, no edema. Peripheral pulses are palpable. NEUROLOGIC: The patient is awake and alert. Oriented to person. Disoriented to place, time and purpose. PSYCHIATRIC: Pleasant. Confused. Results Result Diagram: 05/28/16 1005 05/28/16 1005 Results 24 hrs Laboratory Tests Test 05/28/16 10:05 Anion Gap 31 H Basophils # 0.0 Basophils % 0.2 Blood Morphology Comment Blood Urea Nitrogen 81 H Calcium Level 9.6 Carbon Dioxide Level 22 Chloride Level 93 L Creatinine 2.70 H Eosinophils # 1.0 H Eosinophils % 10.8 H Glucose Level 121 Hematocrit 27.6 L Hemoglobin 8.7 L Lymphocytes # 1.3 Lymphocytes % 14.0 L Magnesium Level 2.2 Mean Corpuscular Hemoglobin 28.1 L Mean Corpuscular Hemoglobin Concent 31.7 L Mean Corpuscular Volume 88.8 Mean Platelet Volume 8.0 Monocytes # 1.2 H Monocytes % 13.2 H Neutrophils # 5.6 Neutrophils % 61.8 Nucleated Red Blood Cells # 0.0 Nucleated Red Blood Cells % 0.0 Phosphorus Level 11.6 H Platelet Count 326 Potassium Level 5.5 H Red Blood Count 3.11 L Red Cell Distribution Width 19.7 H Sodium Level 140 White Blood Count 9.1 Medications Medications Current Medications Ondansetron HCl (Zofran Inj) 4 mg Q6H PRN IV NAUSEA AND/OR VOMITING Last administered on 05/05/16 22:10; Admin Dose 4 MG; Start 04/25/16 at 22:00 Acetaminophen (Tylenol Tab) 650 mg Q6H PRN PO PAIN LEVEL 1-3 OR FEVER Last administered on 05/17/16 00:25; Admin Dose 650 MG; Start 04/25/16 at 22:00 Acetaminophen/ Hydrocodone Bitart ([place] (5/325)) 1 tab Q6H PRN GTB MODERATE PAIN LEVEL 4-6 Last administered on 05/05/16 11:41; Admin Dose 1 TAB; Start 04/25/16 at 22:00 Morphine Sulfate (morphine) 2 mg Q4H PRN IV SEVERE PAIN LEVEL 7-10; Start at 22:00 Docusate Sodium (Colace Liquid Cup) 100 mg Q12H PRN GTB CONSTIPATION; Start 04/25/16 at 22:00 Hydralazine HCl (Apresoline) 25 mg Q8 PRN GTB ELEVATED BLOOD PRESSURE Last administered on 05/20/16 21:57; Admin Dose 25 MG; Start 04/25/16 at 22:00 Magnesium Hydroxide (Milk Of Mag) 30 ml DAILY PRN GTB CONSTIPATION; Start at 22:00 Lactobacillus Acidoph/Bulgaricus (Floranex) 1 tab BID GTB Last administered on 05/28/16 08:06; Admin Dose 1 TAB; Start 04/26/16 at 09:00 Folic Acid (Folic Acid) 1 mg DAILY PO Last administered on 05/28/16 08:06; Admin Dose 1 MG; Start 04/26/16 at 09:00 Diphenhydramine HCl (Benadryl) 25 mg Q6H PRN IM Itching Last administered on 16:59; Admin Dose 25 MG; Start 04/26/16 at 02:15 Vitamin B Complex/ Vitamin C (Berocca) 1 cap DAILY PO Last administered on 08:06; Admin Dose 1 CAP; Start 04/26/16 at 09:00 Valsartan (Diovan) 80 mg BID GTB Last administered on 05/28/16 08:06; Admin Dose 80 MG; Start 04/29/16 at 21:00 Lorazepam (Ativan) 1 mg Q6H PRN IV Anxiety Last administered on 05/16/16 05:41 ; Admin Dose 1 MG; Start 04/30/16 at 14:30 Famotidine (Pepcid) 20 mg Q24H GTB Last administered on 05/27/16 18:25; Admin Dose 20 MG; Start 05/06/16 at 17:00 Sodium Phosphate (Neutra-Phos) 500 mg BID GTB Last administered on 05/28/16 08: 06; Admin Dose 500 MG; Start 05/07/16 at 10:30 Rifaximin (Xifaxan) 200 mg TID PO Last administered on 05/28/16 08:06; Admin Dose 200 MG; Start 05/19/16 at 13:00 Clonidine (Catapres) 0.1 mg Q6 PRN NGT ELEVATED BLOOD PRESSURE Last administered on 05/21/16 05:35; Admin Dose 0.1 MG; Start 05/21/16 at 00:30 Risperidone (Risperdal) 0.5 mg QHS GTB Last administered on 05/27/16 22:26; Admin Dose 0.5 MG; Start 05/26/16 at 21:00 ZEYAD VILLAVICENCIO NP May 28, 2016 11:50
--- NOTE | 2016-05-28 12:59 | PN ---
DATE: 05/28/2016 SUBJECTIVE: The patient is stable, no acute events overnight. No fevers, chills, nausea, vomiting. The patient had hemodialysis yesterday, tolerated it well. OBJECTIVE: VITAL SIGNS: Blood pressure 119/56, respirations 18, pulse 96, temperature 98.6. HEENT: Head is normocephalic. NECK: Supple. HEART: Regular rate. LUNGS: Show diminished breath sounds at bases. ABDOMEN: Soft, nontender to palpation. No rebound or guarding. EXTREMITIES: Negative for clubbing, cyanosis. No edema. DERMATOLOGIC: No rashes. MUSCULOSKELETAL: No joint effusions. NEUROLOGIC: No change in exam. MEDICATIONS: The patient's medications have been reviewed. LABORATORY DATA: Currently pending. ASSESSMENT AND PLAN: 1. End-stage renal disease. The patient had hemodialysis yesterday, tolerated it well. Plan for d ialysis tomorrow. 2. Access. The patient has a Perma-Cath. Possible AV fistula placement. Dr. Ramirez was consu lted. 3. Anemia. Continue to monitor H and H. Continue Epogen. 4. Mineral bone disorder. Continue to monitor calcium and phosphorus levels. 5. Hypermagnesemia secondary to end-stage renal disease, improving. Continue hemodialysis. 6. Dysphagia, status post PEG tube. Continue tube feeding. 7. Clostridium difficile. The patient is on oral vancomycin, continue. 8. Decubitus wound. Continue wound care. 9. Dementia with behavioral disturbances. Continue current medical management. Dictated By: HUDSON GREGG/ESTEE Conf#: [id number] DID#: [id number]
[2016-05-28] MEDS: FAMOTIDINE 20 MG TAB GTB SCH (16:21)
[2016-05-28] MEDS: EPOETIN 10000 UNITS/1 ML INJ (ESRD) SC SCH (16:25)
[2016-05-28] MEDS: RISPERIDONE 1 MG TAB GTB SCH (21:41)
[2016-05-29] VITALS (23 sets, daily range): BP systolic 89–156; BP diastolic 53–79; PULSE 76–124; RESP 16–20
[2016-05-29] MEDS: LACTOBACILLUS CHEW TAB GTB SCH ×2 (08:12→20:33)
[2016-05-29] MEDS: RIFAXIMIN 200 MG TAB PO SCH ×3 (08:12→20:33)
[2016-05-29] MEDS: NEUTRA-PHOS 250 MG PACKET GTB SCH ×2 (08:12→20:33)
[2016-05-29] MEDS: VITAMIN B COMPLEX/VIT C CAP PO SCH (08:12)
[2016-05-29] MEDS: FOLIC ACID 1 MG TAB PO SCH (08:12)
[2016-05-29] MEDS: VALSARTAN 80 MG TAB GTB SCH ×2 (08:13→20:33)
--- NOTE | 2016-05-29 09:53 | PN ---
Date/Time of Note Date/Time of Note DATE: 05/29/16 TIME: 09:52 Assessment/Plan VTE Prophylaxis VTE Prophylaxis Intervention: SCD's Lines/Catheters [facility] Urinary Cath still in place: No Assessment/Plan Chief Complaint/Hosp Course 1. End-stage renal disease on hemodialysis, dislodged hemodialysis catheter. Nephrology following. The patient had a right IJ hemodialysis access placed by vascular surgery on 05/03/2016. 2. Accelerated hypertension. Continue routine and p.r.n. antihypertensives. Blood pressure fairly well controlled. 3. Dysphagia. Continue G-tube feedings. 4. Dementia. Reorient the patient frequently. Will start the patient on memantine. 5. Incontinent dermatitis. Wound care consult. Local wound care. 6. C diff colitis. S/P oral vancomycin. 7. Anemia of chronic renal disease. Continue to monitor the H and H closely. Transfuse as needed. The patient was started on Epogen. Stool for occult bloodX1 positive. 8. Hyperkalemia. The patient gets hemodialysis as per nephrology. 9. Fluid, electrolytes and nutrition. Continue G-tube feedings. 10. DVT prophylaxis. Bilateral sequential compression devices. 11. Gastrointestinal prophylaxis. Histamine 2 receptor blockers. PLAN: Hemodialysis as per nephrology. Status post PermCath placement on 2016. Try releasing the patient's restraints. If the patient is off restraints , the patient can be transferred back to half-way facility. Will adjust antipsychotic dosing. Case discussed with Dr. Mckeon. Problems: Subjective 24 Hr Interval Summary Free Text/Dictation Patient remains confused. On the bilateral soft wrist restraints Exam/Review of Systems Vital Signs Vitals Vital Signs Date Time Temp Pulse Resp B/P Pulse Ox O2 Delivery O2 Flow Rate FiO2 05/29/16 08:00 98.4 76 20 120/64 94 Room Air Intake and Output 05/28/16 05/28/16 05/29/16 15:00 23:00 07:00 Intake Total 900 ml 710 ml Balance 900 ml 710 ml Exam GENERAL: This is a thin, frail-looking [place] female lying in bed in no apparent distress. Very confused. HEENT: Head normocephalic and atraumatic. Eyes: Anicteric sclerae. Conjunctivae clear. ENT: Nasal septum is midline. Oral mucosa is dry. NECK: Supple. No JVD noticed. RESPIRATORY: Bilaterally diminished breath sounds. No adventitious breath sounds. No use of accessory muscles of respiration. CARDIAC: Regular rate and rhythm. No murmurs heard. ABDOMEN: Soft, nontender and nondistended. Bowel sounds positive in all 4 quadrants. G-tube in place. GENITOURINARY: Deferred. EXTREMITIES: No cyanosis, no clubbing, no edema. Peripheral pulses are palpable. NEUROLOGIC: The patient is awake and alert. Oriented to person. Disoriented to place, time and purpose. PSYCHIATRIC: Pleasant. Confused. Results Result Diagram: 05/28/16 1005 05/28/16 1005 Results 24 hrs Laboratory Tests Test 05/28/16 10:05 Anion Gap 31 H Basophils # 0.0 Basophils % 0.2 Blood Morphology Comment Blood Urea Nitrogen 81 H Calcium Level 9.6 Carbon Dioxide Level 22 Chloride Level 93 L Creatinine 2.70 H Eosinophils # 1.0 H Eosinophils % 10.8 H Glucose Level 121 Hematocrit 27.6 L Hemoglobin 8.7 L Lymphocytes # 1.3 Lymphocytes % 14.0 L Magnesium Level 2.2 Mean Corpuscular Hemoglobin 28.1 L Mean Corpuscular Hemoglobin Concent 31.7 L Mean Corpuscular Volume 88.8 Mean Platelet Volume 8.0 Monocytes # 1.2 H Monocytes % 13.2 H Neutrophils # 5.6 Neutrophils % 61.8 Nucleated Red Blood Cells # 0.0 Nucleated Red Blood Cells % 0.0 Phosphorus Level 11.6 H Platelet Count 326 Potassium Level 5.5 H Red Blood Count 3.11 L Red Cell Distribution Width 19.7 H Sodium Level 140 White Blood Count 9.1 Medications Medications Current Medications Ondansetron HCl (Zofran Inj) 4 mg Q6H PRN IV NAUSEA AND/OR VOMITING Last administered on 05/05/16 22:10; Admin Dose 4 MG; Start 04/25/16 at 22:00 Acetaminophen (Tylenol Tab) 650 mg Q6H PRN PO PAIN LEVEL 1-3 OR FEVER Last administered on 05/17/16 00:25; Admin Dose 650 MG; Start 04/25/16 at 22:00 Acetaminophen/ Hydrocodone Bitart ([place] (5/325)) 1 tab Q6H PRN GTB MODERATE PAIN LEVEL 4-6 Last administered on 05/05/16 11:41; Admin Dose 1 TAB; Start 04/25/16 at 22:00 Morphine Sulfate (morphine) 2 mg Q4H PRN IV SEVERE PAIN LEVEL 7-10; Start at 22:00 Docusate Sodium (Colace Liquid Cup) 100 mg Q12H PRN GTB CONSTIPATION; Start 04/25/16 at 22:00 Hydralazine HCl (Apresoline) 25 mg Q8 PRN GTB ELEVATED BLOOD PRESSURE Last administered on 05/20/16 21:57; Admin Dose 25 MG; Start 04/25/16 at 22:00 Magnesium Hydroxide (Milk Of Mag) 30 ml DAILY PRN GTB CONSTIPATION; Start at 22:00 Lactobacillus Acidoph/Bulgaricus (Floranex) 1 tab BID GTB Last administered on 05/29/16 08:12; Admin Dose 1 TAB; Start 04/26/16 at 09:00 Folic Acid (Folic Acid) 1 mg DAILY PO Last administered on 05/29/16 08:12; Admin Dose 1 MG; Start 04/26/16 at 09:00 Diphenhydramine HCl (Benadryl) 25 mg Q6H PRN IM Itching Last administered on 16:59; Admin Dose 25 MG; Start 04/26/16 at 02:15 Vitamin B Complex/ Vitamin C (Berocca) 1 cap DAILY PO Last administered on 08:12; Admin Dose 1 CAP; Start 04/26/16 at 09:00 Valsartan (Diovan) 80 mg BID GTB Last administered on 05/28/16 21:41; Admin Dose 80 MG; Start 04/29/16 at 21:00 Lorazepam (Ativan) 1 mg Q6H PRN IV Anxiety Last administered on 05/16/16 05:41 ; Admin Dose 1 MG; Start 04/30/16 at 14:30 Famotidine (Pepcid) 20 mg Q24H GTB Last administered on 05/28/16 16:21; Admin Dose 20 MG; Start 05/06/16 at 17:00 Sodium Phosphate (Neutra-Phos) 500 mg BID GTB Last administered on 05/29/16 08: 12; Admin Dose 500 MG; Start 05/07/16 at 10:30 Rifaximin (Xifaxan) 200 mg TID PO Last administered on 05/29/16 08:12; Admin Dose 200 MG; Start 05/19/16 at 13:00 Clonidine (Catapres) 0.1 mg Q6 PRN NGT ELEVATED BLOOD PRESSURE Last administered on 05/21/16 05:35; Admin Dose 0.1 MG; Start 05/21/16 at 00:30 Risperidone (Risperdal) 0.5 mg QHS GTB Last administered on 05/28/16 21:41; Admin Dose 0.5 MG; Start 05/26/16 at 21:00 ZEYAD VILLAVICENCIO NP May 29, 2016 09:53
--- NOTE | 2016-05-29 11:48 | PN ---
DATE: 05/29/2016 SUBJECTIVE: The patient is stable, no acute events overnight. No fevers, chills, nausea/vomiting. The patient is pending for hemodialysis today. OBJECTIVE: VITAL SIGNS: Blood pressure is 120/64, respiration is 20, pulse 74, temperature 98.4. HEENT: Head is normocephalic. NECK: Supple. HEART: Regular rate. LUNGS: Show diminished breath sounds at base. ABDOMEN: Soft, nontender to palpation. No rebound or guarding. EXTREMITIES: Negative for clubbing, cyanosis, edema. DERMATOLOGIC: No rashes. MUSCULOSKELETAL: No joint effusions. NEUROLOGIC: No change in exam. MEDICATIONS: Reviewed. LABORATORY DATA FROM 05/28/2016: Showed sodium 140, potassium of 5, BUN 81, creatinine 2.70. White count 9.1, hemoglobin 8.7, hematocrit 27.6, and platelet count is 326. ASSESSMENT AND PLAN: 1. End-stage renal disease. The patient is scheduled for hemodialysis today. Will dialyze for 3 h ours, 2K bath, calcium 2.5. 2. Hyperkalemia. The patient will continue low-potassium diet. Will continue dialysis with low po tassium bath. 3. Anemia. Continue to monitor hemoglobin and hematocrit levels. Continue Epogen. 4. Mineral bone disorder. Continue to monitor calcium and phosphorus levels. 5. Access. The patient has a Perm-A-Cath. A consult is placed with Dr. Ramirez to see if the pa fanny is a candidate for AV fistula. 6. 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 Continue hemodialysis. 7. Dysphagia, status post percutaneous endoscopic gastrostomy. Continue tube feeding. 8. Clostridium difficile. The patient is status post vancomycin. 9. Decubitus wound. Continue wound care. 10. Dementia. Continue current medical management. Dictated By: HUDSON GREGG/ESTEE Conf#: [id number] DID#: [id number]
[2016-05-29] MEDS: ALBUMIN HUMAN 25% 100 ML IV PRN ×2 (13:01→14:53)
[2016-05-29] MEDS: MEMANTINE 5 MG TAB GTB SCH (16:19)
[2016-05-29] MEDS: FAMOTIDINE 20 MG TAB GTB SCH (16:19)
[2016-05-29] MEDS: OLANZAPINE 5 MG TAB GTB SCH (16:19)
[2016-05-29] MEDS: EPOETIN 10000 UNITS/1 ML INJ (ESRD) SC SCH (16:21)
[2016-05-30] VITALS (11 sets, daily range): BP systolic 109–146; BP diastolic 51–80; PULSE 78–105; RESP 16–21
[2016-05-30] MEDS: RIFAXIMIN 200 MG TAB PO SCH ×3 (08:19→21:01)
[2016-05-30] MEDS: VALSARTAN 80 MG TAB GTB SCH ×2 (08:19→21:04)
[2016-05-30] MEDS: FOLIC ACID 1 MG TAB PO SCH (08:20)
[2016-05-30] MEDS: LACTOBACILLUS CHEW TAB GTB SCH ×2 (08:20→21:01)
[2016-05-30] MEDS: OLANZAPINE 5 MG TAB GTB SCH (08:20)
[2016-05-30] MEDS: MEMANTINE 5 MG TAB GTB SCH (08:20)
[2016-05-30] MEDS: VITAMIN B COMPLEX/VIT C CAP PO SCH (08:40)
--- NOTE | 2016-05-30 10:51 | PN ---
Date/Time of Note Date/Time of Note DATE: 05/30/16 TIME: 10:49 Assessment/Plan VTE Prophylaxis VTE Prophylaxis Intervention: SCD's Lines/Catheters IV Catheter Type (from [facility]): perma cath Urinary Cath still in place: No Assessment/Plan Chief Complaint/Hosp Course 1. End-stage renal disease on hemodialysis, dislodged hemodialysis catheter. Nephrology following. The patient had a right IJ hemodialysis access placed by vascular surgery on 05/03/2016. 2. Accelerated hypertension. Continue routine and p.r.n. antihypertensives. Blood pressure fairly well controlled. 3. Dysphagia. Continue G-tube feedings. 4. Dementia. Reorient the patient frequently. Will start the patient on memantine. 5. Incontinent dermatitis. Wound care consult. Local wound care. 6. C diff colitis. S/P oral vancomycin. 7. Anemia of chronic renal disease. Continue to monitor the H and H closely. Transfuse as needed. The patient was started on Epogen. Stool for occult bloodX1 positive. 8. Hyperkalemia. The patient gets hemodialysis as per nephrology. 9. Fluid, electrolytes and nutrition. Continue G-tube feedings. 10. DVT prophylaxis. Bilateral sequential compression devices. 11. Gastrointestinal prophylaxis. Histamine 2 receptor blockers. PLAN: Hemodialysis as per nephrology. Status post PermCath placement on 2016. Try releasing the patient's restraints. If the patient is off restraints , the patient can be transferred back to [facility] facility. Case discussed with Dr. Mckeon. Problems: Subjective 24 Hr Interval Summary Free Text/Dictation The patient remains confused. Exam/Review of Systems Vital Signs Vitals Vital Signs Date Time Temp Pulse Resp B/P Pulse Ox O2 Delivery O2 Flow Rate FiO2 05/30/16 10:00 97.2 78 17 120/70 90 Room Air Intake and Output 05/29/16 05/29/16 05/30/16 15:00 23:00 07:00 Intake Total 1400 ml 710 ml Output Total 1500 ml Balance -100 ml 710 ml Exam GENERAL: This is a thin, frail-looking [place] female lying in bed in no apparent distress. Very confused. HEENT: Head normocephalic and atraumatic. Eyes: Anicteric sclerae. Conjunctivae clear. ENT: Nasal septum is midline. Oral mucosa is dry. NECK: Supple. No JVD noticed. RESPIRATORY: Bilaterally diminished breath sounds. No adventitious breath sounds. No use of accessory muscles of respiration. CARDIAC: Regular rate and rhythm. No murmurs heard. ABDOMEN: Soft, nontender and nondistended. Bowel sounds positive in all 4 quadrants. G-tube in place. GENITOURINARY: Deferred. EXTREMITIES: No cyanosis, no clubbing, no edema. Peripheral pulses are palpable. NEUROLOGIC: The patient is awake and alert. Oriented to person. Disoriented to place, time and purpose. PSYCHIATRIC: Pleasant. Confused. Results Result Diagram: 05/28/16 1005 05/28/16 1005 Medications Medications Current Medications Ondansetron HCl (Zofran Inj) 4 mg Q6H PRN IV NAUSEA AND/OR VOMITING Last administered on 05/05/16 22:10; Admin Dose 4 MG; Start 04/25/16 at 22:00 Acetaminophen (Tylenol Tab) 650 mg Q6H PRN PO PAIN LEVEL 1-3 OR FEVER Last administered on 05/17/16 00:25; Admin Dose 650 MG; Start 04/25/16 at 22:00 Acetaminophen/ Hydrocodone Bitart ([place] (5/325)) 1 tab Q6H PRN GTB MODERATE PAIN LEVEL 4-6 Last administered on 05/05/16 11:41; Admin Dose 1 TAB; Start 04/25/16 at 22:00 Morphine Sulfate (morphine) 2 mg Q4H PRN IV SEVERE PAIN LEVEL 7-10; Start at 22:00 Docusate Sodium (Colace Liquid Cup) 100 mg Q12H PRN GTB CONSTIPATION; Start 04/25/16 at 22:00 Hydralazine HCl (Apresoline) 25 mg Q8 PRN GTB ELEVATED BLOOD PRESSURE Last administered on 05/20/16 21:57; Admin Dose 25 MG; Start 04/25/16 at 22:00 Magnesium Hydroxide (Milk Of Mag) 30 ml DAILY PRN GTB CONSTIPATION; Start at 22:00 Lactobacillus Acidoph/Bulgaricus (Floranex) 1 tab BID GTB Last administered on 05/30/16 08:20; Admin Dose 1 TAB; Start 04/26/16 at 09:00 Folic Acid (Folic Acid) 1 mg DAILY PO Last administered on 05/30/16 08:20; Admin Dose 1 MG; Start 04/26/16 at 09:00 Diphenhydramine HCl (Benadryl) 25 mg Q6H PRN IM Itching Last administered on 16:59; Admin Dose 25 MG; Start 04/26/16 at 02:15 Vitamin B Complex/ Vitamin C (Berocca) 1 cap DAILY PO Last administered on 08:40; Admin Dose 1 CAP; Start 04/26/16 at 09:00 Valsartan (Diovan) 80 mg BID GTB Last administered on 05/30/16 08:19; Admin Dose 80 MG; Start 04/29/16 at 21:00 Lorazepam (Ativan) 1 mg Q6H PRN IV Anxiety Last administered on 05/16/16 05:41 ; Admin Dose 1 MG; Start 04/30/16 at 14:30 Famotidine (Pepcid) 20 mg Q24H GTB Last administered on 05/29/16 16:19; Admin Dose 20 MG; Start 05/06/16 at 17:00 Rifaximin (Xifaxan) 200 mg TID PO Last administered on 05/30/16 08:19; Admin Dose 200 MG; Start 05/19/16 at 13:00 Clonidine (Catapres) 0.1 mg Q6 PRN NGT ELEVATED BLOOD PRESSURE Last administered on 05/21/16 05:35; Admin Dose 0.1 MG; Start 05/21/16 at 00:30 Memantine (Namenda) 5 mg DAILY GTB Last administered on 05/30/16 08:20; Admin Dose 5 MG; Start 05/29/16 at 10:00 Olanzapine (Zyprexa) 5 mg DAILY GTB Last administered on 05/30/16 08:20; Admin Dose 5 MG; Start 05/29/16 at 10:00 ZEYAD VILLAVICENCIO NP May 30, 2016 10:51
--- NOTE | 2016-05-30 11:30 | PN ---
DATE: 05/30/2016 SUBJECTIVE: The patient had hemodialysis yesterday, tolerated well with 1 liter removed. No other events noted. OBJECTIVE: VITAL SIGNS: Blood pressure 125/67, respirations 18, pulse 72, temperature 97.7. HEENT: Head is normocephalic. NECK: Supple. HEART: Regular rate. LUNGS: Show diminished breath sounds at the base. ABDOMEN: Soft, nontender to palpation. No rebound or guarding. EXTREMITIES: Negative for clubbing, cyanosis, no edema. DERMATOLOGIC: No rashes. MUSCULOSKELETAL: No joint effusions. NEUROLOGIC: No change in exam. MEDICATIONS: Reviewed. LABORATORY DATA: Has been reviewed. No new labs. ASSESSMENT AND PLAN: 1. End-stage renal disease. The patient had hemodialysis yesterday, tolerated well. Anticipate di alysis tomorrow. 2. Hyperkalemia. Continue low-potassium tube feeding. Continue dialysis with low potassium bath. 3. Anemia. Continue to monitor hemoglobin and hematocrit levels. Continue Epogen. 4. Metabolic disorder. Continue to monitor calcium and phosphorus levels. 5. Access. The patient has a Perm-A-Cath placed. A vascular surgery consult is placed to Dr. Maurilio buchanan to see if patient is a candidate for AV fistula. 6. Hypomagnesemia, improving. Continue dialysis. 7. Dysphagia, status post PEG. Continue tube feeding. 8. Clostridium difficile. The patient is status post vancomycin. 9. Decubitus wound. Continue wound care. 10. Dementia. Continue current medical management. Dictated By: HUDSON GREGG/ESTEE Conf#: [id number] DID#: [id number]
[2016-05-30] MEDS: FAMOTIDINE 20 MG TAB GTB SCH (17:03)
[2016-05-31] VITALS (13 sets, daily range): BP systolic 91–142; BP diastolic 32–64; PULSE 60–110; RESP 16–19
[2016-05-31] MEDS: LORAZEPAM 2 MG INJ IV PRN (01:28)
[2016-05-31] MEDS ORDERED: CEFAZOLIN 1 GM INJ ONE (07:00)
[2016-05-31] MEDS: VALSARTAN 80 MG TAB GTB SCH ×2 (09:00→20:42)
[2016-05-31] MEDS: FOLIC ACID 1 MG TAB PO SCH (09:00)
[2016-05-31] MEDS: LACTOBACILLUS CHEW TAB GTB SCH ×2 (09:00→20:42)
[2016-05-31] MEDS: RIFAXIMIN 200 MG TAB PO SCH ×3 (09:00→20:42)
[2016-05-31] MEDS: VITAMIN B COMPLEX/VIT C CAP PO SCH (09:00)
[2016-05-31] MEDS: OLANZAPINE 5 MG TAB GTB SCH (09:00)
[2016-05-31] MEDS: MEMANTINE 5 MG TAB GTB SCH (09:00)
[2016-05-31] MEDS ORDERED: GELATIN SIZE 100 SPONGE ONE (09:25)
[2016-05-31] MEDS ORDERED: POLYMYXIN/BACITRACIN 1L IRRIG ONE (09:25)
[2016-05-31] MEDS ORDERED: LIDOCAINE 1% (STERILE-PAK) 30 ML INJ ONE (09:25)
[2016-05-31] MEDS ORDERED: HEPARIN 1000 UNITS/ML 10 ML INJ ONE (09:25)
[2016-05-31] MEDS ORDERED: THROMBIN 5000 UNIT VIAL ONE (09:25)
[2016-05-31] MEDS ORDERED: BUPIVACAINE 0.25% (MPF) 30 ML INJ ONE (09:25)
--- NOTE | 2016-05-31 10:29 | PN ---
DATE: 05/31/2016 SUBJECTIVE: The patient is stable, no acute events overnight. The patient is pending hemodialysis today. OBJECTIVE: VITAL SIGNS: Blood pressure 100/52, respirations 18, pulse 83, temperature 98.3. HEENT: Head is normocephalic. NECK: Supple. HEART: Regular rate. LUNGS: Show diminished breath sounds at the bases. ABDOMEN: Soft, nontender to palpation. No rebound or guarding. EXTREMITIES: Negative for clubbing, cyanosis. No edema. DERMATOLOGIC: No rashes. MUSCULOSKELETAL: No joint effusions. NEUROLOGIC: No change in exam. MEDICATIONS: The patient's medications have been reviewed. LABORATORY DATA: Currently pending. ASSESSMENT AND PLAN: 1. End-stage renal disease. The patient is scheduled for dialysis today for 3 hours on 3 K bath, c alcium 2.5. 2. Hyperkalemia. The patient will be dialyzed low potassium bath. Continue current tube feedings. 3. Anemia. Continue to monitor hemoglobin and hematocrit levels. Continue Epogen. 4. Mineral bone disorder. Continue to monitor calcium and phosphorus levels. 5. Access. The patient has a current Perma-Cath. Evaluation for AV fistula is pending per Dr. Gary cody to see if patient is an adequate candidate. 6. Hypermagnesemia, improving. Continue dialysis. 7. Dysphagia, status post PEG tube. Continue tube feeds. 8. Clostridium difficile. The patient is status post vancomycin. 9. Decubitus wound. Continue wound care. 10. Dementia. Continue . Dictated By: HUDSON GREGG/ESTEE Conf#: [id number] DID#: [id number]
[2016-05-31] MEDS ORDERED: FENTAnyl 50 MCG/ML VIAL ONE (10:34)
[2016-05-31] MEDS ORDERED: PROPOFOL 100 ML ONE (10:34)
[2016-05-31] MEDS ORDERED: KETAMINE 500 MG INJ ONE (10:35)
--- NOTE | 2016-05-31 10:43 | HPN ---
Date/Time of Note Date/Time of Note DATE: 05/31/16 TIME: 10:43 Interval H&P Admission Note Pt. seen H&P reviewed: No system changes HANS TODD MD May 31, 2016 10:43
--- NOTE | 2016-05-31 10:47 | PN ---
Date/Time of Note Date/Time of Note DATE: 05/31/16 TIME: 10:45 Assessment/Plan VTE Prophylaxis VTE Prophylaxis Intervention: SCD's Lines/Catheters [facility] [place] Urinary Cath still in place: No Assessment/Plan Chief Complaint/Hosp Course 1. End-stage renal disease on hemodialysis, dislodged hemodialysis catheter. Nephrology following. The patient had a right IJ hemodialysis access placed by vascular surgery on 05/03/2016. 2. Accelerated hypertension. Continue routine and p.r.n. antihypertensives. Blood pressure fairly well controlled. 3. Dysphagia. Continue G-tube feedings. 4. Dementia. Reorient the patient frequently. Will start the patient on memantine. 5. Incontinent dermatitis. Wound care consult. Local wound care. 6. C diff colitis. S/P oral vancomycin. 7. Anemia of chronic renal disease. Continue to monitor the H and H closely. Transfuse as needed. The patient was started on Epogen. Stool for occult bloodX1 positive. 8. Hyperkalemia. The patient gets hemodialysis as per nephrology. 9. Fluid, electrolytes and nutrition. Continue G-tube feedings. 10. DVT prophylaxis. Bilateral sequential compression devices. 11. Gastrointestinal prophylaxis. Histamine 2 receptor blockers. PLAN: Hemodialysis as per nephrology. Status post PermCath placement on 2016. The patient is off restraints since 05/30/2016. The patient is getting a AV fistula placed on 05/31/2016. The patient will be discharged to a shelter facility after the AV fistula placement once cleared by vascular surgery. Case discussed with Dr. Mckeon. Problems: Subjective 24 Hr Interval Summary Free Text/Dictation The patient is off restraints. She is scheduled for an AV fistula placement today. Exam/Review of Systems Vital Signs Vitals Vital Signs Date Time Temp Pulse Resp B/P Pulse Ox O2 Delivery O2 Flow Rate FiO2 05/31/16 08:38 98.3 83 18 100/52 98 05/30/16 12:11 Room Air Intake and Output 05/30/16 05/30/16 05/31/16 15:00 23:00 07:00 Intake Total 870 ml 375 ml Balance 870 ml 375 ml Exam GENERAL: This is a thin, frail-looking [place] female lying in bed in no apparent distress. Very confused. HEENT: Head normocephalic and atraumatic. Eyes: Anicteric sclerae. Conjunctivae clear. ENT: Nasal septum is midline. Oral mucosa is dry. NECK: Supple. No JVD noticed. RESPIRATORY: Bilaterally diminished breath sounds. No adventitious breath sounds. No use of accessory muscles of respiration. CARDIAC: Regular rate and rhythm. No murmurs heard. ABDOMEN: Soft, nontender and nondistended. Bowel sounds positive in all 4 quadrants. G-tube in place. GENITOURINARY: Deferred. EXTREMITIES: No cyanosis, no clubbing, no edema. Peripheral pulses are palpable. NEUROLOGIC: The patient is awake and alert. Oriented to person. Disoriented to place, time and purpose. PSYCHIATRIC: Pleasant. Confused. Results Result Diagram: 05/28/16 1005 05/31/16 0936 Results 24 hrs Laboratory Tests Test 05/31/16 09:36 Potassium Level 5.7 H Medications Medications Current Medications Ondansetron HCl (Zofran Inj) 4 mg Q6H PRN IV NAUSEA AND/OR VOMITING Last administered on 05/05/16 22:10; Admin Dose 4 MG; Start 04/25/16 at 22:00 Acetaminophen (Tylenol Tab) 650 mg Q6H PRN PO PAIN LEVEL 1-3 OR FEVER Last administered on 05/17/16 00:25; Admin Dose 650 MG; Start 04/25/16 at 22:00 Acetaminophen/ Hydrocodone Bitart ([place] (5/325)) 1 tab Q6H PRN GTB MODERATE PAIN LEVEL 4-6 Last administered on 05/05/16 11:41; Admin Dose 1 TAB; Start 04/25/16 at 22:00 Morphine Sulfate (morphine) 2 mg Q4H PRN IV SEVERE PAIN LEVEL 7-10; Start at 22:00 Docusate Sodium (Colace Liquid Cup) 100 mg Q12H PRN GTB CONSTIPATION; Start 04/25/16 at 22:00 Hydralazine HCl (Apresoline) 25 mg Q8 PRN GTB ELEVATED BLOOD PRESSURE Last administered on 05/20/16 21:57; Admin Dose 25 MG; Start 04/25/16 at 22:00 Magnesium Hydroxide (Milk Of Mag) 30 ml DAILY PRN GTB CONSTIPATION; Start at 22:00 Lactobacillus Acidoph/Bulgaricus (Floranex) 1 tab BID GTB Last administered on 05/30/16 21:01; Admin Dose 1 TAB; Start 04/26/16 at 09:00 Folic Acid (Folic Acid) 1 mg DAILY PO Last administered on 05/30/16 08:20; Admin Dose 1 MG; Start 04/26/16 at 09:00 Diphenhydramine HCl (Benadryl) 25 mg Q6H PRN IM Itching Last administered on 16:59; Admin Dose 25 MG; Start 04/26/16 at 02:15 Vitamin B Complex/ Vitamin C (Berocca) 1 cap DAILY PO Last administered on 08:40; Admin Dose 1 CAP; Start 04/26/16 at 09:00 Valsartan (Diovan) 80 mg BID GTB Last administered on 05/30/16 21:04; Admin Dose 80 MG; Start 04/29/16 at 21:00 Lorazepam (Ativan) 1 mg Q6H PRN IV Anxiety Last administered on 05/31/16 01:28 ; Admin Dose 1 MG; Start 04/30/16 at 14:30 Famotidine (Pepcid) 20 mg Q24H GTB Last administered on 05/30/16 17:03; Admin Dose 20 MG; Start 05/06/16 at 17:00 Rifaximin (Xifaxan) 200 mg TID PO Last administered on 05/30/16 21:01; Admin Dose 200 MG; Start 05/19/16 at 13:00 Clonidine (Catapres) 0.1 mg Q6 PRN NGT ELEVATED BLOOD PRESSURE Last administered on 05/21/16 05:35; Admin Dose 0.1 MG; Start 05/21/16 at 00:30 Memantine (Namenda) 5 mg DAILY GTB Last administered on 05/30/16 08:20; Admin Dose 5 MG; Start 05/29/16 at 10:00 Olanzapine (Zyprexa) 5 mg DAILY GTB Last administered on 05/30/16 08:20; Admin Dose 5 MG; Start 05/29/16 at 10:00 ZEYAD VILLAVICENCIO NP May 31, 2016 10:47
[2016-05-31] MEDS ORDERED: PHENYLephrine (100 MCG/ML) 5ML SYG ONE (11:13)
[2016-05-31] MEDS ORDERED: MIDAZOLAM 1 MG/ML 2 ML INJ ONE (11:26)
[2016-05-31] MEDS ORDERED: LIDOCAINE 1% (MPF) 30 ML INJ INJ ONE (11:32)
--- NOTE | 2016-05-31 15:00 | OPR ---
DATE OF OPERATION: PREOPERATIVE DIAGNOSIS: Renal failure. POSTOPERATIVE DIAGNOSIS: Renal failure. OPERATION PERFORMED: Left arm AV fistula placement. SURGEON: Hans Ramirez MD. ANESTHESIA: Local plus IV sedation. CONSENT: Risks, benefits, complications, alternative therapies explained to the patient and the [facility], consent obtained. OPERATIVE TECHNIQUE: The patient was placed in supine position, prepped and draped in usual sterile fashion, 1% lidocaine was used throughout the operation for local anesthesia. I made a 2 cm incisi on in left antecubital fossa. Incision was taken down to the subcutaneous tissue which was then ope mayra using electrocautery. This hepatic bed was identified, transected distally and anastomosed to t he brachial artery just distal to the antecubital fossa after giving the patient 5000 units of IV he elvi. The anastomosis was done in an end-to-side fashion, 6 mm longitudinal arteriotomy, 7-0 Prole ne in continuous suture technique end-to-side manner. The wound was then irrigated and closed in 2 layers of 3-0 Vicryl suture in running subcuticular skin closure. Patient tolerated the procedure w ell. Dictated By: HANS NATHAN/NTS Conf#: [id number] DID#: [id number]
[2016-05-31] MEDS: FAMOTIDINE 20 MG TAB GTB SCH (16:55)
[2016-06-01] VITALS (8 sets, daily range): BP systolic 106–176; BP diastolic 48–74; PULSE 82–115; RESP 18–20
[2016-06-01] MEDS: EPOETIN 10000 UNITS/1 ML INJ (ESRD) SC SCH (03:00)
[2016-06-01 06:14] LABS: ADD SCAN DIFF NO
[2016-06-01 06:22] LABS: EOSINOPHILS # 0.6 10^3/ul (0.0-0.5); EOSINOPHILS % 5.4 % (0.0-7.0); HEMATOCRIT 24.5 % (37.0-47.0); HEMOGLOBIN 7.7 g/dl (12.0-16.0); LYMPHOCYTES # 1.1 10^3/ul (0.8-2.9); LYMPHOCYTES % 9.6 % (15.0-51.0); MEAN CORPUSCULAR HEMOGLOBIN 28.1 pg (29.0-33.0); MEAN CORPUSCULAR HGB CONC 31.5 g/dl (32.0-37.0); MEAN CORPUSCULAR VOLUME 89.2 fl (82.0-101.0); MEAN PLATELET VOLUME 8.3 fl (7.4-10.4); MONOCYTE # 1.3 10^3/ul (0.3-0.9); MONOCYTES % 11.2 % (0.0-11.0); NEUTROPHIL # 8.4 10^3/ul (1.6-7.5); NEUTROPHILS % 73.8 % (39.0-77.0); PLATELET COUNT 282 10^3/UL (140-440); RED BLOOD COUNT 2.75 10^6/ul (4.20-5.40); RED CELL DISTRIBUTION WIDTH 19.9 % (11.5-14.5); WHITE BLOOD COUNT 11.3 10^3/ul (4.8-10.8)
[2016-06-01 06:35] LABS: POTASSIUM 3.2 mmol/L (3.5-5.1)
[2016-06-01 06:37] LABS: CREATININE 1.57 mg/dl (0.44-1.00)
[2016-06-01 06:39] LABS: CALCIUM 8.8 mg/dl (8.4-10.2); MAGNESIUM 2.1 mg/dl (1.7-2.5)
[2016-06-01] MEDS: VALSARTAN 80 MG TAB GTB SCH ×2 (09:18→21:27)
[2016-06-01] MEDS: LACTOBACILLUS CHEW TAB GTB SCH ×2 (09:18→21:28)
[2016-06-01] MEDS: FOLIC ACID 1 MG TAB PO SCH (09:19)
[2016-06-01] MEDS: VITAMIN B COMPLEX/VIT C CAP PO SCH (09:19)
[2016-06-01] MEDS: RIFAXIMIN 200 MG TAB PO SCH ×3 (09:19→21:26)
[2016-06-01] MEDS: MEMANTINE 5 MG TAB GTB SCH (09:19)
[2016-06-01] MEDS: OLANZAPINE 5 MG TAB GTB SCH (09:19)
--- NOTE | 2016-06-01 09:59 | PN ---
Date/Time of Note Date/Time of Note DATE: 06/01/16 TIME: 09:57 Assessment/Plan VTE Prophylaxis VTE Prophylaxis Intervention: SCD's Lines/Catheters IV [facility] permacath Urinary Cath still in place: No Assessment/Plan Chief Complaint/Hosp Course 1. End-stage renal disease on hemodialysis, dislodged hemodialysis catheter. Nephrology following. The patient had a right IJ hemodialysis access placed by vascular surgery on 05/03/2016. 2. Accelerated hypertension. Continue routine and p.r.n. antihypertensives. Blood pressure fairly well controlled. 3. Dysphagia. Continue G-tube feedings. 4. Dementia. Reorient the patient frequently. Will start the patient on memantine. 5. Incontinent dermatitis. Wound care consult. Local wound care. 6. C diff colitis. S/P oral vancomycin. 7. Anemia of chronic renal disease. Continue to monitor the H and H closely. Transfuse as needed. The patient was started on Epogen. Stool for occult bloodX1 positive. 8. Hyperkalemia. The patient gets hemodialysis as per nephrology. The patient currently hypokalemic. 9. Fluid, electrolytes and nutrition. Continue G-tube feedings. 10. DVT prophylaxis. Bilateral sequential compression devices. 11. Gastrointestinal prophylaxis. Histamine 2 receptor blockers. PLAN: Hemodialysis as per nephrology. Status post PermCath placement on 2016. The patient is off restraints since 05/30/2016. The patient is status post AV fistula placed on 05/31/2016. The patient will be discharged to a shelter facility once cleared by consultants. Case discussed with Dr. Mckeon. Problems: Subjective 24 Hr Interval Summary Free Text/Dictation Status post AV fistula placement on 05/31/2016. Exam/Review of Systems Vital Signs Vitals Vital Signs Date Time Temp Pulse Resp B/P Pulse Ox O2 Delivery O2 Flow Rate FiO2 06/01/16 07:20 97.2 94 20 146/64 98 05/31/16 14:00 Nasal Cannula 4.0 Intake and Output 05/31/16 05/31/16 06/01/16 15:00 23:00 07:00 Intake Total 250 ml 290 ml 3270 ml Output Total 15 ml 2500 ml Balance 235 ml 290 ml 770 ml Exam GENERAL: This is a thin, frail-looking Iranian female lying in bed in no apparent distress. Very confused. HEENT: Head normocephalic and atraumatic. Eyes: Anicteric sclerae. Conjunctivae clear. ENT: Nasal septum is midline. Oral mucosa is dry. NECK: Supple. No JVD noticed. RESPIRATORY: Bilaterally diminished breath sounds. No adventitious breath sounds. No use of accessory muscles of respiration. CARDIAC: Regular rate and rhythm. No murmurs heard. ABDOMEN: Soft, nontender and nondistended. Bowel sounds positive in all 4 quadrants. G-tube in place. GENITOURINARY: Deferred. EXTREMITIES: No cyanosis, no clubbing, no edema. Peripheral pulses are palpable. NEUROLOGIC: The patient is awake and alert. Oriented to person. Disoriented to place, time and purpose. PSYCHIATRIC: Pleasant. Confused. Results Result Diagram: 06/01/16 0500 06/01/16 0500 Results 24 hrs Laboratory Tests Test 06/01/16 05:00 Anion Gap 20 H Basophils # 0.0 Basophils % 0.0 Blood Morphology Comment Blood Urea Nitrogen 42 H Calcium Level 8.8 Carbon Dioxide Level 28 Chloride Level 96 L Creatinine 1.57 H Eosinophils # 0.6 H Eosinophils % 5.4 Glucose Level 98 Hematocrit 24.5 L Hemoglobin 7.7 L Lymphocytes # 1.1 Lymphocytes % 9.6 L Magnesium Level 2.1 Mean Corpuscular Hemoglobin 28.1 L Mean Corpuscular Hemoglobin Concent 31.5 L Mean Corpuscular Volume 89.2 Mean Platelet Volume 8.3 Monocytes # 1.3 H Monocytes % 11.2 H Neutrophils # 8.4 H Neutrophils % 73.8 Nucleated Red Blood Cells # 0.0 Nucleated Red Blood Cells % 0.0 Phosphorus Level 4.0 Platelet Count 282 Potassium Level 3.2 #L Red Blood Count 2.75 L Red Cell Distribution Width 19.9 H Sodium Level 141 White Blood Count 11.3 #H Medications Medications Current Medications Ondansetron HCl (Zofran Inj) 4 mg Q6H PRN IV NAUSEA AND/OR VOMITING Last administered on 05/05/16 22:10; Admin Dose 4 MG; Start 04/25/16 at 22:00 Acetaminophen (Tylenol Tab) 650 mg Q6H PRN PO PAIN LEVEL 1-3 OR FEVER Last administered on 05/17/16 00:25; Admin Dose 650 MG; Start 04/25/16 at 22:00 Acetaminophen/ Hydrocodone Bitart ([place] (5/325)) 1 tab Q6H PRN GTB MODERATE PAIN LEVEL 4-6 Last administered on 05/05/16 11:41; Admin Dose 1 TAB; Start 04/25/16 at 22:00 Morphine Sulfate (morphine) 2 mg Q4H PRN IV SEVERE PAIN LEVEL 7-10; Start at 22:00 Docusate Sodium (Colace Liquid Cup) 100 mg Q12H PRN GTB CONSTIPATION; Start 04/25/16 at 22:00 Hydralazine HCl (Apresoline) 25 mg Q8 PRN GTB ELEVATED BLOOD PRESSURE Last administered on 05/20/16 21:57; Admin Dose 25 MG; Start 04/25/16 at 22:00 Magnesium Hydroxide (Milk Of Mag) 30 ml DAILY PRN GTB CONSTIPATION; Start at 22:00 Lactobacillus Acidoph/Bulgaricus (Floranex) 1 tab BID GTB Last administered on 06/01/16 09:18; Admin Dose 1 TAB; Start 04/26/16 at 09:00 Folic Acid (Folic Acid) 1 mg DAILY PO Last administered on 06/01/16 09:19; Admin Dose 1 MG; Start 04/26/16 at 09:00 Diphenhydramine HCl (Benadryl) 25 mg Q6H PRN IM Itching Last administered on 16:59; Admin Dose 25 MG; Start 04/26/16 at 02:15 Vitamin B Complex/ Vitamin C (Berocca) 1 cap DAILY PO Last administered on 06/01 09:19; Admin Dose 1 CAP; Start 04/26/16 at 09:00 Valsartan (Diovan) 80 mg BID GTB Last administered on 06/01/16 09:18; Admin Dose 80 MG; Start 04/29/16 at 21:00 Lorazepam (Ativan) 1 mg Q6H PRN IV Anxiety Last administered on 05/31/16 01:28 ; Admin Dose 1 MG; Start 04/30/16 at 14:30 Famotidine (Pepcid) 20 mg Q24H GTB Last administered on 05/31/16 16:55; Admin Dose 20 MG; Start 05/06/16 at 17:00 Rifaximin (Xifaxan) 200 mg TID PO Last administered on 06/01/16 09:19; Admin Dose 200 MG; Start 05/19/16 at 13:00 Clonidine (Catapres) 0.1 mg Q6 PRN NGT ELEVATED BLOOD PRESSURE Last administered on 05/21/16 05:35; Admin Dose 0.1 MG; Start 05/21/16 at 00:30 Memantine (Namenda) 5 mg DAILY GTB Last administered on 06/01/16 09:19; Admin Dose 5 MG; Start 05/29/16 at 10:00 Olanzapine (Zyprexa) 5 mg DAILY GTB Last administered on 06/01/16 09:19; Admin Dose 5 MG; Start 05/29/16 at 10:00 ZEYAD VILLAVICENCIO NP Jun 01, 2016 09:58
[2016-06-01] MEDS ORDERED: POTASSIUM CHLORIDE (SR) 20 MEQ TAB PO STA (11:23)
[2016-06-01] MEDS ORDERED: POTASSIUM CHLORIDE 20 MEQ POWDER FOR ORAL SOLN PO STA (12:05)
--- NOTE | 2016-06-01 12:07 | PN ---
DATE: SUBJECTIVE: Yesterday, the patient had AV fistula placement without any complications. The patient also had hemodialysis yesterday, tolerated well. No other acute events noted. OBJECTIVE: VITAL SIGNS: Blood pressure is 146/64, respirations 20, pulse 94, temperature 97.2. HEENT: Head is normocephalic. NECK: Supple. HEART: Regular rate. LUNGS: Show diminished breath sounds at base. ABDOMEN: Soft, nontender to palpation without rebound or guarding. EXTREMITIES: Negative for clubbing, cyanosis. No edema. DERMATOLOGIC: No rashes. MUSCULOSKELETAL: No joint effusions. NEUROLOGIC: No change in exam. MEDICATIONS: The patient's medications have been reviewed. LABORATORY DATA: Shows white count 11.3, hemoglobin 7.7, hematocrit ____.7, platelet count is 282. Sodium 141, potassium 3.2, BUN 42, creatinine 1.57. ASSESSMENT AND PLAN: 1. End-stage renal disease. The patient had hemodialysis yesterday, tolerated well. Plan for dial ysis Friday. 2. Hypokalemia, replete potassium chloride 20 mEq p.o. x1. 3. Anemia. Continue to monitor hemoglobin and hematocrit levels. Continue Epogen. 4. Mineral bone disorder. Continue to monitor calcium and phosphorus levels. 5. Access. Patient is status post AV fistula placement. Continue to monitor. 5. Hypomagnesemia, improving. Continue dialysis. 6. Dysphagia, status post PEG. Continue tube feeding. 7. Decubitus wound. Continue wound care. 8. Dementia. Continue to monitor. Dictated By: HUDSON GREGG/ESTEE Conf#: [id number] DID#: [id number]
[2016-06-01 12:54] LABS: HEMATOCRIT 24.7 % (37.0-47.0); HEMOGLOBIN 7.9 g/dl (12.0-16.0)
[2016-06-01] MEDS: FAMOTIDINE 20 MG TAB GTB SCH (16:29)
[2016-06-02 07:53] VITALS: BP 140/65; RESP 18
[2016-06-02] MEDS: LACTOBACILLUS CHEW TAB GTB SCH ×2 (08:03→21:02)
[2016-06-02] MEDS: VITAMIN B COMPLEX/VIT C CAP PO SCH (08:03)
[2016-06-02] MEDS: MEMANTINE 5 MG TAB GTB SCH (08:03)
[2016-06-02] MEDS: RIFAXIMIN 200 MG TAB PO SCH (08:03)
[2016-06-02] MEDS: OLANZAPINE 5 MG TAB GTB SCH (08:03)
[2016-06-02] MEDS: VALSARTAN 80 MG TAB GTB SCH ×2 (08:03→21:02)
[2016-06-02] MEDS: FOLIC ACID 1 MG TAB PO SCH (08:04)
[2016-06-02 11:22] LABS: EOSINOPHILS # 1.3 10^3/ul (0.0-0.5); EOSINOPHILS % 10.4 % (0.0-7.0); HEMATOCRIT 24.3 % (37.0-47.0); HEMOGLOBIN 7.6 g/dl (12.0-16.0); LYMPHOCYTES % 16.4 % (15.0-51.0); MEAN CORPUSCULAR HEMOGLOBIN 28.1 pg (29.0-33.0); MEAN CORPUSCULAR HGB CONC 31.3 g/dl (32.0-37.0); MEAN CORPUSCULAR VOLUME 89.8 fl (82.0-101.0); MEAN PLATELET VOLUME 7.9 fl (7.4-10.4); MONOCYTE # 1.8 10^3/ul (0.3-0.9); NEUTROPHIL # 7.1 10^3/ul (1.6-7.5); NEUTROPHILS % 58.2 % (39.0-77.0); PLATELET COUNT 313 10^3/UL (140-440); RED BLOOD COUNT 2.71 10^6/ul (4.20-5.40); RED CELL DISTRIBUTION WIDTH 19.9 % (11.5-14.5); UNCORRECTED WBC 12.1 10^3/ul (4.8-10.8); WHITE BLOOD COUNT 12.1 10^3/ul (4.8-10.8)
[2016-06-02 11:25] LABS: CONDITION 1; LH ANALYZER COMMENTS 1
[2016-06-02 11:43] LABS: POTASSIUM 3.9 mmol/L (3.5-5.1)
[2016-06-02 11:45] LABS: CREATININE 3.01 mg/dl (0.44-1.00)
[2016-06-02 11:46] LABS: CALCIUM 9.2 mg/dl (8.4-10.2); PHOSPHORUS 5.1 mg/dl (2.5-4.9)
[2016-06-02 11:47] LABS: MAGNESIUM 2.6 mg/dl (1.7-2.5)
--- NOTE | 2016-06-02 12:06 | PN ---
Date/Time of Note Date/Time of Note DATE: 06/02/16 TIME: 12:05 Assessment/Plan VTE Prophylaxis VTE Prophylaxis Intervention: SCD's Lines/Catheters IV [facility]ter Type (from [facility]): Peripheral IV Urinary Cath still in place: No Assessment/Plan Chief Complaint/Hosp Course 1. End-stage renal disease on hemodialysis, dislodged hemodialysis catheter. Nephrology following. The patient had a right IJ hemodialysis access placed by vascular surgery on 05/03/2016. 2. Accelerated hypertension. Continue routine and p.r.n. antihypertensives. Blood pressure fairly well controlled. 3. Dysphagia. Continue G-tube feedings. 4. Dementia. Reorient the patient frequently. Will start the patient on memantine. 5. Incontinent dermatitis. Wound care consult. Local wound care. 6. C diff colitis. S/P oral vancomycin. 7. Anemia of chronic renal disease. Continue to monitor the H and H closely. Transfuse as needed. The patient was started on Epogen. Stool for occult bloodX1 positive. 8. Hyperkalemia. The patient gets hemodialysis as per nephrology. The patient currently hypokalemic. 9. Fluid, electrolytes and nutrition. Continue G-tube feedings. 10. DVT prophylaxis. Bilateral sequential compression devices. 11. Gastrointestinal prophylaxis. Histamine 2 receptor blockers. PLAN: Hemodialysis as per nephrology. Status post PermCath placement on 2016. The patient is off restraints since 05/30/2016. The patient is status post AV fistula placed on 05/31/2016. The patient will be discharged to a [facility] facility once cleared by consultants. Case discussed with Dr. Mckeon. Problems: Subjective 24 Hr Interval Summary Free Text/Dictation Patient remains confused. Exam/Review of Systems Vital Signs Vitals Vital Signs Date Time Temp Pulse Resp B/P Pulse Ox O2 Delivery O2 Flow Rate FiO2 06/02/16 07:53 97.2 99 18 140/65 96 06/01/16 22:00 Nasal Cannula 4.0 Intake and Output 06/01/16 06/01/16 06/02/16 15:00 23:00 07:00 Intake Total 820 ml 780 ml Balance 820 ml 780 ml Exam GENERAL: This is a thin, frail-looking [place] female lying in bed in no apparent distress. Very confused. HEENT: Head normocephalic and atraumatic. Eyes: Anicteric sclerae. Conjunctivae clear. ENT: Nasal septum is midline. Oral mucosa is dry. NECK: Supple. No JVD noticed. RESPIRATORY: Bilaterally diminished breath sounds. No adventitious breath sounds. No use of accessory muscles of respiration. CARDIAC: Regular rate and rhythm. No murmurs heard. ABDOMEN: Soft, nontender and nondistended. Bowel sounds positive in all 4 quadrants. G-tube in place. GENITOURINARY: Deferred. EXTREMITIES: No cyanosis, no clubbing, no edema. Peripheral pulses are palpable. NEUROLOGIC: The patient is awake and alert. Oriented to person. Disoriented to place, time and purpose. PSYCHIATRIC: Pleasant. Confused. Results Result Diagram: 06/02/16 1103 06/02/16 1103 Results 24 hrs Laboratory Tests Test 06/01/16 12:23 06/02/16 11:03 Hematocrit 24.7 L 24.3 L Hemoglobin 7.9 L 7.6 L Anion Gap 22 H Basophils # 0.0 Basophils % 0.0 Blood Morphology Comment Blood Urea Nitrogen 83 #H Calcium Level 9.2 Carbon Dioxide Level 24 Chloride Level 97 Creatinine 3.01 #H Eosinophils # 1.3 H Eosinophils % 10.4 H Glucose Level 100 Lymphocytes # 2.0 Lymphocytes % 16.4 Magnesium Level 2.6 H Mean Corpuscular Hemoglobin 28.1 L Mean Corpuscular Hemoglobin Concent 31.3 L Mean Corpuscular Volume 89.8 Mean Platelet Volume 7.9 Monocytes # 1.8 H Monocytes % 15.0 H Neutrophils # 7.1 Neutrophils % 58.2 Nucleated Red Blood Cells # 0.0 Nucleated Red Blood Cells % 0.0 Phosphorus Level 5.1 H Platelet Count 313 Potassium Level 3.9 Red Blood Count 2.71 L Red Cell Distribution Width 19.9 H Sodium Level 139 White Blood Count 12.1 H Medications Medications Current Medications Ondansetron HCl (Zofran Inj) 4 mg Q6H PRN IV NAUSEA AND/OR VOMITING Last administered on 05/05/16 22:10; Admin Dose 4 MG; Start 04/25/16 at 22:00 Acetaminophen (Tylenol Tab) 650 mg Q6H PRN PO PAIN LEVEL 1-3 OR FEVER Last administered on 05/17/16 00:25; Admin Dose 650 MG; Start 04/25/16 at 22:00 Acetaminophen/ Hydrocodone Bitart ([place] (5/325)) 1 tab Q6H PRN GTB MODERATE PAIN LEVEL 4-6 Last administered on 05/05/16 11:41; Admin Dose 1 TAB; Start 04/25/16 at 22:00 Morphine Sulfate (morphine) 2 mg Q4H PRN IV SEVERE PAIN LEVEL 7-10; Start at 22:00 Docusate Sodium (Colace Liquid Cup) 100 mg Q12H PRN GTB CONSTIPATION; Start 04/25/16 at 22:00 Hydralazine HCl (Apresoline) 25 mg Q8 PRN GTB ELEVATED BLOOD PRESSURE Last administered on 05/20/16 21:57; Admin Dose 25 MG; Start 04/25/16 at 22:00 Magnesium Hydroxide (Milk Of Mag) 30 ml DAILY PRN GTB CONSTIPATION; Start at 22:00 Lactobacillus Acidoph/Bulgaricus (Floranex) 1 tab BID GTB Last administered on 06/02/16 08:03; Admin Dose 1 TAB; Start 04/26/16 at 09:00 Folic Acid (Folic Acid) 1 mg DAILY PO Last administered on 06/02/16 08:04; Admin Dose 1 MG; Start 04/26/16 at 09:00 Diphenhydramine HCl (Benadryl) 25 mg Q6H PRN IM Itching Last administered on 16:59; Admin Dose 25 MG; Start 04/26/16 at 02:15 Vitamin B Complex/ Vitamin C (Berocca) 1 cap DAILY PO Last administered on 06/02 08:03; Admin Dose 1 CAP; Start 04/26/16 at 09:00 Valsartan (Diovan) 80 mg BID GTB Last administered on 06/02/16 08:03; Admin Dose 80 MG; Start 04/29/16 at 21:00 Lorazepam (Ativan) 1 mg Q6H PRN IV Anxiety Last administered on 05/31/16 01:28 ; Admin Dose 1 MG; Start 04/30/16 at 14:30 Famotidine (Pepcid) 20 mg Q24H GTB Last administered on 06/01/16 16:29; Admin Dose 20 MG; Start 05/06/16 at 17:00 Clonidine (Catapres) 0.1 mg Q6 PRN NGT ELEVATED BLOOD PRESSURE Last administered on 05/21/16 05:35; Admin Dose 0.1 MG; Start 05/21/16 at 00:30 Memantine (Namenda) 5 mg DAILY GTB Last administered on 06/02/16 08:03; Admin Dose 5 MG; Start 05/29/16 at 10:00 Olanzapine (Zyprexa) 5 mg DAILY GTB Last administered on 06/02/16 08:03; Admin Dose 5 MG; Start 05/29/16 at 10:00 ZEYAD VILLAVICENCIO NP Jun 02, 2016 12:06
[2016-06-02] MEDS: FAMOTIDINE 20 MG TAB GTB SCH (17:51)
[2016-06-02 20:00] VITALS: BP 184/82; PULSE 88
[2016-06-02 23:45] VITALS: BP 170/79; PULSE 85
[2016-06-03] VITALS (11 sets, daily range): BP systolic 108–162; BP diastolic 54–80; PULSE 78–105; RESP 16–18
[2016-06-03 06:01] LABS: BASOPHILS % 0.1 % (0.0-2.0); EOSINOPHILS # 1.5 10^3/ul (0.0-0.5); EOSINOPHILS % 12.5 % (0.0-7.0); HEMATOCRIT 22.6 % (37.0-47.0); HEMOGLOBIN 7.3 g/dl (12.0-16.0); LYMPHOCYTES # 1.4 10^3/ul (0.8-2.9); LYMPHOCYTES % 11.6 % (15.0-51.0); MEAN CORPUSCULAR HEMOGLOBIN 28.7 pg (29.0-33.0); MEAN CORPUSCULAR HGB CONC 32.2 g/dl (32.0-37.0); MEAN CORPUSCULAR VOLUME 89.2 fl (82.0-101.0); MEAN PLATELET VOLUME 8.2 fl (7.4-10.4); MONOCYTE # 1.5 10^3/ul (0.3-0.9); MONOCYTES % 12.4 % (0.0-11.0); NEUTROPHIL # 7.6 10^3/ul (1.6-7.5); NEUTROPHILS % 63.4 % (39.0-77.0); PLATELET COUNT 313 10^3/UL (140-440); RED BLOOD COUNT 2.54 10^6/ul (4.20-5.40)
[2016-06-03 06:16] LABS: CONDITION 1; LH ANALYZER COMMENTS 1
[2016-06-03 06:27] LABS: POTASSIUM 3.9 mmol/L (3.5-5.1)
[2016-06-03 06:30] LABS: CREATININE 3.75 mg/dl (0.44-1.00)
[2016-06-03 06:31] LABS: CALCIUM 9.1 mg/dl (8.4-10.2); MAGNESIUM 2.7 mg/dl (1.7-2.5); PHOSPHORUS 5.5 mg/dl (2.5-4.9)
--- NOTE | 2016-06-03 06:56 | PN ---
DATE: SUBJECTIVE: The patient is stable, no acute events overnight. No hemoptysis, hemetemesis, hematoch ezia. OBJECTIVE: VITAL SIGNS: Blood pressure is 140/65, respiration 18, pulse 99, temperature 97.2. HEENT: Head is normocephalic. NECK: Supple. HEART: Regular rate. LUNGS: Show diminished breath sounds at base. ABDOMEN: Soft, nontender to palpation without rebound or guarding. EXTREMITIES: Negative for clubbing, cyanosis. No edema. DERMATOLOGIC: No rashes. MUSCULOSKELETAL EXAMINATION: No joint effusions. NEUROLOGIC: No change in exam. MEDICATIONS: The patient's medications have been reviewed. LABORATORY DATA: Have been reviewed. ASSESSMENT AND PLAN: 1. End-stage renal disease. The patient is on dialysis Friday, Friday, Friday. Plan for dialys is tomorrow. 2. Hypokalemia. The patient is status post potassium chloride. 3. Anemia. Hemoglobin levels are low. Continue to monitor, continue Epogen, consider transfusion with hemodialysis. 4. Mineral bon disorder. Continue to monitor calcium and phosphorus levels. 5. Access. The patient is status post arteriovenous fistula placement. 6. Hypermagnesemia improving. Continue dialysis. 7. Dysphagia, ____ feeding. 8. Decubitus wound. Continue wound care. 9. Dementia. Continue to monitor. Dictated By: HUDSON GREGG/ESTEE Conf#: [id number] DID#: [id number]
[2016-06-03] MEDS: VALSARTAN 80 MG TAB GTB SCH ×2 (09:00→21:25)
[2016-06-03] MEDS: MEMANTINE 5 MG TAB GTB SCH (09:17)
[2016-06-03] MEDS: OLANZAPINE 5 MG TAB GTB SCH (09:17)
[2016-06-03] MEDS: VITAMIN B COMPLEX/VIT C CAP PO SCH (09:17)
[2016-06-03] MEDS: LACTOBACILLUS CHEW TAB GTB SCH ×2 (09:17→21:25)
[2016-06-03] MEDS: FOLIC ACID 1 MG TAB PO SCH (09:17)
--- NOTE | 2016-06-03 11:50 | PN ---
DATE: 06/03/2016 SUBJECTIVE: The patient is stable, remains confused. No other acute events overnight. The patient has been to hemodialysis today. She will receive blood transfusion with dialysis. No other events noted. OBJECTIVE: VITAL SIGNS: Blood pressure 148/69, respiration 18, pulse 85, temperature 97.2. HEENT: Head is normocephalic. NECK: Supple. HEART: Regular rate. LUNGS: Show diminished breath sounds at base. ABDOMEN: Soft, nontender to palpation. No rebound, no guarding. EXTREMITIES: Negative for clubbing, cyanosis, no edema. DERMATOLOGIC: No rashes. MUSCULOSKELETAL: No joint effusions. NEUROLOGIC: No change in exam. MEDICATIONS: The patient's medications have been reviewed. LABORATORY DATA: Shows a white count 12.0, hemoglobin 7.3, hematocrit 22.6, platelet count 313. So dium 139, potassium 3.9, chloride 98, BUN 108, creatinine 3.75, phosphorus 5.7, magnesium 2.7. ASSESSMENT AND PLAN: 1. End-stage renal disease. Plan for dialysis today. We will dialyze for 3 hours on 2K bath, calci um 2.5 and ultrafiltrate as tolerated. 2. Anemia. The patient received 2 units of ____ with hemodialysis. We will give Epogen with dialy sis. 3. Mineral bone disorder. Continue to monitor calcium and phosphorus levels. 4. Hypermagnesemia, improving. Continue hemodialysis. 5. Access. The patient is status post AV fistula placement. Continue to monitor. 6. Dysphagia. Continue tube feeding. 7. Decubitus wound. Continue wound care. 8. Dementia. Continue to monitor. Dictated By: HUDSON GREGG/ESTEE Conf#: [id number] DID#: [id number]
--- NOTE | 2016-06-03 14:44 | PN ---
Date/Time of Note Date/Time of Note DATE: 06/03/16 TIME: 14:38 Assessment/Plan VTE Prophylaxis VTE Prophylaxis Intervention: SCD's Lines/Catheters IV Catheter Type (from [facility]): permacath Urinary Cath still in place: No Assessment/Plan Chief Complaint/Hosp Course Assessment and plan 1. End-stage renal disease, dialysis dependent. Patient did have dislodged hemodialysis catheter and is now status post AV fistula placement on 2016. Continue on dialysis per nephrology recommendations 2. Accelerated hypertension. Continue antihypertensives and adjust as needed 3. Dysphagia. Continue PEG tube feedings 4. Dementia. Continue aspiration and fall precautions. 5. Dermatitis from incontinence. Continue with wound care 6. Anemia of chronic renal disease. Patient noted with dropping H&H. We'll follow-up on occult stool. Patient to be transfuse one PRBC today. Continue on epogen 7. Hyperkalemia. Continue on dialysis DVT prophylaxis: SCDs GERD prophylaxis: H2 nestor Disposition and plan: Noted to be more anemic today. Patient plan for PRBC transfusion. Follow up on repeat occult stool. Discussed plan of care with Problems: Subjective 24 Hr Interval Summary Free Text/Dictation Still with some confusion. Nurse at bedside. No apparent distress. Exam/Review of Systems Vital Signs Vitals Vital Signs Date Time Temp Pulse Resp B/P Pulse Ox O2 Delivery O2 Flow Rate FiO2 06/03/16 13:45 95 06/03/16 13:15 16 06/03/16 09:53 98.1 162/70 96 06/01/16 22:00 Nasal Cannula 4.0 Intake and Output 06/02/16 06/02/16 06/03/16 15:00 23:00 07:00 Intake Total 625 ml 710 ml Balance 625 ml 710 ml Exam General: No acute signs or symptoms of distress Eyes: pupils equal round, Anicteric sclera Neck: Supple nontender, no JVD Cardiac: S1, S2 auscultated, regular rhythm and rate Pulmonary: No coarse rhonchi or breathing auscultated GI: PEG tube in place Extremities: AV fistula on left upper extremity Skin: Clean dry and intact Neurologic: Alert to self, confused to person place time Results Result Diagram: 06/03/1628 06/03/16527 Results 24 hrs Laboratory Tests Test 06/03/16 05:28 Anion Gap 22 H Basophils # 0.0 Basophils % 0.1 Blood Morphology Comment Blood Urea Nitrogen 108 H Calcium Level 9.1 Carbon Dioxide Level 23 Chloride Level 98 Creatinine 3.75 H Eosinophils # 1.5 H Eosinophils % 12.5 H Glucose Level 97 Hematocrit 22.6 L Hemoglobin 7.3 L Lymphocytes # 1.4 Lymphocytes % 11.6 L Magnesium Level 2.7 H Mean Corpuscular Hemoglobin 28.7 L Mean Corpuscular Hemoglobin Concent 32.2 Mean Corpuscular Volume 89.2 Mean Platelet Volume 8.2 Monocytes # 1.5 H Monocytes % 12.4 H Neutrophils # 7.6 H Neutrophils % 63.4 Nucleated Red Blood Cells # 0.0 Nucleated Red Blood Cells % 0.0 Phosphorus Level 5.5 H Platelet Count 313 Potassium Level 3.9 Red Blood Count 2.54 L Red Cell Distribution Width 20.0 H Sodium Level 139 White Blood Count 12.0 H Medications Medications Current Medications Ondansetron HCl (Zofran Inj) 4 mg Q6H PRN IV NAUSEA AND/OR VOMITING Last administered on 05/05/16 22:10; Admin Dose 4 MG; Start 04/25/16 at 22:00 Acetaminophen (Tylenol Tab) 650 mg Q6H PRN PO PAIN LEVEL 1-3 OR FEVER Last administered on 05/17/16 00:25; Admin Dose 650 MG; Start 04/25/16 at 22:00 Acetaminophen/ Hydrocodone Bitart ([place] (5/325)) 1 tab Q6H PRN GTB MODERATE PAIN LEVEL 4-6 Last administered on 05/05/16 11:41; Admin Dose 1 TAB; Start 04/25/16 at 22:00 Morphine Sulfate (morphine) 2 mg Q4H PRN IV SEVERE PAIN LEVEL 7-10; Start at 22:00 Docusate Sodium (Colace Liquid Cup) 100 mg Q12H PRN GTB CONSTIPATION; Start 04/25/16 at 22:00 Hydralazine HCl (Apresoline) 25 mg Q8 PRN GTB ELEVATED BLOOD PRESSURE Last administered on 05/20/16 21:57; Admin Dose 25 MG; Start 04/25/16 at 22:00 Magnesium Hydroxide (Milk Of Mag) 30 ml DAILY PRN GTB CONSTIPATION; Start at 22:00 Lactobacillus Acidoph/Bulgaricus (Floranex) 1 tab BID GTB Last administered on 06/03/16 09:17; Admin Dose 1 TAB; Start 04/26/16 at 09:00 Folic Acid (Folic Acid) 1 mg DAILY PO Last administered on 06/03/16 09:17; Admin Dose 1 MG; Start 04/26/16 at 09:00 Diphenhydramine HCl (Benadryl) 25 mg Q6H PRN IM Itching Last administered on 16:59; Admin Dose 25 MG; Start 04/26/16 at 02:15 Vitamin B Complex/ Vitamin C (Berocca) 1 cap DAILY PO Last administered on 06/03 09:17; Admin Dose 1 CAP; Start 04/26/16 at 09:00 Valsartan (Diovan) 80 mg BID GTB Last administered on 06/02/16 21:02; Admin Dose 80 MG; Start 04/29/16 at 21:00 Lorazepam (Ativan) 1 mg Q6H PRN IV Anxiety Last administered on 05/31/16 01:28 ; Admin Dose 1 MG; Start 04/30/16 at 14:30 Famotidine (Pepcid) 20 mg Q24H GTB Last administered on 06/02/16 17:51; Admin Dose 20 MG; Start 05/06/16 at 17:00 Clonidine (Catapres) 0.1 mg Q6 PRN NGT ELEVATED BLOOD PRESSURE Last administered on 06/02/16 23:38; Admin Dose 0.1 MG; Start 05/21/16 at 00:30 Memantine (Namenda) 5 mg DAILY GTB Last administered on 06/03/16 09:17; Admin Dose 5 MG; Start 05/29/16 at 10:00 Olanzapine (Zyprexa) 5 mg DAILY GTB Last administered on 06/03/16 09:17; Admin Dose 5 MG; Start 05/29/16 at 10:00 Ferrous Sulfate (Ferrous Sulfate (Ec)) 325 mg TID PO ; Start 06/03/16 at 21:00 BRET MELÉNDEZ Jun 03, 2016 14:44
[2016-06-03] MEDS: FAMOTIDINE 20 MG TAB GTB SCH (17:19)
[2016-06-03 18:39] LABS: HEMATOCRIT 39.3 % (37.0-47.0); HEMOGLOBIN 12.7 g/dl (12.0-16.0)
[2016-06-03] MEDS: FERROUS SULFATE (EC) 325 MG TAB PO SCH (21:24)
[2016-06-04 01:06] LABS: HEMATOCRIT 39.6 % (37.0-47.0)
[2016-06-04 06:28] LABS: BASOPHILS % 0.1 % (0.0-2.0); EOSINOPHILS # 1.1 10^3/ul (0.0-0.5); HEMATOCRIT 38.6 % (37.0-47.0); HEMOGLOBIN 12.8 g/dl (12.0-16.0); LYMPHOCYTES # 1.6 10^3/ul (0.8-2.9); LYMPHOCYTES % 13.1 % (15.0-51.0); MEAN CORPUSCULAR HEMOGLOBIN 26.8 pg (29.0-33.0); MEAN CORPUSCULAR HGB CONC 33.1 g/dl (32.0-37.0); MEAN PLATELET VOLUME 8.4 fl (7.4-10.4); MONOCYTE # 1.6 10^3/ul (0.3-0.9); MONOCYTES % 13.5 % (0.0-11.0); NEUTROPHIL # 7.8 10^3/ul (1.6-7.5); NEUTROPHILS % 64.3 % (39.0-77.0); PLATELET COUNT 273 10^3/UL (140-440); RED BLOOD COUNT 4.77 10^6/ul (4.20-5.40); RED CELL DISTRIBUTION WIDTH 28.5 % (11.5-14.5); UNCORRECTED WBC 12.1 10^3/ul (4.8-10.8); WHITE BLOOD COUNT 12.1 10^3/ul (4.8-10.8)
[2016-06-04 06:35] LABS: CONDITION 1; LH ANALYZER COMMENTS 1; NUCLEATED RED BLOOD CELLS # 0.2 10^3/ul (0.0-0.0); SUSPECT 1
[2016-06-04 06:39] LABS: POTASSIUM 3.6 mmol/L (3.5-5.1)
[2016-06-04 06:41] LABS: CREATININE 2.42 mg/dl (0.44-1.00)
[2016-06-04 06:42] LABS: CALCIUM 9.3 mg/dl (8.4-10.2)
[2016-06-04 08:43] VITALS: BP 181/78; RESP 16
[2016-06-04] MEDS: FERROUS SULFATE (EC) 325 MG TAB PO SCH ×3 (09:48→21:01)
[2016-06-04] MEDS: LACTOBACILLUS CHEW TAB GTB SCH ×2 (09:48→20:59)
[2016-06-04] MEDS: VALSARTAN 80 MG TAB GTB SCH ×2 (09:48→21:00)
[2016-06-04] MEDS: VITAMIN B COMPLEX/VIT C CAP PO SCH (09:49)
[2016-06-04] MEDS: MEMANTINE 5 MG TAB GTB SCH (09:49)
[2016-06-04] MEDS: OLANZAPINE 5 MG TAB GTB SCH (09:49)
[2016-06-04] MEDS: FOLIC ACID 1 MG TAB PO SCH (09:49)
--- NOTE | 2016-06-04 11:54 | PN ---
DATE: 06/04/2016 SUBJECTIVE: The patient is stable. The patient received 2 units of PRBC yesterday, tolerated it we ll with good response. No other events noted. OBJECTIVE: VITAL SIGNS: Blood pressure is 181/78, respirations 16, pulse 103, temperature 98.1. HEENT: Head is normocephalic. NECK: Supple. HEART: Regular rate. LUNGS: Show diminished breath sounds at the base. ABDOMEN: Soft, nontender to palpation. No rebound or guarding. EXTREMITIES: Negative for clubbing, cyanosis, no edema. DERMATOLOGIC: No rashes. MUSCULOSKELETAL: No joint effusions. NEUROLOGIC: No change in exam. MEDICATIONS: The patient's medications have been reviewed. LABORATORY DATA: Showed sodium 136, potassium 3.6, BUN 63, creatinine 2.42. White count 12.1, hemo globin 12.8, platelet count 273. ASSESSMENT AND PLAN: 1. End-stage renal disease. The patient had dialysis yesterday. Plan for dialysis tomorrow. 2. Anemia. The patient is status post blood transfusion. Continue to monitor H and H levels. Con tinue Epogen. 3. Mineral bone disorder. Continue to monitor calcium and phosphorus levels. 4. Hypomagnesemia, improved. Continue hemodialysis. 5. Access. The patient is status post arteriovenous fistula. 6. Dysphagia, status post percutaneous endoscopic gastrostomy. 7. Decubitus wound. Continue wound care. 8. Dementia. Continue to monitor. Dictated By: HUDSON GREGG/ESTEE Conf#: [id number] DID#: [id number]
--- NOTE | 2016-06-04 13:24 | PDOCDIS ---
Discharge Instructions DIAGNOSIS Discharge Diagnosis: 1. End-stage renal disease 2. Accelerated hypertension 3. Dysphagia 4. CONDITION Patient Condition: Stable HOME CARE INSTRUCTIONS: Special Diet: GTUBE FORMULA SUPPLEMENT FOLLOW UP/APPOINTMENTS Appointments Patient to be followed up at [facility] [place] for further dialysis care OTHER ORDERS: Other Orders: Further management and care per [facility] facility BRET MELÉNDEZ Jun 04, 2016 13:24
[2016-06-04 13:36] LABS: HEMATOCRIT 38.6 % (37.0-47.0); HEMOGLOBIN 12.7 g/dl (12.0-16.0)
[2016-06-04 14:00] VITALS: BP 159/82; PULSE 98
--- NOTE | 2016-06-04 16:19 | DS ---
Date/Time of Note Date/Time of Note DATE: 06/04/16 TIME: 16:11 Discharge Summary Admission/Discharge Info Admit Date/Time Apr 27, 2016 at 16:35 Discharge Date/Time Final Diagnosis 1. End-stage renal disease, dialysis dependent. 2. Accelerated hypertension. 3. Dysphagia. 4. Dementia. 5. Dermatitis from incontinence. 6. Anemia of chronic renal disease. 7. Hyperkalemia. Patient Condition: Stable Consults 1. Dr. Kit Rios 2 Dr. Carrasco [facility] Course This is an 80-year-old female with history of ESRD on dialysis on Friday and Friday as well as dementia who came to [facility] after having pulled out her dialysis catheter. Of note catheter was on her left anterior chest wall. She was brought to [facility] for the aforementioned issues. Patient was seen by workgroup leader for management of her dialysis. She was also seen by vascular surgeon who finally on [address] in [address]. Of note, Patient initially had IJ hemodialysis axis this by vascular surgery on 05/03/2016. Patient was otherwise optimized during her course of stay. She was continued on antihypertensives for hypertension. She was noted to be combative at times and is likely secondary to her underlying dementia. She initially had sitter at bedside we did monitor the patient. Patient did improve with Namenda medication. We did continue to reorient her. She was continued on antibiotic for her reported C. difficile colitis. She did have her blood lites balanced and monitored per nephrology. Case management was involved in helping place the patient. He finally did find accepting [facility] facility on the day of discharge was also set up for patient for dialysis. On the day of discharge patient was in stable condition Discussed plan of care with Dr. Guzman Discharge process time is 40 minutes Disposition: group home facility Home Meds Reported Medications Hydralazine Hcl* (Hydralazine Hcl*) 25 Mg Tab, 25 MG GTB Q8 Y for ELEVATED BLOOD PRESSURE, #90 TAB HOLD <110 HR<60 04/25/16 Folic Acid/Vitamin B Comp W-C (Nephrocaps Capsule) 1 Mg Capsule, 1 MG GTB DAILY , CAP 04/25/16 Nitroglycerin* (Nitrostat*) 0.4 Mg Tab.subl, 0.4 MG SL Q5MIN Y for CHEST PAIN, BOTTLE 04/25/16 Ondansetron Hcl* (Zofran*) 4 Mg Tab, 4 MG GTB Q6H Y for NAUSEA AND OR VOMITING, TAB 04/25/16 Magnesium Hydroxide* (Milk Of Magnesia*) 400 Mg/5 Ml Oral.susp, 30 ML GTB DAILY Y for CONSTIPATION, ML 04/25/16 Mag Hydrox/Al Hydrox/Simeth (Maalox Advanced Suspension) 355 Ml Oral.susp, 30 ML GTB Q6 04/25/16 Hydrocodone/Acetaminophen ([place] 5-325 Tablet) 1 Each Tablet, 1 EACH GTB Q4H WHILE AWAKE Y for MODERATE PAIN LEVEL 4-6, TAB 04/25/16 Albuterol Sulfate* (Albuterol Sulfate* Neb) 0.083%-3 Ml Neb, 2.5 MG NEB Q6 Y for WHEEZING AND SOB, #30 VIAL 04/25/16 Acidophilus-Bulgaricus* (BD Lactinex*) 1 Pkt Packet, 1 PKT GTB BID, PACKET 04/25/16 Acetaminophen* (Acetaminophen* Susp) 325 Mg/10.15 Ml Solution, 650 MG GTB Q6 Y for PAIN OR TEMP ABOVE 38C, ML 04/25/16 Follow-up Plan CONDITION Patient Condition: Stable HOME CARE INSTRUCTIONS: Special Diet: GTUBE FORMULA SUPPLEMENT FOLLOW UP/APPOINTMENTS Appointments Patient to be followed up at [facility] in [place] for further dialysis care OTHER ORDERS: Other Orders: Further management and care per group home facility Pending Labs Laboratory Tests Test 06/03/16 17:30 06/03/16 18:27 06/04/16 00:43 06/04/16 05:44 Stool Occult Blood NEGATIVE (NEGATIVE) Hematocrit 39.3% (37.0-47.0) 39.6% (37.0-47.0) 38.6% (37.0-47.0) Hemoglobin 12.7g/dl (12.0-16.0) 13.0g/dl (12.0-16.0) 12.8g/dl (12.0-16.0) Anion Gap 21 (8-16) Basophils # 0.010^3/ul (0.0-0.1) Basophils % 0.1% (0.0-2.0) Blood Morphology Comment Blood Urea Nitrogen 63mg/dl (7-20) Calcium Level 9.3mg/dl (8.4-10.2) Carbon Dioxide Level 26mmol/L (21-31) Chloride Level 93mmol/L (97-110) Creatinine 2.42mg/dl (0.44-1.00) Eosinophils # 1.110^3/ul (0.0-0.5) Eosinophils % 9.0% (0.0-7.0) Glucose Level 105mg/dl (70-220) Lymphocytes # 1.610^3/ul (0.8-2.9) Lymphocytes % 13.1% (15.0-51.0) Mean Corpuscular Hemoglobin 26.8pg (29.0-33.0) Mean Corpuscular Hemoglobin Concent 33.1g/dl (32.0-37.0) Mean Corpuscular Volume 81.0fl (82.0-101.0) Mean Platelet Volume 8.4fl (7.4-10.4) Monocytes # 1.610^3/ul (0.3-0.9) Monocytes % 13.5% (0.0-11.0) Neutrophils # 7.810^3/ul (1.6-7.5) Neutrophils % 64.3% (39.0-77.0) Nucleated Red Blood Cells # 0.210^3/ul (0.0-0.0) Nucleated Red Blood Cells % 2.0/100WBC (0.0-0.0) Platelet Count 46899^3/UL (140-440) Potassium Level 3.6mmol/L (3.5-5.1) Red Blood Count 4.7710^6/ul (4.20-5.40) Red Cell Distribution Width 28.5% (11.5-14.5) Sodium Level 136mmol/L (135-144) White Blood Count 12.110^3/ul (4.8-10.8) Test 06/04/16 13:18 Hematocrit 38.6% (37.0-47.0) Hemoglobin 12.7g/dl (12.0-16.0) BRET MELÉNDEZ Jun 04, 2016 16:19
[2016-06-04] MEDS: FAMOTIDINE 20 MG TAB GTB SCH (17:58)
[2016-06-04 20:57] VITALS: BP 160/77; RESP 18
[2016-06-04 23:30] VITALS: BP 142/75; PULSE 99; RESP 18
[2016-06-05] VITALS (9 sets, daily range): BP systolic 106–165; BP diastolic 52–80; PULSE 91–116; RESP 18
[2016-06-05 06:30] LABS: POTASSIUM 3.3 mmol/L (3.5-5.1)
[2016-06-05 06:33] LABS: CREATININE 3.35 mg/dl (0.44-1.00)
[2016-06-05 06:34] LABS: CALCIUM 9.5 mg/dl (8.4-10.2)
[2016-06-05] MEDS: FERROUS SULFATE (EC) 325 MG TAB PO SCH ×2 (09:36→13:03)
[2016-06-05] MEDS: LACTOBACILLUS CHEW TAB GTB SCH (09:36)
[2016-06-05] MEDS: OLANZAPINE 5 MG TAB GTB SCH (09:36)
[2016-06-05] MEDS: VALSARTAN 80 MG TAB GTB SCH (09:36)
[2016-06-05] MEDS: VITAMIN B COMPLEX/VIT C CAP PO SCH (09:36)
[2016-06-05] MEDS: MEMANTINE 5 MG TAB GTB SCH (09:37)
[2016-06-05] MEDS: FOLIC ACID 1 MG TAB PO SCH (09:37)
[2016-06-05 09:45] LABS: BASOPHILS % 0.1 % (0.0-2.0); EOSINOPHILS # 1.3 10^3/ul (0.0-0.5); EOSINOPHILS % 10.1 % (0.0-7.0); HEMOGLOBIN 12.4 g/dl (12.0-16.0); LYMPHOCYTES # 1.7 10^3/ul (0.8-2.9); LYMPHOCYTES % 13.6 % (15.0-51.0); MEAN CORPUSCULAR HEMOGLOBIN 26.5 pg (29.0-33.0); MEAN CORPUSCULAR HGB CONC 31.9 g/dl (32.0-37.0); MEAN PLATELET VOLUME 8.7 fl (7.4-10.4); MONOCYTE # 1.8 10^3/ul (0.3-0.9); MONOCYTES % 14.3 % (0.0-11.0); NEUTROPHILS % 61.9 % (39.0-77.0); PLATELET COUNT 270 10^3/UL (140-440); RED CELL DISTRIBUTION WIDTH 28.9 % (11.5-14.5); UNCORRECTED WBC 12.9 10^3/ul (4.8-10.8); WHITE BLOOD COUNT 12.9 10^3/ul (4.8-10.8)
[2016-06-05 09:48] LABS: CONDITION 1; LH ANALYZER COMMENTS 1; SUSPECT 1
--- NOTE | 2016-06-05 11:11 | PN ---
DATE: 06/04/2016 SUBJECTIVE: The patient is stable. No acute events overnight. No fevers, chills, nausea, vomiting . The patient is pending hemodialysis today. OBJECTIVE: VITAL SIGNS: Blood pressure is 165/79, respirations 18, pulse 95, temperature 97.4. HEENT: Head is normocephalic. NECK: Supple. HEART: Regular rate. LUNGS: Show diminished breath sounds at the bases. ABDOMEN: Soft, nontender to palpation. No rebound or guarding. EXTREMITIES: Negative for clubbing, cyanosis. No edema. DERMATOLOGIC: No rashes. MUSCULOSKELETAL: No joint effusions. NEUROLOGIC: No change in exam. MEDICATIONS: The patient's medications have been reviewed. LABORATORY DATA: Shows a white count of 12.9, hemoglobin 12.4, hematocrit 39.0, platelet count is 2 70. Sodium 136, potassium , chloride 94, BUN 104, creatinine 2.35. ASSESSMENT AND PLAN: 1. End-stage renal disease. The patient is scheduled for dialysis today. Will dialyze for 3 hours on a 4K bath, calcium 2.5. 2. Hypokalemia. We will dialyze on a high potassium bath. 3. Anemia. Hemoglobin levels are stable. Continue to monitor. We will hold Epogen. 4. Mineral bone disorder. Continue to monitor calcium and phosphorus levels. 5. Hypomagnesemia, improved. Continue hemodialysis. 6. Dysphagia/PEG tube. Continue tube feeding. 7. Decubitus wound. Continue wound care. 8. Dementia. Continue to monitor. Dictated By: HUDSON GREGG/ESTEE Conf#: [id number] DID#: [id number]
[2016-06-05] MEDS: ALBUMIN HUMAN 25% 100 ML IV PRN (15:47)
--- NOTE | 2016-06-05 16:16 | DS ---
Date/Time of Note Date/Time of Note DATE: 06/05/16 TIME: 16:13 Discharge Summary Admission/Discharge Info Admit Date/Time Apr 27, 2016 at 16:35 Discharge Date/Time Final Diagnosis 1. End-stage renal disease, dialysis dependent. 2. Accelerated hypertension. 3. Dysphagia. 4. Dementia. 5. Dermatitis from incontinence. 6. Anemia of chronic renal disease. 7. Hyperkalemia. Patient Condition: Stable Consults 1. Dr. Kit Rios 2 Dr. Carrasco [facility] Course This is an 80-year-old female with history of ESRD on dialysis on Friday and Friday as well as dementia who came to [facility] after having pulled out her dialysis catheter. Of note catheter was on her left anterior chest wall. She was brought to [facility] for the aforementioned issues. Patient was seen by security dispatcher for management of her dialysis. She was also seen by vascular surgeon who finally on [address] in [address]. Of note, Patient initially had IJ hemodialysis axis this by vascular surgery on 05/03/2016. Patient was otherwise optimized during her course of stay. She was continued on antihypertensives for hypertension. She was noted to be combative at times and is likely secondary to her underlying dementia. She initially had sitter at bedside we did monitor the patient. Patient did improve with Namenda medication. We did continue to reorient her. She was continued on antibiotic for her reported C. difficile colitis. She did have her blood lites balanced and monitored per nephrology. Case management was involved in helping place the patient. He finally did find accepting residential facility on the day of discharge was also set up for patient for dialysis. Patient initially planned for discharge on 06/04/2016 however no bed placement set up yet. Placement set up on 06/05/2016. On the day of discharge patient was in stable condition Discussed plan of care with Dr. Guzman Discharge process time is 40 minutes Disposition: [facility] facility Home Meds Reported Medications Hydralazine Hcl* (Hydralazine Hcl*) 25 Mg Tab, 25 MG GTB Q8 Y for ELEVATED BLOOD PRESSURE, #90 TAB HOLD <110 HR<60 04/25/16 Folic Acid/Vitamin B Comp W-C (Nephrocaps Capsule) 1 Mg Capsule, 1 MG GTB DAILY , CAP 04/25/16 Nitroglycerin* (Nitrostat*) 0.4 Mg Tab.subl, 0.4 MG SL Q5MIN Y for CHEST PAIN, BOTTLE 04/25/16 Ondansetron Hcl* (Zofran*) 4 Mg Tab, 4 MG GTB Q6H Y for NAUSEA AND OR VOMITING, TAB 04/25/16 Magnesium Hydroxide* (Milk Of Magnesia*) 400 Mg/5 Ml Oral.susp, 30 ML GTB DAILY Y for CONSTIPATION, ML 04/25/16 Mag Hydrox/Al Hydrox/Simeth (Maalox Advanced Suspension) 355 Ml Oral.susp, 30 ML GTB Q6 04/25/16 Hydrocodone/Acetaminophen ([place]enez[place] 5-325 Tablet) 1 Each Tablet, 1 EACH GTB Q4H WHILE AWAKE Y for MODERATE PAIN LEVEL 4-6, TAB 04/25/16 Albuterol Sulfate* (Albuterol Sulfate* Neb) 0.083%-3 Ml Neb, 2.5 MG NEB Q6 Y for WHEEZING AND SOB, #30 VIAL 04/25/16 Acidophilus-Bulgaricus* (BD Lactinex*) 1 Pkt Packet, 1 PKT GTB BID, PACKET 04/25/16 Acetaminophen* (Acetaminophen* Susp) 325 Mg/10.15 Ml Solution, 650 MG GTB Q6 Y for PAIN OR TEMP ABOVE 38C, ML 04/25/16 Follow-up Plan CONDITION Patient Condition: Stable HOME CARE INSTRUCTIONS: Special Diet: GTUBE FORMULA SUPPLEMENT FOLLOW UP/APPOINTMENTS Appointments Patient to be followed up at [facility] in [place] for further dialysis care OTHER ORDERS: Other Orders: Further management and care per [facility] facility Pending Labs Laboratory Tests Test 06/04/16 17:03 06/05/16 05:15 06/05/16 05:25 Hepatitis B Surface Antigen NEGATIVE (NEGATIVE) Basophils # 0.010^3/ul (0.0-0.1) Basophils % 0.1% (0.0-2.0) Blood Morphology Comment Eosinophils # 1.310^3/ul (0.0-0.5) Eosinophils % 10.1% (0.0-7.0) Hematocrit 39.0% (37.0-47.0) Hemoglobin 12.4g/dl (12.0-16.0) Lymphocytes # 1.710^3/ul (0.8-2.9) Lymphocytes % 13.6% (15.0-51.0) Mean Corpuscular Hemoglobin 26.5pg (29.0-33.0) Mean Corpuscular Hemoglobin Concent 31.9g/dl (32.0-37.0) Mean Corpuscular Volume 83.0fl (82.0-101.0) Mean Platelet Volume 8.7fl (7.4-10.4) Monocytes # 1.810^3/ul (0.3-0.9) Monocytes % 14.3% (0.0-11.0) Neutrophils # 8.010^3/ul (1.6-7.5) Neutrophils % 61.9% (39.0-77.0) Nucleated Red Blood Cells # 0.010^3/ul (0.0-0.0) Nucleated Red Blood Cells % 0.0/100WBC (0.0-0.0) Platelet Count 29516^3/UL (140-440) Red Blood Count 4.7010^6/ul (4.20-5.40) Red Cell Distribution Width 28.9% (11.5-14.5) White Blood Count 12.910^3/ul (4.8-10.8) Anion Gap 20 (8-16) Blood Urea Nitrogen 104mg/dl (7-20) Calcium Level 9.5mg/dl (8.4-10.2) Carbon Dioxide Level 25mmol/L (21-31) Chloride Level 94mmol/L (97-110) Creatinine 3.35mg/dl (0.44-1.00) Glucose Level 125mg/dl (70-220) Potassium Level 3.3mmol/L (3.5-5.1) Sodium Level 136mmol/L (135-144) BRET MELÉNDEZ Jun 05, 2016 16:16
[2016-06-05] MEDS: FAMOTIDINE 20 MG TAB GTB SCH (17:00)
== END 2016-06-05 18:27 | DRG 673 ==
LOC: E/R 18:01 → PP2 20:58 → OBSVTOIN 04-27 16:35 → PP2 05-30 15:24
PROVIDERS: ADMIT Internal Medicine; ATTEND Internal Medicine
PROC: 30233K1 Transfusion of Nonautologous Frozen Plasma into Peripheral Vein, Percutaneous Approach (ICD-10-PCS; 2016-04-27)
PROC: 03180ZD Bypass Left Brachial Artery to Upper Arm Vein, Open Approach (ICD-10-PCS; principal; 2016-04-30)
PROC: 5A1D60Z (ICD-10-PCS; 2016-05-01)
PROC: 05HM33Z Insertion of Infusion Device into Right Internal Jugular Vein, Percutaneous Approach (ICD-10-PCS; 2016-05-03 17:30)
PROC: 30233N1 Transfusion of Nonautologous Red Blood Cells into Peripheral Vein, Percutaneous Approach (ICD-10-PCS; 2016-05-05)
DX: I12.0 Hypertensive chronic kidney disease with stage 5 chronic kidney disease or end stage renal disease (principal); G93.40 Encephalopathy, unspecified; L89.152 Pressure ulcer of sacral region, stage 2; E87.0 Hyperosmolality and hypernatremia; A04.7 Enterocolitis due to Clostridium difficile; T82.42XA Displacement of vascular dialysis catheter, initial encounter; N18.6 End stage renal disease; F03.90 Unspecified dementia, unspecified severity, without behavioral disturbance, psychotic disturbance, mood disturbance, and anxiety; F03.91 Unspecified dementia, unspecified severity, with behavioral disturbance; Z68.1 Body mass index [BMI] 19.9 or less, adult; E87.5 Hyperkalemia; Z99.2 Dependence on renal dialysis; D72.829 Elevated white blood cell count, unspecified; R55 Syncope and collapse; M89.9 Disorder of bone, unspecified; R13.10 Dysphagia, unspecified; Z93.1 Gastrostomy status; E83.42 Hypomagnesemia; Z78.1 Physical restraint status; L89.892 Pressure ulcer of other site, stage 2; D63.1 Anemia in chronic kidney disease
CPT/HCPCS: 36415; 36430; 70450; 71010; 77001; 80048; 80053; 82270; 82728; 83540; 83735; 84100; 84132; 85014; 85018; 85025; 85610; 85730; 86078; 86850; 86870; 86900; 86901; 86902; 86920; 87075; 87340; 88300; 90935; 93005; 99217; G0378; J1940; C1725; C1750; C1752; C1769; J0360; J0690; J0886; J1200; J1644; J2060; J2150; J2250; J2310; J2370; J2405; J2597; J2916; J3010; J7040; J7042; J7050; J7070; P9016; P9047; P9059